=== PATIENT | female | born 1935 | race Caucasian/White ===

== ENCOUNTER 2016-11-04 09:54 | Emergency (ER) | payer OTHER ==
[~2016-11-04] VITALS: Ht 157.5 cm; Wt 62.5 kg
[~2016-11-04 09:54] MED LIST: ASPI-435 PO; ATV/1 PO; CALC600T9 PO; CITA20TA4 PO; FURO-85 PO; HYDR-5688 PO; ISOS120T5 PO; LISI-461 PO; LOVA40TA4 PO; METO25TA3 PO; NRV5 PO; NTRGSL/4 UT; OXYC20TA50 PO; PRLSR20 PO; TRN400 PO
[2016-11-04 10:05] VITALS: TEMP 37.1; O2SAT 96; Ht 157.5 cm; Wt 62.5 kg
--- NOTE | 2016-11-04 10:14 | EMERGENCY ROOM VISIT NOTE ---
History Report prepared by Alon: Diana Moe Under the Supervision of: Dr. Kwan Hernández D.O. First contact with patient: 10:02 Stated Complaint: ALTERED MENTAL STATUS History of Present Illness The patient is an 81 year old female who presents to the Emergency Room with complaints of a persistent altered mental status that began prior to arrival. Per nursing staff, the patient was found on the floor by a neighbor at her house. The patient's daughter was notified and EMS was called. Nursing staff notes that EMS found the patient lying on the floor with her hands on her sides. EMS reports that the patient did not talk to them on their way to the emergency department. The patient notes diffuse abdominal tenderness. She denies any neck pain, chest pain, or back pain. The history is limited secondary to altered mental status. Source of History: patient, EMS, nursing staff History Limited By: AMS Onset: prior to arrival Position: other (global) Quality: other (altered mental status) Timing: other (persistent) Associated Symptoms: + abdominal pain, No back pain, No chest pain, No neck pain Review of Systems The history is limited secondary to altered mental status. Past Medical & Surgical Medical Problems: (1) Anemia of chronic disease (2) Anxiety (3) CKD (chronic kidney disease), stage III (4) Dementia (5) Depression (6) Diabetes (7) GERD (gastroesophageal reflux disease) (8) History of left heart catheterization (9) HLD (hyperlipidemia) (10) HTN (hypertension) (11) Hypoglycemia (12) left renal artery stent placement (13) Myelodysplasia (myelodysplastic syndrome) (14) Neuropathy (15) Peripheral vascular disease Surgical Problems: (1) H/O colonoscopy (2) H/O esophagogastroduodenoscopy (3) H/O partial thyroidectomy (4) S/P CABG x 3 (5) S/P cataract surgery (6) Stented coronary artery Family History Diabetes mellitus FH: cancer Social History Smoking Status: Never Smoker Alcohol Use: occasionally Housing Status: lives with family Occupation Status: retired Current/Historical Medications Scheduled Amlodipine Besylate (Amlodipine Besylate), 10 MG PO DAILY Aspirin (Aspirin 81), 81 MG PO QAM Calcium Carbonate-Vitamin D (Calcium + D), 1 TAB PO DAILY Citalopram Hydrobromide (Citalopram Hydrobromide), 20 MG PO DAILY Epoetin John (Procrit), 40,000 UNITS SQ UD Insulin Aspart (Novolog Flexpen), SQ UD Insulin Glargine (Lantus Solostar), 20 UNITS SQ PM Irbesartan (Irbesartan), 75 MG PO DAILY Isosorbide Mononitrate Ext Rel (Imdur Ext Rel), 120 MG PO QAM Lisinopril (Lisinopril), 10 MG PO BID Lorazepam (Ativan), 1 MG PO TID Lovastatin (Mevacor), 40 MG PO HS Metoprolol Succ (Toprol Xl) (Toprol-Xl), 12.5 MG PO BID Nitroglycerin (Nitrostat), 0.4 MG UT PRN Omeprazole (Prilosec), 20 MG PO DAILY Oxycodone Hcl (Oxycontin), 20 MG PO BID Pentoxifylline (Pentoxifylline ER), 400 MG PO TID Polyethylene Glycol 3350 (Miralax), 17 GM PO DAILY Scheduled PRN Furosemide (Lasix), 20 MG PO DAILY PRN for SWELLING Hydrocodone/Acetaminophen 5MG/325MG (Watson 5MG/325MG), 1 TABLET PO Q4 PRN for Pain Allergies Coded Allergies: No Known Allergies (Unverified , 11/04/16) Physical Exam Vital Signs Date Time Temp Pulse Resp B/P Pulse Ox O2 Delivery O2 Flow Rate FiO2 11/04/16 13:50 65 18 195/87 98 Room Air 11/04/16 12:39 67 18 183/76 97 Room Air 11/04/16 11:12 65 12 180/75 98 Room Air 11/04/16 10:25 82 11/04/16 10:05 95 Room Air 11/04/16 10:05 37.1 81 18 193/71 95 Room Air 11/04/16 10:05 96 Room Air Physical Exam GENERAL: Listless, slow to answer questions. Only follows commands intermittently. EYES: The conjunctivae are clear. The pupils are round and reactive. EARS, NOSE, MOUTH AND THROAT: The nose is without any evidence of any deformity. Mucous membranes are moist tongue is midline NECK: The neck is nontender and supple. RESPIRATORY: Normal respiratory effort is noted there is no evidence of wheezing rhonchi or rales CARDIOVASCULAR: Regular rate and rhythm noted there no murmurs rubs or gallops normal S1 normal S2 GASTROINTESTINAL: The abdomen is mildly distended, but soft. Diffuse tenderness to palpation. No specific guarding or rigidity noted. MUSCULOSKELETAL/EXTREMITIES: There is no evidence of gross deformity full range of motion is noted in the hips and shoulders SKIN: Trace pedal edema bilaterally. There is no obvious evidence of any rash. There are no petechiae, pallor or cyanosis noted. NEUROLOGIC: Patient is oriented to person, but not place, time, or situation. Strength was symmetric. No drift noted, no facial droop noted. Medical Decision & Procedures ER Provider Diagnostic Interpretation: Radiology results as stated below per my review and radiologist interpretation: HEAD CT NONCONTRAST CT DOSE: 971.34 mGy.cm HISTORY: Headache EVALUATE ALTERED MENTAL STATUS/WEAKNESS TECHNIQUE: Multiaxial CT images of the head were performed without the use of intravenous contrast. Comparison: None. Findings: The paranasal sinuses and mastoid air cells are clear. Atrophy. Moderate chronic small vessel change. Old right frontal infarct.] System is midline. Minimal benign calcification left mid cerebellum. Impression: Chronic and age-related change. No acute process. Electronically signed by: Jame Rocha M.D. 11/04/2016 11:45 AM Dictated Date/Time: 11/04/2016 11:44 AM CHEST ONE VIEW PORTABLE CLINICAL HISTORY: EVALUATE ALTERED MENTAL STATUS/WEAKNESS COMPARISON STUDY: No previous studies for comparison. FINDINGS: The bones soft tissues and hemidiaphragms are normal. The cardiomediastinal silhouette is normal. The lungs are clear. The pulmonary vasculature is normal. Prior median sternotomy IMPRESSION: Negative chest. Electronically signed by: Jame Rocha M.D. 11/04/2016 10:35 AM Dictated Date/Time: 11/04/2016 10:[address] SCAN OF THE ABDOMEN AND PELVIS WITHOUT IV CONTRAST CLINICAL HISTORY: Generalized abdominal pain. COMPARISON STUDY: No priors. TECHNIQUE: CT scan of the abdomen and pelvis is performed from the lung bases to the proximal femora. Images are reviewed in the axial, sagittal, and coronal planes. IV contrast was not administered for this examination as per the referring clinician. Note that the examination was performed in significantly suboptimal fashion without oral and IV contrast. The examination is also degraded by streak artifact from the patient's arms which could not be elevated above the abdomen. Automated dose control exposure was utilized. FINDINGS: Lung bases: The patient is status post midline sternotomy. The heart is normal in size and without pericardial effusion. The coronary arteries are densely calcified. There is bibasilar scarring versus atelectasis. The lung bases are otherwise clear. A small hiatal hernia is observed. Liver: Evaluation of the liver is degraded by streak artifact. The unenhanced liver is normal in size, contour, and attenuation. There is no intrahepatic biliary ductal dilatation. Gallbladder: The gallbladder is mildly distended but otherwise normal in appearance. Spleen: Normal in size and attenuation. Pancreas: The unenhanced pancreas is atrophic and grossly unremarkable. Adrenal glands: Unremarkable. Kidneys: The unenhanced kidneys are atrophic and without hydronephrosis. An extrarenal pelvis is noted on the right. There are numerous renovascular calcifications. No renal calculi are seen. A 1.7 cm exophytic lesion arises from the lower pole the right kidney on axial image #214. Abdominal vasculature: The abdominal aorta is normal in course and caliber noting moderate to advanced atherosclerotic calcification. Bowel: There is rectosigmoid fecal impaction with mild perirectal inflammatory stranding. Moderate constipation is seen throughout the remainder of the colon. There is no bowel obstruction. The appendix is not visualized. A small duodenal diverticulum is noted. Peritoneum: There is no intraperitoneal free air or abdominal ascites. There is a small fat-containing umbilical hernia. Large foci of induration within the ventral pelvic abdominal wall are likely related to subcutaneous injections. Lymphadenopathy: None. Pelvic viscera: The bladder is normal as visualized. There are small calcified uterine fibroids. No adnexal lesion is seen. Phleboliths are noted in the pelvis. Skeletal structures: The skeletal structures are heterogeneously osteopenic. There is moderate to advanced lumbosacral spondylosis. No lytic or blastic lesions are seen. IMPRESSION: 1. Significantly suboptimal examination without oral and IV contrast. 2. There is rectosigmoid fecal impaction with mild perirectal inflammatory stranding. Correlate clinically for evidence of stercoral proctitis. 3. Moderate constipation is noted throughout the remainder of the colon. No bowel obstruction is seen. 4. There is an indeterminant 1.7 cm exophytic lesion suggested arising from the lower pole of the right kidney. This is not well assessed without IV contrast and a solid mass lesion is not excluded. Nonemergent follow-up with a contrast-enhanced renal CTR or MRI is recommended. 5. The gallbladder is distended but otherwise normal in appearance. Correlation with clinical findings and serum bilirubin levels will be required. 6. Hiatal hernia. 7. Fibroid uterus. 8. Additional changes as above. Electronically signed by: Last Fine M.D. 11/04/2016 12:08 PM Dictated Date/Time: 11/04/2016 11:41 AM Laboratory Results 11/04/16 10:34 Red Blood Count 3.24, Mean Corpuscular Volume 107.7, Mean Corpuscular Hemoglobin 36.4, Mean Corpuscular Hemoglobin Concent 33.8, Mean Platelet Volume 12.0, Neutrophils (%) (Auto) 69.9, Lymphocytes (%) (Auto) 21.1, Monocytes (%) ( Auto) 6.6, Eosinophils (%) (Auto) 1.1, Basophils (%) (Auto) 0.8, Neutrophils # ( Auto) 2.66, Lymphocytes # (Auto) 0.80, Monocytes # (Auto) 0.25, Eosinophils # ( Auto) 0.04, Basophils # (Auto) 0.03 11/04/16 10:34 Test 11/04/16 00:00 11/04/16 10:34 11/04/16 13:48 Urine Color YELLOW Urine Appearance CLEAR (CLEAR) Urine pH 5.5 (4.5-7.5) Urine Specific [place]im 1.005 (1.000-1.030) Urine Protein TRACE (NEG) Urine Glucose (UA) TRACE (NEG) Urine Ketones NEG (NEG) Urine Occult Blood NEG (NEG) Urine Nitrite NEG (NEG) Urine Bilirubin NEG (NEG) Urine Urobilinogen NEG (NEG) Urine Leukocyte Esterase NEG (NEG) Urine WBC (Auto) 0 /hpf (0-5) Urine RBC (Auto) 0-4 /hpf (0-4) Urine Hyaline Casts (Auto) 1-5 /lpf (0-5) Urine Epithelial Cells (Auto) 0-5 /lpf (0-5) Urine Bacteria (Auto) NEG (NEG) Urine Opiates Screen POS (NEG) Urine Methadone, Qualitative NEG (NEG) Urine Barbiturates NEG (NEG) Urine Phencyclidine (PCP) Level NEG (NEG) Ur Amphetamine/Methamphetamine NEG (NEG) MDMA (Ecstasy) Screen NEG (NEG) Urine Benzodiazepines Screen NEG (NEG) Urine Cocaine Metabolite NEG (NEG) Urine Marijuana (THC) NEG (NEG) White Blood Count 3.80 K/uL (4.8-10.8) Red Blood Count 3.24 M/uL (4.2-5.4) Hemoglobin 11.8 g/dL (12.0-16.0) Hematocrit 34.9 % (37-47) Mean Corpuscular Volume 107.7 fL (80-100) Mean Corpuscular Hemoglobin 36.4 pg (25-34) Mean Corpuscular Hemoglobin Concent 33.8 g/dl (32-36) Platelet Count 272 K/uL (130-400) Mean Platelet Volume 12.0 fL (7.4-10.4) Neutrophils (%) (Auto) 69.9 % Lymphocytes (%) (Auto) 21.1 % Monocytes (%) (Auto) 6.6 % Eosinophils (%) (Auto) 1.1 % Basophils (%) (Auto) 0.8 % Neutrophils # (Auto) 2.66 K/uL (1.4-6.5) Lymphocytes # (Auto) 0.80 K/uL (1.2-3.4) Monocytes # (Auto) 0.25 K/uL (0.11-0.59) Eosinophils # (Auto) 0.04 K/uL (0-0.5) Basophils # (Auto) 0.03 K/uL (0-0.2) RDW Standard Deviation 64.8 fL (36.4-46.3) RDW Coefficient of Variation 16.5 % (11.5-14.5) Immature Granulocyte % (Auto) 0.5 % Immature Granulocyte # (Auto) 0.02 K/uL (0.00-0.02) Prothrombin Time 11.1 SECONDS (9.0-12.0) Prothromb Time International Ratio 1.0 (0.9-1.1) Activated Partial Thromboplast Time 23.5 SECONDS (21.0-31.0) Partial Thromboplastin Ratio 0.9 Venous Blood pH 7.42 (7.36-7.41) Venous Blood Partial Pressure CO2 40 mmHg (38.0-50.0) Venous Blood Partial Pressure O2 45 mmHg Venous Blood HCO3 25 mmol/L Venous Blood Oxygen Saturation 78.0 % Venous Blood Base Excess 0.7 mmol/L Carboxyhemoglobin 0.0 % THgb Anion Gap 12.0 mmol/L (3-11) Est Creatinine Clear Calc Drug Dose 29.0 ml/min Estimated GFR () 44.2 Estimated GFR (Non- 38.2 BUN/Creatinine Ratio 21.3 (10-20) Calcium Level 9.2 mg/dl (8.5-10.1) Phosphorus Level 2.1 mg/dl (2.5-4.9) Magnesium Level 2.3 mg/dl (1.8-2.4) Total Bilirubin 0.6 mg/dl (0.2-1) Direct Bilirubin 0.2 mg/dl (0-0.2) Aspartate Amino Transf (AST/SGOT) 13 U/L (15-37) Alanine Aminotransferase (ALT/SGPT) 17 U/L (12-78) Alkaline Phosphatase 60 U/L (45-117) Total Creatine Kinase 77 U/L (26-192) Creatine Kinase MB 2.1 ng/ml (0.5-3.6) Creatine Kinase MB Ratio 2.7 (0-3.0) Troponin I < 0.015 ng/ml (0-0.045) Total Protein 7.0 gm/dl (6.4-8.2) Albumin 4.0 gm/dl (3.4-5.0) Lipase 127 U/L (73-393) Thyroid Stimulating Hormone (TSH) 2.020 uIu/ml (0.300-4.500) Free Thyroxine 0.86 ng/dl (0.80-1.60) Bedside Glucose 212 mg/dl (70-90) Laboratory results per my review. ECG Indication: altered mental status Rate (beats per minute): 65 Rhythm: normal sinus Findings: RBBB, no ectopy, other (No acute ST segment abnormalities) Comparison ECG Date: 10/29/15 Change: no significant change ED Course 1004: The patient was evaluated in room A2. A complete history and physical examination were performed. 1034: The patients daughter has arrived and notes that the patient has a history of dementia and states that her father 9 years ago. 1121: Ordered Sodium Chloride 1000 ml @ 999 mls/hr IV. 1304: I reevaluated the patient and she is doing well. I discussed all the exam findings with the patients daughter and I discussed the treatment plan. She verbalized complete understanding and agreement. She is ready to take the patient home. Medical Decision Differential diagnosis: Etiologies such as metabolic, infection, hypoglycemia, electrolyte abnormalities , cardiac sources, intracerebral event, toxicologic, neurologic, as well as others were entertained. Nursing notes reviewed. Additional history is obtained from the patient's daughter. The patient's previous electronic medical records reviewed. The patient is an 81-year-old female who presented to the emergency department for altered mental status. The patient was noted to have a ground-level fall but appeared to be confused. The patient has had similar episodes in the past. She was found have hypoglycemia. She was treated with oral glucose as well as a meal. Her symptoms resolved. I discussed patient's laboratory radiographic studies with her. I also discussed her condition with her daughter. She was found have significant constipation. She was encouraged to continue all medications as prescribed. I also discussed the incidental finding on the CAT scan the abdomen and pelvis. I do not feel her abdominal pain at this time was real that was noted on physical exam it was likely reactive to her hypoglycemia because when the patient was reevaluated she did not have any abdominal tenderness and her physical exam was not consistent with an acute surgical abdomen. She was encouraged to continue all medications as prescribed. She was also encouraged to follow-up with her primary care physician as soon as possible. Otherwise she was encouraged to return to the emergency apartment immediately if symptoms change worsen or if the need arises. Impression Primary Impression: Altered mental status Additional Impressions: Hypoglycemia Dehydration Constipation Cyst of right kidney Scribe Attestation The scribe's documentation has been prepared under my direction and personally reviewed by me in its entirety. I confirm that the note above accurately reflects all work, treatment, procedures, and medical decision making performed by me. Departure Information Dispostion Home / Self-Care Prescriptions Polyethylene Glycol 3350 (MIRALAX) 1 Pow Pow 17 GM PO DAILY, #527 GM Prov: Kwan Hernández, 11/04/16 Referrals Daniela Mcbride M.D. (PCP) Forms HOME CARE DOCUMENTATION FORM, IMPORTANT VISIT INFORMATION Patient Instructions Constipation, Dehydration, Hypoglycemia, My [facility] Additional Instructions Call your family to schedule a follow-up appointment. Continue all medications as prescribed. Drink plenty of clear liquids. Return to the emergency department immediately if symptoms change worsen or if the need arises. Be sure to discuss the abnormal findings noted on CAT scan today in the emergency Department of your abdomen specifically of your kidney. You may require further testing to evaluate this finding in the future. Problem Qualifiers
[2016-11-04] MEDS ORDERED: INSDGIPEN SQ (10:24)
[2016-11-04] MEDS ORDERED: EPGI40M SQ (10:24)
[2016-11-04] MEDS ORDERED: NVLGI/PEN SQ (10:24)
[2016-11-04] MEDS ORDERED: IRBE1TAB46 PO (10:24)
--- NOTE | 2016-11-04 10:36 | DIAGNOSTIC IMAGING REPORT ---
CHEST ONE VIEW PORTABLE CLINICAL HISTORY: EVALUATE ALTERED MENTAL STATUS/WEAKNESS COMPARISON STUDY: No previous studies for comparison. FINDINGS: The bones soft tissues and hemidiaphragms are normal. The cardiomediastinal silhouette is normal. The lungs are clear. The pulmonary vasculature is normal. Prior median sternotomy IMPRESSION: Negative chest. Electronically signed by: Jame Rocha M.D. 11/04/2016 10:35 AM Dictated Date/Time: 11/04/2016 10:34 AM
[2016-11-04 10:46] LABS: BASO % 0.8 %; BASO ABS # 0.03 K/uL (0-0.2); COMPLETE YES; EOS % 1.1 %; HEMATOCRIT 34.9 % (37-47); IG% 0.5 %; LYMPH % 21.1 %; MEAN CELL VOLUME 107.7 fL (80-100); MEAN CORPUSCULAR HEMOGLOBIN 36.4 pg (25-34); MEAN CORPUSCULAR HGB CONC 33.8 g/dl (32-36); MONO % 6.6 %; NEUT % 69.9 %; PLATELET COUNT 272 K/uL (130-400); RED BLOOD COUNT 3.24 M/uL (4.2-5.4)
[2016-11-04 10:51] LABS: VEN BLOOD GAS BASE EXCESS 0.7 mmol/L
[2016-11-04 10:57] LABS: PARTIAL THROMBOPLASTIN RATIO 0.9; PROTHROMBIN TIME (PATIENT) 11.1 SECONDS (9.0-12.0)
[2016-11-04 11:12] LABS: ALT/SGPT 17 U/L (12-78); AST/SGOT 13 U/L (15-37); BLOOD UREA NITROGEN 28 mg/dl (7-18); BUN/CREATININE RATIO 21.3 (10-20); CALCIUM 9.2 mg/dl (8.5-10.1); CARBON DIOXIDE 24 mmol/L (21-32); CHLORIDE 111 mmol/L (98-107); GLUCOSE 34 mg/dl (70-99); MAGNESIUM 2.3 mg/dl (1.8-2.4); PHOSPHORUS 2.1 mg/dl (2.5-4.9); SODIUM 147 mmol/L (136-145)
[2016-11-04 11:19] LABS: ALKALINE PHOSPHATASE 60 U/L (45-117); CKMB/CK RATIO 2.7 (0-3.0)
[2016-11-04] MEDS ORDERED: SODIUM CHLORIDE 0.9% 1000ML 1,000 ML IV STA (11:21)
[2016-11-04 11:44] LABS: URINE APPEARANCE CLEAR (CLEAR); URINE BILIRUBIN NEG (NEG); URINE COLOR YELLOW; URINE EPITHELIAL CELL AUTO 0-5 /lpf (0-5); URINE NITRITE NEG (NEG); URINE PH 5.5 (4.5-7.5); URINE SPECIFIC GRAVITY 1.005 (1.000-1.030); UROBILINOGEN NEG (NEG)
[2016-11-04 11:45] LABS: MANUAL MICROSCOPIC REQUIRED? NO; REVIEW REQ? NO
--- NOTE | 2016-11-04 11:46 | DIAGNOSTIC IMAGING REPORT ---
HEAD CT NONCONTRAST CT DOSE: 971.34 mGy.cm HISTORY: Headache EVALUATE ALTERED MENTAL STATUS/WEAKNESS TECHNIQUE: Multiaxial CT images of the head were performed without the use of intravenous contrast. Comparison: None. Findings: The paranasal sinuses and mastoid air cells are clear. Atrophy. Moderate chronic small vessel change. Old right frontal infarct.] System is midline. Minimal benign calcification left mid cerebellum. Impression: Chronic and age-related change. No acute process. Electronically signed by: Jame Rocha M.D. 11/04/2016 11:45 AM Dictated Date/Time: 11/04/2016 11:44 AM
[2016-11-04 12:00] LABS: BENZODIAZEPINE, URINE NEG (NEG); COCAINE,URINE NEG (NEG); PHENCYCLIDINE, URINE NEG (NEG)
--- NOTE | 2016-11-04 12:09 | DIAGNOSTIC IMAGING REPORT ---
CT SCAN OF THE ABDOMEN AND PELVIS WITHOUT IV CONTRAST CLINICAL HISTORY: Generalized abdominal pain. COMPARISON STUDY: No priors. TECHNIQUE: CT scan of the abdomen and pelvis is performed from the lung bases to the proximal femora. Images are reviewed in the axial, sagittal, and coronal planes. IV contrast was not administered for this examination as per the referring clinician. Note that the examination was performed in significantly suboptimal fashion without oral and IV contrast. The examination is also degraded by streak artifact from the patient's arms which could not be elevated above the abdomen. Automated dose control exposure was utilized. FINDINGS: Lung bases: The patient is status post midline sternotomy. The heart is normal in size and without pericardial effusion. The coronary arteries are densely calcified. There is bibasilar scarring versus atelectasis. The lung bases are otherwise clear. A small hiatal hernia is observed. Liver: Evaluation of the liver is degraded by streak artifact. The unenhanced liver is normal in size, contour, and attenuation. There is no intrahepatic biliary ductal dilatation. Gallbladder: The gallbladder is mildly distended but otherwise normal in appearance. Spleen: Normal in size and attenuation. Pancreas: The unenhanced pancreas is atrophic and grossly unremarkable. Adrenal glands: Unremarkable. Kidneys: The unenhanced kidneys are atrophic and without hydronephrosis. An extrarenal pelvis is noted on the right. There are numerous renovascular calcifications. No renal calculi are seen. A 1.7 cm exophytic lesion arises from the lower pole the right kidney on axial image #214. Abdominal vasculature: The abdominal aorta is normal in course and caliber noting moderate to advanced atherosclerotic calcification. Bowel: There is rectosigmoid fecal impaction with mild perirectal inflammatory stranding. Moderate constipation is seen throughout the remainder of the colon. There is no bowel obstruction. The appendix is not visualized. A small duodenal diverticulum is noted. Peritoneum: There is no intraperitoneal free air or abdominal ascites. There is a small fat-containing umbilical hernia. Large foci of induration within the ventral pelvic abdominal wall are likely related to subcutaneous injections. Lymphadenopathy: None. Pelvic viscera: The bladder is normal as visualized. There are small calcified uterine fibroids. No adnexal lesion is seen. Phleboliths are noted in the pelvis. Skeletal structures: The skeletal structures are heterogeneously osteopenic. There is moderate to advanced lumbosacral spondylosis. No lytic or blastic lesions are seen. IMPRESSION: 1. Significantly suboptimal examination without oral and IV contrast. 2. There is rectosigmoid fecal impaction with mild perirectal inflammatory stranding. Correlate clinically for evidence of stercoral proctitis. 3. Moderate constipation is noted throughout the remainder of the colon. No bowel obstruction is seen. 4. There is an indeterminant 1.7 cm exophytic lesion suggested arising from the lower pole of the right kidney. This is not well assessed without IV contrast and a solid mass lesion is not excluded. Nonemergent follow-up with a contrast-enhanced renal CTR or MRI is recommended. 5. The gallbladder is distended but otherwise normal in appearance. Correlation with clinical findings and serum bilirubin levels will be required. 6. Hiatal hernia. 7. Fibroid uterus. 8. Additional changes as above. Electronically signed by: Last Fine M.D. 11/04/2016 12:08 PM Dictated Date/Time: 11/04/2016 11:41 AM
[2016-11-04] MEDS ORDERED: POLY335019 PO (13:08)
[2016-11-04 13:50] VITALS: BP 195/87; PULSE 65; O2SAT 98
[2016-11-06 15:08] LABS: COD UR NEGATIVE NG/ML (CUTOFF=50); HYDROCOD UR 69 NG/ML (CUTOFF=50); HYDROMOR UR NEGATIVE NG/ML (CUTOFF=50); MORPHINE UR NEGATIVE NG/ML (CUTOFF=50); NORHYDROCODONE CONF UR 183 NG/ML (CUTOFF=50); OXYMORPH UR 250 NG/ML (CUTOFF=50)
== END 2016-11-04 13:57 | disposition home or self-care (01) ==
LOC: EDBD 09:54 → C.EDA 10:01
DX: R41.82 Altered mental status, unspecified (principal); E16.2 Hypoglycemia, unspecified; E86.0 Dehydration; K59.00 Constipation, unspecified; N28.1 Cyst of kidney, acquired; I45.10 Unspecified right bundle-branch block; I12.9 Hypertensive chronic kidney disease with stage 1 through stage 4 chronic kidney disease, or unspecified chronic kidney disease; N18.3 Chronic kidney disease, stage 3 (moderate); E11.9 Type 2 diabetes mellitus without complications; E78.5 Hyperlipidemia, unspecified; K21.9 Gastro-esophageal reflux disease without esophagitis; F32.9 Major depressive disorder, single episode, unspecified; F41.9 Anxiety disorder, unspecified; I73.9 Peripheral vascular disease, unspecified; F03.90 Unspecified dementia, unspecified severity, without behavioral disturbance, psychotic disturbance, mood disturbance, and anxiety; Z95.1 Presence of aortocoronary bypass graft; Z98.61 Coronary angioplasty status; Z98.49 Cataract extraction status, unspecified eye; Z98.890 Other specified postprocedural states; Z79.4 Long term (current) use of insulin; Z79.82 Long term (current) use of aspirin; Z79.899 Other long term (current) drug therapy; Z83.3 Family history of diabetes mellitus; Z80.9 Family history of malignant neoplasm, unspecified

== ENCOUNTER → 2017-06-15 | Outpatient (CLI) | payer OTHER ==
[~2017-06-15] MED LIST changes: +ACET325T96 PO; +AMLO-114 PO; +BISA10SU38 PR; +BUME0.5T3 PO; +CARV12.52 PO; +CEPH500C2 PO; +CLON0.2T PO; +CRG125 PO; +DEXT40GE PO; +DOCU100C31 PO; +EPGI40M SQ; +FAMO20TA11 PO; +GLGKIT IM; +INSDGIPEN SQ; +INSU100I SQ; +INSU100I2 SQ; +IRBE1TAB46 PO; +ISOS60TA25 PO; +MOML PO; +NVLGI/PEN SQ; +OLAN-111 PO; +OXYC-57 PO; +SENN-61 PO; +SODIENE PR; +SRQ25 PO
[2017-06-15 12:56] LABS: ESTIMATED AVERAGE GLUCOSE 186 mg/dl; HA1C FLAG Normal (Normal)
[2017-06-15 13:12] LABS: ALKALINE PHOSPHATASE 64 U/L (45-117); ALT/SGPT 19 U/L (12-78); AST/SGOT 17 U/L (15-37); BLOOD UREA NITROGEN 26 mg/dl (7-18); BUN/CREATININE RATIO 21.5 (10-20); CALCIUM 8.5 mg/dl (8.5-10.1); CARBON DIOXIDE 23 mmol/L (21-32); CHLORIDE 119 mmol/L (98-107); GLUCOSE 43 mg/dl (70-99); POTASSIUM 3.4 mmol/L (3.5-5.1); SODIUM 150 mmol/L (136-145)
== END | disposition home or self-care (01) ==
LOC: C.LABUPHEI 16:28
PROVIDERS: ATTEND Nurse Practitioner Family
DX: E13.9 Other specified diabetes mellitus without complications (principal)

== ENCOUNTER 2017-06-23 10:37 | Inpatient (IN) | payer OTHER ==
[2017-06-23] VITALS (7 sets, daily range): BP systolic 169–186; BP diastolic 60–70; PULSE 65–70; TEMP 36.8–38.1; O2SAT 98–100; BMI 27.2
[~2017-06-23] VITALS: Ht 162.6 cm; Wt 71.9 kg
[~2017-06-23 10:37] MED LIST changes: -ACET325T96 PO; -AMLO-114 PO; -BISA10SU38 PR; -BUME0.5T3 PO; -CARV12.52 PO; -CEPH500C2 PO; -CLON0.2T PO; -CRG125 PO; -DEXT40GE PO; -DOCU100C31 PO; -FAMO20TA11 PO; -GLGKIT IM; -INSU100I SQ; -INSU100I2 SQ; -ISOS60TA25 PO; -MOML PO; -OLAN-111 PO; -OXYC-57 PO; +PIPERACILL/TAZOBAC IV 3.375 GM in DEXTROSE 5% 100ML 100 ML IV SCH; -SENN-61 PO; -SODIENE PR; -SRQ25 PO
[2017-06-23] MEDS ORDERED: BUME0.5T3 PO (11:50)
[2017-06-23] MEDS ORDERED: AMLO-114 PO (11:50)
[2017-06-23] MEDS ORDERED: INSU100I2 SQ (11:53)
[2017-06-23] MEDS ORDERED: ISOS60TA25 PO (11:55)
[2017-06-23] MEDS ORDERED: FAMO20TA11 PO (11:57)
[2017-06-23] MEDS ORDERED: CARV12.52 PO (11:59)
[2017-06-23] MEDS ORDERED: OLAN-111 PO (11:59)
[2017-06-23] MEDS ORDERED: CEPH500C2 PO (12:01)
[2017-06-23] MEDS ORDERED: CLON0.2T PO (12:01)
[2017-06-23] MEDS ORDERED: DOCU100C31 PO (12:01)
[2017-06-23] MEDS ORDERED: INSU100I SQ ×2 (12:05)
[2017-06-23] MEDS ORDERED: SENN-61 PO (12:05)
[2017-06-23] MEDS ORDERED: BISA10SU38 PR (12:08)
[2017-06-23] MEDS ORDERED: ACET325T96 PO (12:08)
[2017-06-23] MEDS ORDERED: GLGKIT IM (12:09)
[2017-06-23] MEDS ORDERED: SODIENE PR (12:09)
[2017-06-23] MEDS ORDERED: MOML PO (12:10)
[2017-06-23] MEDS ORDERED: DEXT40GE PO (12:10)
[2017-06-23] MEDS ORDERED: CEFTRIAXONE SOD INJ 1 GM ADDVIAL IV STA (12:23)
--- NOTE | 2017-06-23 13:15 | DIAGNOSTIC IMAGING REPORT ---
CHEST ONE VIEW PORTABLE CLINICAL HISTORY: 82 years-old Female presenting with EVALUATE ALTERED MENTAL STATUS/WEAKNESS. TECHNIQUE: Portable upright AP view of the chest was obtained. COMPARISON: 11/04/2016. FINDINGS: Median sternotomy wires intact. Atherosclerosis of the aortic arch. Chronic silhouette normal in size. Lungs and pleural spaces clear. Degenerative changes of the thoracic spine. Upper abdomen normal. IMPRESSION: 1. No acute cardiopulmonary disease. Electronically signed by: Jose Jimenez M.D. 06/23/2017 1:13 PM Dictated Date/Time: 06/23/2017 1:12 PM
--- NOTE | 2017-06-23 13:17 | DIAGNOSTIC IMAGING REPORT ---
R FOOT MIN 3 VIEWS ROUTINE CLINICAL HISTORY: 82 years-old Female presenting with RT FOOT INFECTION, weakness, necrotic toe. TECHNIQUE: Frontal, oblique, and lateral views of the right foot were obtained. COMPARISON: None. FINDINGS: Osteopenia, which limits evaluation for nondisplaced fracture and osseous erosion. Deformity of the neck of the fifth metatarsal suggests old fracture. No gross evidence of osseous erosion or periosteal reaction. No displaced fracture or malalignment. Atherosclerosis noted. Mild soft tissue swelling suggested along the plantar aspect of the foot. Prominent enthesophyte at the insertion of the Achilles tendon. IMPRESSION: No radiographic evidence of osteomyelitis. Further evaluation with noncontrast MR could be considered as clinically warranted. Osteopenia, which limits evaluation for nondisplaced fracture and osseous erosion. Electronically signed by: Jose Jimenez M.D. 06/23/2017 1:15 PM Dictated Date/Time: 06/23/2017 1:14 PM
[2017-06-23 13:29] LABS: BASO % 1.1 %; BASO ABS # 0.04 K/uL (0-0.2); EOS % 1.6 %; HEMATOCRIT 24.4 % (37-47); IG% 0.3 %; LYMPH % 28.3 %; LYMPH ABS # 1.07 K/uL (1.2-3.4); MEAN CELL VOLUME 109.9 fL (80-100); MEAN CORPUSCULAR HEMOGLOBIN 34.2 pg (25-34); MEAN CORPUSCULAR HGB CONC 31.1 g/dl (32-36); MEAN PLATELET VOLUME 12.4 fL (7.4-10.4); MONO % 9.5 %; NEUT % 59.2 %; PLATELET COUNT 266 K/uL (130-400); RED BLOOD COUNT 2.22 M/uL (4.2-5.4); WHITE BLOOD COUNT 3.78 K/uL (4.8-10.8)
[2017-06-23 13:46] LABS: PARTIAL THROMBOPLASTIN RATIO 1.1
[2017-06-23 13:50] LABS: BLOOD UREA NITROGEN 26 mg/dl (7-18); BUN/CREATININE RATIO 23.3 (10-20); CALCIUM 8.8 mg/dl (8.5-10.1); CARBON DIOXIDE 23 mmol/L (21-32); CHLORIDE 120 mmol/L (98-107); GLUCOSE 43 mg/dl (70-99); POTASSIUM 3.5 mmol/L (3.5-5.1); SODIUM 151 mmol/L (136-145)
[2017-06-23 14:03] LABS: ANISOCYTOSIS PRESENT; COMPLETE YES
--- NOTE | 2017-06-23 14:45 | EMERGENCY ROOM VISIT NOTE ---
History Report prepared by Kylahibchristina: Venkata Valentine Under the Supervision of: Dr. Arpan Cordova D.O. First contact with patient: 12:10 Chief Complaint: LEG PAIN,LEG INJURY Stated Complaint: NECROTIC TOE History of Present Illness The patient is a 82 year old female who presents to the Emergency Room with complaints of a worsening right middle toe darkening beginning last week. She is a resident at [facility]. She had an outpatient ultrasound yesterday which revealed stenosis greater than 50% of a right common femoral artery and occlusion of the posterior tibial and anterior tibial arteries. The patient is schedule to have the toe amputated next week. She has a history of a left big toe amputation. She also complains of abdominal pain. The patient denies any sore throat. Source of History: patient Onset: last week Position: toe(s) (right middle) Quality: other (darkening) Timing: worsening Associated Symptoms: + abdominal pain, No sorethroat Review of Systems See HPI for pertinent positives & negatives. A total of 10 systems reviewed and were otherwise negative. Past Medical & Surgical Medical Problems: (1) Anemia of chronic disease (2) Anxiety (3) CKD (chronic kidney disease), stage III (4) Dementia (5) Depression (6) Diabetes (7) GERD (gastroesophageal reflux disease) (8) History of left heart catheterization (9) HLD (hyperlipidemia) (10) HTN (hypertension) (11) Hypoglycemia (12) left renal artery stent placement (13) Myelodysplasia (myelodysplastic syndrome) (14) Neuropathy (15) Peripheral vascular disease Surgical Problems: (1) H/O colonoscopy (2) H/O esophagogastroduodenoscopy (3) H/O partial thyroidectomy (4) S/P CABG x 3 (5) S/P cataract surgery (6) Stented coronary artery Family History Diabetes mellitus FH: cancer Social History Smoking Status: Never Smoker Alcohol Use: occasionally Housing Status: lives with family Occupation Status: retired Current/Historical Medications Scheduled Amlodipine (Norvasc), 10 MG PO QAM Bumetanide (Bumetanide), 0.5 MG PO QAM Calcium Carbonate-Vitamin D (Calcium + D), 1 TAB PO DAILY Carvedilol (Coreg), 12.5 MG PO BID Cephalexin Monohydrate (Keflex), 500 MG PO BID Clonidine Hcl (Catapres), 0.4 MG PO BID Docusate Sodium (Docusate Sodium), 100 MG PO BID Famotidine (Pepcid), 20 MG PO QAM Insulin Glargine (Lantus Solostar), 23 UNITS SQ PM Insulin Lispro (Human) (Humalog), 8 UNITS SQ AC Insulin Lispro (Human) (Humalog), 1 DOSE SQ WM Isosorbide Mononitrate Ext Rel (Imdur Ext Rel), 120 MG PO QAM Magnesium Hydroxide (Milk Of Magnesia), 30 ML PO [id number] Nitroglycerin (Nitrostat), 0.4 MG UT PRN Olanzapine (Zyprexa), 5 MG PO HS Senna (Senokot), 1.2 MG PO BID Sodium Phosphate/Biphosphate (Fleet Enema), 1 EA NV DAILY Scheduled PRN Acetaminophen Tab (Tylenol), 650 MG PO Q6H PRN for Pain Bisacodyl (Dulcolax), 1 SUPP NV Q4DAY PRN for Constipation Dextrose (Diabetic Use) (Insta-Glucose), 1 APPLN PO UD PRN for HYPOGLYCEMIA PROTOCOL Glucagon (Glucagon Emergency Kit), 1 MG IM UD PRN for HYPOGLYCEMIA PROTOCOL Allergies Coded Allergies: Lisinopril (Unverified Allergy, Unknown, UNKNOWN REACTION,ALLERGY LIST OBTAINED FROM [facility], 06/23/17) Physical Exam Vital Signs Date Time Temp Pulse Resp B/P (MAP) Pulse Ox O2 Delivery O2 Flow Rate FiO2 06/23/17 14:54 78 18 174/78 100 Room Air 06/23/17 14:49 100 Room Air 06/23/17 12:54 61 06/23/17 12:47 54 18 152/69 98 Room Air 06/23/17 10:47 36.7 63 18 151/57 95 Room Air Physical Exam CONSTITUTIONAL/VITAL SIGNS: Reviewed / noted above. GENERAL: Non-toxic in appearance. INTEGUMENTARY: Warm, dry, and [place]. HEAD: Normocephalic. EYES: without scleral icterus or trauma. ENT/OROPHARYNX: clear and moist. LYMPHADENOPATHY/NECK: Is supple without lymphadenopathy or meningismus. RESPIRATORY: Lungs clear and equal. CARDIOVASCULAR: Regular rate and rhythm. GI/ABDOMEN: Soft and nontender. No organomegaly or pulsatile mass. No rebound or guarding. Normal bowel sounds. EXTREMITIES: Right foot reveals dorsal erythema. Black right second toe. Reddened third toe. Other extremities are warm and well perfused. BACK: No CVA tenderness. RECTAL: Guaiac negative stool. NEUROLOGICAL: Intact without focal deficits. PSYCHIATRIC: normal affect. MUSCULOSKELETAL: Normally developed with good muscle tone. Medical Decision & Procedures ER Provider Diagnostic Interpretation: X ray results and stated below per my interpretation and radiology interpretation. CHEST ONE VIEW PORTABLE FINDINGS: Median sternotomy wires intact. Atherosclerosis of the aortic arch. Chronic silhouette normal in size. Lungs and pleural spaces clear. Degenerative changes of the thoracic spine. Upper abdomen normal. IMPRESSION: 1. No acute cardiopulmonary disease. Electronically signed by: Jose Jimenez M.D. 06/23/2017 1:13 PM R FOOT MIN 3 VIEWS ROUTINE FINDINGS: Osteopenia, which limits evaluation for nondisplaced fracture and osseous erosion. Deformity of the neck of the fifth metatarsal suggests old fracture. No gross evidence of osseous erosion or periosteal reaction. No displaced fracture or malalignment. Atherosclerosis noted. Mild soft tissue swelling suggested along the plantar aspect of the foot. Prominent enthesophyte at the insertion of the Achilles tendon. IMPRESSION: No radiographic evidence of osteomyelitis. Further evaluation with noncontrast MR could be considered as clinically warranted. Osteopenia, which limits evaluation for nondisplaced fracture and osseous erosion. Electronically signed by: Jose Jimenez M.D. 06/23/2017 1:15 PM Laboratory Results 06/23/17 12:50 Red Blood Count 2.22, Mean Corpuscular Volume 109.9, Mean Corpuscular Hemoglobin 34.2, Mean Corpuscular Hemoglobin Concent 31.1, Mean Platelet Volume 12.4, Neutrophils (%) (Auto) 59.2, Lymphocytes (%) (Auto) 28.3, Monocytes (%) ( Auto) 9.5, Eosinophils (%) (Auto) 1.6, Basophils (%) (Auto) 1.1, Neutrophils # ( Auto) 2.24, Lymphocytes # (Auto) 1.07, Monocytes # (Auto) 0.36, Eosinophils # ( Auto) 0.06, Basophils # (Auto) 0.04 06/23/17 12:50 Test 06/23/17 12:50 White Blood Count 3.78 K/uL (4.8-10.8) Red Blood Count 2.22 M/uL (4.2-5.4) Hemoglobin 7.6 g/dL (12.0-16.0) Hematocrit 24.4 % (37-47) Mean Corpuscular Volume 109.9 fL (80-100) Mean Corpuscular Hemoglobin 34.2 pg (25-34) Mean Corpuscular Hemoglobin Concent 31.1 g/dl (32-36) Platelet Count 266 K/uL (130-400) Mean Platelet Volume 12.4 fL (7.4-10.4) Neutrophils (%) (Auto) 59.2 % Lymphocytes (%) (Auto) 28.3 % Monocytes (%) (Auto) 9.5 % Eosinophils (%) (Auto) 1.6 % Basophils (%) (Auto) 1.1 % Neutrophils # (Auto) 2.24 K/uL (1.4-6.5) Lymphocytes # (Auto) 1.07 K/uL (1.2-3.4) Monocytes # (Auto) 0.36 K/uL (0.11-0.59) Eosinophils # (Auto) 0.06 K/uL (0-0.5) Basophils # (Auto) 0.04 K/uL (0-0.2) RDW Standard Deviation 70.3 fL (36.4-46.3) RDW Coefficient of Variation 18.5 % (11.5-14.5) Immature Granulocyte % (Auto) 0.3 % Immature Granulocyte # (Auto) 0.01 K/uL (0.00-0.02) Anisocytosis PRESENT Macrocytosis PRESENT Prothrombin Time 11.0 SECONDS (9.0-12.0) Prothromb Time International Ratio 1.0 (0.9-1.1) Activated Partial Thromboplast Time 27.3 SECONDS (21.0-31.0) Partial Thromboplastin Ratio 1.1 Anion Gap 8.0 mmol/L (3-11) Estimated GFR () 53.8 Estimated GFR (Non- 46.4 BUN/Creatinine Ratio 23.3 (10-20) Calcium Level 8.8 mg/dl (8.5-10.1) Total Creatine Kinase 38 U/L (26-192) Laboratory results as stated above per my review. Medications Administered Medications (Trade) Dose Ordered Sig/Red Route Start Time Stop Time Status Last Admin Dose Admin Ceftriaxone Sodium (Rocephin Inj) 1 gm NOW STAT IV 06/23/17 12:23 06/23/17 12:30 DC 06/23/17 13:22 1 GM ECG Indication: abdominal pain Rate (beats per minute): 63 Rhythm: sinus rhythm Findings: no acute ischemic change, no ectopy ED Course 1212: Previous medical records were reviewed. The patient was evaluated in room B9. A complete history and physical examination was performed. 1223: Ordered Rocephin Inj 1 gm IV. 1418: On reevaluation, the patient is resting comfortably. I discussed the results and findings with her. She verbalized agreement of the treatment plan. I spoke with Dr. Jarrett of the [facility]. The patient will be evaluated for further management and care. Medical Decision Differential diagnosis: Etiologies such as cellulitis, abscess, MRSA infection, DVT, necrotizing fasciitis, dermatitis, drug eruption, as well as others were entertained. This is a 82-year-old female who is sent from [facility] for evaluation of redness of the right foot and vascular compromise. The patient had an outpatient arterial study that revealed findings concerning for greater than 50% right, femoral artery occlusion and occlusion of the right posterior tibial and anterior tibial arteries. Eyes any specific complaints. She is due to see Dr. Faria, vascular surgeon with [facility] in 2 days. She has blackened right second toe and also redness to the right third toe and dorsal swelling of the foot where there appears to have been a blister that is now not present. The patient's vital signs are stable. She is afebrile. Physical exam was otherwise unremarkable. Hemoglobin is 7.6 and she is guaiac negative and has history of anemia of chronic disease. Sodium and chloride are slightly elevated. Glucose was 53. She is insulin-dependent diabetic. She was fed. She did not have any alteration of her mental status with this. EKG showed a sinus rhythm. X-ray of the foot did not show osteomyelitis a chest x-ray is negative for acute disease. The patient was given IV Rocephin. She was typed and crossed for transfusion. She did sign consent. She will be seen by the [facility] service for further inpatient evaluation and care. Medication Reconcilliation Current Medication List: was personally reviewed by me Blood Pressure Screening Patient's blood pressure: Elevated blood pressure Blood pressure disposition: Elevated BP felt to be situational Consults Time Called: 1401 Consulting Physician: Dr. Kolby Nettles Returned Call: [phone] Discussed the patient's case. The patient will be evaluated for further treatment and disposition. Impression Primary Impression: Cellulitis of right foot Additional Impressions: Arterial insufficiency Anemia Hypoglycemia Scribe Attestation The scribe's documentation has been prepared under my direction and personally reviewed by me in its entirety. I confirm that the note above accurately reflects all work, treatment, procedures, and medical decision making performed by me. Departure Information Dispostion Being Evaluated By Hospitalist Referrals Loreto Holt (PCP) Patient Instructions My [facility] Problem Qualifiers
--- NOTE | 2017-06-23 15:20 | History and Physical ---
History & Physical Date & Time of Service: Jun 23, 2017 at 15:20 . Chief Complaint: referred for evaluation of necrotic toe right foot . Primary Care Physician: Loreto Holt . History of Present Illness Source: family, clinic records, hospital records 82-year-old female followed by Dr. Mcbride until recently. History of dementia, diabetes, and other problems noted below. Admitted to [facility] in April. She suffered a fall with head injury and was found to have a subdural hematoma. Transferred to [facility] in [place] he was seen in consultation by Neurosurgery. Nonoperative measures recommended. Returned to [facility] on 06/02/17. Transferred to [facility] for skilled care on 06/09/17. Referred to the ED today for evaluation of changes of her right toes and foot. She had been noted to have a necrotic left second toe, onset uncertain. The patient is unable to provide any history for severe dementia. She denies fever, pain, or other problems. . Past Medical/Surgical History Chronic and Resolved Medical Problems: (1) Anemia of chronic disease Status: Chronic (2) Anxiety Status: Chronic (3) CKD (chronic kidney disease), stage III Status: Chronic (4) Coronary artery disease Status: Chronic (5) Dementia Status: Chronic (6) Depression Status: Chronic (7) Diabetes Status: Chronic (8) Diabetes mellitus, type 2 Status: Chronic (9) Diabetic neuropathy Status: Chronic (10) GERD (gastroesophageal reflux disease) Status: Chronic (11) History of left heart catheterization Permanent Comment: 2009, no changes from previous Status: Chronic (12) History of subdural hematoma Permanent Comment: 05/12/17 after fall with head injury, managed nonoperatively Status: Chronic (13) HLD (hyperlipidemia) Status: Chronic (14) HTN (hypertension) Status: Chronic (15) left renal artery stent placement Status: Chronic (16) Myelodysplasia (myelodysplastic syndrome) Status: Chronic (17) Neuropathy Status: Chronic (18) Peripheral vascular disease Status: Chronic Surgical Problems: (1) H/O colonoscopy Status: Chronic (2) H/O esophagogastroduodenoscopy Status: Chronic (3) H/O partial thyroidectomy Permanent Comment: 1953 Status: Chronic (4) S/P CABG x 3 Permanent Comment: 07/22/01 Status: Chronic (5) S/P cataract surgery Permanent Comment: 2007 Status: Chronic (6) Stented coronary artery Permanent Comment: 2000 Status: Chronic . Family History FATHER Lung cancer MOTHER Alzheimer's disease Social History Smoking Status: Never Smoker Alcohol Use: none Marital Status: Housing status: senior care Occupational Status: retired Multi-Drug Resistant Organisms History of MDRO: No Allergies Coded Allergies: Lisinopril (Unverified Allergy, Unknown, UNKNOWN REACTION,ALLERGY LIST OBTAINED FROM [facility], 06/23/17) Home Medications Scheduled Amlodipine (Norvasc), 10 MG PO QAM Bumetanide (Bumetanide), 0.5 MG PO QAM Calcium Carbonate-Vitamin D (Calcium + D), 1 TAB PO DAILY Carvedilol (Coreg), 12.5 MG PO BID Cephalexin Monohydrate (Keflex), 500 MG PO BID Clonidine Hcl (Catapres), 0.4 MG PO BID Docusate Sodium (Docusate Sodium), 100 MG PO BID Famotidine (Pepcid), 20 MG PO QAM Insulin Glargine (Lantus Solostar), 23 UNITS SQ PM Insulin Lispro (Human) (Humalog), 8 UNITS SQ AC Insulin Lispro (Human) (Humalog), 1 DOSE SQ WM Isosorbide Mononitrate Ext Rel (Imdur Ext Rel), 120 MG PO QAM Magnesium Hydroxide (Milk Of Magnesia), 30 ML PO [id number] Nitroglycerin (Nitrostat), 0.4 MG UT PRN Olanzapine (Zyprexa), 5 MG PO HS Senna (Senokot), 1.2 MG PO BID Sodium Phosphate/Biphosphate (Fleet Enema), 1 EA DC DAILY Scheduled PRN Acetaminophen Tab (Tylenol), 650 MG PO Q6H PRN for Pain Bisacodyl (Dulcolax), 1 SUPP DC Q4DAY PRN for Constipation Dextrose (Diabetic Use) (Insta-Glucose), 1 APPLN PO UD PRN for HYPOGLYCEMIA PROTOCOL Glucagon (Glucagon Emergency Kit), 1 MG IM UD PRN for HYPOGLYCEMIA PROTOCOL Review of Systems Unable to obtain review of systems due to patient's advanced dementia. . Physical Exam Vital Signs Date Time Temp Pulse Resp B/P (MAP) Pulse Ox O2 Delivery O2 Flow Rate FiO2 06/23/17 14:54 78 18 174/78 100 Room Air 06/23/17 14:49 100 Room Air 06/23/17 12:54 61 06/23/17 12:47 54 18 152/69 98 Room Air 06/23/17 10:47 36.7 63 18 151/57 95 Room Air General Appearance: WD/WN, no apparent distress Eyes: normal inspection, PERRL, EOMI, sclerae normal, + pertinent finding ( conjunctivae pale) ENT: hearing grossly normal, pharynx normal, + pertinent finding (upper and lower dentures) Neck: supple, no adenopathy, thyroid normal, no JVD, trachea midline Respiratory/Chest: lungs clear, no respiratory distress, no accessory muscle use Cardiovascular: regular rate, rhythm, no gallop, no JVD, + systolic murmur (II/ systolic murmur at base), + abnormal peripheral pulses (trace pretibial edema ; pedal pulses not palpable; capillary refill right toes 3 sec) Abdomen/GI: normal bowel sounds, non tender, soft, no organomegaly Extremities/Musculoskelatal: no calf tenderness, + pertinent finding ( gangrenous changes right 2nd toe; bullae right 3rd toe; ulceration dorsum right foot ~ 5 cm; erythema dorsum right foot; forefoot dusky) 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 (PERRL, EOMI, no facial palsy), no motor/sensory deficits (motor strength grossly intact), alert, + disoriented ( oriented only to person) Skin: normal color, warm/dry, no rash, + pertinent finding (right foot ulceration, right toes as described above) Lymphatic: no adenopathy (cervical) Diagnostics Laboratory Results Results Past 24 Hours Test 06/23/17 12:50 Range/Units White Blood Count 3.78 4.8-10.8 K/uL Red Blood Count 2.22 4.2-5.4 M/uL Hemoglobin 7.6 12.0-16.0 g/dL Hematocrit 24.4 37-47 % Mean Corpuscular Volume 109.9 80-100 fL Mean Corpuscular Hemoglobin 34.2 25-34 pg Mean Corpuscular Hemoglobin Concent 31.1 32-36 g/dl Platelet Count 266 130-400 K/uL Mean Platelet Volume 12.4 7.4-10.4 fL Neutrophils (%) (Auto) 59.2 % Lymphocytes (%) (Auto) 28.3 % Monocytes (%) (Auto) 9.5 % Eosinophils (%) (Auto) 1.6 % Basophils (%) (Auto) 1.1 % Neutrophils # (Auto) 2.24 1.4-6.5 K/uL Lymphocytes # (Auto) 1.07 1.2-3.4 K/uL Monocytes # (Auto) 0.36 0.11-0.59 K/uL Eosinophils # (Auto) 0.06 0-0.5 K/uL Basophils # (Auto) 0.04 0-0.2 K/uL RDW Standard Deviation 70.3 36.4-46.3 fL RDW Coefficient of Variation 18.5 11.5-14.5 % Immature Granulocyte % (Auto) 0.3 % Immature Granulocyte # (Auto) 0.01 0.00-0.02 K/uL Anisocytosis PRESENT Macrocytosis PRESENT Prothrombin Time 11.0 9.0-12.0 SECONDS Prothromb Time International Ratio 1.0 0.9-1.1 Activated Partial Thromboplast Time 27.3 21.0-31.0 SECONDS Partial Thromboplastin Ratio 1.1 Sodium Level 151 136-145 mmol/L Potassium Level 3.5 3.5-5.1 mmol/L Chloride Level 120 98-107 mmol/L Carbon Dioxide Level 23 21-32 mmol/L Anion Gap 8.0 3-11 mmol/L Blood Urea Nitrogen 26 7-18 mg/dl Creatinine 1.10 0.60-1.20 mg/dl Estimated GFR () 53.8 Estimated GFR (Non- 46.4 BUN/Creatinine Ratio 23.3 10-20 Random Glucose 43 70-99 mg/dl Calcium Level 8.8 8.5-10.1 mg/dl Total Creatine Kinase 38 26-192 U/L Microbiology Results 06/23/17 Blood Culture, Received Pending 06/23/17 Blood Culture, Received Pending Diagnostic Radiology Outpatient arterial duplex performed at [facility] on 06/22/17 demonstrated peripheral vascular disease with at least 50% stenosis of right common femoral artery as well as occlusion of the right posterior tibial and anterior tibial arteries. CHEST ONE VIEW PORTABLE FINDINGS: Median sternotomy wires intact. Atherosclerosis of the aortic arch. Chronic silhouette normal in size. Lungs and pleural spaces clear. Degenerative changes of the thoracic spine. Upper abdomen normal. IMPRESSION: 1. No acute cardiopulmonary disease. Electronically signed by: Jose Jimenez M.D. 06/23/2017 1:13 PM Dictated Date/Time: 06/23/2017 1:12 PM R FOOT MIN 3 VIEWS ROUTINE IMPRESSION: No radiographic evidence of osteomyelitis. Further evaluation with noncontrast MR could be considered as clinically warranted. Osteopenia, which limits evaluation for nondisplaced fracture and osseous erosion. Electronically signed by: Jose Jimenez M.D. 06/23/2017 1:15 PM Dictated Date/Time: 06/23/2017 1:14 PM . EKG EKG performed at 1243 reviewed and demonstrated normal sinus rhythm at 60/ minute, right bundle branch block, repolarization abnormalities. . Impression Assessment and Plan ISCHEMIA / GANGRENE / CELLULITIS RIGHT FOOT Known vascular disease. Now with gangrenous left second toe as well as ischemic changes of right foot. Arterial duplex performed at the senior care demonstrated occlusion of the right anterior tibial and right posterior tibial arteries. Unable to anticoagulate due to recent subdural hematoma. IV piperacillin / tazobactam. Vascular Surgery consulted. CORONARY ARTERY DISEASE Denies chest pain. EKG shows sinus rhythm with right bundle branch block. Aspirin recently discontinued due to subdural hematoma. Continue carvedilol, nitrates. HYPERTENSION Continue carvedilol, amlodipine, clonidine, nitrates. Follow and titrate therapy. CKD III Serum creatinine 1.1. Avoid potential nephrotoxins when able. Follow. HYPERNATREMIA Na = 151. Administer hypotonic IV fluids. Follow. DM TYPE 2 / HYPOGLYCEMIA Hypoglycemic in ED with blood sugar of 43. Hold insulin until blood sugars improve. Check hemoglobin A1c. Tight control not indicated given patient's advanced age and comorbidities. Lantus + NovoLog per protocol. ANEMIA History of anemia of chronic kidney disease as well as myelodysplastic syndrome. Hemoglobin now 7.6 with MCV of 109. Transfuse to maintain hemoglobin > 8-9 in light of right lower extremity ischemia. Check our studies, B12, folate, TSH, stool for occult blood. DEMENTIA Apparent Alzheimer's dementia associated with behavioral difficulties. Treated at [facility] prior to transfer to [facility]. Continue olanzapine. Monitor for delirium. VTE PROPHYLAXIS Anticoagulants contraindicated due to recent subdural hematoma. SCD's or TEDS contraindicated due to severe peripheral vascular disease. RESUSCITATION STATUS POLST from [facility] indicates DNR status. 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 DISPOSITION Admit to Med-Surg Unit. Anticipated return to [facility] for skilled care when medically stable. Daughter Sangeeta given update by phone. . Advanced Directives Existing Living Will: No Existing Power of Lead Loader: No VTE Prophylaxis VTE Risk Assessment Done? Y/N: Yes Risk Level: Moderate Given or contraindicated: Contraindicated
[2017-06-23] MEDS ORDERED: NITROGLYCERIN 0.4 MG SL PER TAB CHARGE UT SCH (16:45)
[2017-06-23] MEDS ORDERED: PIPERACILL/TAZOBAC CONSULT ACTIVE PRN (17:00)
[2017-06-23] MEDS ORDERED: PIPERACILL/TAZOBAC IV 3.375 GM in DEXTROSE 5% 100ML IV ONE (17:00)
[2017-06-23] MEDS: D5W AND 1/2NSS + 20MEQ KCL 1,000 ML IV SCH (17:48)
[2017-06-23] MEDS ORDERED: SENNA 8.6 MG TAB PO SCH (20:00)
[2017-06-23] MEDS: CARVEDILOL 12.5 MG TAB PO SCH (21:21)
[2017-06-23] MEDS: OLANZAPINE 5 MG TAB PO SCH (21:21)
[2017-06-23] MEDS: CLONIDINE HCL 0.1 MG TAB PO SCH (21:22)
[2017-06-23] MEDS: DOCUSATE SODIUM 100 MG CAP PO SCH (21:22)
[2017-06-23] MEDS ORDERED: INSULIN GLARGINE SOLOSTAR 100 UNITS/ML 3 ML PEN SC ONE (21:29)
[2017-06-23] MEDS: INSULIN ASPART 100 UNITS/ML 3 ML PEN SC SCH (22:03)
[2017-06-23] MEDS: ACETAMINOPHEN 325 MG TAB PO PRN (22:31)
[2017-06-23 22:39] LABS: BUN/CREATININE RATIO 16.5 (10-20); CALCIUM 8.2 mg/dl (8.5-10.1); CREATININE 1.5 mg/dl (0.60-1.20); POTASSIUM 3.7 mmol/L (3.5-5.1)
[2017-06-24 00:40] VITALS: BP 176/63; PULSE 69; TEMP 37
[2017-06-24] MEDS ORDERED: INSULIN ASPART 100 UNITS/ML 3 ML PEN SC ONE (01:00)
[2017-06-24] MEDS: D5W AND 1/2NSS + 20MEQ KCL 1,000 ML IV SCH ×2 (01:41→12:34)
[2017-06-24] MEDS: PIPERACILL/TAZOBAC IV 3.375 GM in DEXTROSE 5% 100ML 100 ML IV SCH ×3 (01:41→17:19)
[2017-06-24] MEDS: INSULIN ASPART 100 UNITS/ML 3 ML PEN SC SCH ×4 (06:30→21:49)
[2017-06-24 07:17] VITALS: BP 197/79; PULSE 67; TEMP 37.1; O2SAT 94
[2017-06-24] MEDS ORDERED: CLONIDINE HCL 0.1 MG TAB PO SCH (08:00)
[2017-06-24] MEDS: AMLODIPINE BESYLATE 5 MG TAB PO SCH (08:11)
[2017-06-24] MEDS: ISOSORBIDE MONONITRATE 60 MG TABCR PO SCH (08:11)
[2017-06-24] MEDS: FAMOTIDINE 20 MG TAB PO SCH (08:11)
[2017-06-24] MEDS: ACETAMINOPHEN 325 MG TAB PO PRN (08:12)
[2017-06-24 08:14] LABS: HEMATOCRIT 28.2 % (37-47); MEAN CELL VOLUME 104.8 fL (80-100); MEAN CORPUSCULAR HEMOGLOBIN 34.2 pg (25-34); MEAN CORPUSCULAR HGB CONC 32.6 g/dl (32-36); MEAN PLATELET VOLUME 11.5 fL (7.4-10.4); PLATELET COUNT 213 K/uL (130-400); RED BLOOD COUNT 2.69 M/uL (4.2-5.4); WHITE BLOOD COUNT 3.01 K/uL (4.8-10.8)
[2017-06-24] MEDS: CARVEDILOL 12.5 MG TAB PO SCH ×2 (08:14→20:25)
[2017-06-24] MEDS: DOCUSATE SODIUM 100 MG CAP PO SCH ×2 (08:14→20:25)
[2017-06-24] MEDS: CLONIDINE HCL 0.1 MG TAB PO SCH ×2 (08:14→20:25)
[2017-06-24] MEDS: SENNA 8.6 MG TAB PO SCH ×2 (08:18→20:25)
[2017-06-24 08:38] LABS: BUN/CREATININE RATIO 15.9 (10-20); CALCIUM 8.1 mg/dl (8.5-10.1); CREATININE 1.3 mg/dl (0.60-1.20); POTASSIUM 4.1 mmol/L (3.5-5.1)
[2017-06-24 08:49] LABS: FERRITIN 230.3 ng/ml (8.0-388.0); THYROID STIMULATING HORMONE 2.7 uIu/ml (0.300-4.500)
--- NOTE | 2017-06-24 09:44 | Clinical Documentation Query ---
CLINICAL DOCUMENTATION QUERY An 82 year old female who presents to the Emergency Room with complaints of a worsening right middle toe darkening beginning last week. In your clinical opinion is this patient being managed for: ( ) SIRS without acute organ dysfunction ( ) Not Agree ( ) Other explanation of clinical findings (Please Explain) ( ) Unable to determine (Please Define) ( ) Need to Discuss Please refer to Dr. Erickson who assumed care on 06/24. Thanks. Noah Jarrett The medical record reflects the following clinical findings, treatment, and risk factors. Clinical Indicators: WBC 3.78 and 3.01, temp 38.1, gangrene/cellulitis right foot Treatment: Piperacillin IV, rocephin IV, wound consult Risk Factors: Age, diabetes, necrotic left toes, gangrenous right foot, CKD III Please clarify and document your clinical opinion in the progress notes and discharge summary. Terms such as "probable", "suspected", "likely", "questionable", "possible", or "still to be ruled out" are acceptable. IF IN AGREEMENT, YOU MUST DOCUMENT ABOVE DIAGNOSTIC STATEMENT IN DAILY PROGRESS NOTES AND DISCHARGE SUMMARY. This document is not part of the patient's record. Thank You, Rocio Mitchell RN [phone]
[2017-06-24] MEDS: INSULIN GLARGINE SOLOSTAR 100 UNITS/ML 3 ML PEN SC SCH ×2 (11:55→20:31)
--- NOTE | 2017-06-24 13:38 | Surgery Consultation ---
Consultation Date of Service Jun 24, 2017. Chief Complaint RLE ischemic foot History of Present Illness The patient is a 82 year old female with hx of HTN, DMII, CAD, admitted from alf for RLE foot discoloration, seen today in consultation for ischemic R foot. Pt has severe dementia and unable to provide accurate history. R 2nd and 3rd toes with purple/black discoloration for unknown period of time. Pt admits numbness to R foot, denies pain. US performed at [facility] indicates AT and PT occlusions per report. No images available. Pt states is ambulatory with walker. Vitals Vital Signs Past 12 Hours Date Time Temp Pulse Resp B/P (MAP) Pulse Ox O2 Delivery O2 Flow Rate FiO2 06/24/17 08:00 Room Air 06/24/17 07:17 37.1 67 18 197/79 (118) 94 Room Air Allergies Coded Allergies: Lisinopril (Unverified Allergy, Unknown, UNKNOWN REACTION,ALLERGY LIST OBTAINED FROM [facility], 06/23/17) Home Medications Scheduled Amlodipine (Norvasc), 10 MG PO QAM Bumetanide (Bumetanide), 0.5 MG PO QAM Calcium Carbonate-Vitamin D (Calcium + D), 1 TAB PO DAILY Carvedilol (Coreg), 12.5 MG PO BID Cephalexin Monohydrate (Keflex), 500 MG PO BID Clonidine Hcl (Catapres), 0.4 MG PO BID Docusate Sodium (Docusate Sodium), 100 MG PO BID Famotidine (Pepcid), 20 MG PO QAM Insulin Glargine (Lantus Solostar), 23 UNITS SQ PM Insulin Lispro (Human) (Humalog), 8 UNITS SQ AC Insulin Lispro (Human) (Humalog), 1 DOSE SQ WM Isosorbide Mononitrate Ext Rel (Imdur Ext Rel), 120 MG PO QAM Magnesium Hydroxide (Milk Of Magnesia), 30 ML PO [id number] Nitroglycerin (Nitrostat), 0.4 MG UT PRN Olanzapine (Zyprexa), 5 MG PO HS Senna (Senokot), 1.2 MG PO BID Sodium Phosphate/Biphosphate (Fleet Enema), 1 EA [place] DAILY Scheduled PRN Acetaminophen Tab (Tylenol), 650 MG PO Q6H PRN for Pain Bisacodyl (Dulcolax), 1 SUPP [place] Q4DAY PRN for Constipation Dextrose (Diabetic Use) (Insta-Glucose), 1 APPLN PO UD PRN for HYPOGLYCEMIA PROTOCOL Glucagon (Glucagon Emergency Kit), 1 MG IM UD PRN for HYPOGLYCEMIA PROTOCOL Problem List Medical Problems: (1) Anemia of chronic disease (2) Anxiety (3) CKD (chronic kidney disease), stage III (4) Coronary artery disease (5) Dementia (6) Depression (7) Diabetes (8) Diabetes mellitus, type 2 (9) Diabetic neuropathy (10) GERD (gastroesophageal reflux disease) (11) History of left heart catheterization (12) History of subdural hematoma (13) HLD (hyperlipidemia) (14) HTN (hypertension) (15) Hypoglycemia (16) left renal artery stent placement (17) Myelodysplasia (myelodysplastic syndrome) (18) Neuropathy (19) Peripheral vascular disease Surgical Problems: (1) H/O colonoscopy (2) H/O esophagogastroduodenoscopy (3) H/O partial thyroidectomy (4) S/P CABG x 3 (5) S/P cataract surgery (6) Stented coronary artery Surgical / Medical History Hx Cardiac Surgery: Yes (Angioplasty and open heart surgery) Hx Abdominal Surgery: No Hx Cancer Surgery: No Hx Thoracic Surgery: Yes (PARTIAL THYROIDECTOMY ) Hx Orthopedic: No Hx Urinary Tract Surgery: No HX Other Surgery: Yes (CATARACT, ) Past Medical/Surgical History: Diabetes, Heart Disease, High Cholesterol, Hypertension, Kidney Disease Family History Alzheimer's disease MOTHER Lung cancer FATHER Social History Smoking Status: Never Smoker Hx Tobacco Use In Past Year?: No Hx Alcohol Use - Type & Amnt: Yes (OCC WINE ) Hx Substance Use -Type & Amnt: No Review of Systems Additional Comments: Unable to obtain d/t dementia Physical Exam Constitutional: General Apperance: well-nourished, well-developed Level of Distress: NAD, chronically ill Psychiatric: Mental Status: active & alert, normal mood, normal affect Orientation: to person, not oriented to time, not oriented to place Memory: recent memory abnormal, remote memory abnormal Head: normocephalic, atraumatic Eyes: EOM: EOMI ENMT: normal ENT inspection, hearing grossly normal Neck: supple, trachea midline Lungs: Respiratory effort: no dyspnea Auscultation: no rales/crackles, no rhonchi, decreased breath sounds Cardiovascular: Apical Impulse: not displaced Heart Auscultation: RRR, no murmurs, no gallops Peripheral Pulses: Pulses: full and equal, in all extremities except if noted Bruits: none appreciated Carotid Pulse: normal on the left, normal on the right Brachial Pulses: normal on the left, normal on the right Radial Pulse: normal on the left, normal on the right Femoral Pulse: normal on the left, absent on the right Posterior Tibialis Pulse: absent on the left, absent on the right, pertinent finding (nonpalpable, but + doppler signal RLE) Dorsalis Pedis Pulse: absent on the left, absent on the right, pertinent finding (No doppler signal RLE, but popliteal and peroneal with + signal) Abdomen: Bowel Sounds: normal Inspection & Palpation: soft, non-distended, no tenderness, guarding & rebound Musculoskeletal: normal tone (foot unable to move toes, able to dorsiflex), pertinent finding Extremities: Upper Right: no cyanosis, no edema, no varicosities Upper Left: no cyanosis, no edema, no varicosities Lower Right: cyanosis, edema, mottling, pertinent finding (midfoot to toes cold, insensate ankle to toes. 2nd and 3rd toes with gangrene noted, blisters to dorsal foot and 3rd toe) Lower Left: no cyanosis, no edema, no varicosities, pertinent finding ( surgical absence of great toe) Neurologic: Cranial Nerves: grossly intact Assessment and Plan ASSESSMENT and PLAN: Ischemic R foot PAD Dementia Pt also seen by Dr Pisano. Pt with significant tissue loss, unlikely to heal a transmetatarsal amputation. Will obtain arterial US and aortoiliac US prior to making final recommendations/determining level of amputation. Will attempt to discuss with family tomorrow after reviewing new US results.
[2017-06-24 14:40] LABS: BUN/CREATININE RATIO 15.3 (10-20); CALCIUM 7.5 mg/dl (8.5-10.1); CREATININE 1.5 mg/dl (0.60-1.20); POTASSIUM 4.7 mmol/L (3.5-5.1)
[2017-06-24 14:50] LABS: BETA-HYDROXYBUTYRATE 0.84 mg/dL (0.2-2.81)
[2017-06-24 15:18] VITALS: BP 163/73; PULSE 58; TEMP 36.3; O2SAT 97
--- NOTE | 2017-06-24 16:19 | Progress Note ---
Internal Med Progress Note Date of Service: Jun 24, 2017. Provider Documentation: SUBJECTIVE: very pleasant , baseline dementia , offers no complain says " i feel fine " no complain of pain in right foot , no fever or chills OBJECTIVE: Vital Signs-as noted below Exam: General-elderly female ,no sign of distress Eyes-sclera non icteric ENT-NAD Neck-no JVD Lungs-CTA , no rales or wheeze Heart-regular S1/S2 Abdomen-soft, non tender Extremities-right foot in bandage , ischemia , necrosis of rt great toe Neuro-baseline dementia, no focal deficit Lab data as noted below. ASSESSMENT & PLAN: ISCHEMIA / GANGRENE / CELLULITIS RIGHT FOOT with severe underlying Peripheral vascular disease presented with gangrenous left second toe as well as ischemic changes of right foot. Arterial duplex showed occlusion of the right anterior tibial and right posterior tibial arteries. Unable to anticoagulate due to recent subdural hematoma. on Abx IV piperacillin / tazobactam. Vascular Surgery consulted-appreciate input will need Transmetatarsal amputation ordered for arterial US and aortoiliac US prior to making final recommendations /determining level of amputation. CORONARY ARTERY DISEASE no cardiac issue not on Aspirin due to recent sub dural hematoma Continue carvedilol, nitrates. HYPERTENSION Continue carvedilol, amlodipine, clonidine, nitrates. Follow and titrate therapy. CKD III Serum creatinine 1.1. HYPERNATREMIA possible due to dehydration ; poor PO intake Na improved = 151-> 147 IVF changed to NSS low dose to prevent rapid correction ANEMIA History of anemia of chronic kidney disease as well as myelodysplastic syndrome. S/P Tx of 1 unit PRBC HB improved to 9.2 cont to monitor DEMENTIA Apparent Alzheimer's dementia associated with behavioral difficulties. Treated at [facility] prior to transfer to [facility]. Continue olanzapine. Monitor for delirium. VTE PROPHYLAXIS Anticoagulants contraindicated due to recent subdural hematoma. SCD's or TEDS contraindicated due to severe peripheral vascular disease. RESUSCITATION STATUS DNR DISPOSITION Anticipated return to [facility] for skilled care when medically stable. social service consulted for discharge planning Vital Signs: Date Time Temp Pulse Resp B/P (MAP) Pulse Ox O2 Delivery O2 Flow Rate FiO2 06/24/17 16:00 Room Air 06/24/17 15:18 36.3 58 18 163/73 (103) 97 Room Air 06/24/17 08:00 Room Air 06/24/17 07:17 37.1 67 18 197/79 (118) 94 Room Air 06/24/17 00:40 37.0 69 20 176/63 06/24/17 00:00 Room Air 06/23/17 23:40 37.3 67 18 177/60 06/23/17 23:10 37.1 65 18 186/65 06/23/17 22:40 37.2 70 18 172/70 06/23/17 22:25 38.1 67 18 169/61 06/23/17 22:09 37.0 70 18 174/63 98 Lab Results: Results Past 24 Hours Test 06/23/17 21:39 06/24/17 01:12 06/24/17 07:27 06/24/17 07:55 Range/Units Sodium Level 147 150 136-145 mmol/L Potassium Level 3.7 4.1 3.5-5.1 mmol/L Chloride Level 118 119 98-107 mmol/L Carbon Dioxide Level 21 24 21-32 mmol/L Anion Gap 8.0 7.0 3-11 mmol/L Blood Urea Nitrogen 25 21 7-18 mg/dl Creatinine 1.50 1.30 0.60-1.20 mg/dl Est Creatinine Clear Calc Drug Dose 27.6 31.9 ml/min Estimated GFR () 37.0 43.9 Estimated GFR (Non- 31.9 37.9 BUN/Creatinine Ratio 16.5 15.9 10-20 Random Glucose 205 146 70-99 mg/dl Calcium Level 8.2 8.1 8.5-10.1 mg/dl Bedside Glucose 128 152 70-90 mg/dl White Blood Count 3.01 4.8-10.8 K/uL Red Blood Count 2.69 4.2-5.4 M/uL Hemoglobin 9.2 12.0-16.0 g/dL Hematocrit 28.2 37-47 % Mean Corpuscular Volume 104.8 80-100 fL Mean Corpuscular Hemoglobin 34.2 25-34 pg Mean Corpuscular Hemoglobin Concent 32.6 32-36 g/dl RDW Standard Deviation 78.3 36.4-46.3 fL RDW Coefficient of Variation 21.0 11.5-14.5 % Platelet Count 213 130-400 K/uL Mean Platelet Volume 11.5 7.4-10.4 fL Estimated Average Glucose 157 mg/dl Hemoglobin A1c 7.1 4.5-5.6 % Iron Level 64 35-150 mcg/dl Total Iron Binding Capacity 201 250-450 mcg/dl Ferritin 230.3 8.0-388.0 ng/ml Vitamin B12 Level 359 211-911 pg/mL Folate 20.71 >5.38 ng/mL Thyroid Stimulating Hormone (TSH) 2.700 0.300-4.500 uIu/ml Test 06/24/17 13:56 06/24/17 16:20 06/24/17 16:48 Range/Units Sodium Level 147 136-145 mmol/L Potassium Level 4.7 3.5-5.1 mmol/L Chloride Level 118 98-107 mmol/L Carbon Dioxide Level 22 21-32 mmol/L Anion Gap 7.0 3-11 mmol/L Blood Urea Nitrogen 23 7-18 mg/dl Creatinine 1.50 0.60-1.20 mg/dl Est Creatinine Clear Calc Drug Dose 27.6 ml/min Estimated GFR () 37.0 Estimated GFR (Non- 31.9 BUN/Creatinine Ratio 15.3 10-20 Random Glucose 321 70-99 mg/dl Calcium Level 7.5 8.5-10.1 mg/dl Beta-Hydroxybutyric Acid 0.84 0.2-2.81 mg/dL Stool Occult Blood NEGATIVE NEGATIVE Bedside Glucose 240 70-90 mg/dl
[2017-06-24] MEDS ORDERED: D5W AND NSS 1,000 ML IV SCH (17:30)
--- NOTE | 2017-06-24 19:53 | DIAGNOSTIC IMAGING REPORT ---
DUPLEX AORTA/IVC/ILIACS COMP HISTORY: 82 years-old Female aortoiliac occlusive disease COMPARISON: CT abdomen and pelvis 11/04/2016 TECHNIQUE: Multiple real-time sonographic images of the aorta and iliac arteries were obtained assessing grayscale appearance, color and spectral flow. FINDINGS: Study is very limited secondary to patient compliance and obscuring bowel gas. Only the distal portion of the abdominal aorta is seen which measures 1.1 cm in AP dimension with peak systolic velocity of 50 cm/s. The right common iliac artery measures 1.0 cm in AP dimension with peak systolic velocity measured at 141 cm/s. The left common iliac artery measures 0.8 cm in AP dimension with peak systolic velocity measured at 144 cm/s. Moderate atherosclerotic plaquing is noted. The IVC is not visualized. IMPRESSION: 1. Limited study secondary to patient compliance and obscuring bowel gas. 2. Moderate atherosclerotic vascular disease without aneurysm or elevated peak systolic velocity. The above report was generated using voice recognition software. It may contain grammatical, syntax or spelling errors. Electronically signed by: Danilo Flores M.D. 06/24/2017 7:52 PM Dictated Date/Time: 06/24/2017 7:48 PM
--- NOTE | 2017-06-24 20:00 | DIAGNOSTIC IMAGING REPORT ---
ART DOP LOWER EXT BILAT HISTORY: 82 years-old Female RLE ischemia right lower extremity ischemia, acute in nature. Nonhealing wounds. COMPARISON: Duplex aorta, IVC and iliac ultrasound of same day TECHNIQUE: Multiple real-time sonographic images of the bilateral lower extremity arterial structures were obtained assessing grayscale appearance, color and spectral flow FINDINGS: Study is very limited secondary to patient compliance. Patient refused the segmental pressure portion of the study. RIGHT: Blunted monophasic waveforms are noted throughout the right lower extremity. Moderate atherosclerotic plaquing is present. Nonocclusive thrombus noted within the right popliteal vein distally. LEFT: Moderate atherosclerotic plaquing is also noted on the left. Increased peak systolic velocities are seen within the common femoral, profunda femoris and proximal portion of the superficial femoral artery. For example, peak systolic velocity of 230 cm/s noted within the common femoral artery, peak systolic velocity of 268 cm/s noted within the profunda femoris artery, peak systolic velocity of 203 cm/s noted within the superficial femoral artery. There are predominantly biphasic waveforms throughout the left lower extremity. Monophasic waveforms are noted within the dorsalis pedis artery. IMPRESSION: 1. Moderate atherosclerotic vascular disease noted bilaterally. 2. Blunted monophasic waveforms are seen throughout the right lower extremity. 3. Predominantly biphasic waveforms are seen throughout the left lower extremity with multiple vessels demonstrating increased peak systolic velocity as above compatible with hemodynamically significant stenoses with inflow disease. 4. Nonocclusive deep venous thrombosis incidentally noted within the right popliteal vein. The above report was generated using voice recognition software. It may contain grammatical, syntax or spelling errors. Electronically signed by: Danilo Flores M.D. 06/24/2017 7:59 PM Dictated Date/Time: 06/24/2017 7:52 PM
[2017-06-24] MEDS: OLANZAPINE 5 MG TAB PO SCH (21:52)
[2017-06-25 00:10] VITALS: BP_SYST 181; BP_SYST 197; BP_DIAS 67; BP_DIAS 85; PULSE 67; TEMP 37.4; O2SAT 96
[2017-06-25] MEDS: PIPERACILL/TAZOBAC IV 3.375 GM in DEXTROSE 5% 100ML 100 ML IV SCH ×3 (01:00→16:59)
[2017-06-25 06:28] LABS: MEAN CELL VOLUME 105.1 fL (80-100); MEAN CORPUSCULAR HEMOGLOBIN 33.5 pg (25-34); MEAN CORPUSCULAR HGB CONC 31.9 g/dl (32-36); MEAN PLATELET VOLUME 12.2 fL (7.4-10.4); PLATELET COUNT 246 K/uL (130-400); RED BLOOD COUNT 2.57 M/uL (4.2-5.4); WHITE BLOOD COUNT 3.46 K/uL (4.8-10.8)
[2017-06-25 07:07] VITALS: BP 175/62; PULSE 68; TEMP 37.4; O2SAT 92
[2017-06-25 07:11] LABS: BUN/CREATININE RATIO 18.6 (10-20); CALCIUM 7.9 mg/dl (8.5-10.1); CREATININE 1.3 mg/dl (0.60-1.20)
[2017-06-25] MEDS ORDERED: DEXTROSE 50% 50 ML SYR ONE (07:28)
[2017-06-25] MEDS ORDERED: NURSING VERBAL MED ORDER ONE (07:30)
[2017-06-25] MEDS: CARVEDILOL 12.5 MG TAB PO SCH ×2 (07:38→21:44)
[2017-06-25] MEDS: AMLODIPINE BESYLATE 5 MG TAB PO SCH (07:38)
[2017-06-25] MEDS: FAMOTIDINE 20 MG TAB PO SCH (07:39)
[2017-06-25] MEDS: ISOSORBIDE MONONITRATE 60 MG TABCR PO SCH (07:39)
[2017-06-25] MEDS: SENNA 8.6 MG TAB PO SCH ×2 (07:39→21:42)
[2017-06-25] MEDS: CLONIDINE HCL 0.1 MG TAB PO SCH ×2 (07:39→21:45)
[2017-06-25] MEDS: INSULIN ASPART 100 UNITS/ML 3 ML PEN SC SCH ×4 (07:40→22:00)
[2017-06-25] MEDS: DOCUSATE SODIUM 100 MG CAP PO SCH ×2 (07:40→21:43)
[2017-06-25] MEDS ORDERED: GLUCOSE 10 TABS/TUBE PO PRN (07:45)
[2017-06-25] MEDS ORDERED: GLUCOSE 40% GEL 15 GM TUBE PO PRN (07:45)
[2017-06-25] MEDS ORDERED: DEXTROSE 50% 50 ML SYR IV PRN (07:45)
[2017-06-25] MEDS ORDERED: GLUCAGON FOR INJ 1 MG VIAL SQ PRN (07:45)
[2017-06-25 08:56] VITALS: BP 175/62; PULSE 68; TEMP 37.4; O2SAT 92
--- NOTE | 2017-06-25 10:38 | Nephrology Consultation ---
Nephrology Consultation Date of Consultation: Jun 25, 2017. Attending Physician: Dr Erickson Requesting Physician: Dr Erickson Reason for Consultation: hypernatremia History of Present Illness 82 year old female w/ advanced dementia admitted here 06/23 for eval of R toe/ foot ischemia and gangrenous L second toe. She is for R BKA per vascular and is currently NPO. Other PMH includes subdural hematoma after 05/12/17 fall w/ head injury managed nonoperatively, DM, CAD s/p 2000 3v cabg, HTN s/p L renal artery stent, peripheral arterial disease, myelodysplastic syndrome. her presenting sodium was 151 w/ BG 43 and creat 1.1. She was started on D5 NS at 50 mL hourly and sNa improved to 147; however ON she pulled out IV and refused another at first. Per nursing this has happened multiple times this admission. This am sNa again 151 w/ creatinine 1.3 (had been 1.5 yesterday). Past Medical/Surgical History Medical Problems: as per HPI and also remarkable for -HL -GERD -anxiety/depression -CKD3 baseline creatinine 1.1-1.3 Family History Alzheimer's disease MOTHER Lung cancer FATHER Social History Smoking Status: Never Smoker Alcohol Use: occasionally Marital Status: Housing Status: lives with family Occupation Status: retired Allergies Coded Allergies: Lisinopril (Unverified Allergy, Unknown, UNKNOWN REACTION,ALLERGY LIST OBTAINED FROM [facility], 06/23/17) Medications Current Inpatient Medications Medications (Trade) Dose Ordered Sig/Red Route Start Time Stop Time Status Last Admin Dose Admin Acetaminophen (Tylenol Tab) 650 mg Q6H PRN PO 06/23/17 16:45 07/23/17 16:44 06/24/17 08:12 650 MG Amlodipine Besylate (Norvasc Tab) 10 mg QAM PO 06/24/17 08:00 07/24/17 07:59 06/25/17 07:38 10 MG Carvedilol (Coreg Tab) 12.5 mg BID PO 06/23/17 20:00 07/23/17 19:59 06/25/17 07:38 12.5 MG Docusate Sodium (coLACE CAP) 100 mg BID PO 06/23/17 20:00 07/23/17 19:59 06/24/17 20:25 100 MG Famotidine (Pepcid Tab) 20 mg QAM PO 06/24/17 08:00 07/24/17 07:59 06/24/17 08:11 20 MG Isosorbide Mononitrate (Imdur Ext Rel Tab) 120 mg QAM PO 06/24/17 08:00 07/24/17 07:59 06/25/17 07:39 120 MG Nitroglycerin (Nitrostat Tab) 0.4 mg PRN UT 06/23/17 16:45 07/23/17 16:44 Olanzapine (Zyprexa Tab) 5 mg HS PO 06/23/17 22:00 07/23/17 21:59 06/23/17 21:21 5 MG Clonidine HCl (Catapres Tab) 0.4 mg BID PO 06/23/17 20:00 07/23/17 19:59 06/25/17 07:39 0.4 MG Piperacillin Sod/ Tazobactam Sod (Consult) 1 ea UD PRN N/A 06/23/17 17:00 07/23/17 16:59 Piperacillin Sod/ Tazobactam Sod 3.375 gm/Dextrose 115 ml @ 25 mls/hr Q8H IV 06/24/17 01:00 07/04/17 00:59 06/25/17 07:44 25 MLS/HR Insulin Aspart (novoLOG ASPART) SLIDING SCALE G... ACHS SC 06/23/17 22:00 07/23/17 21:59 06/24/17 21:49 2 UNITS Senna (Senokot Tab) 8.6 mg BID PO 06/24/17 08:00 07/24/17 07:59 06/24/17 20:25 8.6 MG Dextrose/Sodium Chloride 1,000 ml @ 50 mls/hr Q20H IV 06/24/17 17:30 07/24/17 17:29 06/24/17 18:11 50 MLS/HR Glucose (Glucose 40% Gel) 15-30 GRAMS 15 GRAMS... UD PRN PO 06/25/17 07:45 07/25/17 07:44 Glucose (Glucose Chew Tab) 4-8 Tablets 4 Tabl... UD PRN PO 06/25/17 07:45 07/25/17 07:44 Dextrose (Dextrose 50% 50ML Syringe) 25-50ML OF 50% DW IV FOR... UD PRN IV 06/25/17 07:45 07/25/17 07:44 Glucagon (Glucagon Inj) 1 mg UD PRN SQ 06/25/17 07:45 07/25/17 07:44 Home Meds and Scripts Medications Dose Route/Sig Max Daily Dose Days Date Category Dose Instructions Milk Of Magnesia (Magnesium Hydroxide) 30 Ml Susp 30 Ml PO [id number] 06/23/17 Reported Insta-Glucose (Dextrose (Diabetic Use)) 77.4 % Gel 1 Appln PO UD PRN 06/23/17 Reported Glucagon Emergency Kit (Glucagon) 1 Mg Kit 1 Mg IM UD PRN 06/23/17 Reported Fleet Enema (Sodium Phosphate/Biphosphate) Vanessa 1 Ea [place] DAILY 06/23/17 Reported Dulcolax (Bisacodyl) 10 Mg Sup 1 Supp [place] Q4DAY PRN 06/23/17 Reported Tylenol (Acetaminophen) 325 Mg Tab 650 Mg PO Q6H PRN 06/23/17 Reported Humalog (Insulin Lispro (Human)) 100 Unit/Ml Inj 1 Dose SQ WM 06/23/17 Reported 71-200=0 201-300=2UNITS 301-399=4UNITS 400+ CALL Humalog (Insulin Lispro (Human)) 100 Unit/Ml Inj 8 Units SQ AC 06/23/17 Reported Senokot (Senna) 8.6 Mg Tab 1.2 Mg PO BID 06/23/17 Reported Keflex (Cephalexin Monohydrate) 500 Mg Cap 500 Mg PO BID 06/23/17 Reported STARTED 06/19 FOR 7 DAY THERAPY Docusate Sodium 100 Mg Cap 100 Mg PO BID 06/23/17 Reported Catapres (Clonidine Hcl) 0.2 Mg Tab 0.4 Mg PO BID 06/23/17 Reported Coreg (Carvedilol) 12.5 Mg Tab 12.5 Mg PO BID 06/23/17 Reported Zyprexa (Olanzapine) 5 Mg Tab 5 Mg PO HS 06/23/17 Reported Pepcid (Famotidine) 20 Mg Tab 20 Mg PO QAM 06/23/17 Reported Imdur Ext Rel (Isosorbide Mononitrate) 60 Mg Ertab 120 Mg PO QAM 06/23/17 Reported Bumetanide 0.5 Mg Tab 0.5 Mg PO QAM 06/23/17 Reported Norvasc (Amlodipine Besylate) 10 Mg Tab 10 Mg PO QAM 06/23/17 Reported Lantus Solostar (Insulin Glargine) 100 Unit/Ml Inj 23 Units SQ PM 11/04/16 Reported Calcium + D (Calcium Carbonate-Vitamin D) 1 Tab Tab 1 Tab PO DAILY 10/29/15 Reported Nitrostat (Nitroglycerin) 0.4 Mg Tab 0.4 Mg UT PRN 10/29/15 Reported Review of Systems Respiratory: No shortness of breath Cardiac: No chest pain Abdomen: No pain Musculoskeletal: No joint pain, No muscle pain Female : No dysuria, No urinary frequency limited d/t dementia status Physical Exam Date Time Temp Pulse Resp B/P (MAP) Pulse Ox O2 Delivery O2 Flow Rate FiO2 06/25/17 08:56 37.4 68 20 175/62 92 Room Air 06/25/17 07:07 37.4 68 20 175/62 (99) 92 Room Air 06/25/17 00:10 37.4 67 20 181/67 (105) 96 Room Air 06/25/17 00:00 Room Air 06/24/17 16:00 Room Air 06/24/17 15:18 36.3 58 18 163/73 (103) 97 Room Air General Appearance: WD/WN, no apparent distress, + pertinent finding (on ra nad ) Eyes: EOMI ENT: hearing grossly normal Neck: supple Respiratory/Chest: normal breath sounds, + decreased breath sounds Cardiovascular: regular rate, rhythm, no edema Abdomen: normal bowel sounds, non tender, soft, + pertinent finding (no grove) Extremities: no pedal edema, + pertinent finding (red ischemic looking R foot jg second toe; some peeling skin this area; s/p L great toe remote amputation) Neurologic/Psych: alert, normal mood/affect, + disoriented Skin: no jaundice, warm/dry, + pertinent finding (see above re R foot) Diagnostics Last 24 Hours Test 06/24/17 11:17 06/24/17 13:56 06/24/17 16:20 06/24/17 16:48 Bedside Glucose 219 mg/dl 240 mg/dl Sodium Level 147 mmol/L Potassium Level 4.7 mmol/L Chloride Level 118 mmol/L Carbon Dioxide Level 22 mmol/L Anion Gap 7.0 mmol/L Blood Urea Nitrogen 23 mg/dl Creatinine 1.50 mg/dl Est Creatinine Clear Calc Drug Dose 27.6 ml/min Estimated GFR () 37.0 Estimated GFR (Non- 31.9 BUN/Creatinine Ratio 15.3 Random Glucose 321 mg/dl Calcium Level 7.5 mg/dl Beta-Hydroxybutyric Acid 0.84 mg/dL Stool Occult Blood NEGATIVE Test 06/24/17 20:26 06/24/17 21:39 06/25/17 06:11 Bedside Glucose 233 mg/dl 221 mg/dl White Blood Count 3.46 K/uL Red Blood Count 2.57 M/uL Hemoglobin 8.6 g/dL Hematocrit 27.0 % Mean Corpuscular Volume 105.1 fL Mean Corpuscular Hemoglobin 33.5 pg Mean Corpuscular Hemoglobin Concent 31.9 g/dl RDW Standard Deviation 77.5 fL RDW Coefficient of Variation 20.5 % Platelet Count 246 K/uL Mean Platelet Volume 12.2 fL Sodium Level 151 mmol/L Potassium Level 4.0 mmol/L Chloride Level 121 mmol/L Carbon Dioxide Level 24 mmol/L Anion Gap 6.0 mmol/L Blood Urea Nitrogen 24 mg/dl Creatinine 1.30 mg/dl Est Creatinine Clear Calc Drug Dose 31.9 ml/min Estimated GFR () 43.9 Estimated GFR (Non- 37.9 BUN/Creatinine Ratio 18.6 Random Glucose 48 mg/dl Calcium Level 7.9 mg/dl Diagnostic Radiology: aorta u/s > moderate ascvd; limited study; no aneurysm cxr no acute cp process R foot XR no osteoymyelitis; consider mri; osteopenia BLE U/S very limited study; moderate bl ascvd; R popliteal v nonocclusive thrombus EKG: RBBB, SR Assessment & Plan 82 y/o F w/ advanced dementia, peripheral arterial disease, DM, CAD, CKD 3 baseline creatinine 1.1-1.3 admitted 06/23 w/ ischemic R foot for R BKA and noted to have hypernatremia w/ sodium hovering at about 150 since admission. Complicated by pt pulling her IV and refusing another. Hypernatremia -if possible get another IV site; ? if she needs sitter or other strategies to preserve IV access -changed IVF to D5W at 100 mL hourly; labile BG noted; may in future need to add K to fluid but not presently -pls offer pt po fluids q4hrs, preferably water, when taking po again -reasonable to check labs daily for now HTN -should improve somewhat with ivf change -cont amlodipine, coreg, clonidine (high dose) CKD 3 at baseline Ischemic R foot per vascular; NPO currently for OR Appreciate consult will follow with you. Care coordinated w/ Dr Erickson.
[2017-06-25 10:44] VITALS: BP 158/61
[2017-06-25] MEDS ORDERED: DEXTROSE 5% 1000ML 1,000 ML IV SCH (10:45)
--- NOTE | 2017-06-25 16:09 | Progress Note ---
Internal Med Progress Note Date of Service: Jun 25, 2017. Provider Documentation: SUBJECTIVE: very pleasant , baseline dementia , offers no complain says " i feel fine " no complain of pain in right foot , no fever or chills had episodes of agitation last night pulled her IV site out was hypoglycemic BSG 48 ( got Lantus last night ) asked to D/C Lantus , pt can continue with sliding scale iv site resume no fever or chills OBJECTIVE: Vital Signs-as noted below Exam: General-elderly female ,no sign of distress Eyes-sclera non icteric ENT-NAD Neck-no JVD Lungs-CTA , no rales or wheeze Heart-regular S1/S2 Abdomen-soft, non tender Extremities-right foot in bandage , ischemia , necrosis of rt great toe Neuro-baseline dementia, no focal deficit Lab data as noted below. ASSESSMENT & PLAN: CELLULITIS RIGHT FOOT: met SIRS criteria on admission -presented with fever , leukopenia source of infection : ischemic 2nd right toe blood cultures ordered cont IV Zosyn ISCHEMIA / GANGRENE OF RT SECOND TOE: with severe underlying Peripheral vascular disease presented with gangrenous left second toe as well as ischemic changes of right foot. Arterial duplex showed occlusion of the right anterior tibial and right posterior tibial arteries. Unable to anticoagulate due to recent subdural hematoma. on Abx IV piperacillin / tazobactam. Vascular Surgery consulted-appreciate input ordered for arterial US and aortoiliac US prior to making final recommendations /determining level of amputation. due to severity of vascular disease /poor circulation -pt will need rt BKA CORONARY ARTERY DISEASE no cardiac issue not on Aspirin due to recent sub dural hematoma Continue carvedilol, nitrates. MYELODYSPLASTIC SYNDROME : causing anemia /pancytopenia s/p 1 unit of PRBC given severe PVD goal Hb ~8 avoid antiplatelets HYPERTENSION Continue carvedilol, amlodipine, clonidine, nitrates. Follow and titrate therapy. ADITI ON CKD III Serum creatinine 1.1 ( baseline ) cr elevated 1,5-> 1.3 due to pre renal vol depletion cont IVF avoid NSAID's Nephrology following HYPERNATREMIA possible due to dehydration ; poor PO intake Na worsened to = 151-> 147 -> 150 pt pulled out her IV site last night IV fluid resumed nephrology consulted -appreciate input ANEMIA History of anemia of chronic kidney disease as well as myelodysplastic syndrome. S/P Tx of 1 unit PRBC cont to monitor DEMENTIA Apparent Alzheimer's dementia associated with behavioral difficulties. Treated at [facility] prior to transfer to [facility]. Continue olanzapine. pt is is having episode of delirium evening / -got confused pulled out IV site last night will order for Seroquel at night low boy bed , fall precaution hold Olanzapine for leukopenia . VTE PROPHYLAXIS Anticoagulants contraindicated due to recent subdural hematoma. SCD's or TEDS contraindicated due to severe peripheral vascular disease. RESUSCITATION STATUS DNR DISPOSITION Anticipated return to [facility] for skilled care when medically stable. social service consulted for discharge planning Vital Signs: Date Time Temp Pulse Resp B/P (MAP) Pulse Ox O2 Delivery O2 Flow Rate FiO2 06/26/17 08:25 162/70 (100) 06/26/17 08:00 Room Air 06/26/17 07:49 36.9 75 20 199/77 (117) 96 06/26/17 02:57 64 191/71 (111) 06/26/17 00:24 Room Air 06/26/17 00:04 36.9 71 18 179/74 (109) 94 06/25/17 16:58 37.2 70 18 177/71 (106) 97 Room Air 06/25/17 16:00 Room Air 06/25/17 10:44 158/61 (93) 06/25/17 10:44 158/61 (93) Lab Results: Results Past 24 Hours Test 06/25/17 11:25 06/25/17 13:10 06/25/17 16:36 06/25/17 20:17 Range/Units Bedside Glucose 178 189 305 305 70-90 mg/dl Test 06/25/17 23:11 06/26/17 02:03 06/26/17 05:12 06/26/17 05:49 Range/Units Sodium Level 145 146 136-145 mmol/L Potassium Level 4.1 4.2 3.5-5.1 mmol/L Chloride Level 114 117 98-107 mmol/L Carbon Dioxide Level 24 24 21-32 mmol/L Anion Gap 6.0 5.0 3-11 mmol/L Blood Urea Nitrogen 22 24 7-18 mg/dl Creatinine 1.80 1.60 0.60-1.20 mg/dl Est Creatinine Clear Calc Drug Dose 23.0 25.9 ml/min Estimated GFR () 29.6 34.2 Estimated GFR (Non- 25.6 29.5 BUN/Creatinine Ratio 12.3 14.9 10-20 Random Glucose 248 203 70-99 mg/dl Calcium Level 7.9 7.7 8.5-10.1 mg/dl Bedside Glucose 172 206 70-90 mg/dl White Blood Count 3.54 4.8-10.8 K/uL Red Blood Count 2.43 4.2-5.4 M/uL Hemoglobin 8.3 12.0-16.0 g/dL Hematocrit 25.5 37-47 % Mean Corpuscular Volume 104.9 80-100 fL Mean Corpuscular Hemoglobin 34.2 25-34 pg Mean Corpuscular Hemoglobin Concent 32.5 32-36 g/dl RDW Standard Deviation 72.9 36.4-46.3 fL RDW Coefficient of Variation 19.4 11.5-14.5 % Platelet Count 203 130-400 K/uL Mean Platelet Volume 11.8 7.4-10.4 fL Test 06/26/17 07:39 Range/Units Bedside Glucose 245 70-90 mg/dl
[2017-06-25 16:58] VITALS: BP 177/71; PULSE 70; TEMP 37.2; O2SAT 97
[2017-06-25 20:00] VITALS: Ht 162.6 cm; Wt 71.9 kg
[2017-06-25] MEDS: OLANZAPINE 5 MG TAB PO SCH (21:46)
[2017-06-25 23:52] LABS: BUN/CREATININE RATIO 12.3 (10-20); CALCIUM 7.9 mg/dl (8.5-10.1); CREATININE 1.8 mg/dl (0.60-1.20); POTASSIUM 4.1 mmol/L (3.5-5.1)
[2017-06-26] VITALS (12 sets, daily range): BP systolic 155–199; BP diastolic 62–77; PULSE 60–94; TEMP 36.4–37.2; O2SAT 93–100
[2017-06-26] MEDS ORDERED: SODIUM CHLORIDE 0.45% 1000ML 1,000 ML IV SCH (01:00)
[2017-06-26] MEDS: PIPERACILL/TAZOBAC IV 3.375 GM in DEXTROSE 5% 100ML 100 ML IV SCH ×3 (02:06→19:33)
[2017-06-26] MEDS ORDERED: NURSING DECISION MEDICATION ORDER SCH (02:45)
[2017-06-26 05:24] LABS: HEMATOCRIT 25.5 % (37-47); MEAN CELL VOLUME 104.9 fL (80-100); MEAN CORPUSCULAR HEMOGLOBIN 34.2 pg (25-34); MEAN CORPUSCULAR HGB CONC 32.5 g/dl (32-36); MEAN PLATELET VOLUME 11.8 fL (7.4-10.4); PLATELET COUNT 203 K/uL (130-400); RED BLOOD COUNT 2.43 M/uL (4.2-5.4); WHITE BLOOD COUNT 3.54 K/uL (4.8-10.8)
[2017-06-26 05:50] LABS: BUN/CREATININE RATIO 14.9 (10-20); CALCIUM 7.7 mg/dl (8.5-10.1); CREATININE 1.6 mg/dl (0.60-1.20); POTASSIUM 4.2 mmol/L (3.5-5.1)
--- NOTE | 2017-06-26 05:56 | Clinical Documentation Query ---
CLINICAL DOCUMENTATION QUERY An 82 year old female who presents to the Emergency Room with complaints of a worsening right middle toe darkening beginning last week. In your clinical opinion is this patient being managed for: ( x ) SIRS without acute organ dysfunction ( ) Not Agree ( ) Other explanation of clinical findings (Please Explain) ( ) Unable to determine (Please Define) ( ) Need to Discuss The medical record reflects the following clinical findings, treatment, and risk factors. Clinical Indicators: WBC 3.78 and 3.01, temp 38.1, gangrene/cellulitis right foot Treatment: Piperacillin IV, rocephin IV, wound consult Risk Factors: Age, diabetes, necrotic left toes, gangrenous right foot, ckd III Please clarify and document your clinical opinion in the progress notes and discharge summary. Terms such as "probable", "suspected", "likely", "questionable", "possible", or "still to be ruled out" are acceptable. IF IN AGREEMENT, YOU MUST DOCUMENT ABOVE DIAGNOSTIC STATEMENT IN DAILY PROGRESS NOTES AND DISCHARGE SUMMARY. This document is not part of the patient's record. Thank You, Rocio Mitchell RN [phone]
[2017-06-26] MEDS: INSULIN ASPART 100 UNITS/ML 3 ML PEN SC SCH ×3 (06:43→18:00)
[2017-06-26] MEDS: DOCUSATE SODIUM 100 MG CAP PO SCH ×2 (07:30→21:28)
[2017-06-26] MEDS: FAMOTIDINE 20 MG TAB PO SCH (07:30)
[2017-06-26] MEDS: SENNA 8.6 MG TAB PO SCH ×2 (07:30→21:28)
[2017-06-26] MEDS: CARVEDILOL 12.5 MG TAB PO SCH ×2 (07:33→21:28)
[2017-06-26] MEDS: AMLODIPINE BESYLATE 5 MG TAB PO SCH (07:33)
[2017-06-26] MEDS: CLONIDINE HCL 0.1 MG TAB PO SCH ×2 (07:34→21:28)
[2017-06-26] MEDS: ISOSORBIDE MONONITRATE 60 MG TABCR PO SCH (07:34)
[2017-06-26] MEDS ORDERED: CARVEDILOL 6.25 MG TAB PO ONE (08:15)
--- NOTE | 2017-06-26 09:23 | Progress Note ---
Progress Note Date of Service Jun 26, 2017. Progress Note Pt for RLE BKA in OR today d/t ischemic R foot. Procedure, risks, benefits and alternatives discussed with daughter, Caryl, by phone, she consents to procedure for her mother.
--- NOTE | 2017-06-26 10:29 | Progress Note ---
Internal Med Progress Note Date of Service: Jun 26, 2017. Provider Documentation: SUBJECTIVE: nursing reports pt was agitated last night , pulling out IV this morning was trying to hit nursing later apologized for her behavior at present calm , no agitation noted scheduled for Rt BKA today by Mahad spoke with Daughter Caryl over phone -aware of the surgical procedure understands her mother;s intermittent confusion due to dementia , worsened with acute illness rt foot ischemia OBJECTIVE: Vital Signs-as noted below Exam: General-elderly female ,no sign of distress Eyes-sclera non icteric ENT-NAD Neck-no JVD Lungs-CTA , no rales or wheeze Heart-regular S1/S2 Abdomen-soft, non tender Extremities-right foot in bandage , ischemia , necrosis of rt great toe Neuro-baseline dementia, no focal deficit Lab data as noted below. ASSESSMENT & PLAN: CELLULITIS RIGHT FOOT: met SIRS criteria on admission -presented with fever , leukopenia source of infection : ischemic 2nd right toe blood cultures no growth today cont IV Zosyn ISCHEMIA / GANGRENE OF RT SECOND TOE: with severe underlying Peripheral vascular disease presented with gangrenous left second toe as well as ischemic changes of right foot. Arterial duplex showed occlusion of the right anterior tibial and right posterior tibial arteries. Unable to anticoagulate due to recent subdural hematoma. on Abx IV piperacillin / tazobactam. Vascular Surgery consulted-appreciate input arterial US and aortoiliac US prior to making final recommendations/ determining level of amputation. due to severity of vascular disease /poor circulation -pt will need rt BKA schedule for OR today CORONARY ARTERY DISEASE no cardiac issue not on Aspirin due to recent sub dural hematoma Continue carvedilol, nitrates. MYELODYSPLASTIC SYNDROME : causing anemia /pancytopenia s/p 1 unit of PRBC given severe PVD goal Hb ~8 avoid antiplatelets HTN : BP elevated PRN IV Hydralazine ordered should get Coreg with sips of water prior to surgery Continue carvedilol, amlodipine, clonidine, nitrates. Follow and titrate therapy. ADITI ON CKD III Serum creatinine 1.1 ( baseline ) cr elevated 1,5-> 1.3 -> 1.6-> 1.8 due to pre renal vol depletion cont IVF avoid NSAID's Nephrology following HYPERNATREMIA possible due to dehydration ; poor PO intake Na improved = 151-> 147 -> 150 -> 146 IV fluid NSS @ 100 nephrology consulted -appreciate input ANEMIA History of anemia of chronic kidney disease as well as myelodysplastic syndrome. S/P Tx of 1 unit PRBC cont to monitor DEMENTIA Apparent Alzheimer's dementia associated with behavioral difficulties. Treated at [facility] facility prior to transfer to [facility]. Continue olanzapine. pt is is having episode of delirium evening / -got confused pulled out IV site last night will order for Seroquel at night low boy bed , fall precaution hold Olanzapine for leukopenia . VTE PROPHYLAXIS Anticoagulants contraindicated due to recent subdural hematoma. SCD's or TEDS contraindicated due to severe peripheral vascular disease. RESUSCITATION STATUS DNR DISPOSITION Anticipated return to [facility] for skilled care when medically stable. social service consulted for discharge planning Spoke with daughter Caryl ( phone # [phone] ) updated Vital Signs: Date Time Temp Pulse Resp B/P (MAP) Pulse Ox O2 Delivery O2 Flow Rate FiO2 06/26/17 08:25 162/70 (100) 06/26/17 08:00 Room Air 06/26/17 07:49 36.9 75 20 199/77 (117) 96 06/26/17 02:57 64 191/71 (111) 06/26/17 00:24 Room Air 06/26/17 00:04 36.9 71 18 179/74 (109) 94 06/25/17 16:58 37.2 70 18 177/71 (106) 97 Room Air 06/25/17 16:00 Room Air Lab Results: Results Past 24 Hours Test 06/25/17 13:10 06/25/17 16:36 06/25/17 20:17 06/25/17 23:11 Range/Units Bedside Glucose 189 305 305 70-90 mg/dl Sodium Level 145 136-145 mmol/L Potassium Level 4.1 3.5-5.1 mmol/L Chloride Level 114 98-107 mmol/L Carbon Dioxide Level 24 21-32 mmol/L Anion Gap 6.0 3-11 mmol/L Blood Urea Nitrogen 22 7-18 mg/dl Creatinine 1.80 0.60-1.20 mg/dl Est Creatinine Clear Calc Drug Dose 23.0 ml/min Estimated GFR () 29.6 Estimated GFR (Non- 25.6 BUN/Creatinine Ratio 12.3 10-20 Random Glucose 248 70-99 mg/dl Calcium Level 7.9 8.5-10.1 mg/dl Test 06/26/17 02:03 06/26/17 05:12 06/26/17 05:49 06/26/17 07:39 Range/Units Bedside Glucose 172 206 245 70-90 mg/dl White Blood Count 3.54 4.8-10.8 K/uL Red Blood Count 2.43 4.2-5.4 M/uL Hemoglobin 8.3 12.0-16.0 g/dL Hematocrit 25.5 37-47 % Mean Corpuscular Volume 104.9 80-100 fL Mean Corpuscular Hemoglobin 34.2 25-34 pg Mean Corpuscular Hemoglobin Concent 32.5 32-36 g/dl RDW Standard Deviation 72.9 36.4-46.3 fL RDW Coefficient of Variation 19.4 11.5-14.5 % Platelet Count 203 130-400 K/uL Mean Platelet Volume 11.8 7.4-10.4 fL Sodium Level 146 136-145 mmol/L Potassium Level 4.2 3.5-5.1 mmol/L Chloride Level 117 98-107 mmol/L Carbon Dioxide Level 24 21-32 mmol/L Anion Gap 5.0 3-11 mmol/L Blood Urea Nitrogen 24 7-18 mg/dl Creatinine 1.60 0.60-1.20 mg/dl Est Creatinine Clear Calc Drug Dose 25.9 ml/min Estimated GFR () 34.2 Estimated GFR (Non- 29.5 BUN/Creatinine Ratio 14.9 -20 Random Glucose 203 70-99 mg/dl Calcium Level 7.7 8.5-10.1 mg/dl
[2017-06-26] MEDS ORDERED: PHARMACY GLYCEMIC MGMT CONSULT PRN (10:30)
--- NOTE | 2017-06-26 12:06 | Progress Note ---
Progress Note Date of Service Jun 26, 2017. Progress Note Patient for right bka today. I have discussed the risks options and benefits of the procedure with the patient' daughter. The patient's daughter understands the risks options and benefits and agrees to the procedure. I have examined the patient, reviewed the History & Physical and in the interval since the performance of the History & Physical I have noted the following changes of clinical significance: No changes noted
--- NOTE | 2017-06-26 13:44 | Pharmacy Progress Note ---
Glycemic Control Intl Consult Date of Service Jun 26, 2017. Scope Glycemic Pharmacist consulted by Dr Erickson on 06/26/17 for glycemic control and to write orders per [facility] inpatient glycemic control protocol Objective Weight (Kilograms): 71.900 Accuchecks BSG (last 24hrs): Test 06/25/17 16:36 06/25/17 20:17 06/25/17 23:11 06/26/17 02:03 Bedside Glucose 305 mg/dl (70-90) 305 mg/dl (70-90) 172 mg/dl (70-90) Random Glucose 248 mg/dl (70-99) Test 06/26/17 05:12 06/26/17 05:49 06/26/17 07:39 Random Glucose 203 mg/dl (70-99) Bedside Glucose 206 mg/dl (70-90) 245 mg/dl (70-90) Laboratory Data (last 24hrs) Test 06/25/17 23:11 06/26/17 05:12 Anion Gap 6.0 mmol/L 5.0 mmol/L BUN/Creatinine Ratio 12.3 14.9 Blood Urea Nitrogen 22 mg/dl 24 mg/dl Creatinine 1.80 mg/dl 1.60 mg/dl Potassium Level 4.1 mmol/L 4.2 mmol/L Sodium Level 145 mmol/L 146 mmol/L White Blood Count 3.54 K/uL HbA1c Test 06/24/17 07:55 Hemoglobin A1c 7.1 % (4.5-5.6) H Recent Pertinent Medications Outpatient Anti-diabetic Regimen: * Lantus 23 units HS * Humalog 8 units AC and sliding scale: BSG 201-300 = 2 units; 301-399= 4 units * A1c = 7.1 % 06/24/17 The patient is currently receiving: * Basal insulin: Lantus 10 units every 12 hours on 06/24, then no Lantus on 06/25 or 06/26 * Correctional Insulin: Novolog Correction per scale ACHS Goal Range: Low 100 mg/dL - High 140 mg/dL Correction Factor: 50 mg/dL/unit * Prandial insulin: Per carb ratio of 1 unit per 30 grams CHO consumed Risk Factors for Insulin Resistance: * Infection: IV Zosyn, cellulitis/ischemic gangrene right foot * Recent Surgery: Right BKA scheduled for this afternoon * Diet: NPO Assessment & Plan ASSESSMENT: * 82 year old type 2 diabetic admitted for ischemic gangrene right foot, scheduled for right BKA this afternoon. * Blood sugars very labile, ranging from 43-305mg/dl this admission. * Lantus received 06/23 and 06/24 then completely cut, Lantus needs to be restarted at a reduced dose. * CF and CR need to be tightened as BSGs are not returning to goal when correction is given. * ADA & AACE recommend a goal blood sugar range 140-180 mg/dl for the majority of critically ill & non-critically ill patients. However, more stringent targets may be selected in individual cases. Will utilize more stringent goal of 120-150mg/dl based on patient age & comorbidities, but also considering pt was hypoglycemic on 06/23 and 06/25. Additionally, tighter glycemic control is warranted to facilitate wound/infection healing. PLAN FOR INPATIENT GLYCEMIC CONTROL: * Basal insulin with LANTUS 10 units SQ Daily, starting NOW * Correctional Insulin with NOVOLOG per scale ACHS or Q6hrs while NPO * Goal Range: Low 120 mg/dL - High 150 mg/dL * TIGHTEN: Correction Factor: 30 mg/dL/unit * TIGHTEN: Nutritional / Prandial insulin per carb ratio of 1 unit per 10 grams CHO consumed * Please note that the plan above was derived based on current level of insulin resistance and hospital stress. These recommendations are appropriate for inpatient admission only. Plan of care upon discharge will need to be reassessed to avoid potential outpatient hypo/hyperglycemia. Thank you.
[2017-06-26] MEDS ORDERED: INSULIN GLARGINE SOLOSTAR 100 UNITS/ML 3 ML PEN SC SCH (13:45)
[2017-06-26] MEDS ORDERED: NURSING VERBAL MED ORDER ONE ×2 (15:45→16:00)
[2017-06-26] MEDS ORDERED: NovoLIN-R INSULIN PER UNIT CHARGE ONE (15:51)
[2017-06-26] MEDS ORDERED: FENTANYL CITRATE INJ 50 MCG/1 ML 2 ML VIAL ONE ×2 (15:59→16:41)
[2017-06-26] MEDS ORDERED: NovoLIN-R INSULIN PER UNIT CHARGE SQ ONE (16:00)
[2017-06-26] MEDS ORDERED: HYDROmorphone INJ 2 MG/ML SYR/VIAL ONE (16:29)
[2017-06-26] MEDS ORDERED: PHENYLEPHRINE 100MCG/ML 5ML SYR IV PRN (16:30)
[2017-06-26] MEDS ORDERED: HYDROmorphone INJ 2 MG/ML SYR/VIAL IV PRN (16:30)
[2017-06-26] MEDS ORDERED: ATROPINE SULFATE 0.1 MG/ML 5ML SYR IV PRN (16:30)
[2017-06-26] MEDS ORDERED: LABETALOL HCL IV 5 MG/ML 20ML IV PRN (16:30)
[2017-06-26] MEDS ORDERED: ONDANSETRON INJ 2 MG/ML 2 ML VIAL IV PRN (16:30)
[2017-06-26] MEDS ORDERED: FLUMAZENIL 0.1 MG/1 ML 10 ML VIAL IV PRN (16:30)
[2017-06-26] MEDS ORDERED: MEPERIDINE HCL 25 MG/ML CARP IV PRN (16:30)
[2017-06-26] MEDS ORDERED: NALOXONE HCL 0.4 MG/1 ML VIAL/CARP IV PRN (16:30)
[2017-06-26] MEDS ORDERED: EpHEDrine SULFATE INJ 50 MG/ML AMP IV PRN (16:30)
[2017-06-26] MEDS ORDERED: DEXAMETHASONE SOD INJ 4 MG/ML VIAL ONE (16:44)
[2017-06-26] MEDS ORDERED: LABETALOL HCL IV 5 MG/ML 20ML IV ONE (16:44)
[2017-06-26] MEDS ORDERED: PROPOFOL IV EMULSION 10 MG/ML 20 ML VIAL IV ONE (16:44)
[2017-06-26] MEDS ORDERED: ONDANSETRON INJ 2 MG/ML 2 ML VIAL ONE (16:44)
[2017-06-26] MEDS ORDERED: LIDOCAINE HCL 2% 2 ML VIAL (20MG/ML) ONE (16:44)
--- NOTE | 2017-06-26 17:12 | [facility] Post Operative Brief Note ---
Immediate Operative Summary Operative Date Jun 26, 2017. Pre-Operative Diagnosis Ischemic right foot Post-Operative Diagnosis Ischemic right foot Procedure(s) Performed Right Below Knee Amputation Surgeon Dr. Pisano Fabrication Lead Surgeon(s) none Estimated Blood Loss 250 ML Findings good bleeding Specimens Permanent Specimen A. Right leg below the knee amputation Anesthesia GEn Disposition Recovery Room / PACU
[2017-06-26] MEDS ORDERED: MoRPHine SULFATE 4 MG/ML 1 ML CARP\\VIAL IV PRN (17:15)
[2017-06-26] MEDS: FENTANYL CITRATE INJ 50 MCG/1 ML 2 ML VIAL IV PRN ×3 (17:48→18:00)
--- NOTE | 2017-06-26 18:21 | Anesthesiology Progress Note ---
Anesthesia Post Op Note Date & Time Jun 26, 2017 at 18:19 Vital Signs Vital Signs Past 12 Hours Date Time Temp Pulse Resp B/P (MAP) Pulse Ox O2 Delivery O2 Flow Rate FiO2 06/26/17 18:05 50 16 202/80 99 Nasal Cannula 4 06/26/17 17:55 57 16 198/80 99 Nasal Cannula 4 06/26/17 17:45 55 15 199/82 99 Nasal Cannula 4 06/26/17 17:35 58 15 190/75 97 Nasal Cannula 4 06/26/17 17:25 56 18 204/85 97 Nasal Cannula 4 06/26/17 17:17 36 64 18 194/83 96 Nasal Cannula 4 06/26/17 08:25 162/70 (100) 06/26/17 08:00 Room Air 06/26/17 07:49 36.9 75 20 199/77 (117) 96 Notes Mental Status: alert / awake / arousable, participated in evaluation Pt Amnestic to Procedure: Yes Nausea / Vomiting: adequately controlled Pain: adequately controlled Airway Patency, RR, SpO2: stable & adequate BP & HR: stable & adequate Hydration State: stable & adequate Anesthetic Complications: no major complications apparent SBP in 190's but she has run in this range off and on this admission and her diastolics are only in the 70's. She did miss some of her blood pressure medicines that are due about now. She appears comfortable and vitals are otherwise good.
[2017-06-26] MEDS: SODIUM CHLORIDE 0.9% 1000ML 1,000 ML IV SCH (19:34)
[2017-06-26] MEDS: HydrALAZINE HCL 20 MG/ML VIAL IV. PRN (19:48)
[2017-06-26] MEDS ORDERED: HYDROmorphone INJ 0.5 MG/0.5 ML SYR IV PRN (20:00)
[2017-06-26] MEDS: QUETIAPINE FUMARATE 25 MG TAB PO SCH (21:28)
[2017-06-26] MEDS ORDERED: INSULIN ASPART 100 UNITS/ML 3 ML PEN SC SCH (21:30)
--- NOTE | 2017-06-26 22:22 | OPERATIVE REPORT ---
DATE OF OPERATION: 06/26/2017 PREOPERATIVE DIAGNOSIS: Ischemic right foot. POSTOPERATIVE DIAGNOSIS: Same. PROCEDURE: Right below-knee amputation. SURGEON: Dr. Pisano. ANESTHETIC: General. PROCEDURE INDICATIONS: The patient is an 82-year-old female with an ischemic right foot. The foot is insensate from the ankle down. She does have flow to the distal third of the leg, but nothing could be heard on the foot. At this point, a BK was recommended. The daughter, who signs her consent and is her only relative, was agreeable. She understood the risks, options and benefits and agreed to have this procedure. OPERATION AND FINDINGS: The patient was taken to the operating room and placed in supine position. After general anesthesia was accomplished, the right leg was prepped and draped in a sterile manner. The usual incision was then made, approximately 5 fingerbreadths below the tibial tuberosity. The muscle all appeared very viable and normal in appearance. The anterior compartment's muscles were divided. The nerve and vascular bundles were clamped and divided. Once this was done, the periosteal elevator was used to raise the periosteum on the fibula and the fibula was transected. Next, the medial compartments were then divided using electrocautery. The tibia was then divided with using the Gigli saw. Once this was done, the amputation knife was used and a posterior flap was then formed, using the gastroc and soleus for a base. Once the leg was removed, all bleeding was controlled with free ties. Once adequate hemostasis was noted, the wound was closed by bringing the posterior flap up to the anterior flaps and approximating the fascia with 3-0 Vicryls. The skin edges were then approximated with the stapling device. Sterile dressings were applied. The patient left the operating room in satisfactory condition and tolerated the procedure well. I attest to the content of the Intraoperative Record and any orders documented therein. Any exception s are noted below.
[2017-06-27] MEDS: PIPERACILL/TAZOBAC IV 3.375 GM in DEXTROSE 5% 100ML 100 ML IV SCH ×3 (02:04→16:39)
[2017-06-27] MEDS: OXYCODONE/ACETAMINOPHEN 5-325 TAB PO PRN (02:09)
[2017-06-27 03:32] VITALS: BP 153/67; PULSE 72; TEMP 36.3; O2SAT 97
[2017-06-27 07:36] VITALS: BP 165/74; PULSE 67; TEMP 36.8; O2SAT 92
[2017-06-27 08:16] LABS: BASO % 0.4 %; BASO ABS # 0.02 K/uL (0-0.2); EOS % 0.2 %; HEMATOCRIT 23.1 % (37-47); IG% 0.6 %; LYMPH % 11.1 %; LYMPH ABS # 0.58 K/uL (1.2-3.4); MEAN CELL VOLUME 101.3 fL (80-100); MEAN CORPUSCULAR HEMOGLOBIN 33.8 pg (25-34); MEAN CORPUSCULAR HGB CONC 33.3 g/dl (32-36); MEAN PLATELET VOLUME 12.4 fL (7.4-10.4); MONO % 6.7 %; PLATELET COUNT 213 K/uL (130-400); RED BLOOD COUNT 2.28 M/uL (4.2-5.4); WHITE BLOOD COUNT 5.23 K/uL (4.8-10.8)
[2017-06-27 08:44] LABS: ANISOCYTOSIS PRESENT; COMPLETE YES; TEAR DROP CELLS OCCASIONAL; TOXIC GRANULATION 1+
[2017-06-27 08:48] LABS: BUN/CREATININE RATIO 17.7 (10-20); CALCIUM 7.8 mg/dl (8.5-10.1); CREATININE 1.4 mg/dl (0.60-1.20); POTASSIUM 4.4 mmol/L (3.5-5.1)
[2017-06-27] MEDS: FAMOTIDINE 20 MG TAB PO SCH (08:52)
[2017-06-27] MEDS: SENNA 8.6 MG TAB PO SCH ×2 (08:52→20:38)
[2017-06-27] MEDS: DOCUSATE SODIUM 100 MG CAP PO SCH ×2 (08:53→20:39)
[2017-06-27] MEDS: AMLODIPINE BESYLATE 5 MG TAB PO SCH (08:53)
[2017-06-27] MEDS: ISOSORBIDE MONONITRATE 60 MG TABCR PO SCH (08:53)
[2017-06-27] MEDS: CARVEDILOL 12.5 MG TAB PO SCH ×2 (08:54→20:39)
[2017-06-27] MEDS: CLONIDINE HCL 0.1 MG TAB PO SCH ×2 (08:54→20:39)
[2017-06-27] MEDS: INSULIN ASPART 100 UNITS/ML 3 ML PEN SC SCH ×4 (08:59→20:43)
[2017-06-27] MEDS ORDERED: INSULIN GLARGINE SOLOSTAR 100 UNITS/ML 3 ML PEN SC SCH (09:00)
--- NOTE | 2017-06-27 09:05 | Progress Note ---
Progress Note Date of Service: Jun 27, 2017. Subjective No complaints Problem List Medical Problems: (1) Altered mental status Status: Acute (2) Anemia Status: Acute (3) Arterial insufficiency Status: Acute (4) Cellulitis of right foot Status: Acute (5) Constipation Status: Acute (6) Cyst of right kidney Status: Acute (7) Dehydration Status: Acute (8) Hypoglycemia Status: Acute (9) Hypoglycemia Status: Acute Objective Vital Signs Vital Signs Past 12 Hours Date Time Temp Pulse Resp B/P (MAP) Pulse Ox O2 Delivery O2 Flow Rate FiO2 06/27/17 07:36 36.8 67 20 165/74 (104) 92 Nasal Cannula 2.0 06/27/17 03:32 36.3 72 18 153/67 (95) 97 Nasal Cannula 2.0 06/26/17 23:42 Nasal Cannula 2.0 06/26/17 22:00 37.2 94 18 166/73 (104) 93 Room Air 06/26/17 21:23 86 16 155/72 (99) 06/26/17 21:05 37.0 83 18 177/66 (103) 94 Room Air Exam Stump dressing intact. Not painful Laboratory and Microbiology Results Past 24 Hours Test 06/26/17 12:49 06/26/17 15:39 06/26/17 17:18 06/26/17 20:02 Range/Units Bedside Glucose 278 211 179 194 70-90 mg/dl Test 06/27/17 07:07 06/27/17 08:17 Range/Units White Blood Count 5.23 4.8-10.8 K/uL Red Blood Count 2.28 4.2-5.4 M/uL Hemoglobin 7.7 12.0-16.0 g/dL Hematocrit 23.1 37-47 % Mean Corpuscular Volume 101.3 80-100 fL Mean Corpuscular Hemoglobin 33.8 25-34 pg Mean Corpuscular Hemoglobin Concent 33.3 32-36 g/dl Platelet Count 213 130-400 K/uL Mean Platelet Volume 12.4 7.4-10.4 fL Neutrophils (%) (Auto) 81.0 % Lymphocytes (%) (Auto) 11.1 % Monocytes (%) (Auto) 6.7 % Eosinophils (%) (Auto) 0.2 % Basophils (%) (Auto) 0.4 % Neutrophils # (Auto) 4.24 1.4-6.5 K/uL Lymphocytes # (Auto) 0.58 1.2-3.4 K/uL Monocytes # (Auto) 0.35 0.11-0.59 K/uL Eosinophils # (Auto) 0.01 0-0.5 K/uL Basophils # (Auto) 0.02 0-0.2 K/uL RDW Standard Deviation 72.5 36.4-46.3 fL RDW Coefficient of Variation 20.2 11.5-14.5 % Immature Granulocyte % (Auto) 0.6 % Immature Granulocyte # (Auto) 0.03 0.00-0.02 K/uL Toxic Granulation 1+ Anisocytosis PRESENT Macrocytosis PRESENT Tear Drop Cells OCCASIONAL Sodium Level 144 136-145 mmol/L Potassium Level 4.4 3.5-5.1 mmol/L Chloride Level 113 98-107 mmol/L Carbon Dioxide Level 22 21-32 mmol/L Anion Gap 8.0 3-11 mmol/L Blood Urea Nitrogen 25 7-18 mg/dl Creatinine 1.40 0.60-1.20 mg/dl Est Creatinine Clear Calc Drug Dose 29.6 ml/min Estimated GFR () 40.2 Estimated GFR (Non- 34.7 BUN/Creatinine Ratio 17.7 10-20 Random Glucose 282 70-99 mg/dl Calcium Level 7.8 8.5-10.1 mg/dl Bedside Glucose 292 70-90 mg/dl Imp: Post BKA Plan: Doing well Will leave dressing in place.
[2017-06-27 10:28] VITALS: BP 124/47; PULSE 67; TEMP 36.8; O2SAT 95
--- NOTE | 2017-06-27 13:58 | Pharmacy Progress Note ---
Glycemic Control Progress Note Date of Service Jun 27, 2017. Scope Glycemic Pharmacist consulted for glycemic control to write orders per [facility] inpatient glycemic control protocol. Objective Accuchecks BSG (last 24hrs): Test 06/26/17 15:39 06/26/17 17:18 06/26/17 20:02 06/27/17 07:07 Bedside Glucose 211 mg/dl (70-90) 179 mg/dl (70-90) 194 mg/dl (70-90) Random Glucose 282 mg/dl (70-99) Test 06/27/17 08:17 Bedside Glucose 292 mg/dl (70-90) HbA1c: Test 06/24/17 07:55 Hemoglobin A1c 7.1 % (4.5-5.6) H Recent Pertinent Medications Outpatient Anti-diabetic Regimen: * Lantus 23 units HS * Humalog 8 units AC and sliding scale: BSG 201-300 = 2 units; 301-399= 4 units * A1c = 7.1 % 06/24/17 The patient is currently receiving: * Basal insulin: Lantus 10 units every 12 hours on 06/24, then no Lantus on 06/25 * Lantus 10 units daily restarted 06/26 * Correctional Insulin: Novolog Correction per scale ACHS Goal Range: Low 120 mg/dL - High 150 mg/dL Correction Factor: 30 mg/dL/unit * Prandial insulin: Per carb ratio of 1 unit per 10 grams CHO consumed Risk Factors for Insulin Resistance: * Infection: IV Zosyn, cellulitis/ischemic gangrene right foot * Recent Surgery: Right BKA - POD1 * Steroids: Dexamethasone 4mg IV x1 last evening in OR * Diet: NPO Assessment & Plan ASSESSMENT: 06/26/17 * 82 year old type 2 diabetic admitted for ischemic gangrene right foot, scheduled for right BKA this afternoon. * Blood sugars very labile, ranging from 43-305mg/dl this admission. * Lantus received 06/23 and 06/24 then completely cut, Lantus needs to be restarted at a reduced dose. * CF and CR need to be tightened as BSGs are not returning to goal when correction is given. * ADA & AACE recommend a goal blood sugar range 140-180 mg/dl for the majority of critically ill & non-critically ill patients. However, more stringent targets may be selected in individual cases. Will utilize more stringent goal of 120-150mg/dl based on patient age & comorbidities, but also considering pt was hypoglycemic on 06/23 and 06/25. Additionally, tighter glycemic control is warranted to facilitate wound/infection healing. 06/27/17 * Pt remains hyperglycemic today despite tightening CR and CF and increasing Lantus dose this morning, all likely due to patient receiving Dexamethason 4mg IV last evening in OR and starting Type 2 DM diet * Will further tighten CR and CF further until steroids wear off PLAN FOR INPATIENT GLYCEMIC CONTROL: * INCREASE LANTUS to 15 units SQ Daily * hold for BSG < 110mg/dl * Correctional Insulin with NOVOLOG per scale ACHS or Q6hrs while NPO * Goal Range: Low 120 mg/dL - High 150 mg/dL * TIGHTEN: Correction Factor: 20 mg/dL/unit * TIGHTEN: Nutritional / Prandial insulin per carb ratio of 1 unit per 8 grams CHO consumed * Please note that the plan above was derived based on current level of insulin resistance and hospital stress. These recommendations are appropriate for inpatient admission only. Plan of care upon discharge will need to be reassessed to avoid potential outpatient hypo/hyperglycemia. Thank you.
[2017-06-27 14:53] VITALS: BP 123/61; PULSE 67; TEMP 37.3; O2SAT 95
[2017-06-27] MEDS: SODIUM CHLORIDE 0.9% 1000ML 1,000 ML IV SCH (15:56)
--- NOTE | 2017-06-27 16:47 | Progress Note ---
Internal Med Progress Note Date of Service: Jun 27, 2017. Provider Documentation: SUBJECTIVE: s/p rt BKA yesterday doing well post op seen at bedside ,offers no complain smiling , says she is OK pt's daughter present at bedside -happy with the out come of the surgery OBJECTIVE: Vital Signs-as noted below Exam: General-elderly female ,no sign of distress Eyes-sclera non icteric ENT-NAD Neck-no JVD Lungs-CTA , no rales or wheeze Heart-regular S1/S2 Abdomen-soft, non tender Extremities-s/p rt BKA Neuro-baseline dementia, no focal deficit Lab data as noted below. ASSESSMENT & PLAN: CELLULITIS RIGHT FOOT: met SIRS criteria on admission -presented with fever , leukopenia source of infection : ischemic 2nd right toe blood cultures no growth today on IV Zosyn s/p RT BKA will D/c IV Abx ISCHEMIA / GANGRENE OF RT SECOND TOE: with severe underlying Peripheral vascular disease presented with gangrenous left second toe as well as ischemic changes of right foot. Arterial duplex showed occlusion of the right anterior tibial and right posterior tibial arteries. Unable to anticoagulate due to recent subdural hematoma. was on Abx IV piperacillin / tazobactam. Vascular Surgery consulted-appreciate input arterial US and aortoiliac US prior to making final recommendations/ determining level of amputation. due to severity of vascular disease /poor circulation -pt will need rt BKA s/p RT BKA recovering well will DC abx since infected limb been amputated CORONARY ARTERY DISEASE no cardiac issue not on Aspirin due to recent sub dural hematoma Continue carvedilol, nitrates. MYELODYSPLASTIC SYNDROME : causing anemia /pancytopenia s/p 1 unit of PRBC hb remains stable 7.7 follow H&H tx for Hb < 7.5 HTN : BP stable Continue carvedilol, amlodipine, clonidine, nitrates. Follow and titrate therapy. ADITI ON CKD III cr improved to 1.4 avoid NSAID's Nephrology following HYPERNATREMIA Na level normalized nephrology consulted -appreciate input ANEMIA History of anemia of chronic kidney disease as well as myelodysplastic syndrome. S/P Tx of 1 unit PRBC cont to monitor DEMENTIA Apparent Alzheimer's dementia associated with behavioral difficulties. Treated at [facility] facility prior to transfer to [facility]. Olanzapine D/mikaela for leukopenia pt is is having episode of delirium evening / -got confused pulled out IV site last night ordered for Seroquel at night has some improvement of behavioral symptoms /agitation low boy bed , fall precaution . VTE PROPHYLAXIS Anticoagulants contraindicated due to recent subdural hematoma. SCD's or TEDS contraindicated due to severe peripheral vascular disease. RESUSCITATION STATUS DNR DISPOSITION Anticipated return to [facility] for skilled care when medically stable. possible on Thursday social service consulted for discharge planning updated daughter Caryl ( phone # [phone] ) Vital Signs: Date Time Temp Pulse Resp B/P (MAP) Pulse Ox O2 Delivery O2 Flow Rate FiO2 06/27/17 14:53 37.3 67 14 123/61 (81) 95 Room Air 06/27/17 10:28 36.8 67 18 124/47 (72) 95 Room Air 06/27/17 07:40 Nasal Cannula 06/27/17 07:36 36.8 67 20 165/74 (104) 92 Nasal Cannula 2.0 06/27/17 03:32 36.3 72 18 153/67 (95) 97 Nasal Cannula 2.0 06/26/17 23:42 Nasal Cannula 2.0 06/26/17 22:00 37.2 94 18 166/73 (104) 93 Room Air 06/26/17 21:23 86 16 155/72 (99) 06/26/17 21:05 37.0 83 18 177/66 (103) 94 Room Air 06/26/17 20:25 82 16 164/74 (104) 100 Nasal Cannula 2.0 78 06/26/17 20:01 36.9 61 18 180/67 (104) 97 Room Air 06/26/17 19:29 36.4 63 18 188/69 (108) 99 Nasal Cannula 2.0 06/26/17 19:09 99 Nasal Cannula 2.0 06/26/17 19:00 36.8 60 18 197/62 (107) 99 Nasal Cannula 2.0 06/26/17 19:00 99 Nasal Cannula 2.0 06/26/17 18:45 53 16 200/67 99 Nasal Cannula 4 06/26/17 18:30 55 16 202/77 99 Nasal Cannula 4 06/26/17 18:23 60 16 185/79 99 Nasal Cannula 4 06/26/17 18:15 36.4 50 16 196/71 99 Nasal Cannula 4 06/26/17 18:05 50 16 202/80 99 Nasal Cannula 4 06/26/17 17:55 57 16 198/80 99 Nasal Cannula 4 06/26/17 17:45 55 15 199/82 99 Nasal Cannula 4 06/26/17 17:35 58 15 190/75 97 Nasal Cannula 4 06/26/17 17:25 56 18 204/85 97 Nasal Cannula 4 06/26/17 17:17 36 64 18 194/83 96 Nasal Cannula 4 Lab Results: Results Past 24 Hours Test 06/26/17 17:18 06/26/17 20:02 06/27/17 07:07 06/27/17 08:17 Range/Units Bedside Glucose 179 194 292 70-90 mg/dl White Blood Count 5.23 4.8-10.8 K/uL Red Blood Count 2.28 4.2-5.4 M/uL Hemoglobin 7.7 12.0-16.0 g/dL Hematocrit 23.1 37-47 % Mean Corpuscular Volume 101.3 80-100 fL Mean Corpuscular Hemoglobin 33.8 25-34 pg Mean Corpuscular Hemoglobin Concent 33.3 32-36 g/dl Platelet Count 213 130-400 K/uL Mean Platelet Volume 12.4 7.4-10.4 fL Neutrophils (%) (Auto) 81.0 % Lymphocytes (%) (Auto) 11.1 % Monocytes (%) (Auto) 6.7 % Eosinophils (%) (Auto) 0.2 % Basophils (%) (Auto) 0.4 % Neutrophils # (Auto) 4.24 1.4-6.5 K/uL Lymphocytes # (Auto) 0.58 1.2-3.4 K/uL Monocytes # (Auto) 0.35 0.11-0.59 K/uL Eosinophils # (Auto) 0.01 0-0.5 K/uL Basophils # (Auto) 0.02 0-0.2 K/uL RDW Standard Deviation 72.5 36.4-46.3 fL RDW Coefficient of Variation 20.2 11.5-14.5 % Immature Granulocyte % (Auto) 0.6 % Immature Granulocyte # (Auto) 0.03 0.00-0.02 K/uL Toxic Granulation 1+ Anisocytosis PRESENT Macrocytosis PRESENT Tear Drop Cells OCCASIONAL Sodium Level 144 136-145 mmol/L Potassium Level 4.4 3.5-5.1 mmol/L Chloride Level 113 98-107 mmol/L Carbon Dioxide Level 22 21-32 mmol/L Anion Gap 8.0 3-11 mmol/L Blood Urea Nitrogen 25 7-18 mg/dl Creatinine 1.40 0.60-1.20 mg/dl Est Creatinine Clear Calc Drug Dose 29.6 ml/min Estimated GFR () 40.2 Estimated GFR (Non- 34.7 BUN/Creatinine Ratio 17.7 10-20 Random Glucose 282 70-99 mg/dl Calcium Level 7.8 8.5-10.1 mg/dl
[2017-06-27] MEDS ORDERED: OXYC-57 PO (16:51)
[2017-06-27] MEDS ORDERED: CRG125 PO (16:51)
[2017-06-27] MEDS ORDERED: SRQ25 PO (16:51)
[2017-06-27] MEDS: QUETIAPINE FUMARATE 25 MG TAB PO SCH (20:37)
[2017-06-27 20:44] VITALS: BP 151/60; PULSE 89
[2017-06-27 22:42] VITALS: BP 151/75; PULSE 89; TEMP 37.3; O2SAT 93
[2017-06-28] VITALS (13 sets, daily range): BP systolic 117–192; BP diastolic 69–87; PULSE 66–83; TEMP 36.3–37.3; O2SAT 91–99
[2017-06-28 07:24] LABS: BUN/CREATININE RATIO 21.6 (10-20); CALCIUM 7.9 mg/dl (8.5-10.1); HEMATOCRIT 22.7 % (37-47); MEAN CELL VOLUME 104.1 fL (80-100); MEAN CORPUSCULAR HEMOGLOBIN 33.5 pg (25-34); MEAN CORPUSCULAR HGB CONC 32.2 g/dl (32-36); MEAN PLATELET VOLUME 12.4 fL (7.4-10.4); PLATELET COUNT 202 K/uL (130-400); POTASSIUM 4.5 mmol/L (3.5-5.1); RED BLOOD COUNT 2.18 M/uL (4.2-5.4); WHITE BLOOD COUNT 5.84 K/uL (4.8-10.8)
[2017-06-28 07:47] LABS: BETA-HYDROXYBUTYRATE 1.85 mg/dL (0.2-2.81)
[2017-06-28] MEDS: DOCUSATE SODIUM 100 MG CAP PO SCH ×2 (08:25→20:43)
[2017-06-28] MEDS: CARVEDILOL 12.5 MG TAB PO SCH ×2 (08:25→20:44)
[2017-06-28] MEDS: ISOSORBIDE MONONITRATE 60 MG TABCR PO SCH (08:26)
[2017-06-28] MEDS: CLONIDINE HCL 0.1 MG TAB PO SCH ×2 (08:26→20:43)
[2017-06-28] MEDS: SENNA 8.6 MG TAB PO SCH ×2 (08:26→20:45)
[2017-06-28] MEDS: AMLODIPINE BESYLATE 5 MG TAB PO SCH (08:26)
[2017-06-28] MEDS: FAMOTIDINE 20 MG TAB PO SCH (08:47)
[2017-06-28] MEDS: INSULIN ASPART 100 UNITS/ML 3 ML PEN SC SCH ×4 (08:55→20:46)
[2017-06-28] MEDS ORDERED: INSULIN GLARGINE SOLOSTAR 100 UNITS/ML 3 ML PEN SC SCH (09:00)
[2017-06-28] MEDS ORDERED: SODIUM CHLORIDE 0.45% 1000ML 1,000 ML IV SCH (10:30)
[2017-06-28] MEDS ORDERED: INSULIN HUMAN REGULAR PER UNIT 5 UNITS in SYRINGE 4.95 ML IV SCH (12:45)
--- NOTE | 2017-06-28 14:59 | Pharmacy Progress Note ---
Glycemic Control Progress Note Date of Service Jun 28, 2017. Scope Glycemic Pharmacist consulted for glycemic control to write orders per [facility] inpatient glycemic control protocol. Objective Accuchecks BSG (last 24hrs): Test 06/27/17 17:12 06/27/17 20:28 06/28/17 05:48 06/28/17 08:32 Bedside Glucose 294 mg/dl (70-90) 192 mg/dl (70-90) 383 mg/dl (70-90) Random Glucose 393 mg/dl (70-99) Test 06/28/17 12:01 Bedside Glucose 337 mg/dl (70-90) HbA1c: Test 06/24/17 07:55 Hemoglobin A1c 7.1 % (4.5-5.6) H Recent Pertinent Medications Outpatient Anti-diabetic Regimen: * Lantus 23 units HS * Humalog 8 units AC and sliding scale: BSG 201-300 = 2 units; 301-399= 4 units * A1c = 7.1 % 06/24/17 The patient is currently receiving: * Basal insulin: Lantus 10 units every 12 hours on 06/24, then no Lantus on 06/25 * Lantus 10 units daily restarted 06/26 * Lantus 15 units on 06/27 * Correctional Insulin: Novolog Correction per scale ACHS Goal Range: Low 120 mg/dL - High 150 mg/dL Correction Factor: 20 mg/dL/unit * Prandial insulin: Per carb ratio of 1 unit per 8 grams CHO consumed Risk Factors for Insulin Resistance: * Infection: IV Zosyn, cellulitis/ischemic gangrene right foot * Recent Surgery: Right BKA - POD2 * Steroids: Dexamethasone 4mg IV x1 06/26 * Diet: Type 2 DM Assessment & Plan ASSESSMENT: 06/26/17 * 82 year old type 2 diabetic admitted for ischemic gangrene right foot, scheduled for right BKA this afternoon. * Blood sugars very labile, ranging from 43-305mg/dl this admission. * Lantus received 06/23 and 06/24 then completely cut, Lantus needs to be restarted at a reduced dose. * CF and CR need to be tightened as BSGs are not returning to goal when correction is given. * ADA & AACE recommend a goal blood sugar range 140-180 mg/dl for the majority of critically ill & non-critically ill patients. However, more stringent targets may be selected in individual cases. Will utilize more stringent goal of 120-150mg/dl based on patient age & comorbidities, but also considering pt was hypoglycemic on 06/23 and 06/25. Additionally, tighter glycemic control is warranted to facilitate wound/infection healing. 06/27/17 * Pt remains hyperglycemic today despite tightening CR and CF and increasing Lantus dose this morning, all likely due to patient receiving Dexamethason 4mg IV last evening in OR and starting Type 2 DM diet * Will further tighten CR and CF further until steroids wear off 06/28/17 * Pt remains hyperglycemic today despite tightening CR and CF and increasing Lantus dose this morning * One time IV dose of insulin for BSGs remaining in 300s, and tighten CF and CR further * Will also add overnight blood sugar checks * Will give an additional dose of Lantus tonight if BSG > 250mg/dl PLAN FOR INPATIENT GLYCEMIC CONTROL: * INCREASE LANTUS to 20 units SQ Daily * hold for BSG < 110mg/dl * Correctional Insulin with NOVOLOG per scale ACHS or Q6hrs while NPO and overnight at 0000 and 0400 * Goal Range: Low 120 mg/dL - High 150 mg/dL * TIGHTEN: Correction Factor: 12 mg/dL/unit * TIGHTEN: Nutritional / Prandial insulin per carb ratio of 1 unit per 4 grams CHO consumed * 5 units Regular insulin IV x1 dose today at 1300 for BSG 337mg/dl * If BSG > 250mg/dl tonight at 2100 - will give additional Lantus dose * Please note that the plan above was derived based on current level of insulin resistance and hospital stress. These recommendations are appropriate for inpatient admission only. Plan of care upon discharge will need to be reassessed to avoid potential outpatient hypo/hyperglycemia. Thank you.
--- NOTE | 2017-06-28 20:00 | Progress Note ---
Medicine Progress Note Date & Time of Visit: Jun 28, 2017 at 19:59. Subjective Pt was seen and examined Lying in bed with no distress Denies any chest pain, palpitation, dizziness and sob Objective Last 8 Hrs Date Time Temp Pulse Resp B/P (MAP) Pulse Ox O2 Delivery O2 Flow Rate FiO2 06/28/17 15:45 Nasal Cannula 2.0 06/28/17 14:51 36.9 81 14 160/72 (101) 97 Room Air Physical Exam: General- No acute distress Head- atraumatic Eyes- PERRL, EOMI ENT- oropharynx clear Neck- supple, no JVD Lungs-No wheezing Heart- regular rhythm Abdomen- normal bowel sounds Extremities-no calf L tenderness, RBKA Neuro- alert, oriented x 3; PERRL, EOMI Skin- warm & dry Laboratory Results: Last 24 Hours Test 06/27/17 20:28 06/28/17 05:48 06/28/17 08:32 06/28/17 12:01 Bedside Glucose 192 mg/dl 383 mg/dl 337 mg/dl White Blood Count 5.84 K/uL Red Blood Count 2.18 M/uL Hemoglobin 7.3 g/dL Hematocrit 22.7 % Mean Corpuscular Volume 104.1 fL Mean Corpuscular Hemoglobin 33.5 pg Mean Corpuscular Hemoglobin Concent 32.2 g/dl RDW Standard Deviation 78.0 fL RDW Coefficient of Variation 21.0 % Platelet Count 202 K/uL Mean Platelet Volume 12.4 fL Nucleated RBC Absolute Count (auto) 0.02 K/uL Nucleated Red Blood Cells % 0.3 % Sodium Level 142 mmol/L Potassium Level 4.5 mmol/L Chloride Level 113 mmol/L Carbon Dioxide Level 21 mmol/L Anion Gap 8.0 mmol/L Blood Urea Nitrogen 43 mg/dl Creatinine 2.00 mg/dl Est Creatinine Clear Calc Drug Dose 20.7 ml/min Estimated GFR () 26.1 Estimated GFR (Non- 22.5 BUN/Creatinine Ratio 21.6 Random Glucose 393 mg/dl Calcium Level 7.9 mg/dl Beta-Hydroxybutyric Acid 1.85 mg/dL Test 06/28/17 17:11 Bedside Glucose 75 mg/dl Assessment & Plan ISCHEMIC RIGHT FOOT with severe underlying Peripheral vascular disease presented with gangrenous left second toe as well as ischemic changes of right foot. Arterial duplex showed occlusion of the right anterior tibial and right posterior tibial arteries. Unable to anticoagulate due to recent subdural hematoma. was on Abx IV piperacillin / tazobactam. Vascular on board arterial US and aortoiliac US prior to making final recommendations/determining level of amputation. s/p RT BKA No post op complication Continue monitor H/H PT/OT waiting for placement to rehab once stable CELLULITIS RIGHT FOOT met SIRS criteria on admission -presented with fever, leukopenia blood cultures no growth today was started on IV Zosyn that was D/C after the Rt BKA CORONARY ARTERY DISEASE no cardiac issue not on Aspirin due to recent sub dural hematoma Continue carvedilol, nitrates. MYELODYSPLASTIC SYNDROME : causing anemia /pancytopenia will transfuse 1 unit prbc Hbg 7.3 follow H&H HTN : Continue carvedilol, amlodipine, clonidine, nitrates. Continue monitor BP ADITI ON CKD III Creatine worsening to 2 avoid NSAID's Nephrology on board HYPERNATREMIA Na level normalized stable ANEMIA History of anemia of chronic kidney disease as well as myelodysplastic syndrome. Might also related to post op blood loss S/P Tx of 1 unit PRBC will transfused 1 unit prbc cont to monitor DEMENTIA Apparent Alzheimer's dementia associated with behavioral difficulties. Treated at [facility]ops[facility] facility prior to transfer to [facility]. Olanzapine D/mikaela for leukopenia On Seroquel at night has some improvement of behavioral symptoms /agitation low boy bed , fall precaution . VTE PROPHYLAXIS Anticoagulants contraindicated due to recent subdural hematoma. SCD's or TEDS contraindicated due to severe peripheral vascular disease. RESUSCITATION STATUS DNR DISPOSITION Anticipated return to [facility] for skilled care when medically stable. Current Inpatient Medications: Current Inpatient Medications Medications (Trade) Dose Ordered Sig/Red Route Start Time Stop Time Status Last Admin Dose Admin Acetaminophen (Tylenol Tab) 650 mg Q6H PRN PO 06/23/17 16:45 07/23/17 16:44 06/24/17 08:12 650 MG Amlodipine Besylate (Norvasc Tab) 10 mg QAM PO 06/24/17 08:00 07/24/17 07:59 06/28/17 08:26 10 MG Docusate Sodium (coLACE CAP) 100 mg BID PO 06/23/17 20:00 07/23/17 19:59 06/28/17 08:25 100 MG Famotidine (Pepcid Tab) 20 mg QAM PO 06/24/17 08:00 07/24/17 07:59 06/28/17 08:47 20 MG Isosorbide Mononitrate (Imdur Ext Rel Tab) 120 mg QAM PO 06/24/17 08:00 07/24/17 07:59 06/28/17 08:26 120 MG Nitroglycerin (Nitrostat Tab) 0.4 mg PRN [place] 06/23/17 16:45 07/23/17 16:44 Clonidine HCl (Catapres Tab) 0.4 mg BID PO 06/23/17 20:00 07/23/17 19:59 06/28/17 08:26 0.4 MG Senna (Senokot Tab) 8.6 mg BID PO 06/24/17 08:00 07/24/17 07:59 06/28/17 08:26 8.6 MG Glucose (Glucose 40% Gel) 15-30 GRAMS 15 GRAMS... UD PRN PO 06/25/17 07:45 07/25/17 07:44 Glucose (Glucose Chew Tab) 4-8 Tablets 4 Tabl... UD PRN PO 06/25/17 07:45 07/25/17 07:44 Dextrose (Dextrose 50% 50ML Syringe) 25-50ML OF 50% DW IV FOR... UD PRN IV 06/25/17 07:45 07/25/17 07:44 Glucagon (Glucagon Inj) 1 mg UD PRN SQ 06/25/17 07:45 07/25/17 07:44 Carvedilol (Coreg Tab) 18.75 mg BID PO 06/26/17 20:00 07/23/17 19:59 06/28/17 08:25 18.75 MG Quetiapine Fumarate (seroQUEL TAB) 25 mg HS PO 06/26/17 21:00 07/26/17 21:59 06/27/17 20:37 25 MG Miscellaneous Information (Consult Glycemic Management Pharmacy) 1 ea UD PRN N/A 06/26/17 10:30 07/26/17 10:29 Hydralazine HCl (HydrALAZINE INJ) 10 mg TID PRN IV. 06/26/17 10:30 07/26/17 10:29 06/26/17 19:48 10 MG Oxycodone/ Acetaminophen (Percocet 5-325mg Tab) `1-2 TABS FOR MODER... Q4H PRN PO 06/26/17 17:15 07/10/17 17:14 06/27/17 02:09 1 TAB Morphine Sulfate (MoRPHine SULFATE INJ) If PO analgesic is orde... Q2H PRN IV 06/26/17 17:15 07/10/17 17:14 Hydromorphone HCl (Dilaudid Inj) 0.5 mg Q1HWA PRN IV 06/26/17 20:00 07/10/17 19:59 Insulin Aspart (novoLOG ASPART) SLIDING SCALE G... ACHS [place] 06/27/17 08:00 07/27/17 07:59 06/28/17 18:28 3 UNITS Insulin Glargine (Lantus Solostar Pen) 20 units DAILY [place] 06/28/17 09:00 07/28/17 08:59 06/28/17 08:29 20 UNITS Sodium Chloride 1,000 ml @ 75 mls/hr [id number] IV 06/28/17 10:30 06/28/17 23:49 06/28/17 11:16 75 MLS/HR Insulin Aspart (novoLOG ASPART) SLIDING SCALE G... 0000,0400 MT 06/29/17 00:00 07/29/17 00:00
[2017-06-28] MEDS: QUETIAPINE FUMARATE 25 MG TAB PO SCH (20:45)
[2017-06-29] MEDS: INSULIN ASPART 100 UNITS/ML 3 ML PEN SC SCH ×6 (00:48→21:46)
[2017-06-29 03:43] VITALS: BP 179/72; PULSE 72; TEMP 36.6; O2SAT 95
[2017-06-29] MEDS: HydrALAZINE HCL 20 MG/ML VIAL IV. PRN (03:55)
[2017-06-29] MEDS: OXYCODONE/ACETAMINOPHEN 5-325 TAB PO PRN (06:13)
[2017-06-29 07:31] VITALS: BP 151/71; PULSE 82; TEMP 36.4; O2SAT 91
[2017-06-29 09:17] LABS: BUN/CREATININE RATIO 26.7 (10-20); CALCIUM 8.3 mg/dl (8.5-10.1); CREATININE 1.8 mg/dl (0.60-1.20); POTASSIUM 4.2 mmol/L (3.5-5.1)
--- NOTE | 2017-06-29 09:30 | Nephrology Progress Note ---
Nephrology Progress Note Date of Service: Jun 29, 2017. Subjective no c/o uncontrolled pain or sob; ate full breakfast. no voiding c/o Objective Date Time Temp Pulse Resp B/P (MAP) Pulse Ox O2 Delivery O2 Flow Rate FiO2 06/29/17 07:31 36.4 82 18 151/71 (97) 91 Nasal Cannula 2.0 06/29/17 07:30 Nasal Cannula 2.0 06/29/17 03:43 36.6 72 16 179/72 (107) 95 Nasal Cannula 2.0 06/28/17 23:30 95 Nasal Cannula 2.0 06/28/17 22:50 37.3 83 16 157/69 (98) 91 Nasal Cannula 2.0 06/28/17 20:41 83 192/75 (114) 06/28/17 15:45 Nasal Cannula 2.0 06/28/17 14:51 36.9 81 14 160/72 (101) 97 Room Air 06/28/17 11:28 36.7 66 17 130/74 96 06/28/17 10:47 36.3 66 16 131/73 97 06/28/17 09:48 36.7 67 16 118/70 96 Physical Exam: General Appearance: WD/WN, no apparent distress, + pertinent finding (on 02 nc in low boy bed nad) Eyes: EOMI ENT: hearing grossly normal Neck: supple Respiratory/Chest: normal breath sounds, + decreased breath sounds Cardiovascular: regular rate, rhythm, no edema Abdomen: normal bowel sounds, non tender, soft, + pertinent finding (no grove) Extremities: no pedal edema, + pertinent finding (s/p R BKA; s/p L great toe remote amputation) Neurologic/Psych: alert, normal mood/affect, + disoriented Skin: no jaundice, warm/dry Current Inpatient Medications Medications (Trade) Dose Ordered Sig/Red Route Start Time Stop Time Status Last Admin Dose Admin Acetaminophen (Tylenol Tab) 650 mg Q6H PRN PO 06/23/17 16:45 07/23/17 16:44 06/24/17 08:12 650 MG Amlodipine Besylate (Norvasc Tab) 10 mg QAM PO 06/24/17 08:00 07/24/17 07:59 06/28/17 08:26 10 MG Docusate Sodium (coLACE CAP) 100 mg BID PO 06/23/17 20:00 11/2/17 19:59 06/28/17 20:43 100 MG Famotidine (Pepcid Tab) 20 mg QAM PO 06/24/17 08:00 07/24/17 07:59 06/28/17 08:47 20 MG Isosorbide Mononitrate (Imdur Ext Rel Tab) 120 mg QAM PO 06/24/17 08:00 07/24/17 07:59 06/28/17 08:26 120 MG Nitroglycerin (Nitrostat Tab) 0.4 mg PRN [place] 06/23/17 16:45 07/23/17 16:44 Clonidine HCl (Catapres Tab) 0.4 mg BID PO 06/23/17 20:00 07/23/17 19:59 06/28/17 20:43 0.4 MG Senna (Senokot Tab) 8.6 mg BID PO 06/24/17 08:00 07/24/17 07:59 06/28/17 20:45 8.6 MG Glucose (Glucose 40% Gel) 15-30 GRAMS 15 GRAMS... UD PRN PO 06/25/17 07:45 07/25/17 07:44 Glucose (Glucose Chew Tab) 4-8 Tablets 4 Tabl... UD PRN PO 06/25/17 07:45 07/25/17 07:44 Dextrose (Dextrose 50% 50ML Syringe) 25-50ML OF 50% DW IV FOR... UD PRN IV 06/25/17 07:45 07/25/17 07:44 Glucagon (Glucagon Inj) 1 mg UD PRN SQ 06/25/17 07:45 07/25/17 07:44 Carvedilol (Coreg Tab) 18.75 mg BID PO 06/26/17 20:00 07/23/17 19:59 06/28/17 20:44 18.75 MG Quetiapine Fumarate (seroQUEL TAB) 25 mg HS PO 06/26/17 21:00 07/26/17 21:59 06/28/17 20:45 25 MG Miscellaneous Information (Consult Glycemic Management Pharmacy) 1 ea UD PRN N/A 06/26/17 10:30 07/26/17 10:29 Hydralazine HCl (HydrALAZINE INJ) 10 mg TID PRN IV. 06/26/17 10:30 07/26/17 10:29 06/29/17 03:55 10 MG Oxycodone/ Acetaminophen (Percocet 5-325mg Tab) `1-2 TABS FOR MODER... Q4H PRN PO 06/26/17 17:15 07/10/17 17:14 06/29/17 06:13 1 TAB Morphine Sulfate (MoRPHine SULFATE INJ) If PO analgesic is orde... Q2H PRN IV 06/26/17 17:15 07/10/17 17:14 Hydromorphone HCl (Dilaudid Inj) 0.5 mg Q1HWA PRN IV 06/26/17 20:00 07/10/17 19:59 Insulin Aspart (novoLOG ASPART) SLIDING SCALE G... ACHS [place] 06/27/17 08:00 07/27/17 07:59 06/28/17 18:28 3 UNITS Insulin Glargine (Lantus Solostar Pen) 23 units DAILY [place] 06/29/17 09:00 07/29/17 08:59 Last 24 Hours Test 06/28/17 12:01 06/28/17 17:11 06/28/17 20:26 06/28/17 23:54 Bedside Glucose 337 mg/dl 75 mg/dl 111 mg/dl 170 mg/dl Test 06/29/17 03:40 06/29/17 07:50 06/29/17 08:33 Bedside Glucose 164 mg/dl 175 mg/dl Sodium Level 144 mmol/L Potassium Level 4.2 mmol/L Chloride Level 115 mmol/L Carbon Dioxide Level 19 mmol/L Anion Gap 10.0 mmol/L Blood Urea Nitrogen 48 mg/dl Creatinine 1.80 mg/dl Est Creatinine Clear Calc Drug Dose 23.0 ml/min Estimated GFR () 29.6 Estimated GFR (Non- 25.6 BUN/Creatinine Ratio 26.7 Random Glucose 186 mg/dl Calcium Level 8.3 mg/dl Assessment & Plan 82 y/o F w/ advanced dementia, peripheral arterial disease, DM, CAD, CKD 3 baseline creatinine 1.1-1.3 admitted 06/23 w/ ischemic R foot fs/p 06/26 R BKA and noted to have hypernatremia w/ sodium hovering at about 150 since admission. Complicated by pt pulling her IV and refusing another. Also had postop ADITI. ADITI on ckd 3 improved slightly on today's labs after receiving IVF yesterday; no obvious offending meds on current/recent med lists >> could be abtx, frequent npo status , etc -daily bmp -no need at this time for further ivf but encourage po intake -hyperchloremic metabolic acidosis should improve w/ conservative care; likely from IVF Hypernatremia -resolved for now -pls offer pt po fluids q4hrs, preferably water, when taking po again -reasonable to check labs daily for now HTN -would monitor for now >> may be able to increase coreg dose but this may also interfere potentially w/ PT/balance so hold off for now -cont amlodipine, coreg, clonidine (high dose) Ischemic R foot per vascular; s/p R BKA Appreciate consult will follow with you.
[2017-06-29] MEDS: AMLODIPINE BESYLATE 5 MG TAB PO SCH (09:45)
[2017-06-29] MEDS: DOCUSATE SODIUM 100 MG CAP PO SCH ×2 (09:45→21:38)
[2017-06-29] MEDS: SENNA 8.6 MG TAB PO SCH ×2 (09:45→21:38)
[2017-06-29] MEDS: CLONIDINE HCL 0.1 MG TAB PO SCH ×2 (09:46→21:39)
[2017-06-29] MEDS: CARVEDILOL 12.5 MG TAB PO SCH ×2 (09:46→21:38)
[2017-06-29] MEDS: ISOSORBIDE MONONITRATE 60 MG TABCR PO SCH (09:46)
[2017-06-29] MEDS: INSULIN GLARGINE SOLOSTAR 100 UNITS/ML 3 ML PEN SC SCH (09:51)
--- NOTE | 2017-06-29 09:55 | Progress Note ---
Progress Note Date of Service: Jun 29, 2017. Subjective 82 yo f with multiple medical problems including dementia, POD #3 after RLE BKA , seen in f/u today. Pt admits some pain in RLE. Denies other complaints. Problem List Medical Problems: (1) Altered mental status Status: Acute (2) Anemia Status: Acute (3) Arterial insufficiency Status: Acute (4) Cellulitis of right foot Status: Acute (5) Constipation Status: Acute (6) Cyst of right kidney Status: Acute (7) Dehydration Status: Acute (8) Hypoglycemia Status: Acute (9) Hypoglycemia Status: Acute Objective Vital Signs Vital Signs Past 12 Hours Date Time Temp Pulse Resp B/P (MAP) Pulse Ox O2 Delivery O2 Flow Rate FiO2 06/29/17 07:31 36.4 82 18 151/71 (97) 91 Nasal Cannula 2.0 06/29/17 07:30 Nasal Cannula 2.0 06/29/17 03:43 36.6 72 16 179/72 (107) 95 Nasal Cannula 2.0 06/28/17 23:30 95 Nasal Cannula 2.0 06/28/17 22:50 37.3 83 16 157/69 (98) 91 Nasal Cannula 2.0 Exam CONST: A&O x1, NAD, chronically ill appearing female EXT: RLE BKA site C/D/I with yazmin. + tenderness, mild edema. no ecchymosis or erythema noted. Laboratory and Microbiology Results Past 24 Hours Test 06/28/17 12:01 06/28/17 17:11 06/28/17 20:26 06/28/17 23:54 Range/Units Bedside Glucose 337 75 111 170 70-90 mg/dl Test 06/29/17 03:40 06/29/17 07:50 06/29/17 08:33 Range/Units Bedside Glucose 164 175 70-90 mg/dl Sodium Level 144 136-145 mmol/L Potassium Level 4.2 3.5-5.1 mmol/L Chloride Level 115 98-107 mmol/L Carbon Dioxide Level 19 21-32 mmol/L Anion Gap 10.0 3-11 mmol/L Blood Urea Nitrogen 48 7-18 mg/dl Creatinine 1.80 0.60-1.20 mg/dl Est Creatinine Clear Calc Drug Dose 23.0 ml/min Estimated GFR () 29.6 Estimated GFR (Non- 25.6 BUN/Creatinine Ratio 26.7 10-20 Random Glucose 186 70-99 mg/dl Calcium Level 8.3 8.5-10.1 mg/dl ASSESSMENT and PLAN: s/p RLE BKA Ischemic RLE Pt doing well postop. Anemia noted yesterday and underwent transfusion 1 unit.
[2017-06-29] MEDS: FAMOTIDINE 20 MG TAB PO SCH (09:58)
--- NOTE | 2017-06-29 09:59 | Pharmacy Progress Note ---
Glycemic Control Progress Note Date of Service Jun 29, 2017. Scope Glycemic Pharmacist consulted for glycemic control to write orders per [facility] inpatient glycemic control protocol. Objective Accuchecks BSG (last 24hrs): Test 06/28/17 12:01 06/28/17 17:11 06/28/17 20:26 06/28/17 23:54 Bedside Glucose 337 mg/dl (70-90) 75 mg/dl (70-90) 111 mg/dl (70-90) 170 mg/dl (70-90) Test 06/29/17 03:40 06/29/17 07:50 06/29/17 08:33 Bedside Glucose 164 mg/dl (70-90) 175 mg/dl (70-90) Random Glucose 186 mg/dl (70-99) HbA1c: Test 06/24/17 07:55 Hemoglobin A1c 7.1 % (4.5-5.6) H Recent Pertinent Medications The patient is currently receiving: * Basal insulin: Lantus 20 units every 24 hours given in the morning * Correctional Insulin: Novolog Correction per scale ACHS Goal Range: Low 120 mg/dL - High 150 mg/dL Correction Factor: 12 mg/dL/unit * Prandial insulin: Per carb ratio of 1 unit per 4 grams CHO consumed Outpatient Anti-Diabetic Meds Basal Insulin Bolus Insulin Total daily dose ~ 50 units/day Assessment & Plan ASSESSMENT: * See previous progress notes for more background info, in short: * Pt receiving SQ basal bolus insulin regimen for hyperglycemia secondary to baseline DM (outpatient regimen is SQ basal bolus),stress/infection, recent surgery * Patient is currently receiving an average of 75 units of insulin per day * 20 units of basal insulin * 52 + 5 IVP units of prandial/correctional insulin * BSGs ranging 75 - 383 mg/dl over the past 24hrs * Changes needed to insulin regimen: * Pt admitted with LOW BSGs, therefore basal insulin dramatically reduced/ held. Then, pt experienced rebound hyperglycemia secondary to basal deficiency. Pharmacy has been titrating basal insulin back to outpatient dosing slowing. AM Fasting BSG = 175 mg/dl. This is near goal range for patient based on inpatient targets and co-morbidities. Therefore Basal insulin OK to resume at outpatient dosing of 23 units. * Post-prandial BSGs are trending downwards throughout the day (insulin stacking) therefore need to loosen CF/CR. BSG 337 --> 75mg/dl with large dose of novolog + regular insulin IVP. Will evenly re-distribute regimen 50%:50% basal:prandial to prevent hypo/hyperglycemia. PLAN FOR INPATIENT GLYCEMIC CONTROL: * Basal insulin: increase slightly, resume outpatient dosing * Lantus 23 units SQ daily in AM * Bolus insulin: loosen parameters slightly. * NovoLog per scale ACHS or Q6hrs while NPO * Goal Range: Low 120 mg/dL - High 150 mg/dL * Correction Factor: 15 mg/dL/unit * Nutritional / Prandial insulin per carb ratio of 1 unit per 5 grams CHO consumed RECOMMENDATIONS FOR DISCHARGE: * A1c indicates that patient is at goal (7.1%) however, pt may be experiencing hypoglycemia as an outpatient and this goal may be too stringent based on age/ comorbidities. Additionally, the validity of this result is in question secondary to anemia and CKD. Recommend continuing to titrate outpatient SQ basal bolus insulin regimen based on BSGs. Recommend goal BSGs of ~ 140-200mg/ dl. * Please note that the plan above was derived based on current level of insulin resistance and hospital stress. These recommendations are appropriate for inpatient admission only. Plan of care upon discharge will need to be reassessed to avoid potential outpatient hypo/hyperglycemia. Thank you.
[2017-06-29 15:10] VITALS: BP 121/71; PULSE 72; TEMP 36.7; O2SAT 91
[2017-06-29 18:32] LABS: HEMATOCRIT 27.4 % (37-47)
--- NOTE | 2017-06-29 20:32 | Progress Note ---
Medicine Progress Note Date & Time of Visit: Jun 29, 2017 at 18:29. Subjective Pt was seen and examined Lying in bed with no distress denies any pain pt said that she feels fine Objective Last 8 Hrs Date Time Temp Pulse Resp B/P (MAP) Pulse Ox O2 Delivery O2 Flow Rate FiO2 06/29/17 15:30 Nasal Cannula 2.0 06/29/17 15:10 36.7 72 18 121/71 (88) 91 Nasal Cannula 2.0 Physical Exam: General- No acute distress Head- atraumatic Eyes- PERRL, EOMI ENT- oropharynx clear Neck- supple, no JVD Lungs-No wheezing Heart- regular rhythm Abdomen- normal bowel sounds Extremities-no calf L tenderness, RBKA Neuro- alert, oriented x 3; PERRL, EOMI Skin- warm & dry Laboratory Results: Last 24 Hours Test 06/28/17 23:54 06/29/17 03:40 06/29/17 07:50 06/29/17 08:33 Bedside Glucose 170 mg/dl 164 mg/dl 175 mg/dl Sodium Level 144 mmol/L Potassium Level 4.2 mmol/L Chloride Level 115 mmol/L Carbon Dioxide Level 19 mmol/L Anion Gap 10.0 mmol/L Blood Urea Nitrogen 48 mg/dl Creatinine 1.80 mg/dl Est Creatinine Clear Calc Drug Dose 23.0 ml/min Estimated GFR () 29.6 Estimated GFR (Non- 25.6 BUN/Creatinine Ratio 26.7 Random Glucose 186 mg/dl Calcium Level 8.3 mg/dl Test 06/29/17 12:08 06/29/17 17:00 06/29/17 18:21 Bedside Glucose 232 mg/dl 99 mg/dl Hemoglobin 8.9 g/dL Hematocrit 27.4 % Assessment & Plan ISCHEMIC RIGHT FOOT with severe underlying Peripheral vascular disease presented with gangrenous left second toe as well as ischemic changes of right foot. Arterial duplex showed occlusion of the right anterior tibial and right posterior tibial arteries. Unable to anticoagulate due to recent subdural hematoma. was on Abx IV piperacillin / tazobactam. Vascular on board arterial US and aortoiliac US prior to making final recommendations/determining level of amputation. s/p RT BKA No post op complication Continue monitor H/H Continue PT/OT waiting for placement to rehab once stable CELLULITIS RIGHT FOOT met SIRS criteria on admission -presented with fever, leukopenia blood cultures no growth today was started on IV Zosyn that was D/C after the Rt BKA CORONARY ARTERY DISEASE no cardiac issue not on Aspirin due to recent sub dural hematoma Continue carvedilol, nitrates. MYELODYSPLASTIC SYNDROME : causing anemia /pancytopenia will transfuse 1 unit prbc Hbg 7.3 follow H&H HTN : Continue carvedilol, amlodipine, clonidine, nitrates. Continue monitor BP Stable ADITI ON CKD III Creatine worsening to 2 yesterday, improved to 1.8 today avoid NSAID's Nephrology on board continue monitor BMP HYPERNATREMIA Na level normalized stable ANEMIA History of anemia of chronic kidney disease as well as myelodysplastic syndrome. Might also related to post op blood loss Received 2 units PRBC so far during this admission Hgb today 8.9 continue monitor cbc DEMENTIA Apparent Alzheimer's dementia associated with behavioral difficulties. Treated at [facility] prior to transfer to [facility]. Olanzapine D/mikaela for leukopenia On Seroquel at night has some improvement of behavioral symptoms /agitation low boy bed , fall precaution . VTE PROPHYLAXIS Anticoagulants contraindicated due to recent subdural hematoma. SCD's or TEDS contraindicated due to severe peripheral vascular disease. RESUSCITATION STATUS DNR DISPOSITION Anticipated return to [facility] for skilled care when medically stable. Current Inpatient Medications: Current Inpatient Medications Medications (Trade) Dose Ordered Sig/Red Route Start Time Stop Time Status Last Admin Dose Admin Acetaminophen (Tylenol Tab) 650 mg Q6H PRN PO 06/23/17 16:45 07/23/17 16:44 06/24/17 08:12 650 MG Amlodipine Besylate (Norvasc Tab) 10 mg QAM PO 06/24/17 08:00 07/24/17 07:59 06/29/17 09:45 10 MG Docusate Sodium (coLACE CAP) 100 mg BID PO 06/23/17 20:00 07/23/17 19:59 06/29/17 09:45 100 MG Famotidine (Pepcid Tab) 20 mg QAM PO 06/24/17 08:00 07/24/17 07:59 06/29/17 09:58 20 MG Isosorbide Mononitrate (Imdur Ext Rel Tab) 120 mg QAM PO 06/24/17 08:00 07/24/17 07:59 06/29/17 09:46 120 MG Nitroglycerin (Nitrostat Tab) 0.4 mg PRN [place] 06/23/17 16:45 07/23/17 16:44 Clonidine HCl (Catapres Tab) 0.4 mg BID PO 06/23/17 20:00 07/23/17 19:59 06/29/17 09:46 0.4 MG Senna (Senokot Tab) 8.6 mg BID PO 06/24/17 08:00 07/24/17 07:59 06/29/17 09:45 8.6 MG Glucose (Glucose 40% Gel) 15-30 GRAMS 15 GRAMS... UD PRN PO 06/25/17 07:45 07/25/17 07:44 Glucose (Glucose Chew Tab) 4-8 Tablets 4 Tabl... UD PRN PO 06/25/17 07:45 07/25/17 07:44 Dextrose (Dextrose 50% 50ML Syringe) 25-50ML OF 50% DW IV FOR... UD PRN IV 06/25/17 07:45 07/25/17 07:44 Glucagon (Glucagon Inj) 1 mg UD PRN SQ 06/25/17 07:45 07/25/17 07:44 Carvedilol (Coreg Tab) 18.75 mg BID PO 06/26/17 20:00 07/23/17 19:59 06/29/17 09:46 18.75 MG Quetiapine Fumarate (seroQUEL TAB) 25 mg HS PO 06/26/17 21:00 07/26/17 21:59 06/28/17 20:45 25 MG Miscellaneous Information (Consult Glycemic Management Pharmacy) 1 ea UD PRN N/A 06/26/17 10:30 07/26/17 10:29 Hydralazine HCl (HydrALAZINE INJ) 10 mg TID PRN IV. 06/26/17 10:30 07/26/17 10:29 06/29/17 03:55 10 MG Oxycodone/ Acetaminophen (Percocet 5-325mg Tab) `1-2 TABS FOR MODER... Q4H PRN PO 06/26/17 17:15 07/10/17 17:14 06/29/17 06:13 1 TAB Morphine Sulfate (MoRPHine SULFATE INJ) If PO analgesic is orde... Q2H PRN IV 06/26/17 17:15 07/10/17 17:14 Hydromorphone HCl (Dilaudid Inj) 0.5 mg Q1HWA PRN IV 06/26/17 20:00 07/10/17 19:59 Insulin Aspart (novoLOG ASPART) SLIDING SCALE G... ACHS IL 06/27/17 08:00 07/27/17 07:59 06/29/17 19:08 5 UNITS Insulin Glargine (Lantus Solostar Pen) 23 units DAILY [place] 06/29/17 09:00 07/29/17 08:59 06/29/17 09:51 23 UNITS Insulin Aspart (novoLOG ASPART) SLIDING SCALE G... TODAY@0000,0400 [place] 06/30/17 00:00 06/30/17 04:01
[2017-06-29 21:38] VITALS: BP 148/72; PULSE 84
[2017-06-29] MEDS: QUETIAPINE FUMARATE 25 MG TAB PO SCH (21:38)
[2017-06-29 22:50] VITALS: BP 124/67; PULSE 80; TEMP 37.3; O2SAT 96
[2017-06-30] MEDS: INSULIN ASPART 100 UNITS/ML 3 ML PEN SC SCH ×6 (00:27→21:06)
[2017-06-30 07:34] VITALS: BP 155/78; PULSE 71; TEMP 37.1; O2SAT 94
[2017-06-30 07:37] LABS: MEAN CORPUSCULAR HGB CONC 32.8 g/dl (32-36)
[2017-06-30 08:03] LABS: MEAN CELL VOLUME 101.2 fL (80-100); MEAN CORPUSCULAR HEMOGLOBIN 33.2 pg (25-34); MEAN PLATELET VOLUME 13.4 fL (7.4-10.4); PLATELET COUNT 131 K/uL (130-400); RED BLOOD COUNT 2.47 M/uL (4.2-5.4); WHITE BLOOD COUNT 3.81 K/uL (4.8-10.8)
[2017-06-30 08:06] LABS: PLT ESTIMATE DECREASED
[2017-06-30 08:18] LABS: BUN/CREATININE RATIO 33.9 (10-20); CALCIUM 7.8 mg/dl (8.5-10.1); POTASSIUM 4.1 mmol/L (3.5-5.1)
[2017-06-30] MEDS: INSULIN GLARGINE SOLOSTAR 100 UNITS/ML 3 ML PEN SC SCH (09:00)
[2017-06-30] MEDS: AMLODIPINE BESYLATE 5 MG TAB PO SCH (09:04)
[2017-06-30] MEDS: CARVEDILOL 12.5 MG TAB PO SCH ×2 (09:04→21:02)
[2017-06-30] MEDS: DOCUSATE SODIUM 100 MG CAP PO SCH ×2 (09:04→21:04)
[2017-06-30] MEDS: ISOSORBIDE MONONITRATE 60 MG TABCR PO SCH (09:05)
[2017-06-30] MEDS: SENNA 8.6 MG TAB PO SCH ×2 (09:05→21:05)
[2017-06-30] MEDS: CLONIDINE HCL 0.1 MG TAB PO SCH ×2 (09:05→21:04)
[2017-06-30] MEDS: FAMOTIDINE 20 MG TAB PO SCH (09:54)
[2017-06-30] MEDS ORDERED: DEXTROSE 5% 500ML 500 ML IV ONE (10:00)
--- NOTE | 2017-06-30 10:03 | Nephrology Progress Note ---
Nephrology Progress Note Date of Service: Jun 30, 2017. Subjective no c/o uncontrolled pain; does feel slight sob; denies thirst. no voiding c/o Objective Date Time Temp Pulse Resp B/P (MAP) Pulse Ox O2 Delivery O2 Flow Rate FiO2 06/30/17 07:45 Nasal Cannula 4.0 06/30/17 07:34 37.1 71 16 155/78 (103) 94 Nasal Cannula 2.0 06/30/17 00:20 Nasal Cannula 4.0 06/29/17 22:50 37.3 80 16 124/67 (86) 96 Nasal Cannula 4.0 06/29/17 21:38 84 148/72 (97) 06/29/17 15:30 Nasal Cannula 2.0 06/29/17 15:10 36.7 72 18 121/71 (88) 91 Nasal Cannula 2.0 Physical Exam: General Appearance: WD/WN, no apparent distress, + pertinent finding (on 02 nc in low boy bed nad) Eyes: EOMI ENT: hearing grossly normal Neck: supple Respiratory/Chest: normal breath sounds, + decreased breath sounds Cardiovascular: regular rate, rhythm, no edema Abdomen: normal bowel sounds, non tender, soft, + pertinent finding (no grove) Extremities: no pedal edema, + pertinent finding (s/p R BKA; s/p L great toe remote amputation) Neurologic/Psych: alert, normal mood/affect, + disoriented Skin: no jaundice, warm/dry Current Inpatient Medications Medications (Trade) Dose Ordered Sig/Red Route Start Time Stop Time Status Last Admin Dose Admin Acetaminophen (Tylenol Tab) 650 mg Q6H PRN PO 06/23/17 16:45 07/23/17 16:44 06/24/17 08:12 650 MG Amlodipine Besylate (Norvasc Tab) 10 mg QAM PO 06/24/17 08:00 07/24/17 07:59 06/30/17 09:04 10 MG Docusate Sodium (coLACE CAP) 100 mg BID PO 06/23/17 20:00 07/23/17 19:59 06/30/17 09:04 100 MG Famotidine (Pepcid Tab) 20 mg QAM PO 06/24/17 08:00 07/24/17 07:59 06/29/17 09:58 20 MG Isosorbide Mononitrate (Imdur Ext Rel Tab) 120 mg QAM PO 06/24/17 08:00 07/24/17 07:59 06/30/17 09:05 120 MG Nitroglycerin (Nitrostat Tab) 0.4 mg PRN UT 06/23/17 16:45 07/23/17 16:44 Clonidine HCl (Catapres Tab) 0.4 mg BID PO 06/23/17 20:00 07/23/17 19:59 06/30/17 09:05 0.4 MG Senna (Senokot Tab) 8.6 mg BID PO 06/24/17 08:00 07/24/17 07:59 06/30/17 09:05 8.6 MG Glucose (Glucose 40% Gel) 15-30 GRAMS 15 GRAMS... UD PRN PO 06/25/17 07:45 07/25/17 07:44 Glucose (Glucose Chew Tab) 4-8 Tablets 4 Tabl... UD PRN PO 06/25/17 07:45 07/25/17 07:44 Dextrose (Dextrose 50% 50ML Syringe) 25-50ML OF 50% DW IV FOR... UD PRN IV 06/25/17 07:45 07/25/17 07:44 Glucagon (Glucagon Inj) 1 mg UD PRN SQ 06/25/17 07:45 07/25/17 07:44 Carvedilol (Coreg Tab) 18.75 mg BID PO 06/26/17 20:00 07/23/17 19:59 06/30/17 09:04 18.75 MG Quetiapine Fumarate (seroQUEL TAB) 25 mg HS PO 06/26/17 21:00 07/26/17 21:59 06/29/17 21:38 25 MG Miscellaneous Information (Consult Glycemic Management Pharmacy) 1 ea UD PRN N/A 06/26/17 10:30 07/26/17 10:29 Hydralazine HCl (HydrALAZINE INJ) 10 mg TID PRN IV. 06/26/17 10:30 07/26/17 10:29 06/29/17 03:55 10 MG Oxycodone/ Acetaminophen (Percocet 5-325mg Tab) `1-2 TABS FOR MODER... Q4H PRN PO 06/26/17 17:15 07/10/17 17:14 06/29/17 06:13 1 TAB Morphine Sulfate (MoRPHine SULFATE INJ) If PO analgesic is orde... Q2H PRN IV 06/26/17 17:15 07/10/17 17:14 Hydromorphone HCl (Dilaudid Inj) 0.5 mg Q1HWA PRN IV 06/26/17 20:00 07/10/17 19:59 Insulin Aspart (novoLOG ASPART) SLIDING SCALE G... ACHS SC 06/27/17 08:00 07/27/17 07:59 06/30/17 09:00 11 UNITS Insulin Glargine (Lantus Solostar Pen) 23 units DAILY [place] 06/29/17 09:00 07/29/17 08:59 06/30/17 09:00 23 UNITS Last 24 Hours Test 06/29/17 12:08 06/29/17 17:00 06/29/17 18:21 06/29/17 20:31 Bedside Glucose 232 mg/dl 99 mg/dl 156 mg/dl Hemoglobin 8.9 g/dL Hematocrit 27.4 % Test 06/29/17 23:51 06/30/17 04:00 06/30/17 06:58 06/30/17 07:59 Bedside Glucose 175 mg/dl 135 mg/dl 149 mg/dl White Blood Count 3.81 K/uL Red Blood Count 2.47 M/uL Hemoglobin 8.2 g/dL Hematocrit 25.0 % Mean Corpuscular Volume 101.2 fL Mean Corpuscular Hemoglobin 33.2 pg Mean Corpuscular Hemoglobin Concent 32.8 g/dl RDW Standard Deviation 76.7 fL RDW Coefficient of Variation 21.2 % Platelet Count 131 K/uL Mean Platelet Volume 13.4 fL Platelet Estimate DECREASED Sodium Level 146 mmol/L Potassium Level 4.1 mmol/L Chloride Level 116 mmol/L Carbon Dioxide Level 22 mmol/L Anion Gap 7.0 mmol/L Blood Urea Nitrogen 68 mg/dl Creatinine 2.00 mg/dl Est Creatinine Clear Calc Drug Dose 20.7 ml/min Estimated GFR () 26.1 Estimated GFR (Non- 22.5 BUN/Creatinine Ratio 33.9 Random Glucose 138 mg/dl Calcium Level 7.8 mg/dl Assessment & Plan 82 y/o F w/ advanced dementia, peripheral arterial disease, DM, CAD, CKD 3 baseline creatinine 1.1-1.3 admitted 06/23 w/ ischemic R foot s/p 06/26 R BKA and noted to have hypernatremia w/ sodium hovering at about 150 since admission at least preoperatively. Complicated by pt pulling IVs and refusing new ones at times. had postop ADITI but generally improved sodium. ADITI on ckd 3 >> nonoliguric ATN not much change past few days; no obvious offending meds on current/recent med lists >> could be abtx, frequent npo status, etc -daily bmp -not easy to get UA in this incontinent pt >> if worsening creat or if starting abtx contemplated, pls str cath for uacm and urine cx; else will follow -will give 1/2L of D5W Hypernatremia -slight trend to worse -pls offer pt po fluids q4hrs, preferably water -ivf as above -reasonable to check labs daily for now HTN -would monitor for now >> may be able to increase coreg dose but this may also interfere potentially w/ PT/balance so hold off for now; BP somewhat labile -cont amlodipine, coreg, clonidine (high dose) Ischemic R foot per vascular; s/p R BKA Dyspnea lungs are clear but she is hypoxic -give IVF slowly, small amount >recheck CXR ordered -reinforced importance of using ISS Appreciate consult will follow with you. Care coordinated w/ Dr Fajardo
--- NOTE | 2017-06-30 11:26 | DIAGNOSTIC IMAGING REPORT ---
CHEST ONE VIEW PORTABLE CLINICAL HISTORY: 82 years-old Female presenting with sob. TECHNIQUE: Portable upright AP view of the chest was obtained. COMPARISON: 06/23/2017. FINDINGS: Median sternotomy wires intact. Few mediastinal surgical clips noted. Atherosclerosis of aortic arch. Cardiac silhouette top normal in size allowing for portable AP technique. Lungs and pleural spaces clear. Degenerative changes of the thoracic spine. Upper abdomen normal. IMPRESSION: 1. No acute cardiopulmonary disease. Electronically signed by: Jose Jimenez M.D. 06/30/2017 11:24 AM Dictated Date/Time: 06/30/2017 11:23 AM
[2017-06-30] MEDS ORDERED: POLYETHYLENE (MIRALAX) 17 GM PACK PO PRN (14:45)
[2017-06-30 15:00] VITALS: BP 131/73; PULSE 70; TEMP 36.6; O2SAT 98
--- NOTE | 2017-06-30 20:12 | Progress Note ---
Medicine Progress Note Date & Time of Visit: Jun 30, 2017 at 15:02. Subjective Pt was seen and examined Sitting in chair with no distress denies any chest pain, palpitation, and sob Objective Last 8 Hrs Date Time Temp Pulse Resp B/P (MAP) Pulse Ox O2 Delivery O2 Flow Rate FiO2 06/30/17 15:30 Nasal Cannula 4.0 06/30/17 15:00 36.6 70 16 131/73 (92) 98 Nasal Cannula 4.0 Physical Exam: General- No acute distress Head- atraumatic Eyes- PERRL, EOMI ENT- oropharynx clear Neck- supple, no JVD Lungs-No wheezing Heart- regular rhythm Abdomen- normal bowel sounds Extremities-no calf L tenderness, RBKA Neuro- alert, oriented x 3; PERRL, EOMI Skin- warm & dry Laboratory Results: Last 24 Hours Test 06/29/17 20:31 06/29/17 23:51 06/30/17 04:00 06/30/17 06:58 Bedside Glucose 156 mg/dl 175 mg/dl 135 mg/dl White Blood Count 3.81 K/uL Red Blood Count 2.47 M/uL Hemoglobin 8.2 g/dL Hematocrit 25.0 % Mean Corpuscular Volume 101.2 fL Mean Corpuscular Hemoglobin 33.2 pg Mean Corpuscular Hemoglobin Concent 32.8 g/dl RDW Standard Deviation 76.7 fL RDW Coefficient of Variation 21.2 % Platelet Count 131 K/uL Mean Platelet Volume 13.4 fL Platelet Estimate DECREASED Sodium Level 146 mmol/L Potassium Level 4.1 mmol/L Chloride Level 116 mmol/L Carbon Dioxide Level 22 mmol/L Anion Gap 7.0 mmol/L Blood Urea Nitrogen 68 mg/dl Creatinine 2.00 mg/dl Est Creatinine Clear Calc Drug Dose 20.7 ml/min Estimated GFR () 26.1 Estimated GFR (Non- 22.5 BUN/Creatinine Ratio 33.9 Random Glucose 138 mg/dl Calcium Level 7.8 mg/dl Test 06/30/17 07:59 06/30/17 12:09 06/30/17 14:14 Bedside Glucose 149 mg/dl 270 mg/dl 265 mg/dl Assessment & Plan ISCHEMIC RIGHT FOOT with severe underlying Peripheral vascular disease presented with gangrenous left second toe as well as ischemic changes of right foot. Arterial duplex showed occlusion of the right anterior tibial and right posterior tibial arteries. Unable to anticoagulate due to recent subdural hematoma. was on Abx IV piperacillin / tazobactam. Vascular on board arterial US and aortoiliac US prior to making final recommendations/determining level of amputation. s/p RT BKA No post op complication Continue monitor H/H Continue PT/OT Will transfer to rehab once medically stable CELLULITIS RIGHT FOOT met SIRS criteria on admission -presented with fever, leukopenia blood cultures no growth today was started on IV Zosyn that was D/C after the Rt BKA Stable CORONARY ARTERY DISEASE no cardiac issue not on Aspirin due to recent sub dural hematoma Continue carvedilol, nitrates. Stable MYELODYSPLASTIC SYNDROME : causing anemia /pancytopenia Continue monitor DM TYPE 2 Hba1c 7.1 on On lantus Insulin coverage Monitor BS closely with the D5 water Pharmacy on board for glycemic management HTN : Continue carvedilol, amlodipine, clonidine, nitrates. Continue monitor BP Stable ADITI ON CKD III Creatine worsening to 2 yesterday, improved to 1.8 yesterday Creatine today 2 avoid NSAID's Nephrology on board case discussed with Dr. Mcgrath that recommended to encourage pt to drink water continue monitor BMP HYPERNATREMIA Na trending up will give [id number] continue monitor bmp ANEMIA History of anemia of chronic kidney disease as well as myelodysplastic syndrome. Might also related to post op blood loss Received 2 units PRBC so far during this admission Hgb today 8.2 continue monitor cbc DEMENTIA Apparent Alzheimer's dementia associated with behavioral difficulties. Treated at [facility] facility prior to transfer to [facility]. Olanzapine D/mikaela for leukopenia On Seroquel at night has some improvement of behavioral symptoms /agitation low boy bed , fall precaution . VTE PROPHYLAXIS Anticoagulants contraindicated due to recent subdural hematoma. SCD's or TEDS contraindicated due to severe peripheral vascular disease. RESUSCITATION STATUS DNR DISPOSITION Accepted to [facility] for skilled care Will discharge to [facility] when medically stable. Current Inpatient Medications: Current Inpatient Medications Medications (Trade) Dose Ordered Sig/Red Route Start Time Stop Time Status Last Admin Dose Admin Acetaminophen (Tylenol Tab) 650 mg Q6H PRN PO 06/23/17 16:45 07/23/17 16:44 06/24/17 08:12 650 MG Amlodipine Besylate (Norvasc Tab) 10 mg QAM PO 06/24/17 08:00 07/24/17 07:59 06/30/17 09:04 10 MG Docusate Sodium (coLACE CAP) 100 mg BID PO 06/23/17 20:00 07/23/17 19:59 06/30/17 09:04 100 MG Famotidine (Pepcid Tab) 20 mg QAM PO 06/24/17 08:00 07/24/17 07:59 06/30/17 09:54 20 MG Isosorbide Mononitrate (Imdur Ext Rel Tab) 120 mg QAM PO 06/24/17 08:00 07/24/17 07:59 06/30/17 09:05 120 MG Nitroglycerin (Nitrostat Tab) 0.4 mg PRN UT 06/23/17 16:45 07/23/17 16:44 Clonidine HCl (Catapres Tab) 0.4 mg BID PO 06/23/17 20:00 07/23/17 19:59 06/30/17 09:05 0.4 MG Senna (Senokot Tab) 8.6 mg BID PO 06/24/17 08:00 07/24/17 07:59 06/30/17 09:05 8.6 MG Glucose (Glucose 40% Gel) 15-30 GRAMS 15 GRAMS... UD PRN PO 06/25/17 07:45 07/25/17 07:44 Glucose (Glucose Chew Tab) 4-8 Tablets 4 Tabl... UD PRN PO 06/25/17 07:45 07/25/17 07:44 Dextrose (Dextrose 50% 50ML Syringe) 25-50ML OF 50% DW IV FOR... UD PRN IV 06/25/17 07:45 07/25/17 07:44 Glucagon (Glucagon Inj) 1 mg UD PRN SQ 06/25/17 07:45 07/25/17 07:44 Carvedilol (Coreg Tab) 18.75 mg BID PO 06/26/17 20:00 07/23/17 19:59 06/30/17 09:04 18.75 MG Quetiapine Fumarate (seroQUEL TAB) 25 mg HS PO 06/26/17 21:00 07/26/17 21:59 06/29/17 21:38 25 MG Miscellaneous Information (Consult Glycemic Management Pharmacy) 1 ea UD PRN N/A 06/26/17 10:30 07/26/17 10:29 Hydralazine HCl (HydrALAZINE INJ) 10 mg TID PRN IV. 06/26/17 10:30 07/26/17 10:29 06/29/17 03:55 10 MG Oxycodone/ Acetaminophen (Percocet 5-325mg Tab) `1-2 TABS FOR MODER... Q4H PRN PO 06/26/17 17:15 07/10/17 17:14 06/29/17 06:13 1 TAB Morphine Sulfate (MoRPHine SULFATE INJ) If PO analgesic is orde... Q2H PRN IV 06/26/17 17:15 07/10/17 17:14 Hydromorphone HCl (Dilaudid Inj) 0.5 mg Q1HWA PRN IV 06/26/17 20:00 07/10/17 19:59 Insulin Aspart (novoLOG ASPART) SLIDING SCALE G... ACHS SC 06/27/17 08:00 07/27/17 07:59 06/30/17 18:31 14 UNITS Insulin Glargine (Lantus Solostar Pen) 23 units DAILY SC 06/29/17 09:00 07/29/17 08:59 06/30/17 09:00 23 UNITS Polyethylene (Miralax Powder Packet) 17 gm DAILY PRN PO 06/30/17 14:45 07/30/17 14:44
[2017-06-30 21:00] VITALS: BP 152/64; PULSE 79
[2017-06-30] MEDS: QUETIAPINE FUMARATE 25 MG TAB PO SCH (21:05)
[2017-06-30 22:52] VITALS: BP 130/61; PULSE 76; TEMP 36.7; O2SAT 95
[2017-07-01 07:02] VITALS: BP 121/66; PULSE 66; TEMP 36.7; O2SAT 99
[2017-07-01 07:20] LABS: MEAN CORPUSCULAR HGB CONC 32.7 g/dl (32-36)
[2017-07-01 07:51] LABS: MEAN CELL VOLUME 99.6 fL (80-100); MEAN CORPUSCULAR HEMOGLOBIN 32.6 pg (25-34); RED BLOOD COUNT 2.61 M/uL (4.2-5.4); WHITE BLOOD COUNT 3.53 K/uL (4.8-10.8)
[2017-07-01 07:55] LABS: PLATELET COUNT 130 K/uL (130-400)
[2017-07-01 07:56] LABS: PLT ESTIMATE DECREASED
[2017-07-01 07:59] LABS: BUN/CREATININE RATIO 35.1 (10-20); CALCIUM 8.4 mg/dl (8.5-10.1); POTASSIUM 4.5 mmol/L (3.5-5.1)
[2017-07-01] MEDS ORDERED: INSULIN GLARGINE SOLOSTAR 100 UNITS/ML 3 ML PEN SC SCH (09:00)
[2017-07-01] MEDS: SENNA 8.6 MG TAB PO SCH ×2 (09:59→21:20)
[2017-07-01] MEDS: ISOSORBIDE MONONITRATE 60 MG TABCR PO SCH (09:59)
[2017-07-01] MEDS: AMLODIPINE BESYLATE 5 MG TAB PO SCH (09:59)
[2017-07-01] MEDS: FAMOTIDINE 20 MG TAB PO SCH (09:59)
[2017-07-01] MEDS: DOCUSATE SODIUM 100 MG CAP PO SCH ×2 (09:59→21:19)
[2017-07-01] MEDS: CLONIDINE HCL 0.1 MG TAB PO SCH ×2 (09:59→21:19)
[2017-07-01] MEDS: CARVEDILOL 12.5 MG TAB PO SCH ×2 (10:00→21:20)
[2017-07-01] MEDS: INSULIN ASPART 100 UNITS/ML 3 ML PEN SC SCH ×4 (10:06→21:00)
--- NOTE | 2017-07-01 10:13 | Nephrology Progress Note ---
Nephrology Progress Note Date of Service: Jul 01, 2017. Subjective no c/o uncontrolled pain, sob; denies thirst. no voiding c/o Objective Date Time Temp Pulse Resp B/P (MAP) Pulse Ox O2 Delivery O2 Flow Rate FiO2 07/01/17 08:08 Nasal Cannula 4.0 07/01/17 07:02 36.7 66 19 121/66 (84) 99 Room Air 06/30/17 23:15 Nasal Cannula 4.0 06/30/17 22:52 36.7 76 16 130/61 (84) 95 Nasal Cannula 4.0 06/30/17 21:00 79 152/64 (93) 06/30/17 15:30 Nasal Cannula 4.0 06/30/17 15:00 36.6 70 16 131/73 (92) 98 Nasal Cannula 4.0 Physical Exam: General Appearance: WD/WN, no apparent distress, + pertinent finding up in chair on RA Eyes: EOMI ENT: hearing grossly normal Neck: supple Respiratory/Chest: normal breath sounds, + decreased breath sounds Cardiovascular: regular rate, rhythm, no edema Abdomen: normal bowel sounds, non tender, soft, + pertinent finding (no grove) Extremities: no pedal edema, + pertinent finding (s/p R BKA; s/p L great toe remote amputation) Neurologic/Psych: alert, normal mood/affect, + disoriented Skin: no jaundice, warm/dry Current Inpatient Medications Medications (Trade) Dose Ordered Sig/Red Route Start Time Stop Time Status Last Admin Dose Admin Acetaminophen (Tylenol Tab) 650 mg Q6H PRN PO 06/23/17 16:45 07/23/17 16:44 06/24/17 08:12 650 MG Amlodipine Besylate (Norvasc Tab) 10 mg QAM PO 06/24/17 08:00 07/24/17 07:59 07/01/17 09:59 10 MG Docusate Sodium (coLACE CAP) 100 mg BID PO 06/23/17 20:00 07/23/17 19:59 07/01/17 09:59 100 MG Famotidine (Pepcid Tab) 20 mg QAM PO 06/24/17 08:00 07/24/17 07:59 07/01/17 09:59 20 MG Isosorbide Mononitrate (Imdur Ext Rel Tab) 120 mg QAM PO 06/24/17 08:00 07/24/17 07:59 07/01/17 09:59 120 MG Nitroglycerin (Nitrostat Tab) 0.4 mg PRN [place] 06/23/17 16:45 07/23/17 16:44 Clonidine HCl (Catapres Tab) 0.4 mg BID PO 06/23/17 20:00 07/23/17 19:59 07/01/17 09:59 0.4 MG Senna (Senokot Tab) 8.6 mg BID PO 06/24/17 08:00 07/24/17 07:59 07/01/17 09:59 8.6 MG Glucose (Glucose 40% Gel) 15-30 GRAMS 15 GRAMS... UD PRN PO 06/25/17 07:45 07/25/17 07:44 Glucose (Glucose Chew Tab) 4-8 Tablets 4 Tabl... UD PRN PO 06/25/17 07:45 07/25/17 07:44 Dextrose (Dextrose 50% 50ML Syringe) 25-50ML OF 50% DW IV FOR... UD PRN IV 06/25/17 07:45 07/25/17 07:44 Glucagon (Glucagon Inj) 1 mg UD PRN SQ 06/25/17 07:45 07/25/17 07:44 Carvedilol (Coreg Tab) 18.75 mg BID PO 06/26/17 20:00 07/23/17 19:59 07/01/17 10:00 18.75 MG Quetiapine Fumarate (seroQUEL TAB) 25 mg HS PO 06/26/17 21:00 07/26/17 21:59 06/30/17 21:05 25 MG Miscellaneous Information (Consult Glycemic Management Pharmacy) 1 ea UD PRN N/A 06/26/17 10:30 07/26/17 10:29 Hydralazine HCl (HydrALAZINE INJ) 10 mg TID PRN IV. 06/26/17 10:30 07/26/17 10:29 06/29/17 03:55 10 MG Oxycodone/ Acetaminophen (Percocet 5-325mg Tab) `1-2 TABS FOR MODER... Q4H PRN PO 06/26/17 17:15 07/10/17 17:14 06/29/17 06:13 1 TAB Morphine Sulfate (MoRPHine SULFATE INJ) If PO analgesic is orde... Q2H PRN IV 06/26/17 17:15 07/10/17 17:14 Hydromorphone HCl (Dilaudid Inj) 0.5 mg Q1HWA PRN IV 06/26/17 20:00 07/10/17 19:59 Insulin Aspart (novoLOG ASPART) SLIDING SCALE G... ACHS SC 06/27/17 08:00 07/27/17 07:59 07/01/17 10:06 10 UNITS Polyethylene (Miralax Powder Packet) 17 gm DAILY PRN PO 06/30/17 14:45 07/30/17 14:44 Insulin Glargine (Lantus Solostar Pen) 21 units DAILY [place] 07/01/17 09:00 07/31/17 08:59 07/01/17 10:07 21 UNITS Last 24 Hours Test 06/30/17 12:09 06/30/17 14:14 06/30/17 16:51 06/30/17 20:41 Bedside Glucose 270 mg/dl 265 mg/dl 175 mg/dl 203 mg/dl Test 07/01/17 06:54 White Blood Count 3.53 K/uL Red Blood Count 2.61 M/uL Hemoglobin 8.5 g/dL Hematocrit 26.0 % Mean Corpuscular Volume 99.6 fL Mean Corpuscular Hemoglobin 32.6 pg Mean Corpuscular Hemoglobin Concent 32.7 g/dl RDW Standard Deviation 72.8 fL RDW Coefficient of Variation 20.4 % Platelet Count 130 K/uL Platelet Estimate DECREASED Sodium Level 143 mmol/L Potassium Level 4.5 mmol/L Chloride Level 115 mmol/L Carbon Dioxide Level 21 mmol/L Anion Gap 7.0 mmol/L Blood Urea Nitrogen 70 mg/dl Creatinine 2.00 mg/dl Est Creatinine Clear Calc Drug Dose 20.7 ml/min Estimated GFR () 26.1 Estimated GFR (Non- 22.5 BUN/Creatinine Ratio 35.1 Random Glucose 66 mg/dl Calcium Level 8.4 mg/dl Assessment & Plan 82 y/o F w/ advanced dementia, peripheral arterial disease, DM, CAD, CKD 3 baseline creatinine 1.1-1.3 admitted 06/23 w/ ischemic R foot s/p 06/26 R BKA and noted to have hypernatremia w/ sodium hovering at about 150 since admission at least preoperatively. Complicated by pt pulling IVs and refusing new ones at times. had postop ADITI but generally improved sodium. ADITI on ckd 3 >> nonoliguric ATN not much change past few days; no obvious offending meds on current/recent med lists >> could be abtx, frequent npo status, etc -daily bmp -not easy to get UA in this incontinent pt >> if worsening creat or if starting abtx contemplated, pls str cath for uacm and urine cx; else will follow -had IVF yesterday; none further needed today Hypernatremia -improved after IVF yesterday ->> cont pls to offer pt po fluids q4hrs, preferably water -reasonable to check labs daily for now HTN improved today -would monitor for now >> may be able to increase coreg dose but this may also interfere potentially w/ PT/balance so hold off for now; BP somewhat labile -cont amlodipine, coreg, clonidine (high dose) Ischemic R foot per vascular; s/p R BKA Dyspnea resolved today lungs are clear, XR reassuring, off 02 -reinforced importance of using ISS Appreciate consult will follow with you.
--- NOTE | 2017-07-01 10:55 | Pharmacy Progress Note ---
Glycemic Control Progress Note Date of Service Jul 01, 2017. Scope Glycemic Pharmacist consulted for glycemic control to write orders per [facility] inpatient glycemic control protocol. Objective Accuchecks BSG (last 24hrs): Test 06/30/17 12:09 06/30/17 14:14 06/30/17 16:51 06/30/17 20:41 Bedside Glucose 270 mg/dl (70-90) 265 mg/dl (70-90) 175 mg/dl (70-90) 203 mg/dl (70-90) Test 07/01/17 06:54 Random Glucose 66 mg/dl (70-99) HbA1c: Test 06/24/17 07:55 Hemoglobin A1c 7.1 % (4.5-5.6) H Recent Pertinent Medications The patient is currently receiving: * Basal insulin: Lantus 23 units every 24 hours * Correctional Insulin: Novolog Correction per scale ACHS Goal Range: Low 120 mg/dL - High 150 mg/dL Correction Factor: 10 mg/dL/unit * Prandial insulin: Per carb ratio of 1 unit per 4 grams CHO consumed Outpatient Anti-Diabetic Meds * Lantus 23 units HS * Humalog 8 units AC and sliding scale: BSG 201-300 = 2 units; 301-399= 4 units Assessment & Plan ASSESSMENT: * See progress note from 06/30 for more background info, in short: * Pt receiving SQ basal bolus insulin regimen for hyperglycemia secondary to baseline DM (outpatient regimen on hold), dextrose IVF * Patient is currently receiving an average of 70 units of insulin per day * 23 units of basal insulin * BSGs ranging 66 - 270 mg/dl over the past 24hrs * Changes needed to insulin regimen: * AM Fasting BSG = 66 mg/dl. This is below goal range for patient based on inpatient targets and co-morbidities. Therefore Basal insulin needs decreased. The low may also have been from the 6 units of correctional insulin given last night but since it has consistently dropped over the past few days, I'm inclined to think the basal was the culprit. * Post-prandial BSGs were elevated yesterday but this was due to 500 mL of dextrose given PLAN FOR INPATIENT GLYCEMIC CONTROL: * Decrease Lantus to 21 units qAM * Continue Novolog ACHS * Goal 120-150 * CF 10 * CR 4 RECOMMENDATIONS FOR DISCHARGE: * A1c acceptable. Continue outpatient regimen upon discharge Thank you.
[2017-07-01 14:52] VITALS: BP 123/61; PULSE 69; TEMP 36.4; O2SAT 94
--- NOTE | 2017-07-01 17:52 | Progress Note ---
Medicine Progress Note Date & Time of Visit: Jul 01, 2017 at 17:40. Subjective Pt was seen and examined Sitting in chair with no distress She said that she has been trying to drink more water Denies any symptoms Objective Last 8 Hrs Date Time Temp Pulse Resp B/P (MAP) Pulse Ox O2 Delivery O2 Flow Rate FiO2 07/01/17 14:52 36.4 69 18 123/61 (81) 94 Room Air Physical Exam: General- No acute distress Head- atraumatic Eyes- PERRL, EOMI ENT- oropharynx clear Neck- supple, no JVD Lungs-No wheezing Heart- regular rhythm Abdomen- normal bowel sounds Extremities-no calf L tenderness, RBKA Neuro- alert, oriented x 3; PERRL, EOMI Skin- warm & dry Laboratory Results: Last 24 Hours Test 06/30/17 20:41 07/01/17 06:54 07/01/17 12:07 07/01/17 16:55 Bedside Glucose 203 mg/dl 294 mg/dl 236 mg/dl White Blood Count 3.53 K/uL Red Blood Count 2.61 M/uL Hemoglobin 8.5 g/dL Hematocrit 26.0 % Mean Corpuscular Volume 99.6 fL Mean Corpuscular Hemoglobin 32.6 pg Mean Corpuscular Hemoglobin Concent 32.7 g/dl RDW Standard Deviation 72.8 fL RDW Coefficient of Variation 20.4 % Platelet Count 130 K/uL Platelet Estimate DECREASED Sodium Level 143 mmol/L Potassium Level 4.5 mmol/L Chloride Level 115 mmol/L Carbon Dioxide Level 21 mmol/L Anion Gap 7.0 mmol/L Blood Urea Nitrogen 70 mg/dl Creatinine 2.00 mg/dl Est Creatinine Clear Calc Drug Dose 20.7 ml/min Estimated GFR () 26.1 Estimated GFR (Non- 22.5 BUN/Creatinine Ratio 35.1 Random Glucose 66 mg/dl Calcium Level 8.4 mg/dl Assessment & Plan ISCHEMIC RIGHT FOOT with severe underlying Peripheral vascular disease presented with gangrenous left second toe as well as ischemic changes of right foot. Arterial duplex showed occlusion of the right anterior tibial and right posterior tibial arteries. Unable to anticoagulate due to recent subdural hematoma. was on Abx IV piperacillin / tazobactam. Vascular on board arterial US and aortoiliac US prior to making final recommendations/determining level of amputation. s/p RT BKA No post op complication Continue monitor H/H Continue PT/OT Will transfer to rehab once medically stable CELLULITIS RIGHT FOOT met SIRS criteria on admission -presented with fever, leukopenia blood cultures no growth today was started on IV Zosyn that was D/C after the Rt BKA Stable CORONARY ARTERY DISEASE no cardiac issue not on Aspirin due to recent sub dural hematoma Continue carvedilol, nitrates. Stable MYELODYSPLASTIC SYNDROME : causing anemia /pancytopenia Continue monitor DM TYPE 2 Hba1c 7.1 on On lantus Insulin coverage Monitor BS closely with the D5 water Pharmacy on board for glycemic management HTN : Continue carvedilol, amlodipine, clonidine, nitrates. Continue monitor BP Stable ADITI ON CKD III Creatine worsening to 2 yesterday, improved to 1.8 yesterday Creatine today remains 2 avoid NSAID's Nephrology on board case discussed with Dr. Mcgrath that recommended to encourage pt to drink water continue monitor BMP HYPERNATREMIA Na trending up will give [id number] continue monitor bmp ANEMIA History of anemia of chronic kidney disease as well as myelodysplastic syndrome. Might also related to post op blood loss Received 2 units PRBC so far during this admission Hgb today 8.5 continue monitor cbc DEMENTIA Apparent Alzheimer's dementia associated with behavioral difficulties. Treated at [facility] facility prior to transfer to [facility]. Olanzapine D/mikaela for leukopenia On Seroquel at night has some improvement of behavioral symptoms /agitation low boy bed , fall precaution . VTE PROPHYLAXIS Anticoagulants contraindicated due to recent subdural hematoma. SCD's or TEDS contraindicated due to severe peripheral vascular disease. RESUSCITATION STATUS DNR DISPOSITION Accepted to [facility] for skilled care Will discharge to [facility] when medically stable. Consultants: Nephrology vascular surgery Current Inpatient Medications: Current Inpatient Medications Medications (Trade) Dose Ordered Sig/Red Route Start Time Stop Time Status Last Admin Dose Admin Acetaminophen (Tylenol Tab) 650 mg Q6H PRN PO 06/23/17 16:45 07/23/17 16:44 06/24/17 08:12 650 MG Amlodipine Besylate (Norvasc Tab) 10 mg QAM PO 06/24/17 08:00 07/24/17 07:59 07/01/17 09:59 10 MG Docusate Sodium (coLACE CAP) 100 mg BID PO 06/23/17 20:00 07/23/17 19:59 07/01/17 09:59 100 MG Famotidine (Pepcid Tab) 20 mg QAM PO 06/24/17 08:00 07/24/17 07:59 07/01/17 09:59 20 MG Isosorbide Mononitrate (Imdur Ext Rel Tab) 120 mg QAM PO 06/24/17 08:00 07/24/17 07:59 07/01/17 09:59 120 MG Nitroglycerin (Nitrostat Tab) 0.4 mg PRN [place] 06/23/17 16:45 07/23/17 16:44 Clonidine HCl (Catapres Tab) 0.4 mg BID PO 06/23/17 20:00 07/23/17 19:59 07/01/17 09:59 0.4 MG Senna (Senokot Tab) 8.6 mg BID PO 06/24/17 08:00 07/24/17 07:59 07/01/17 09:59 8.6 MG Glucose (Glucose 40% Gel) 15-30 GRAMS 15 GRAMS... UD PRN PO 06/25/17 07:45 07/25/17 07:44 Glucose (Glucose Chew Tab) 4-8 Tablets 4 Tabl... UD PRN PO 06/25/17 07:45 07/25/17 07:44 Dextrose (Dextrose 50% 50ML Syringe) 25-50ML OF 50% DW IV FOR... UD PRN IV 06/25/17 07:45 07/25/17 07:44 Glucagon (Glucagon Inj) 1 mg UD PRN SQ 06/25/17 07:45 07/25/17 07:44 Carvedilol (Coreg Tab) 18.75 mg BID PO 06/26/17 20:00 07/23/17 19:59 07/01/17 10:00 18.75 MG Quetiapine Fumarate (seroQUEL TAB) 25 mg HS PO 06/26/17 21:00 07/26/17 21:59 06/30/17 21:05 25 MG Miscellaneous Information (Consult Glycemic Management Pharmacy) 1 ea UD PRN N/A 06/26/17 10:30 07/26/17 10:29 Hydralazine HCl (HydrALAZINE INJ) 10 mg TID PRN IV. 06/26/17 10:30 07/26/17 10:29 06/29/17 03:55 10 MG Oxycodone/ Acetaminophen (Percocet 5-325mg Tab) `1-2 TABS FOR MODER... Q4H PRN PO 06/26/17 17:15 07/10/17 17:14 06/29/17 06:13 1 TAB Morphine Sulfate (MoRPHine SULFATE INJ) If PO analgesic is orde... Q2H PRN IV 06/26/17 17:15 07/10/17 17:14 Hydromorphone HCl (Dilaudid Inj) 0.5 mg Q1HWA PRN IV 06/26/17 20:00 07/10/17 19:59 Insulin Aspart (novoLOG ASPART) SLIDING SCALE G... ACHS SC 06/27/17 08:00 07/27/17 07:59 07/01/17 13:27 27 UNITS Polyethylene (Miralax Powder Packet) 17 gm DAILY PRN PO 06/30/17 14:45 07/30/17 14:44 Insulin Glargine (Lantus Solostar Pen) 21 units DAILY [place] 07/01/17 09:00 07/31/17 08:59 07/01/17 10:07 21 UNITS
[2017-07-01 21:17] VITALS: BP 118/66; PULSE 78; O2SAT 94
[2017-07-01] MEDS: QUETIAPINE FUMARATE 25 MG TAB PO SCH (21:20)
[2017-07-01 22:50] VITALS: BP 115/67; PULSE 78; TEMP 36.6; O2SAT 95
[2017-07-01 23:45] VITALS: O2SAT 95
[2017-07-02 05:58] LABS: MEAN CORPUSCULAR HGB CONC 32.2 g/dl (32-36)
[2017-07-02 06:09] LABS: HEMATOCRIT 25.8 % (37-47); MEAN CELL VOLUME 101.6 fL (80-100); MEAN CORPUSCULAR HEMOGLOBIN 32.7 pg (25-34); RED BLOOD COUNT 2.54 M/uL (4.2-5.4); WHITE BLOOD COUNT 3.17 K/uL (4.8-10.8)
[2017-07-02 06:14] LABS: BUN/CREATININE RATIO 39.1 (10-20); CREATININE 1.9 mg/dl (0.60-1.20); POTASSIUM 4.5 mmol/L (3.5-5.1)
[2017-07-02 06:18] LABS: PLATELET COUNT 92 K/uL (130-400)
[2017-07-02 06:19] LABS: PLT ESTIMATE DECREASED
[2017-07-02 07:05] VITALS: BP 142/69; PULSE 65; TEMP 36.9; O2SAT 99
[2017-07-02] MEDS: DEXTROSE 5% 1000ML 1,000 ML IV SCH ×2 (07:58→20:40)
[2017-07-02] MEDS: FAMOTIDINE 20 MG TAB PO SCH (08:59)
[2017-07-02] MEDS: AMLODIPINE BESYLATE 5 MG TAB PO SCH (08:59)
[2017-07-02] MEDS: CLONIDINE HCL 0.1 MG TAB PO SCH ×2 (08:59→21:57)
[2017-07-02] MEDS: DOCUSATE SODIUM 100 MG CAP PO SCH ×2 (09:00→21:56)
[2017-07-02] MEDS: CARVEDILOL 12.5 MG TAB PO SCH ×2 (09:00→21:57)
[2017-07-02] MEDS ORDERED: INSULIN GLARGINE SOLOSTAR 100 UNITS/ML 3 ML PEN SC SCH (09:00)
[2017-07-02] MEDS: ISOSORBIDE MONONITRATE 60 MG TABCR PO SCH (09:00)
[2017-07-02] MEDS: SENNA 8.6 MG TAB PO SCH ×2 (09:01→21:56)
[2017-07-02] MEDS: INSULIN ASPART 100 UNITS/ML 3 ML PEN SC SCH ×4 (09:06→21:00)
--- NOTE | 2017-07-02 10:17 | Nephrology Progress Note ---
Nephrology Progress Note Date of Service: Jul 02, 2017. Subjective 82 yo female with dementia who underwent right bka for ischemic right foot. pt with hypernatremia. pt trying to drink more water. has some pain at the incision site. Objective Date Time Temp Pulse Resp B/P (MAP) Pulse Ox O2 Delivery O2 Flow Rate FiO2 07/02/17 08:00 Nasal Cannula 2.0 07/02/17 07:05 36.9 65 17 142/69 (93) 99 Nasal Cannula 2.0 07/01/17 23:45 95 Nasal Cannula 4.0 07/01/17 22:50 36.6 78 16 115/67 (83) 95 Nasal Cannula 4.0 07/01/17 21:17 78 118/66 (83) 94 Room Air 07/01/17 16:06 Room Air 07/01/17 14:52 36.4 69 18 123/61 (81) 94 Room Air Physical Exam: General-aaox1 Eyes-no scleral icterus ENT-mmm Neck-supple Lungs-cta Heart-rrr Abdomen-bs+ s/nt/nd Extremities-right bka, yazmin in place Neuro-follows commands Current Inpatient Medications Medications (Trade) Dose Ordered Sig/Red Route Start Time Stop Time Status Last Admin Dose Admin Acetaminophen (Tylenol Tab) 650 mg Q6H PRN PO 06/23/17 16:45 07/23/17 16:44 06/24/17 08:12 650 MG Amlodipine Besylate (Norvasc Tab) 10 mg QAM PO 06/24/17 08:00 07/24/17 07:59 07/02/17 08:59 10 MG Docusate Sodium (coLACE CAP) 100 mg BID PO 06/23/17 20:00 07/23/17 19:59 07/02/17 09:00 100 MG Famotidine (Pepcid Tab) 20 mg QAM PO 06/24/17 08:00 07/24/17 07:59 07/02/17 08:59 20 MG Isosorbide Mononitrate (Imdur Ext Rel Tab) 120 mg QAM PO 06/24/17 08:00 07/24/17 07:59 07/02/17 09:00 120 MG Nitroglycerin (Nitrostat Tab) 0.4 mg PRN [place] 06/23/17 16:45 07/23/17 16:44 Clonidine HCl (Catapres Tab) 0.4 mg BID PO 06/23/17 20:00 07/23/17 19:59 07/02/17 08:59 0.4 MG Senna (Senokot Tab) 8.6 mg BID PO 06/24/17 08:00 07/24/17 07:59 07/02/17 09:01 8.6 MG Glucose (Glucose 40% Gel) 15-30 GRAMS 15 GRAMS... UD PRN PO 06/25/17 07:45 07/25/17 07:44 Glucose (Glucose Chew Tab) 4-8 Tablets 4 Tabl... UD PRN PO 06/25/17 07:45 07/25/17 07:44 Dextrose (Dextrose 50% 50ML Syringe) 25-50ML OF 50% DW IV FOR... UD PRN IV 06/25/17 07:45 07/25/17 07:44 Glucagon (Glucagon Inj) 1 mg UD PRN SQ 06/25/17 07:45 07/25/17 07:44 Carvedilol (Coreg Tab) 18.75 mg BID PO 06/26/17 20:00 07/23/17 19:59 07/02/17 09:00 18.75 MG Quetiapine Fumarate (seroQUEL TAB) 25 mg HS PO 06/26/17 21:00 07/26/17 21:59 07/01/17 21:20 25 MG Miscellaneous Information (Consult Glycemic Management Pharmacy) 1 ea UD PRN N/A 06/26/17 10:30 07/26/17 10:29 Hydralazine HCl (HydrALAZINE INJ) 10 mg TID PRN IV. 06/26/17 10:30 07/26/17 10:29 06/29/17 03:55 10 MG Oxycodone/ Acetaminophen (Percocet 5-325mg Tab) `1-2 TABS FOR MODER... Q4H PRN PO 06/26/17 17:15 07/10/17 17:14 06/29/17 06:13 1 TAB Morphine Sulfate (MoRPHine SULFATE INJ) If PO analgesic is orde... Q2H PRN IV 06/26/17 17:15 07/10/17 17:14 Hydromorphone HCl (Dilaudid Inj) 0.5 mg Q1HWA PRN IV 06/26/17 20:00 07/10/17 19:59 Insulin Aspart (novoLOG ASPART) SLIDING SCALE G... ACHS SC 06/27/17 08:00 07/27/17 07:59 07/02/17 09:06 13 UNITS Polyethylene (Miralax Powder Packet) 17 gm DAILY PRN PO 06/30/17 14:45 07/30/17 14:44 Dextrose 1,000 ml @ 80 mls/hr [id number] IV 07/02/17 07:30 08/01/17 07:29 07/02/17 07:58 80 MLS/HR Insulin Glargine (Lantus Solostar Pen) 17 units DAILY [place] 07/02/17 09:00 08/01/17 08:59 07/02/17 09:07 17 UNITS Insulin Aspart (novoLOG ASPART) SLIDING SCALE G... 0200 ONCE SC 07/03/17 02:00 07/03/17 02:01 Last 24 Hours Test 07/01/17 12:07 07/01/17 16:55 07/01/17 20:57 07/02/17 05:18 Bedside Glucose 294 mg/dl 236 mg/dl 147 mg/dl White Blood Count 3.17 K/uL Red Blood Count 2.54 M/uL Hemoglobin 8.3 g/dL Hematocrit 25.8 % Mean Corpuscular Volume 101.6 fL Mean Corpuscular Hemoglobin 32.7 pg Mean Corpuscular Hemoglobin Concent 32.2 g/dl RDW Standard Deviation 76.6 fL RDW Coefficient of Variation 21.0 % Platelet Count 92 K/uL Platelet Estimate DECREASED Sodium Level 148 mmol/L Potassium Level 4.5 mmol/L Chloride Level 120 mmol/L Carbon Dioxide Level 20 mmol/L Anion Gap 8.0 mmol/L Blood Urea Nitrogen 74 mg/dl Creatinine 1.90 mg/dl Est Creatinine Clear Calc Drug Dose 21.8 ml/min Estimated GFR () 27.8 Estimated GFR (Non- 24.0 BUN/Creatinine Ratio 39.1 Random Glucose 61 mg/dl Calcium Level 8.0 mg/dl Test 07/02/17 08:20 Bedside Glucose 94 mg/dl Assessment & Plan hypernatremia-pt was off d5w and sodium levels starting to trend back up. encouraged more free water. restarted d5w at 80cc/hr. ADITI-appears to have had atn like episode. creatinine trended up to 2. hopefully, creatinine eventually improves back to baseline.
--- NOTE | 2017-07-02 10:22 | Pharmacy Progress Note ---
Glycemic Control Progress Note Date of Service Jul 02, 2017. Scope Glycemic Pharmacist consulted for glycemic control to write orders per [facility] inpatient glycemic control protocol. Objective Accuchecks BSG (last 24hrs): Test 07/01/17 12:07 07/01/17 16:55 07/01/17 20:57 07/02/17 05:18 Bedside Glucose 294 mg/dl (70-90) 236 mg/dl (70-90) 147 mg/dl (70-90) Random Glucose 61 mg/dl (70-99) Test 07/02/17 08:20 Bedside Glucose 94 mg/dl (70-90) HbA1c: Test 06/24/17 07:55 Hemoglobin A1c 7.1 % (4.5-5.6) H Recent Pertinent Medications The patient is currently receiving: * Basal insulin: Lantus 21 units every 24 hours * Correctional Insulin: Novolog Correction per scale ACHS Goal Range: Low 120 mg/dL - High 150 mg/dL Correction Factor: 10 mg/dL/unit * Prandial insulin: Per carb ratio of 1 unit per 4 grams CHO consumed Outpatient Anti-Diabetic Meds * Lantus 23 units HS * Humalog 8 units AC and sliding scale: BSG 201-300 = 2 units; 301-399= 4 units Assessment & Plan ASSESSMENT: * See progress note from 07/01 for more background info, in short: * Pt receiving SQ basal bolus insulin regimen for hyperglycemia secondary to baseline DM (outpatient regimen on hold) * In addition, dextrose IVF to be restarted today for hypernatremia * Patient is currently receiving an average of 80 units of insulin per day * 21 units of basal insulin * BSGs ranging 61-294 mg/dl over the past 24hrs * AM Fasting BSG = 61 mg/dl. This fell further from yesterday but basal dose was decreased and Novolog was NOT given last night. * Post-prandial BSGs were elevated yesterday but this was probably due to late Novolog administration in the AM and then stacking, because the HS BSG was WNL. * With fasting hypoglycemia, will plan to decrease basal further but I expect daytime BSGs to increase due to the continuous dextrose. Will tighten the goal range (and now tighten the CF as well since lunch BSG increased further) to provide additional coverage. I hesitate to increase the basal since the dextrose infusion will be temporary and with her fasting hypoglycemia. PLAN FOR INPATIENT GLYCEMIC CONTROL: * Decrease Lantus to 17 units qAM * Continue Novolog ACHS * TIGHTEN to Goal 110-140 * TIGHTEN CF to 8 * CR 4 RECOMMENDATIONS FOR DISCHARGE: * A1c acceptable. Continue outpatient regimen upon discharge Thank you.
[2017-07-02 11:00] VITALS: O2SAT 95
[2017-07-02 14:54] VITALS: BP 157/57; PULSE 77; TEMP 36.7; O2SAT 98
--- NOTE | 2017-07-02 19:17 | Progress Note ---
Medicine Progress Note Date & Time of Visit: Jul 02, 2017 at 19:11. Subjective Pt was seen and examined feeling fine denies any chest pain, palpitation and sob Objective Last 8 Hrs Date Time Temp Pulse Resp B/P (MAP) Pulse Ox O2 Delivery O2 Flow Rate FiO2 07/02/17 16:00 Room Air 07/02/17 14:54 36.7 77 16 157/57 (90) 98 Room Air Physical Exam: General- No acute distress Head- atraumatic Eyes- PERRL, EOMI ENT- oropharynx clear Neck- supple, no JVD Lungs-No wheezing Heart- regular rhythm Abdomen- normal bowel sounds Extremities-no calf L tenderness, RBKA Neuro- alert, oriented x 3; PERRL, EOMI Skin- warm & dry Laboratory Results: Last 24 Hours Test 07/01/17 20:57 07/02/17 05:18 07/02/17 08:20 07/02/17 12:01 Bedside Glucose 147 mg/dl 94 mg/dl 287 mg/dl White Blood Count 3.17 K/uL Red Blood Count 2.54 M/uL Hemoglobin 8.3 g/dL Hematocrit 25.8 % Mean Corpuscular Volume 101.6 fL Mean Corpuscular Hemoglobin 32.7 pg Mean Corpuscular Hemoglobin Concent 32.2 g/dl RDW Standard Deviation 76.6 fL RDW Coefficient of Variation 21.0 % Platelet Count 92 K/uL Platelet Estimate DECREASED Sodium Level 148 mmol/L Potassium Level 4.5 mmol/L Chloride Level 120 mmol/L Carbon Dioxide Level 20 mmol/L Anion Gap 8.0 mmol/L Blood Urea Nitrogen 74 mg/dl Creatinine 1.90 mg/dl Est Creatinine Clear Calc Drug Dose 21.8 ml/min Estimated GFR () 27.8 Estimated GFR (Non- 24.0 BUN/Creatinine Ratio 39.1 Random Glucose 61 mg/dl Calcium Level 8.0 mg/dl Test 07/02/17 16:49 Bedside Glucose 91 mg/dl Assessment & Plan ISCHEMIC RIGHT FOOT with severe underlying Peripheral vascular disease presented with gangrenous left second toe as well as ischemic changes of right foot. Arterial duplex showed occlusion of the right anterior tibial and right posterior tibial arteries. Unable to anticoagulate due to recent subdural hematoma. was on Abx IV piperacillin / tazobactam. Vascular on board arterial US and aortoiliac US prior to making final recommendations/determining level of amputation. s/p RT BKA No post op complication Continue monitor H/H Continue PT/OT clinically stable Will transfer to in am CELLULITIS RIGHT FOOT met SIRS criteria on admission -presented with fever, leukopenia blood cultures no growth today was started on IV Zosyn that was D/C after the Rt BKA Stable CORONARY ARTERY DISEASE no cardiac issue not on Aspirin due to recent sub dural hematoma Continue carvedilol, nitrates. Stable MYELODYSPLASTIC SYNDROME : causing anemia /pancytopenia Continue monitor DM TYPE 2 Hba1c 7.1 on On lantus Insulin coverage Monitor BS closely with the [facility] on board for glycemic management HTN : Continue carvedilol, amlodipine, clonidine, nitrates. Continue monitor BP ADITI ON CKD III Creatine worsening to 2 yesterday, improved to 1.8 yesterday Creatine today 1.9 avoid NSAID's Nephrology on board Encourage pt to drink water continue D5W at 80cc continue monitor BMP Monitor for signs of overload HYPERNATREMIA Na 148 today Started on [id number] Encourage pt to drink more water case discussed with nephrology OK to discharge to rehab will check BMP twice a week to monitor Na continue monitor bmp ANEMIA History of anemia of chronic kidney disease as well as myelodysplastic syndrome. Might also related to post op blood loss Received 2 units PRBC so far during this admission Hgb today 8.3 continue monitor cbc DEMENTIA Apparent Alzheimer's dementia associated with behavioral difficulties. Treated at [facility] facility prior to transfer to [facility]. Olanzapine D/mikaela for leukopenia On Seroquel at night has some improvement of behavioral symptoms /agitation low boy bed , fall precaution . VTE PROPHYLAXIS Anticoagulants contraindicated due to recent subdural hematoma. SCD's or TEDS contraindicated due to severe peripheral vascular disease. RESUSCITATION STATUS DNR DISPOSITION Accepted to [facility] for skilled care Will discharge to [facility] tomorrow Consultants: Nephrology vascular surgery Current Inpatient Medications: Current Inpatient Medications Medications (Trade) Dose Ordered Sig/Red Route Start Time Stop Time Status Last Admin Dose Admin Acetaminophen (Tylenol Tab) 650 mg Q6H PRN PO 06/23/17 16:45 07/23/17 16:44 06/24/17 08:12 650 MG Amlodipine Besylate (Norvasc Tab) 10 mg QAM PO 06/24/17 08:00 07/24/17 07:59 07/02/17 08:59 10 MG Docusate Sodium (coLACE CAP) 100 mg BID PO 06/23/17 20:00 07/23/17 19:59 07/02/17 09:00 100 MG Famotidine (Pepcid Tab) 20 mg QAM PO 06/24/17 08:00 07/24/17 07:59 07/02/17 08:59 20 MG Isosorbide Mononitrate (Imdur Ext Rel Tab) 120 mg QAM PO 06/24/17 08:00 07/24/17 07:59 07/02/17 09:00 120 MG Nitroglycerin (Nitrostat Tab) 0.4 mg PRN UT 06/23/17 16:45 07/23/17 16:44 Clonidine HCl (Catapres Tab) 0.4 mg BID PO 06/23/17 20:00 07/23/17 19:59 07/02/17 08:59 0.4 MG Senna (Senokot Tab) 8.6 mg BID PO 06/24/17 08:00 07/24/17 07:59 07/02/17 09:01 8.6 MG Glucose (Glucose 40% Gel) 15-30 GRAMS 15 GRAMS... UD PRN PO 06/25/17 07:45 07/25/17 07:44 Glucose (Glucose Chew Tab) 4-8 Tablets 4 Tabl... UD PRN PO 06/25/17 07:45 07/25/17 07:44 Dextrose (Dextrose 50% 50ML Syringe) 25-50ML OF 50% DW IV FOR... UD PRN IV 06/25/17 07:45 07/25/17 07:44 Glucagon (Glucagon Inj) 1 mg UD PRN SQ 06/25/17 07:45 07/25/17 07:44 Carvedilol (Coreg Tab) 18.75 mg BID PO 06/26/17 20:00 07/23/17 19:59 07/02/17 09:00 18.75 MG Quetiapine Fumarate (seroQUEL TAB) 25 mg HS PO 06/26/17 21:00 07/26/17 21:59 07/01/17 21:20 25 MG Miscellaneous Information (Consult Glycemic Management Pharmacy) 1 ea UD PRN N/A 06/26/17 10:30 07/26/17 10:29 Hydralazine HCl (HydrALAZINE INJ) 10 mg TID PRN IV. 06/26/17 10:30 07/26/17 10:29 06/29/17 03:55 10 MG Oxycodone/ Acetaminophen (Percocet 5-325mg Tab) `1-2 TABS FOR MODER... Q4H PRN PO 06/26/17 17:15 07/10/17 17:14 06/29/17 06:13 1 TAB Morphine Sulfate (MoRPHine SULFATE INJ) If PO analgesic is orde... Q2H PRN IV 06/26/17 17:15 07/10/17 17:14 Hydromorphone HCl (Dilaudid Inj) 0.5 mg Q1HWA PRN IV 06/26/17 20:00 07/10/17 19:59 Insulin Aspart (novoLOG ASPART) SLIDING SCALE G... ACHS SC 06/27/17 08:00 07/27/17 07:59 07/02/17 18:44 6 UNITS Polyethylene (Miralax Powder Packet) 17 gm DAILY PRN PO 06/30/17 14:45 07/30/17 14:44 Dextrose 1,000 ml @ 80 mls/hr [id number] IV 07/02/17 07:30 08/01/17 07:29 07/02/17 07:58 80 MLS/HR Insulin Glargine (Lantus Solostar Pen) 17 units DAILY SC 07/02/17 09:00 08/01/17 08:59 07/02/17 09:07 17 UNITS
[2017-07-02] MEDS: QUETIAPINE FUMARATE 25 MG TAB PO SCH (21:55)
[2017-07-02 23:15] VITALS: O2SAT 98
[2017-07-02 23:24] VITALS: BP 155/55; PULSE 79; TEMP 36.8; O2SAT 93
[2017-07-03] MEDS ORDERED: INSULIN ASPART 100 UNITS/ML 3 ML PEN SC ONE (02:00)
[2017-07-03 07:10] VITALS: BP 163/64; PULSE 74; TEMP 36.7; O2SAT 92
[2017-07-03] MEDS: AMLODIPINE BESYLATE 5 MG TAB PO SCH (08:55)
[2017-07-03] MEDS: DOCUSATE SODIUM 100 MG CAP PO SCH (08:56)
[2017-07-03] MEDS: CLONIDINE HCL 0.1 MG TAB PO SCH (08:56)
[2017-07-03] MEDS: ISOSORBIDE MONONITRATE 60 MG TABCR PO SCH (08:56)
[2017-07-03] MEDS: SENNA 8.6 MG TAB PO SCH (08:56)
[2017-07-03] MEDS: CARVEDILOL 12.5 MG TAB PO SCH (08:56)
[2017-07-03] MEDS: FAMOTIDINE 20 MG TAB PO SCH (08:57)
[2017-07-03] MEDS ORDERED: INSULIN GLARGINE SOLOSTAR 100 UNITS/ML 3 ML PEN SC SCH (09:00)
[2017-07-03] MEDS: INSULIN ASPART 100 UNITS/ML 3 ML PEN SC SCH (09:04)
[2017-07-03] MEDS: DEXTROSE 5% 1000ML 1,000 ML IV SCH (09:08)
[2017-07-03 09:24] LABS: BUN/CREATININE RATIO 39.4 (10-20); CALCIUM 8.2 mg/dl (8.5-10.1); CREATININE 1.7 mg/dl (0.60-1.20); POTASSIUM 4.2 mmol/L (3.5-5.1)
[2017-07-03 11:05] VITALS: BP 163/64; PULSE 74; TEMP 36.7; O2SAT 92
--- NOTE | 2017-07-03 12:50 | Discharge Instructions ---
Discharge Instructions Date of Service Jul 03, 2017. Admission Reason for Admission: Cellulitis Of Right Foot/gangrene Discharge Discharge Diagnosis / Problem: ISCHEMIC RIGHT FOOT S/P RIGHT BKA, HYPERNATREMIA , ADITI ON CKD III, ANEMIA Discharge Goals Goal(s): Decrease discomfort, Improve function, Improve disease control Activity Recommendations Activity Limitations: resume your previous activity ( TOLERATED) . Instructions / Follow-Up Instructions / Follow-Up Follow up with your primary care provider once discharge from rehab Follow up with vascular surgery in 2 weeks ( office will arrange for the follow up appointment) Vascular will remove the yazmin in the next follow up Follow up with nephrology is hypernatremia worsening Check BMP in 3 to 5 days to monitor kidney function and the sodium Check CBC in 3 to 5 days for the anemia Encourage patient to drink water Continue PT/OT Fall precaution Current Hospital Diet Patient's current hospital diet: Diabetes Type 2 Diet Discharge Diet Recommended Diet: Diabetes Type 2 Diet Procedures Procedures Performed: Right Below Knee Amputation Pending Studies Studies pending at discharge: no Laboratory Results Hemoglobin A1c Test 06/24/17 07:55 Range/Units Estimated Average Glucose 157 mg/dl Hemoglobin A1c 7.1 H 4.5-5.6 % Medical Emergencies . Who to Call and When: Medical Emergencies: If at any time you feel your situation is an emergency, please call 911 immediately. . Non-Emergent Contact Non-Emergency issues call your: Primary Care Provider Call Non-Emergent contact if: you have a fever, your pain is not controlled, you have any medication questions . . "Provider Documentation" section prepared by Kvng Fajardo. . VTE Core Measure Inpt VTE Proph given/why not?: Contraindicated
[2017-07-03] MEDS ORDERED: SRQ25 PO (13:35)
[2017-07-03] MEDS ORDERED: OXYC-57 PO (13:35)
[2017-07-03] MEDS ORDERED: CRG125 PO (13:35)
--- NOTE | 2017-07-03 19:48 | Progress Note ---
Medicine Progress Note Date & Time of Visit: Jul 03, 2017 at 11:44. Subjective Pt was seen and examined Lying in bed with no distress Denies any chest pain, palpitation, dizziness and SOB Objective Physical Exam: General- No acute distress Head- atraumatic Eyes- PERRL, EOMI ENT- oropharynx clear Neck- supple, no JVD Lungs-No wheezing Heart- regular rhythm Abdomen- normal bowel sounds Extremities-no calf L tenderness, RBKA Neuro- alert, oriented x 3; PERRL, EOMI Skin- warm & dry Laboratory Results: Last 24 Hours Test 07/02/17 21:07 07/03/17 08:03 07/03/17 08:22 07/03/17 12:01 Bedside Glucose 79 mg/dl 174 mg/dl 209 mg/dl Sodium Level 144 mmol/L Potassium Level 4.2 mmol/L Chloride Level 118 mmol/L Carbon Dioxide Level 19 mmol/L Anion Gap 7.0 mmol/L Blood Urea Nitrogen 67 mg/dl Creatinine 1.70 mg/dl Est Creatinine Clear Calc Drug Dose 24.4 ml/min Estimated GFR () 31.8 Estimated GFR (Non- 27.4 BUN/Creatinine Ratio 39.4 Random Glucose 173 mg/dl Calcium Level 8.2 mg/dl Assessment & Plan ISCHEMIC RIGHT FOOT with severe underlying Peripheral vascular disease presented with gangrenous left second toe as well as ischemic changes of right foot. Arterial duplex showed occlusion of the right anterior tibial and right posterior tibial arteries. Unable to anticoagulate due to recent subdural hematoma. was on Abx IV piperacillin / tazobactam. Vascular on board arterial US and aortoiliac US prior to making final recommendations/determining level of amputation. s/p RT BKA No post op complication Continue monitor H/H Continue PT/OT clinically stable Will transfer to [facility] today Follow up with Vascular surgery in 2 weeks, yazmin will remove during follow up CELLULITIS RIGHT FOOT met SIRS criteria on admission -presented with fever, leukopenia blood cultures no growth today was started on IV Zosyn that was D/C after the Rt BKA Stable CORONARY ARTERY DISEASE no cardiac issue not on Aspirin due to recent sub dural hematoma Continue carvedilol, nitrates. Stable MYELODYSPLASTIC SYNDROME : causing anemia /pancytopenia Continue monitor DM TYPE 2 Hba1c 7.1 on On lantus Insulin coverage Monitor BS closely with the [facility] Pharm[facility] on board for glycemic management HTN : Continue carvedilol, amlodipine, clonidine, nitrates. Continue monitor BP ADITI ON CKD III Creatine worsening to 2 yesterday, improved to 1.8 yesterday Creatine today 1.7 avoid NSAID's Nephrology on board Encourage pt to drink water continue D5W at 80cc continue monitor BMP Monitor for signs of overload D/C IVF HYPERNATREMIA Na 144 today Started on [id number] Encourage pt to drink more water case discussed with nephrology OK to discharge to rehab Check BMP within 1 week continue monitor bmp ANEMIA History of anemia of chronic kidney disease as well as myelodysplastic syndrome. Might also related to post op blood loss Received 2 units PRBC so far during this admission Hgb 8.3 yesterday continue monitor cbc DEMENTIA Apparent Alzheimer's dementia associated with behavioral difficulties. Treated at [facility] Ger[facility] facility prior to transfer to [facility]. Olanzapine D/mikaela for leukopenia On Seroquel at night has some improvement of behavioral symptoms /agitation low boy bed , fall precaution . VTE PROPHYLAXIS Anticoagulants contraindicated due to recent subdural hematoma. SCD's or TEDS contraindicated due to severe peripheral vascular disease. RESUSCITATION STATUS DNR DISPOSITION Accepted to [facility] for skilled care Will discharge to [facility] today Consultants: Nephrology vascular surgery
--- NOTE | 2017-07-04 07:57 | Discharge Summary ---
Discharge Summary Date of Service Jul 04, 2017. Discharge Summary Admission Date: Jun 23, 2017 at 15:18 Discharge Date: Jul 03, 2017 Discharge Disposition: detention facility Principal Diagnosis: ISCHEMIC RIGHT FOOT Secondary Diagnoses/Problems: CELLULITIS RIGHT FOOT CORONARY ARTERY DISEASE MYELODYSPLASTIC SYNDROME DM TYPE 2 HTN ADITI ON CKD III HYPERNATREMIA ANEMIA DEMENTIA Procedures: CHEST ONE VIEW PORTABLE CLINICAL HISTORY: 82 years-old Female presenting with sob. TECHNIQUE: Portable upright AP view of the chest was obtained. COMPARISON: 06/23/2017. FINDINGS: Median sternotomy wires intact. Few mediastinal surgical clips noted. Atherosclerosis of aortic arch. Cardiac silhouette top normal in size allowing for portable AP technique. Lungs and pleural spaces clear. Degenerative changes of the thoracic spine. Upper abdomen normal. IMPRESSION: 1. No acute cardiopulmonary disease. Electronically signed by: Jose Jimenez M.D. 06/30/2017 11:24 AM Dictated Date/Time: 06/30/2017 11:23 AM DUPLEX AORTA/IVC/ILIACS COMP HISTORY: 82 years-old Female aortoiliac occlusive disease COMPARISON: CT abdomen and pelvis 11/04/2016 TECHNIQUE: Multiple real-time sonographic images of the aorta and iliac arteries were obtained assessing grayscale appearance, color and spectral flow. FINDINGS: Study is very limited secondary to patient compliance and obscuring bowel gas. Only the distal portion of the abdominal aorta is seen which measures 1.1 cm in AP dimension with peak systolic velocity of 50 cm/s. The right common iliac artery measures 1.0 cm in AP dimension with peak systolic velocity measured at 141 cm/s. The left common iliac artery measures 0.8 cm in AP dimension with peak systolic velocity measured at 144 cm/s. Moderate atherosclerotic plaquing is noted. The IVC is not visualized. IMPRESSION: 1. Limited study secondary to patient compliance and obscuring bowel gas. 2. Moderate atherosclerotic vascular disease without aneurysm or elevated peak systolic velocity. The above report was generated using voice recognition software. It may contain grammatical, syntax or spelling errors. Electronically signed by: Danilo Flores M.D. 06/24/2017 7:52 PM Dictated Date/Time: 06/24/2017 7:48 PM ART DOP LOWER EXT BILAT HISTORY: 82 years-old Female RLE ischemia right lower extremity ischemia, acute in nature. Nonhealing wounds. COMPARISON: Duplex aorta, IVC and iliac ultrasound of same day TECHNIQUE: Multiple real-time sonographic images of the bilateral lower extremity arterial structures were obtained assessing grayscale appearance, color and spectral flow FINDINGS: Study is very limited secondary to patient compliance. Patient refused the segmental pressure portion of the study. RIGHT: Blunted monophasic waveforms are noted throughout the right lower extremity. Moderate atherosclerotic plaquing is present. Nonocclusive thrombus noted within the right popliteal vein distally. LEFT: Moderate atherosclerotic plaquing is also noted on the left. Increased peak systolic velocities are seen within the common femoral, profunda femoris and proximal portion of the superficial femoral artery. For example, peak systolic velocity of 230 cm/s noted within the common femoral artery, peak systolic velocity of 268 cm/s noted within the profunda femoris artery, peak systolic velocity of 203 cm/s noted within the superficial femoral artery. There are predominantly biphasic waveforms throughout the left lower extremity. Monophasic waveforms are noted within the dorsalis pedis artery. IMPRESSION: 1. Moderate atherosclerotic vascular disease noted bilaterally. 2. Blunted monophasic waveforms are seen throughout the right lower extremity. 3. Predominantly biphasic waveforms are seen throughout the left lower extremity with multiple vessels demonstrating increased peak systolic velocity as above compatible with hemodynamically significant stenoses with inflow disease. 4. Nonocclusive deep venous thrombosis incidentally noted within the right popliteal vein. The above report was generated using voice recognition software. It may contain grammatical, syntax or spelling errors. Electronically signed by: Danilo Flores M.D. 06/24/2017 7:59 PM Dictated Date/Time: 06/24/2017 7:52 PM R FOOT MIN 3 VIEWS ROUTINE CLINICAL HISTORY: 82 years-old Female presenting with RT FOOT INFECTION, weakness, necrotic toe. TECHNIQUE: Frontal, oblique, and lateral views of the right foot were obtained. COMPARISON: None. FINDINGS: Osteopenia, which limits evaluation for nondisplaced fracture and osseous erosion. Deformity of the neck of the fifth metatarsal suggests old fracture. No gross evidence of osseous erosion or periosteal reaction. No displaced fracture or malalignment. Atherosclerosis noted. Mild soft tissue swelling suggested along the plantar aspect of the foot. Prominent enthesophyte at the insertion of the Achilles tendon. IMPRESSION: No radiographic evidence of osteomyelitis. Further evaluation with noncontrast MR could be considered as clinically warranted. Osteopenia, which limits evaluation for nondisplaced fracture and osseous erosion. Electronically signed by: Jose Jimenez M.D. 06/23/2017 1:15 PM Dictated Date/Time: 06/23/2017 1:14 PM CHEST ONE VIEW PORTABLE CLINICAL HISTORY: 82 years-old Female presenting with EVALUATE ALTERED MENTAL STATUS/WEAKNESS. TECHNIQUE: Portable upright AP view of the chest was obtained. COMPARISON: 11/04/2016. FINDINGS: Median sternotomy wires intact. Atherosclerosis of the aortic arch. Chronic silhouette normal in size. Lungs and pleural spaces clear. Degenerative changes of the thoracic spine. Upper abdomen normal. IMPRESSION: 1. No acute cardiopulmonary disease. Electronically signed by: Jose Jimenez M.D. 06/23/2017 1:13 PM Dictated Date/Time: 06/23/2017 1:12 PM Consultations: Nephrology vascular surgery Medication Reconciliation New Medications: Carvedilol (Carvedilol) 12.5 Mg Tab 18.75 MG PO BID for 30 Days, TAB Oxycodone/Acetaminophen 5MG/325MG (Percocet 5MG/325MG) Tab 1-2 TAB PO Q6H PRN for Moderate Pain for 3 Days, #12 TAB PAIN Quetiapine Fumarate (Quetiapine Fumarate) 25 Mg Tab 25 MG PO HS for 30 Days, TAB Continued Medications: Acetaminophen Tab (Tylenol) 325 Mg Tab 650 MG PO Q6H PRN for Pain, TAB Amlodipine (Norvasc) 10 Mg Tab 10 MG PO QAM, TAB Bisacodyl (Dulcolax) 10 Mg Sup 1 SUPP SC Q4DAY PRN for Constipation, SUP Calcium Carbonate-Vitamin D (Calcium + D) 1 Tab Tab 1 TAB PO DAILY Clonidine Hcl (Catapres) 0.2 Mg Tab 0.4 MG PO BID Dextrose (Diabetic Use) (Insta-Glucose) 77.4 % Gel 1 APPLN PO UD PRN for HYPOGLYCEMIA PROTOCOL Docusate Sodium (Docusate Sodium) 100 Mg Cap 100 MG PO BID Famotidine (Pepcid) 20 Mg Tab 20 MG PO QAM, TAB Glucagon (Glucagon Emergency Kit) 1 Mg Kit 1 MG IM UD PRN for HYPOGLYCEMIA PROTOCOL Insulin Glargine (Lantus Solostar) 100 Unit/Ml Inj 23 UNITS SQ PM, #15 Insulin Lispro (Human) (Humalog) 100 Unit/Ml Inj 8 UNITS SQ AC Insulin Lispro (Human) (Humalog) 100 Unit/Ml Inj 1 DOSE SQ WM 71-200=0 201-300=2UNITS 301-399=4UNITS 400+ CALL Isosorbide Mononitrate Ext Rel (Imdur Ext Rel) 60 Mg Ertab 120 MG PO QAM, TAB Magnesium Hydroxide (Milk Of Magnesia) 30 Ml Susp 30 ML PO [id number], ML Nitroglycerin (Nitrostat) 0.4 Mg Tab 0.4 MG UT PRN, BTL Senna (Senokot) 8.6 Mg Tab 1.2 MG PO BID, TAB Sodium Phosphate/Biphosphate (Fleet Enema) Vanessa 1 EA SC DAILY, BTL Discontinued Medications: Bumetanide (Bumetanide) 0.5 Mg Tab 0.5 MG PO QAM Carvedilol (Coreg) 12.5 Mg Tab 12.5 MG PO BID, TAB Cephalexin Monohydrate (Keflex) 500 Mg Cap 500 MG PO BID STARTED 06/19 FOR 7 DAY THERAPY Olanzapine (Zyprexa) 5 Mg Tab 5 MG PO HS, TAB Admission Information HPI (per Admitting provider): 82-year-old female followed by Dr. Mcbride until recently. History of dementia, diabetes, and other problems noted below. Admitted to [facility] in April. She suffered a fall with head injury and was found to have a subdural hematoma. Transferred to [facility] in [place] he was seen in consultation by Neurosurgery. Nonoperative measures recommended. Returned to [facility] on 06/02/17. Transferred to [facility] for skilled care on 06/09/17. Referred to the ED today for evaluation of changes of her right toes and foot. She had been noted to have a necrotic left second toe, onset uncertain. The patient is unable to provide any history for severe dementia. She denies fever, pain, or other problems. . Physical Exam (per Admitting): General Appearance: WD/WN, no apparent distress Eyes: normal inspection, PERRL, EOMI, sclerae normal, + pertinent finding ( conjunctivae pale) ENT: hearing grossly normal, pharynx normal, + pertinent finding (upper and lower dentures) Neck: supple, no adenopathy, thyroid normal, no JVD, trachea midline Respiratory/Chest: lungs clear, no respiratory distress, no accessory muscle use Cardiovascular: regular rate, rhythm, no gallop, no JVD, + systolic murmur ( II/ systolic murmur at base), + abnormal peripheral pulses (trace pretibial edema; pedal pulses not palpable; capillary refill right toes 3 sec) Abdomen/GI: normal bowel sounds, non tender, soft, no organomegaly Extremities/Musculoskelatal: no calf tenderness, + pertinent finding ( gangrenous changes right 2nd toe; bullae right 3rd toe; ulceration dorsum right foot ~ 5 cm; erythema dorsum right foot; forefoot dusky) Neurologic/Psych: apparel cutter II-XII nml as tested (PERRL, EOMI, no facial palsy), no motor/sensory deficits (motor strength grossly intact), alert, + disoriented (oriented only to person) Skin: normal color, warm/dry, no rash, + pertinent finding (right foot ulceration, right toes as described above) Lymphatic: no adenopathy (cervical) Hospital Course ISCHEMIC RIGHT FOOT with severe underlying Peripheral vascular disease presented with gangrenous left second toe as well as ischemic changes of right foot. Arterial duplex showed occlusion of the right anterior tibial and right posterior tibial arteries. Unable to anticoagulate due to recent subdural hematoma. was on Abx IV piperacillin / tazobactam. Vascular on board arterial US and aortoiliac US prior to making final recommendations/determining level of amputation. s/p RT BKA No post op complication Continue monitor H/H Continue PT/OT clinically stable Will transfer to [facility] today Follow up with Vascular surgery in 2 weeks, yazmin will remove during follow up CELLULITIS RIGHT FOOT met SIRS criteria on admission -presented with fever, leukopenia blood cultures no growth today was started on IV Zosyn that was D/C after the Rt BKA Stable CORONARY ARTERY DISEASE no cardiac issue not on Aspirin due to recent sub dural hematoma Continue carvedilol, nitrates. Stable MYELODYSPLASTIC SYNDROME causing anemia /pancytopenia Continue monitor DM TYPE 2 Hba1c 7.1 on On lantus Insulin coverage Monitor BS closely with the water Pharmacy on board for glycemic management HTN Continue carvedilol, amlodipine, clonidine, nitrates. Continue monitor BP ADITI ON CKD III Creatine worsening to 2 yesterday, improved to 1.8 yesterday Creatine today 1.7 avoid NSAID's Nephrology on board Encourage pt to drink water continue D5W at 80cc continue monitor BMP Monitor for signs of overload D/C IVF HYPERNATREMIA Na 144 today Started on [id number] Encourage pt to drink more water case discussed with nephrology OK to discharge to rehab Check BMP within 1 week continue monitor bmp ANEMIA History of anemia of chronic kidney disease as well as myelodysplastic syndrome. Might also related to post op blood loss Received 2 units PRBC so far during this admission Hgb 8.3 yesterday continue monitor cbc DEMENTIA Apparent Alzheimer's dementia associated with behavioral difficulties. Treated at [facility] prior to transfer to [facility]. Olanzapine D/mikaela for leukopenia On Seroquel at night has some improvement of behavioral symptoms /agitation low boy bed , fall precaution . VTE PROPHYLAXIS Anticoagulants contraindicated due to recent subdural hematoma. SCD's or TEDS contraindicated due to severe peripheral vascular disease. RESUSCITATION STATUS DNR DISPOSITION Accepted to [facility] for skilled care Will discharge to [facility] today Total time spent on discharge = 35 minutes This includes examination of the patient, discharge planning, medication reconciliation, and communication with other providers. Discharge Instructions Discharge Instructions Date of Service Jul 03, 2017. Admission Reason for Admission: Cellulitis Of Right Foot/gangrene Discharge Discharge Diagnosis / Problem: ISCHEMIC RIGHT FOOT S/P RIGHT BKA, HYPERNATREMIA , ADITI ON CKD III, ANEMIA Discharge Goals Goal(s): Decrease discomfort, Improve function, Improve disease control Activity Recommendations Activity Limitations: resume your previous activity ( TOLERATED) . Instructions / Follow-Up Instructions / Follow-Up Follow up with your primary care provider once discharge from rehab Follow up with vascular surgery in 2 weeks ( office will arrange for the follow up appointment) Vascular will remove the yazmin in the next follow up Follow up with nephrology is hypernatremia worsening Check BMP in 3 to 5 days to monitor kidney function and the sodium Check CBC in 3 to 5 days for the anemia Encourage patient to drink water Continue PT/OT Fall precaution Current Hospital Diet Patient's current hospital diet: Diabetes Type 2 Diet Discharge Diet Recommended Diet: Diabetes Type 2 Diet Procedures Procedures Performed: Right Below Knee Amputation Pending Studies Studies pending at discharge: no Laboratory Results Hemoglobin A1c Test 06/24/17 07:55 Range/Units Estimated Average Glucose 157 mg/dl Hemoglobin A1c 7.1 H 4.5-5.6 % Medical Emergencies . Who to Call and When: Medical Emergencies: If at any time you feel your situation is an emergency, please call 911 immediately. . Non-Emergent Contact Non-Emergency issues call your: Primary Care Provider Call Non-Emergent contact if: you have a fever, your pain is not controlled, you have any medication questions . . "Provider Documentation" section prepared by Kvng Fajardo. . VTE Core Measure Inpt VTE Proph given/why not?: Contraindicated Signed: Signed: The status of this report is Draft * If report status is Draft, the document has not been finalized by the responsible provider. Additional Copies To Loreto Holt
== END 2017-07-03 15:33 | DRG 239 ==
LOC: EDBD 10:37 → C.EDB 10:38 → C.MS4W 15:18 → ENRESERV 15:31 → C.MSW 06-26 19:03
PROVIDERS: ADMIT Hospitalist; ATTEND Internal Medicine
PROC: 0Y6H0Z1 Detachment at Right Lower Leg, High, Open Approach (ICD-10-PCS; principal; 2017-06-26 10:30)
DX: E11.52 Type 2 diabetes mellitus with diabetic peripheral angiopathy with gangrene (principal); R65.11 Systemic inflammatory response syndrome (SIRS) of non-infectious origin with acute organ dysfunction; N17.0 Acute kidney failure with tubular necrosis; L03.115 Cellulitis of right lower limb; E87.0 Hyperosmolality and hypernatremia; I77.1 Stricture of artery; I73.9 Peripheral vascular disease, unspecified; N18.3 Chronic kidney disease, stage 3 (moderate); E11.22 Type 2 diabetes mellitus with diabetic chronic kidney disease; I12.9 Hypertensive chronic kidney disease with stage 1 through stage 4 chronic kidney disease, or unspecified chronic kidney disease; E78.5 Hyperlipidemia, unspecified; I25.10 Atherosclerotic heart disease of native coronary artery without angina pectoris; E11.649 Type 2 diabetes mellitus with hypoglycemia without coma; D46.9 Myelodysplastic syndrome, unspecified; D50.9 Iron deficiency anemia, unspecified; D63.1 Anemia in chronic kidney disease; G30.9 Alzheimer's disease, unspecified; F02.80 Dementia in other diseases classified elsewhere, unspecified severity, without behavioral disturbance, psychotic disturbance, mood disturbance, and anxiety; Z66 Do not resuscitate; Z79.4 Long term (current) use of insulin; Z79.899 Other long term (current) drug therapy; Z91.81 History of falling

== ENCOUNTER → 2017-07-06 | Outpatient (CLI) | payer OTHER ==
[~2017-07-06] MED LIST changes: +ACET325T96 PO; +AMLO-114 PO; -ASPI-435 PO; -ATV/1 PO; +BISA10SU38 PR; -CITA20TA4 PO; +CLON0.2T PO; +CRG125 PO; +DEXT40GE PO; +DOCU100C31 PO; -EPGI40M SQ; +FAMO20TA11 PO; -FURO-85 PO; +GLGKIT IM; -HYDR-5688 PO; +INSU100I SQ; -IRBE1TAB46 PO; -ISOS120T5 PO; +ISOS60TA25 PO; -LISI-461 PO; -LOVA40TA4 PO; -METO25TA3 PO; +MOML PO; -NRV5 PO; -NVLGI/PEN SQ; +OXYC-57 PO; -OXYC20TA50 PO; -PIPERACILL/TAZOBAC IV 3.375 GM in DEXTROSE 5% 100ML 100 ML IV SCH; -PRLSR20 PO; +SENN-61 PO; +SODIENE PR; +SRQ25 PO; -TRN400 PO
[2017-07-06 08:45] LABS: MEAN CORPUSCULAR HGB CONC 31.5 g/dl (32-36)
[2017-07-06 08:50] LABS: BLOOD UREA NITROGEN 41 mg/dl (7-18); BUN/CREATININE RATIO 33.1 (10-20); CALCIUM 8.3 mg/dl (8.5-10.1); CARBON DIOXIDE 20 mmol/L (21-32); CHLORIDE 122 mmol/L (98-107); CREATININE 1.24 mg/dl (0.60-1.20); GLUCOSE 110 mg/dl (70-99); SODIUM 150 mmol/L (136-145)
[2017-07-06 09:08] LABS: HEMATOCRIT 25.1 % (37-47); MEAN CELL VOLUME 105.5 fL (80-100); MEAN CORPUSCULAR HEMOGLOBIN 33.2 pg (25-34); MEAN PLATELET VOLUME 13.1 fL (7.4-10.4); PLATELET COUNT 125 K/uL (130-400); RED BLOOD COUNT 2.38 M/uL (4.2-5.4); WHITE BLOOD COUNT 3.23 K/uL (4.8-10.8)
[2017-07-06 09:12] LABS: ANISOCYTOSIS PRESENT; BASO % 0.9 %; BASO ABS # 0.03 K/uL (0-0.2); COMPLETE YES; EOS % 1.2 %; GIANT PLATELETS 3+; IG% 0.6 %; LYMPH ABS # 1.13 K/uL (1.2-3.4); MONO % 9.6 %; NEUT % 52.7 %; PLT ESTIMATE NORMAL; POIKILOCYTOSIS PRESENT; TOXIC GRANULATION 1+
== END ==
LOC: C.LABUPHEI 08:14
PROVIDERS: ATTEND Family Medicine
DX: S06.5X0D Traumatic subdural hemorrhage without loss of consciousness, subsequent encounter (principal); X58.XXXA Exposure to other specified factors, initial encounter; E13.9 Other specified diabetes mellitus without complications

== ENCOUNTER → 2017-07-08 | Outpatient (CLI) | payer OTHER ==
[2017-07-08 09:01] LABS: BASO % 1.6 %; BASO ABS # 0.06 K/uL (0-0.2); EOS % 2.4 %; HEMATOCRIT 24.9 % (37-47); IG% 0.5 %; LYMPH % 26.4 %; MEAN CELL VOLUME 105.1 fL (80-100); MEAN CORPUSCULAR HEMOGLOBIN 33.8 pg (25-34); MEAN CORPUSCULAR HGB CONC 32.1 g/dl (32-36); MONO % 8.4 %; NEUT % 60.7 %; PLATELET COUNT 182 K/uL (130-400); RED BLOOD COUNT 2.37 M/uL (4.2-5.4); WHITE BLOOD COUNT 3.79 K/uL (4.8-10.8)
[2017-07-08 09:09] LABS: BLOOD UREA NITROGEN 38 mg/dl (7-18); BUN/CREATININE RATIO 32.6 (10-20); CALCIUM 8.4 mg/dl (8.5-10.1); CARBON DIOXIDE 21 mmol/L (21-32); CHLORIDE 125 mmol/L (98-107); CREATININE 1.17 mg/dl (0.60-1.20); GLUCOSE 102 mg/dl (70-99); POTASSIUM 3.9 mmol/L (3.5-5.1); SODIUM 152 mmol/L (136-145)
[2017-07-08 09:39] LABS: ANISOCYTOSIS PRESENT; COMPLETE YES; ECHINOCYTES 1+; GIANT PLATELETS 1+
== END ==
LOC: C.LABUPHEI 08:42
PROVIDERS: ATTEND Nurse Practitioner Family
DX: R60.9 Edema, unspecified (principal)

== ENCOUNTER → 2017-07-10 | Outpatient (CLI) | payer OTHER ==
[~2017-07-10] MED LIST changes: +CEFD1CAP14 PO; +DOXY100C76 PO; +FERR1TAB13 PO; +PROB1CAP41
== END | disposition home or self-care (01) ==
LOC: C.LABUPHEI 10:35
PROVIDERS: ATTEND Nurse Practitioner Family
DX: T87.41 Infection of amputation stump, right upper extremity (principal); Y84.8 Other medical procedures as the cause of abnormal reaction of the patient, or of later complication, without mention of misadventure at the time of the procedure

== ENCOUNTER → 2017-07-10 | Outpatient (CLI) | payer OTHER ==
[2017-07-10 08:39] LABS: MEAN CELL VOLUME 104.3 fL (80-100); MEAN CORPUSCULAR HEMOGLOBIN 33.9 pg (25-34); MEAN CORPUSCULAR HGB CONC 32.5 g/dl (32-36); MEAN PLATELET VOLUME 13.1 fL (7.4-10.4); PLATELET COUNT 185 K/uL (130-400); WHITE BLOOD COUNT 3.89 K/uL (4.8-10.8)
[2017-07-10 08:45] LABS: BLOOD UREA NITROGEN 42 mg/dl (7-18); BUN/CREATININE RATIO 36.6 (10-20); CALCIUM 8.1 mg/dl (8.5-10.1); CARBON DIOXIDE 20 mmol/L (21-32); CHLORIDE 124 mmol/L (98-107); CREATININE 1.15 mg/dl (0.60-1.20); GLUCOSE 108 mg/dl (70-99); POTASSIUM 4.1 mmol/L (3.5-5.1); SODIUM 151 mmol/L (136-145)
== END | disposition home or self-care (01) ==
LOC: C.LABUPHEI 08:17
PROVIDERS: ATTEND Nurse Practitioner Family
DX: T87.41 Infection of amputation stump, right upper extremity (principal); Y84.8 Other medical procedures as the cause of abnormal reaction of the patient, or of later complication, without mention of misadventure at the time of the procedure

== ENCOUNTER → 2017-07-13 | Outpatient (CLI) | payer OTHER ==
[~2017-07-13] MED LIST changes: -CEFD1CAP14 PO; -DOXY100C76 PO; -FERR1TAB13 PO; -PROB1CAP41
[2017-07-13 10:17] LABS: HEMATOCRIT 24.5 % (37-47)
== END ==
LOC: C.LABUPHEI 09:12
PROVIDERS: ATTEND Nurse Practitioner Family
DX: S06.5X9A Traumatic subdural hemorrhage with loss of consciousness of unspecified duration, initial encounter (principal); X58.XXXA Exposure to other specified factors, initial encounter

== ENCOUNTER → 2017-07-15 | Outpatient (CLI) | payer OTHER ==
[~2017-07-15] MED LIST changes: +CEFD1CAP14 PO; +DOXY100C76 PO; +FERR1TAB13 PO; +PROB1CAP41
[2017-07-15 08:27] LABS: HEMATOCRIT 25.4 % (37-47)
--- NOTE | 2017-07-23 10:22 | CODING QUERY MEDICAL NECESSITY ---
SUPPORTING DIAGNOSIS NEEDED A supporting diagnosis is required for the test/procedure performed on this patient in order for us to be reimbursed by the patient's insurance. Please provide a supporting diagnosis for the following test/procedure listed below next to the test name along with your signature. *If there is no additional diagnosis for this patient that would support the following test/procedure please document that below next to the test/procedure. Test(s)/Procedure(s) that require a supporting diagnosis: * FOLIC ACID DIAGNOSIS: * VITAMIN B12 DIAGNOSIS: Provider Signature: Date: Thank you [facility] Information Management Once completed, please kindly fax back to [phone] For questions please call [phone]
== END ==
LOC: C.LABUPHEI 08:03
PROVIDERS: ATTEND Nurse Practitioner Family
DX: M62.17 Other rupture of muscle (nontraumatic), ankle and foot (principal); M62.81 Muscle weakness (generalized)

== ENCOUNTER → 2017-07-17 | Outpatient (CLI) | payer OTHER ==
[2017-07-17 09:53] LABS: BLOOD UREA NITROGEN 47 mg/dl (7-18); BUN/CREATININE RATIO 33.4 (10-20); CARBON DIOXIDE 22 mmol/L (21-32); CHLORIDE 118 mmol/L (98-107); CREATININE 1.41 mg/dl (0.60-1.20); GLUCOSE 101 mg/dl (70-99); POTASSIUM 4.3 mmol/L (3.5-5.1); SODIUM 148 mmol/L (136-145)
== END ==
LOC: C.LABUPHEI 09:18
PROVIDERS: ATTEND Nurse Practitioner Family
DX: R60.9 Edema, unspecified (principal)

== ENCOUNTER → 2017-07-19 | Outpatient (CLI) | payer OTHER ==
[2017-07-19 09:31] LABS: URINE APPEARANCE CLOUDY (CLEAR); URINE BILIRUBIN NEG (NEG); URINE COLOR YELLOW; URINE EPITHELIAL CELL AUTO 0-5 /lpf (0-5); URINE NITRITE NEG (NEG); URINE PH >= 9.0 (4.5-7.5); URINE SPECIFIC GRAVITY 1.017 (1.000-1.030); UROBILINOGEN NEG (NEG)
[2017-07-19 09:39] LABS: MANUAL MICROSCOPIC REQUIRED? NO; REVIEW REQ? NO
[2017-07-19 09:40] LABS: SULFASALICYLIC ACID POS (NEG)
== END ==
LOC: C.LABUPHEI 10:50
PROVIDERS: ATTEND Nurse Practitioner Family
DX: R30.0 Dysuria (principal)

== ENCOUNTER → 2017-07-20 | Outpatient (CLI) | payer OTHER ==
[2017-07-20 09:35] LABS: HEMATOCRIT 21.7 % (37-47)
[2017-07-20 09:40] LABS: BLOOD UREA NITROGEN 43 mg/dl (7-18); BUN/CREATININE RATIO 26.7 (10-20); CARBON DIOXIDE 21 mmol/L (21-32); CHLORIDE 121 mmol/L (98-107); GLUCOSE 199 mg/dl (70-99); SODIUM 151 mmol/L (136-145)
== END ==
LOC: C.LABUPHEI 09:04
PROVIDERS: ATTEND Nurse Practitioner Family
DX: M62.81 Muscle weakness (generalized) (principal); R60.9 Edema, unspecified

== ENCOUNTER → 2017-07-30 | Outpatient (CLI) | payer OTHER ==
[~2017-07-30] MED LIST changes: -PROB1CAP41; +PROB1CAP41 PO; +QUET1TAB91 PO; +SERT25TA PO; +SERT50TA PO
[2017-07-30 10:00] LABS: BLOOD UREA NITROGEN 35 mg/dl (7-18); BUN/CREATININE RATIO 27.3 (10-20); CALCIUM 8.3 mg/dl (8.5-10.1); CARBON DIOXIDE 25 mmol/L (21-32); CHLORIDE 120 mmol/L (98-107); CREATININE 1.29 mg/dl (0.60-1.20); GLUCOSE 86 mg/dl (70-99); POTASSIUM 3.6 mmol/L (3.5-5.1); SODIUM 150 mmol/L (136-145)
[2017-07-30 10:41] LABS: HEMATOCRIT 21.7 % (37-47); MEAN CELL VOLUME 104.8 fL (80-100); MEAN CORPUSCULAR HEMOGLOBIN 32.9 pg (25-34); MEAN CORPUSCULAR HGB CONC 31.3 g/dl (32-36); MEAN PLATELET VOLUME 12.3 fL (7.4-10.4); PLATELET COUNT 177 K/uL (130-400); RED BLOOD COUNT 2.07 M/uL (4.2-5.4); WHITE BLOOD COUNT 3.98 K/uL (4.8-10.8)
[2017-07-30 10:45] LABS: ANISOCYTOSIS PRESENT; BASO % 0.8 %; BASO ABS # 0.03 K/uL (0-0.2); COMPLETE YES; EOS % 1.3 %; GIANT PLATELETS 1+; HYPOCHROMIA PRESENT; LYMPH % 26.1 %; LYMPH ABS # 1.04 K/uL (1.2-3.4); MONO % 10.6 %; NEUT % 61.2 %; POLYCHROMASIA 1+
== END ==
LOC: C.LABUPHEI 09:03
PROVIDERS: ATTEND Nurse Practitioner Family
DX: R60.9 Edema, unspecified (principal); D50.9 Iron deficiency anemia, unspecified

== ENCOUNTER → 2017-08-03 | Outpatient (CLI) | payer OTHER ==
[~2017-08-03] MED LIST changes: +APR25 PO; +SNTO30 EXT
[2017-08-03 10:22] LABS: HEMATOCRIT 28.9 % (37-47)
[2017-08-03 11:11] LABS: BLOOD UREA NITROGEN 39 mg/dl (7-18); BUN/CREATININE RATIO 27.9 (10-20); CALCIUM 8.5 mg/dl (8.5-10.1); CARBON DIOXIDE 21 mmol/L (21-32); CHLORIDE 116 mmol/L (98-107); CREATININE 1.39 mg/dl (0.60-1.20); GLUCOSE 46 mg/dl (70-99); POTASSIUM 3.7 mmol/L (3.5-5.1); SODIUM 150 mmol/L (136-145)
== END ==
LOC: C.LABUPHEI 09:29
PROVIDERS: ATTEND Nurse Practitioner Family
DX: D50.9 Iron deficiency anemia, unspecified (principal); R60.9 Edema, unspecified

== ENCOUNTER 2017-08-05 11:36 | Inpatient (IN) | payer OTHER ==
[~2017-08-05] VITALS: Ht 162.6 cm; Wt 74.0 kg
[~2017-08-05 11:36] MED LIST changes: -APR25 PO; -QUET1TAB91 PO; -SERT25TA PO; -SERT50TA PO; -SNTO30 EXT
[2017-08-05 11:45] VITALS: BP 145/62; PULSE 57; TEMP 36.5; O2SAT 96
[2017-08-05 12:05] VITALS: BP 145/62; PULSE 57; TEMP 36.5; O2SAT 96; BMI 28.0
[2017-08-05] MEDS ORDERED: ACETAMINOPHEN 325 MG TAB PO PRN (12:15)
[2017-08-05] MEDS ORDERED: ONDANSETRON INJ 2 MG/ML 2 ML VIAL IV PRN (12:15)
[2017-08-05] MEDS ORDERED: CONSULT PHARMACY STA (12:44)
[2017-08-05] MEDS ORDERED: SERT50TA PO (12:59)
[2017-08-05] MEDS ORDERED: SRQ25 PO (12:59)
[2017-08-05] MEDS ORDERED: SERT25TA PO (12:59)
[2017-08-05] MEDS ORDERED: QUET1TAB91 PO (12:59)
[2017-08-05] MEDS ORDERED: VANCOMYCIN CONSULT ACTIVE SCH (13:14)
[2017-08-05] MEDS ORDERED: GLUCAGON FOR INJ 1 MG VIAL SQ PRN (13:15)
[2017-08-05] MEDS ORDERED: GLUCOSE 10 TABS/TUBE PO PRN (13:15)
[2017-08-05] MEDS ORDERED: PHARMACY GLYCEMIC MGMT CONSULT PRN (13:15)
[2017-08-05] MEDS ORDERED: CEFEPIME CONSULT ACTIVE PRN ×2 (13:15)
[2017-08-05] MEDS ORDERED: GLUCOSE 40% GEL 15 GM TUBE PO PRN (13:15)
[2017-08-05] MEDS ORDERED: DEXTROSE 50% 50 ML SYR IV PRN (13:15)
[2017-08-05] MEDS ORDERED: OXYCODONE/ACETAMINOPHEN 5-325 TAB PO PRN (13:15)
[2017-08-05 13:20] LABS: BASO % 1.1 %; BASO ABS # 0.03 K/uL (0-0.2); EOS % 2.2 %; HEMATOCRIT 27.9 % (37-47); IG% 0.4 %; LYMPH % 38.9 %; LYMPH ABS # 1.05 K/uL (1.2-3.4); MEAN CELL VOLUME 101.1 fL (80-100); MEAN CORPUSCULAR HEMOGLOBIN 32.2 pg (25-34); MEAN CORPUSCULAR HGB CONC 31.9 g/dl (32-36); MEAN PLATELET VOLUME 12.3 fL (7.4-10.4); NEUT % 47.4 %; PLATELET COUNT 204 K/uL (130-400); RED BLOOD COUNT 2.76 M/uL (4.2-5.4)
--- NOTE | 2017-08-05 13:27 | Progress Note ---
Progress Note Date of Service Aug 05, 2017. Progress Note ID Consult Dictated #[id number] A/P: 1. Post op infection -Continue abx, follow cultures -Will follow, thank you
[2017-08-05 13:47] LABS: BUN/CREATININE RATIO 26.6 (10-20); C-REACTIVE PROTEIN 0.96 mg/dl (0-0.29); CALCIUM 7.9 mg/dl (8.5-10.1); CREATININE 1.61 mg/dl (0.60-1.20); POTASSIUM 4.4 mmol/L (3.5-5.1)
--- NOTE | 2017-08-05 14:20 | Surgery Consultation ---
Consultation Date of Service Aug 05, 2017. Chief Complaint RLE BKA infection History of Present Illness The patient is a 82 year old female with multiple medical problems including dementia, s/p RLE BKA d/t ischemia approx 1 month ago, seen today for wound infection/dehiscence. Pt unable to provide hx. [facility] Was seen in office today and recommended admission for IV abx and surgical debridement. Vitals Vital Signs Past 12 Hours Date Time Temp Pulse Resp B/P (MAP) Pulse Ox O2 Delivery O2 Flow Rate FiO2 08/05/17 12:05 36.5 57 16 145/62 96 Room Air Allergies Coded Allergies: Lisinopril (Unverified Allergy, Unknown, UNKNOWN REACTION,ALLERGY LIST OBTAINED FROM [facility], 07/31/17) Home Medications Scheduled Amlodipine (Norvasc), 10 MG PO QAM Calcium Carbonate-Vitamin D (Calcium + D), 1 TAB PO DAILY Carvedilol (Carvedilol), 18.75 MG PO BID Cefdinir (Omnicef), 300 MG PO Q12H Clonidine Hcl (Catapres), 0.4 MG PO BID Docusate Sodium (Docusate Sodium), 100 MG PO BID Doxycycline Monohydrate (Monodox), 100 MG PO BID Famotidine (Pepcid), 20 MG PO QAM Ferrous Sulfate (Kp Ferrous Sulfate), 1 TAB PO BID Insulin Glargine (Lantus Solostar), 23 UNITS SQ PM Insulin Lispro (Human) (Humalog), 8 UNITS SQ AC Insulin Lispro (Human) (Humalog), 1 DOSE SQ WM Isosorbide Mononitrate Ext Rel (Imdur Ext Rel), 120 MG PO QAM Nitroglycerin (Nitrostat), 0.4 MG UT PRN Probiotic Product (Probiotic Daily), 1 CAP PO BID Quetiapine Fumarate (Quetiapine Fumarate), 12.5 MG PO DAILY Quetiapine Fumarate (Seroquel), 1 TAB PO HS Senna (Senokot), 2 TAB PO BID Sertraline (Zoloft), 1 TAB PO HS Sertraline (Zoloft), 1 TAB PO HS Scheduled PRN Acetaminophen Tab (Tylenol), 650 MG PO Q6H PRN for Pain Bisacodyl (Dulcolax), 1 SUPP [place] Q4DAY PRN for Constipation Dextrose (Diabetic Use) (Insta-Glucose), 1 APPLN PO UD PRN for HYPOGLYCEMIA PROTOCOL Glucagon (Glucagon Emergency Kit), 1 MG IM UD PRN for HYPOGLYCEMIA PROTOCOL Magnesium Hydroxide (Milk Of Magnesia), 30 ML PO [id number] PRN for Constipation Oxycodone/Acetaminophen 5MG/325MG (Percocet 5MG/325MG), 1-2 TAB PO Q6H PRN for Moderate Pain Sodium Phosphate/Biphosphate (Fleet Enema), 1 EA [place] DAILY PRN for Constipation Problem List Medical Problems: (1) Anemia of chronic disease (2) Anxiety (3) Cellulitis (4) CKD (chronic kidney disease), stage III (5) Coronary artery disease (6) Dementia (7) Depression (8) Diabetes (9) Diabetes mellitus, type 2 (10) Diabetic neuropathy (11) GERD (gastroesophageal reflux disease) (12) History of left heart catheterization (13) History of subdural hematoma (14) HLD (hyperlipidemia) (15) HTN (hypertension) (16) Hypoglycemia (17) left renal artery stent placement (18) Myelodysplasia (myelodysplastic syndrome) (19) Neuropathy (20) Peripheral vascular disease Surgical Problems: (1) H/O colonoscopy (2) H/O esophagogastroduodenoscopy (3) H/O partial thyroidectomy (4) S/P CABG x 3 (5) S/P cataract surgery (6) Stented coronary artery Surgical / Medical History Hx Cardiac Surgery: Yes (Angioplasty, Open Heart) Hx Abdominal Surgery: No Hx Cancer Surgery: No Hx Thoracic Surgery: Yes (Open Heart) Hx Orthopedic: Yes (RT: BKA) Hx Urinary Tract Surgery: Yes (Renal Stents) HX Other Surgery: Yes (Partial Thyroidectomy, Cataract. ) Past Medical/Surgical History: Diabetes, Heart Disease, High Cholesterol, Hypertension, Kidney Disease Family History Alzheimer's disease MOTHER Lung cancer FATHER Social History Smoking Status: Never Smoker Hx Tobacco Use In Past Year?: No Hx Alcohol Use - Type & Amnt: Yes (Occ. Wine) Hx Substance Use -Type & Amnt: No Review of Systems Additional Comments: Unable to elicit, pt denies all. Physical Exam Constitutional: General Apperance: well-nourished, well-developed Level of Distress: chronically ill Ambulation: in wheelchair Psychiatric: Mental Status: active & alert, normal mood, normal affect Orientation: to person, not oriented to time, not oriented to place Memory: recent memory abnormal, remote memory abnormal Head: normocephalic, atraumatic Eyes: EOM: EOMI ENMT: normal ENT inspection, hearing grossly normal Neck: supple, trachea midline Lungs: Respiratory effort: no dyspnea Auscultation: no wheezing, no rales/crackles, no rhonchi Cardiovascular: Apical Impulse: not displaced Heart Auscultation: RRR, no rubs, no gallops Peripheral Pulses: Pulses: full and equal, in all extremities except if noted Bruits: none appreciated Carotid Pulse: normal on the left, normal on the right Brachial Pulses: normal on the left, normal on the right Radial Pulse: normal on the left, normal on the right Femoral Pulse: normal on the left, normal on the right Posterior Tibialis Pulse: pertinent finding (RLE absent) Dorsalis Pedis Pulse: pertinent finding (RLE absent) Abdomen: Bowel Sounds: normal Inspection & Palpation: soft, non-distended, no tenderness, guarding & rebound Musculoskeletal: normal tone Extremities: Upper Right: no cyanosis, no edema, no varicosities Upper Left: no cyanosis, no edema, no varicosities Lower Right: pertinent finding (RLE BKA site with + erythema, warmth, superficial dehiscence, necrotic tissue noted ) Lower Left: no cyanosis, no edema, no varicosities Neurologic: Cranial Nerves: grossly intact Assessment and Plan ASSESSMENT and PLAN: RLE BKA site infection Pt to undergo surgical debridement, possibly THURSDAY, by Dr Brink. Will discuss with pt's daughter tomorrow. ABX per ID and medicine.
[2017-08-05 14:23] LABS: ANISOCYTOSIS PRESENT; COMPLETE YES; GIANT PLATELETS 1+; SCHISTOCYTES 1+; TOXIC GRANULATION 1+
--- NOTE | 2017-08-05 14:25 | INFECT. DISEASE CONSULTATION ---
DATE OF CONSULTATION: 08/05/2017 HISTORY OF PRESENT ILLNESS: This is an 82-year-old female who was admitted after she was found to have a right BKA infection. She denies any pain in the area. On my examination, she is eating lunch. She denies any fevers or chills. She denies any chest pain, cough, shortness of breath, nausea, vomiting or diarrhea. She does have a history of dementia and has been in and out of the hospital. Her last hospitalization here was on the 23 of June. At that time, she did undergo a right BKA on the 26 of June secondary to underlying ischemia. She denies being on any antibiotics. All remaining review of systems is reviewed and unremarkable. PAST MEDICAL HISTORY: Significant for anemia, anxiety, chronic kidney disease, coronary artery disease, dementia, depression, type 2 diabetes with neuropathy, GERD, subdural hematoma, heart catheterization, high cholesterol, renal artery stent placement, myelodysplastic syndrome, peripheral vascular disease, colonoscopy, EGD, CABG, cataract surgery, coronary artery stents and a BKA on June 26. FAMILY HISTORY: Noncontributory. SOCIAL HISTORY: Negative for tobacco use, alcohol use or drug use. She currently is residing at a snf. ALLERGIES: SHE HAS ALLERGIES TO LISINOPRIL. MEDICATIONS: Include Zoloft, Norvasc, Pepcid, Imdur, Seroquel, calcium, Coreg, Colace, Lantus, Senokot, clonidine, iron, probiotics, Percocet, cefepime, vancomycin, Tylenol and Zofran. PHYSICAL EXAMINATION: VITAL SIGNS: She is afebrile, pulse 57, respiratory rate 16, blood pressure 145/62, and oxygen saturation is 96% on room air. GENERAL: She is awake, alert and oriented. She is in no acute distress. HEENT: Mucous membranes are moist. Extraocular muscles are intact. HEART: Without murmur. LUNGS: Clear bilaterally. ABDOMEN: Soft. EXTREMITIES: Examination of the right lower extremity reveals erythema and minimal drainage from the incision. There is no surrounding warmth or erythema. This is nontender. LABORATORY STUDIES: CBC reveals a white blood cell count of 2.7, hemoglobin 8.9, and platelets 204. Sed rate is pending. Chemistry panel is pending. Urinalysis is pending. Blood and wound cultures are pending. There is no imaging to review. ASSESSMENT AND PLAN: Postop infection. She will be continued on broad spectrum antibiotics renally dosed pending results of her cultures.
[2017-08-05] MEDS ORDERED: CEFEPIME IV 2,000 MG in SYRINGE 7.5 ML IV ONE (14:30)
--- NOTE | 2017-08-05 14:33 | Pharmacy Progress Note ---
Pharmacy Abx Initial Consult Date of Service Aug 05, 2017. Pharmacy Dosing Scope Date of Consult: 08/05/17 Consultation requested by: Yvonne GARCIA Pharmacy is consulted to initiate Vancomycin + Cefepime IV dosing therapy, order appropriate labs and adjust drug dose/frequency. Subjective The patient is a 82 year old female admitted on Aug 05, 2017 at 11:36. Objective Height (Feet): 5 Height (Inches): 4.00 Weight (Kilograms): 74.000 Vital Signs (Past 12Hrs) Vital Signs Past 12 Hours Date Time Temp Pulse Resp B/P (MAP) Pulse Ox O2 Delivery O2 Flow Rate FiO2 08/05/17 12:05 36.5 57 16 145/62 96 Room Air Lab Results (24Hrs) Laboratory Tests (24 Hours) Test 08/05/17 12:52 C-Reactive Protein 0.96 mg/dl (0-0.29) H Erythrocyte Sedimentation Rate 13 mm/hr (0-21) White Blood Count 2.70 K/uL (4.8-10.8) L Red Blood Count 2.76 M/uL (4.2-5.4) L Hemoglobin 8.9 g/dL (12.0-16.0) L Hematocrit 27.9 % (37-47) L Mean Corpuscular Volume 101.1 fL (80-100) H Mean Corpuscular Hemoglobin 32.2 pg (25-34) Mean Corpuscular Hemoglobin Concent 31.9 g/dl (32-36) L Platelet Count 204 K/uL (130-400) Mean Platelet Volume 12.3 fL (7.4-10.4) H Neutrophils (%) (Auto) 47.4 % Lymphocytes (%) (Auto) 38.9 % Monocytes (%) (Auto) 10.0 % Eosinophils (%) (Auto) 2.2 % Basophils (%) (Auto) 1.1 % Neutrophils # (Auto) 1.28 K/uL (1.4-6.5) L Lymphocytes # (Auto) 1.05 K/uL (1.2-3.4) L Monocytes # (Auto) 0.27 K/uL (0.11-0.59) Eosinophils # (Auto) 0.06 K/uL (0-0.5) Basophils # (Auto) 0.03 K/uL (0-0.2) Micro Results Date/Time Source Procedure Growth Status 08/05/17 13:02 Blood Blood Culture Pending Received 08/05/17 12:52 Blood Blood Culture Pending Received 08/05/17 12:41 Urine,Catheterized Urine Culture Pending Ordered 08/05/17 12:44 Incision Site Leg Right Lower Gram Stain Pending Ordered 08/05/17 12:44 Incision Site Leg Right Lower Wound Culture Pending Ordered Risk Factors for Resistance * Resident in a assisted or extended-care facility * Hospitalization for 48 hours or more within the past 90 days * Antimicrobial use within the last 90 days: cefdinir, doxy Assessment & Plan Assessment 82 year old female with R BKA infection. Pt with CKD, baseline Scr varies, ranges from 1.2-1.6 mg/dl but has been higher. Will start dosing aggressive due to severity of infection and then back off of dosing once steady state is reached. Plan Vancomycin + cefepime for treatment of SST Vancomycin IV * Loading dose: 1,750 mg (24 mg/kg) * Maintenance dose: 1,000 mg IV (13.5 mg/kg) every 24 hours * Goal trough level for SST : 10 to 20 mcg/mL depending on c/s. Preferably ~ 15+ mcg/ml * Trough level ordered for 08/07/17 Cefepime * Rec dosing is 2,000mg IV Q12 * Dosing requires adjustment for CrCl 11-29 ml/min. Initial loading dose is the same. * CHANGE to: Cefepime 2,000mg IV x 1 dose now and then Cefepime 1,000mg IV Q24hrs Pharmacy will continue to follow and will adjust dose/frequency as necessary. Thank you.
[2017-08-05] MEDS ORDERED: VANCOMYCIN INJ 1,750 MG in SODIUM CHLORIDE 0.9% 500ML 500 ML IV ONE (14:45)
--- NOTE | 2017-08-05 15:08 | History and Physical ---
History & Physical Date & Time of Service: Aug 05, 2017 ~ 12:15 Chief Complaint: Wound Infection Primary Care Physician: Loreto Holt History of Present Illness 82 year old female who was referred for direct admission for infection of right BKA surgical site. Patient was admitted to [facility] 06/23 - 07/03 for gangrene of the right foot and subsequently underwent a right BKA by Dr. Pisano on 06/26. Patient has developed redness and mild dehiscence to the site and was being treated with doxycycline and Omnicef at [facility]. Cultures were obtained that grew enterococcus, proteus, and staph aureus. Patient was evaluated by Dr. Pisano in the office today and he felt that patient would benefit from admission to the hospital with IV antibiotics. Patient has dementia so history is limited from her. She currently offers no complaints. Patient does not appear toxic or in acute distress. At the time of my exam she is resting in bed comfortably. Past Medical/Surgical History Medical Problems: (1) Amputated toe of left foot Status: Chronic (2) Anemia of chronic disease Status: Chronic (3) Anxiety Status: Chronic (4) CKD (chronic kidney disease), stage III Status: Chronic (5) Coronary artery disease Permanent Comment: 1996 - CABG x 3 2000 - PTCA and stenting of SVG to diagonal branch 2005 - left cx stenting Status: Chronic (6) Dementia Status: Chronic (7) Depression Status: Chronic (8) Diabetes Status: Chronic (9) Diabetes mellitus, type 2 Status: Chronic (10) Diabetic neuropathy Status: Chronic (11) GERD (gastroesophageal reflux disease) Status: Chronic (12) History of left heart catheterization Permanent Comment: 2009, no changes from previous Status: Chronic (13) History of subdural hematoma Permanent Comment: 05/12/17 after fall with head injury, managed nonoperatively Status: Chronic (14) HLD (hyperlipidemia) Status: Chronic (15) HTN (hypertension) Status: Chronic (16) Hx of right BKA Status: Chronic (17) left renal artery stent placement Status: Chronic (18) Myelodysplasia (myelodysplastic syndrome) Status: Chronic (19) Neuropathy Status: Chronic (20) Peripheral vascular disease Status: Chronic Surgical Problems: (1) H/O partial thyroidectomy Permanent Comment: 1953 Status: Chronic (2) S/P cataract surgery Permanent Comment: 2007 Status: Chronic Family History non contributory due to patient's advanced age Social History Smoking Status: Never Smoker Alcohol Use: none Housing status: snf Immunizations History of Influenza Vaccine: Yes Influenza Vaccine Date: Jul 15, 2016 History of Tetanus Vaccine?: Yes Tetanus Immunization Date: May 31, 2013 History of Pneumococcal: Yes Pneumococcal Date: Dec 19, 2014 Multi-Drug Resistant Organisms History of MDRO: No Allergies Coded Allergies: Lisinopril (Unverified Allergy, Unknown, UNKNOWN REACTION,ALLERGY LIST OBTAINED FROM [facility], 07/31/17) Home Medications Scheduled Amlodipine (Norvasc), 10 MG PO QAM Calcium Carbonate-Vitamin D (Calcium + D), 1 TAB PO DAILY Carvedilol (Carvedilol), 18.75 MG PO BID Cefdinir (Omnicef), 300 MG PO Q12H Clonidine Hcl (Catapres), 0.4 MG PO BID Docusate Sodium (Docusate Sodium), 100 MG PO BID Doxycycline Monohydrate (Monodox), 100 MG PO BID Famotidine (Pepcid), 20 MG PO QAM Ferrous Sulfate (Kp Ferrous Sulfate), 1 TAB PO BID Insulin Glargine (Lantus Solostar), 23 UNITS SQ PM Insulin Lispro (Human) (Humalog), 8 UNITS SQ AC Insulin Lispro (Human) (Humalog), 1 DOSE SQ WM Isosorbide Mononitrate Ext Rel (Imdur Ext Rel), 120 MG PO QAM Nitroglycerin (Nitrostat), 0.4 MG UT PRN Probiotic Product (Probiotic Daily), 1 CAP PO BID Quetiapine Fumarate (Quetiapine Fumarate), 12.5 MG PO DAILY Quetiapine Fumarate (Seroquel), 1 TAB PO HS Senna (Senokot), 2 TAB PO BID Sertraline (Zoloft), 1 TAB PO HS Sertraline (Zoloft), 1 TAB PO HS Scheduled PRN Acetaminophen Tab (Tylenol), 650 MG PO Q6H PRN for Pain Bisacodyl (Dulcolax), 1 SUPP AR Q4DAY PRN for Constipation Dextrose (Diabetic Use) (Insta-Glucose), 1 APPLN PO UD PRN for HYPOGLYCEMIA PROTOCOL Glucagon (Glucagon Emergency Kit), 1 MG IM UD PRN for HYPOGLYCEMIA PROTOCOL Magnesium Hydroxide (Milk Of Magnesia), 30 ML PO [id number] PRN for Constipation Oxycodone/Acetaminophen 5MG/325MG (Percocet 5MG/325MG), 1-2 TAB PO Q6H PRN for Moderate Pain Sodium Phosphate/Biphosphate (Fleet Enema), 1 EA AR DAILY PRN for Constipation Review of Systems ROS per HPI, all other systems reviewed and negative Physical Exam Vital Signs Date Time Temp Pulse Resp B/P (MAP) Pulse Ox O2 Delivery O2 Flow Rate FiO2 08/05/17 12:05 36.5 57 16 145/62 96 Room Air General Appearance: WD/WN, no apparent distress Head: normocephalic, atraumatic Eyes: normal inspection, EOMI, sclerae normal ENT: hearing grossly normal, + pertinent finding (mucous membranes moist) Neck: supple, no JVD, trachea midline Respiratory/Chest: lungs clear, normal breath sounds, no respiratory distress Cardiovascular: regular rate, rhythm, normal peripheral pulses, + pertinent finding (+1-2 pitting edema LLE) Abdomen/GI: normal bowel sounds, non tender, soft, no organomegaly Extremities/Musculoskelatal: no calf tenderness (left), normal capillary refill , + pertinent finding (s/p right BKA) Neurologic/Psych: alert, + disoriented (oriented to self only; pleasant and cooperative; no gross focal deficits noted) Skin: normal color, warm/dry, + pertinent finding (right BKA incision partially dehisced with surrounding erythema and areas of eschar ) Diagnostics Laboratory Results Results Past 24 Hours Test 08/05/17 12:41 08/05/17 12:52 Range/Units White Blood Count 2.70 4.8-10.8 K/uL Red Blood Count 2.76 4.2-5.4 M/uL Hemoglobin 8.9 12.0-16.0 g/dL Hematocrit 27.9 37-47 % Mean Corpuscular Volume 101.1 80-100 fL Mean Corpuscular Hemoglobin 32.2 25-34 pg Mean Corpuscular Hemoglobin Concent 31.9 32-36 g/dl Platelet Count 204 130-400 K/uL Mean Platelet Volume 12.3 7.4-10.4 fL Neutrophils (%) (Auto) 47.4 % Lymphocytes (%) (Auto) 38.9 % Monocytes (%) (Auto) 10.0 % Eosinophils (%) (Auto) 2.2 % Basophils (%) (Auto) 1.1 % Neutrophils # (Auto) 1.28 1.4-6.5 K/uL Lymphocytes # (Auto) 1.05 1.2-3.4 K/uL Monocytes # (Auto) 0.27 0.11-0.59 K/uL Eosinophils # (Auto) 0.06 0-0.5 K/uL Basophils # (Auto) 0.03 0-0.2 K/uL RDW Standard Deviation 77.6 36.4-46.3 fL RDW Coefficient of Variation 22.1 11.5-14.5 % Immature Granulocyte % (Auto) 0.4 % Immature Granulocyte # (Auto) 0.01 0.00-0.02 K/uL Toxic Granulation 1+ Giant Platelets 1+ Anisocytosis PRESENT Macrocytosis PRESENT Schistocytes 1+ Erythrocyte Sedimentation Rate 13 0-21 mm/hr Sodium Level 149 136-145 mmol/L Potassium Level 4.4 3.5-5.1 mmol/L Chloride Level 117 98-107 mmol/L Carbon Dioxide Level 23 21-32 mmol/L Anion Gap 9.0 3-11 mmol/L Blood Urea Nitrogen 43 7-18 mg/dl Creatinine 1.61 0.60-1.20 mg/dl Est Creatinine Clear Calc Drug Dose 26.1 ml/min Estimated GFR () 33.9 Estimated GFR (Non- 29.3 BUN/Creatinine Ratio 26.6 10-20 Random Glucose 292 70-99 mg/dl Calcium Level 7.9 8.5-10.1 mg/dl C-Reactive Protein 0.96 0-0.29 mg/dl Microbiology Results 08/05/17 Blood Culture, Received Pending 08/05/17 Blood Culture, Received Pending 08/05/17 Urine Culture, Ordered Pending 08/05/17 Gram Stain, Ordered Pending 08/05/17 Wound Culture, Ordered Pending P. MIRABIL STAPH AUR E FAECALIS M.I.C. RX M.I.C. RX M.I.C. RX --------- ------ --------- ------ --------- ------ TRIMET/SULFA <=2/38 S <=0.5/9.5 S AMPICILLIN <=8 S <=2 S * OXACILLIN <=0.25 S AMPICILLIN/SUL <=8/4 S CEFAZOLIN <=8 S CEFOXITIN <=8 S CEFOTAXIME <=2 S CEFTRIAXONE <=1 S CEFEPIME <=4 S CEFUROXIME <=4 S GENT SYNERGY >500 R VANCOMYCIN 1 S 2 S PENICILLIN 2 S GENTAMICIN <=4 S TOBRAMYCIN <=4 S ERYTHROMYCIN <=0.5 S TETRACYCLINE <=4 S AMIKACIN <=16 S CIPROFLOXACIN >2 R LEVOFLOXACIN >4 R CLINDAMYCIN <=0.5 S ERTAPENEM <=1 S DAPTOMYCIN <=0.5 S 1 S PIP/TAZO <=16 S STREP SYNERGY <=1000 S Impression Assessment and Plan INFECTED RIGHT BKA INCISION SITE - directly admitted to med/surg by referral of Dr. Pisano's office - s/p right BKA on 06/26 for gangrene of right foot - had outpatient cultures obtained 07/27 which grew proteus, enterococcus, and MSSA (sensitivities as above); was being treated with PO Doxy and Omnicef - currently does not appear septic; leukopenia noted however patient with history of MDS; stable vitals, afebrile - based upon sensitives, will place on Vanco and Cefepime - repeat wound and blood cultures - ID consult - Dr. Pisano consulted - case discussed with him; plan for possible debridement on 08/10 HYPERNATREMIA - chronic dating back to 10/2015 per review of old records - likely due to poor PO intake - will check serum and urine osmo, urine sodium - nephro consult, input appreciated HX CAD - stable, no reports of chest pain - ASA stopped due to subdural hematoma - continue nitrate and beta abida HTN - BP controlled, continue amlodipine, carvedilol, and isosorbide DM - hgb a1c 7.1 06/2017 - continue Lantus + SSI MYELODYSPLASTIC SYNDROME, CHRONIC ANEMIA - WBC and hgb at baseline - received PRBC transfusion last week for hgb 6.8 per records sent from [facility] - hgb 8.9 today; continue to monitor, transfuse PRN - WBC 2.7K today, mildly lower than recent baseline; possibly due to infection - monitor CBC - has received Procrit in the past DEMENTIA, ANXIETY, DEPRESSION - continue quetiapine and sertraline HX TRAUMATIC SUBDURAL HEMATOMA - 04/2017 - avoid blood thinners DVT PROPHYLAXIS - SCDs due to hx of subdural hematoma CODE STATUS - Patient is a DNR as per POLST sent with patient from [facility]. DISPO - In my clinical judgment this beneficiary meets acute admission criteria, established by [facility], that includes being hospitalized through two midnights. - case management, PT/OT - expect d/c back to [facility] once medically stable Attending Physician Dr. Young Addendum: i have seen and assessed the patient with ENVIRONMENTAL LEAD Yvonne Dupont and agree with the assessment and plan and would like to comment on the following that patient is here primarily for treatment of infection of incision site of right below knee amputation. Patient also have history of dementia, however no acute distress on physical exam and not in pain. The surgical site of right stump is now in clean dressing. Patient is to be followed by infectious disease service for antibiotics management and vascular surgery. Blood counts may be affected during time of illness in the patient with history myelodysplastic syndrome and will need to continue to monitor cells lines and anemia. There is a previous history of subdural hematoma and blood thinners are to be avoided. Patient also has history of chronic hypernatremia and will ask nephrology consult to assist with evaluation. Osmolality studies to be checked but unlikely to require aggressive management of hypernatremia given that this is a chronic state. Advanced Directives Existing Living Will: No Existing Power of Brickmason Helper: No VTE Prophylaxis VTE Risk Assessment Done? Y/N: Yes Risk Level: Moderate
--- NOTE | 2017-08-05 15:10 | Pharmacy Progress Note ---
Glycemic Control Intl Consult Date of Service Aug 05, 2017. Scope Glycemic Pharmacist consulted by RADHA Preston on 08/05/17 for glycemic control and to write orders per [facility] inpatient glycemic control protocol Objective Weight (Kilograms): 74.000 Accuchecks BSG (last 24hrs): Test 08/05/17 12:52 Random Glucose 292 mg/dl (70-99) Laboratory Data (last 24hrs) Test 08/05/17 12:52 Anion Gap 9.0 mmol/L BUN/Creatinine Ratio 26.6 Blood Urea Nitrogen 43 mg/dl Creatinine 1.61 mg/dl Potassium Level 4.4 mmol/L Sodium Level 149 mmol/L White Blood Count 2.70 K/uL Red Blood Count 2.76 M/uL Hemoglobin 8.9 g/dL Hematocrit 27.9 % Mean Corpuscular Volume 101.1 fL Mean Corpuscular Hemoglobin 32.2 pg Mean Corpuscular Hemoglobin Concent 31.9 g/dl Platelet Count 204 K/uL Mean Platelet Volume 12.3 fL Neutrophils (%) (Auto) 47.4 % Lymphocytes (%) (Auto) 38.9 % Monocytes (%) (Auto) 10.0 % Eosinophils (%) (Auto) 2.2 % Basophils (%) (Auto) 1.1 % Neutrophils # (Auto) 1.28 K/uL Lymphocytes # (Auto) 1.05 K/uL Monocytes # (Auto) 0.27 K/uL Eosinophils # (Auto) 0.06 K/uL Basophils # (Auto) 0.03 K/uL Recent Pertinent Medications Outpatient Anti-diabetic Regimen: * Lantus 23 units qPM * Humalog 8 units with meals + sliding scale * A1c = 7.1 % 06/24/17 Risk Factors for Insulin Resistance: * Infection: amputation site cellulitis * Diet: low sodium/type 2 diabetes diet ordered Assessment & Plan ASSESSMENT: * 82 y/o female admitted with R foot amputation site cellulitis, known to the pharmacy glycemic service from previous admissions * She is on a basal/bolus regimen as an outpatient, comes to us from [facility] today, and has an elevated BSG on admission * Will plan to continue her basal dose because this worked well on her last admission but she was requiring a tight CF/CR so I will start with that, especially since BSGs are elevated PLAN FOR INPATIENT GLYCEMIC CONTROL: * Basal insulin with LANTUS 23 units SQ qHS * Correctional Insulin with NOVOLOG ACHS + 0200 accucheck * Goal Range: Low 110 mg/dL - High 150 mg/dL * Correction Factor: 10 mg/dL/unit * Nutritional / Prandial insulin per carb ratio of 1 unit per 4 grams CHO consumed * Please note that the plan above was derived based on current level of insulin resistance and hospital stress. These recommendations are appropriate for inpatient admission only. Plan of care upon discharge will need to be reassessed to avoid potential outpatient hypo/hyperglycemia. Thank you.
[2017-08-05 15:16] VITALS: BP 177/79; PULSE 64; TEMP 36.8; O2SAT 97
[2017-08-05] MEDS: INSULIN ASPART 100 UNITS/ML 3 ML PEN SC SCH ×3 (15:27→21:00)
[2017-08-05 15:28] LABS: URINE APPEARANCE CLEAR (CLEAR); URINE BILIRUBIN NEG (NEG); URINE COLOR YELLOW; URINE EPITHELIAL CELL AUTO 0-5 /lpf (0-5); URINE NITRITE NEG (NEG); URINE SPECIFIC GRAVITY 1.019 (1.000-1.030); UROBILINOGEN NEG (NEG)
[2017-08-05 15:30] LABS: MANUAL MICROSCOPIC REQUIRED? NO; REVIEW REQ? NO
[2017-08-05] MEDS: LORAZEPAM INJ 0.5 MG in SYRINGE 0.25 ML IV PRN (18:10)
[2017-08-05] MEDS ORDERED: INSULIN GLARGINE SOLOSTAR 100 UNITS/ML 3 ML PEN SQ SCH (21:00)
[2017-08-05] MEDS ORDERED: PROBIOTIC PRODUCT PO SCH (21:00)
[2017-08-05 21:56] VITALS: BP_SYST 176; BP_SYST 192; BP_DIAS 82; PULSE 82
[2017-08-05] MEDS: DOCUSATE SODIUM 100 MG CAP PO SCH (21:58)
[2017-08-05] MEDS: CLONIDINE HCL 0.1 MG TAB PO SCH (21:59)
[2017-08-05] MEDS: CARVEDILOL 12.5 MG TAB PO SCH (22:00)
[2017-08-05] MEDS: FERROUS SULFATE 325 MG TAB PO SCH (22:01)
[2017-08-05] MEDS: SENNA 8.6 MG TAB PO SCH (22:02)
[2017-08-05] MEDS: QUETIAPINE FUMARATE 25 MG TAB PO SCH (22:03)
[2017-08-05] MEDS: SERTRALINE HCL 50 MG TAB PO SCH (22:03)
[2017-08-05 22:56] VITALS: BP 181/84; PULSE 82; TEMP 37.2; O2SAT 96
[2017-08-06] MEDS ORDERED: INSULIN ASPART 100 UNITS/ML 3 ML PEN SC ONE (02:00)
[2017-08-06 07:10] VITALS: BP 155/81; PULSE 59; TEMP 36.9; O2SAT 93
--- NOTE | 2017-08-06 07:24 | NEPHROLOGY CONSULTATION ---
DATE OF CONSULTATION: 08/06/2017 ATTENDING OF RECORD: Dr. Erickson. REASON FOR CONSULTATION: Hypernatremia. HISTORY OF PRESENT ILLNESS: This is an 82-year-old female who recently was in the hospital from June 23 to July 03 for gangrene of the right foot and underwent right BKA on June 26. The patient did develop some redness at the surgical site and was being treated with oral antibiotics at the [facility]. The patient though was evaluated by Dr. Pisano recently and was brought in to the hospital for IV antibiotics. The patient does have dementia, so limited insight into her story. The patient though appears comfortable lying flat with no specific complaints, but does state that she does not get thirsty. PAST MEDICAL HISTORY: CKD stage III, coronary artery disease, dementia, diabetes, history of subdural hematoma, hyperlipidemia, hypertension, myelodysplastic syndrome and peripheral vascular disease. PAST SURGICAL HISTORY: Cataract surgery, partial thyroidectomy many many years ago, CABG x3 in 1996, a recent right BKA, and amputation of the toe on the left foot in the past. SOCIAL HISTORY: No smoking, no alcohol, and no drugs. Lives in a [facility]dc. FAMILY HISTORY: No renal disease in family. REVIEW OF SYSTEMS: The patient is comfortable. States she is not thirsty. States pain is well controlled; however, has dementia, so unreliable review of systems. All other review of systems otherwise negative. CURRENT MEDICATIONS: Zoloft 50 mg at night, vancomycin 1 gram IV q. 24 hours, cefepime 1 gram IV daily, Norvasc 10 mg a day, Pepcid 20 mg daily, Imdur 120 daily, Seroquel 12.5 mg daily, Caltrate 1 tab daily, Coreg 18.75 mg p.o. b.i.d., Colace 100 mg p.o. b.i.d., Seroquel 25 mg at night. Senna twice a day, Zoloft 25 mg at night, clonidine 0.4 mg p.o. b.i.d., and iron 325 p.o. b.i.d. PHYSICAL EXAMINATION: VITAL SIGNS: Temperature 37.2, pulse 82, respirations 20, blood pressure 181/84, and satting 96% on room air. GENERAL: Awake, alert, and oriented x2 with underlying dementia. EYES: No scleral icterus. ENT: Mucous membranes are dry. NECK: Supple. PULMONARY: Clear to auscultation. CARDIAC: Regular rate and rhythm. ABDOMEN: Bowel sounds positive. Soft, nontender, and nondistended. EXTREMITIES: Right BKA with a wound wrapped. No significant edema in the left leg. NEUROLOGICALLY: Nonfocal. Otherwise, poor memory. DERMATOLOGIC: No rash noted and wound wrapped on the right leg. LABORATORIES: Pending for this morning. Sodium level yesterday was 149, potassium 4.4, chloride is 117, bicarbonate is 23, BUN is 43, creatinine is 1.61, and glucose 292. Serum osmolality is 322. Calcium 7.9. Urine osmolality is 553. White count is 2.7, H&H 8.9 and 27.9, and platelet count 204. Blood cultures and urine cultures are pending. Sodium level, dating back to a previous admission in the beginning of June had sodiums in the high 140s to low 150s with a creatinine that varied and worsened up to 2 during last admission, although was in the 1.4-1.6 range over the past several weeks. ASSESSMENT AND PLAN: 1. Hypernatremia. Sodium levels elevated, appears to be chronically elevated and likely a consequence of dehydration with the patient, who lacks thirst. Urine osmolality is elevated, which suggests the kidneys are trying to hold on to free water and acting appropriately. For now, would encourage D5W at 100 mL an hour and upon discharge, would recommend encouraging free water fluids with meals as well as extra cups in between meals while at the fdc. 2. Chronic kidney disease stage III, likely as a consequence of diabetes, hypertension, vascular disease and advanced age and tends to very quite a bit. Although, relatively stable given her generalized accepted normal range. I would follow levels. It may improve as we hydrate the patient with D5W. Although, likely to worsen again back to her baseline upon discharge to the fdc. Upon discharge to fdc, would check a BMP weekly. We will follow on the sodium levels and try to encourage free water as much as possible. I appreciate the consultation.
[2017-08-06] MEDS: DEXTROSE 5% 1000ML 1,000 ML IV SCH ×2 (07:32→16:38)
[2017-08-06] MEDS: ISOSORBIDE MONONITRATE 60 MG TABCR PO SCH (07:36)
[2017-08-06] MEDS: QUETIAPINE FUMARATE 25 MG TAB PO SCH ×2 (07:36→21:43)
[2017-08-06] MEDS: CLONIDINE HCL 0.1 MG TAB PO SCH ×2 (07:37→21:42)
[2017-08-06] MEDS: DOCUSATE SODIUM 100 MG CAP PO SCH ×2 (07:37→21:42)
[2017-08-06] MEDS: FAMOTIDINE 20 MG TAB PO SCH (07:37)
[2017-08-06] MEDS: AMLODIPINE BESYLATE 5 MG TAB PO SCH (07:38)
[2017-08-06] MEDS: CALCIUM 600MG + VIT D 400 IU TAB PO SCH (07:38)
[2017-08-06] MEDS: CARVEDILOL 12.5 MG TAB PO SCH ×2 (07:38→21:40)
[2017-08-06] MEDS: FERROUS SULFATE 325 MG TAB PO SCH ×2 (07:38→21:42)
[2017-08-06] MEDS: SENNA 8.6 MG TAB PO SCH ×2 (07:39→21:00)
[2017-08-06] MEDS: INSULIN ASPART 100 UNITS/ML 3 ML PEN SC SCH ×4 (08:00→21:47)
[2017-08-06 08:09] LABS: HEMATOCRIT 26.9 % (37-47); MEAN CELL VOLUME 101.9 fL (80-100); MEAN CORPUSCULAR HEMOGLOBIN 31.8 pg (25-34); MEAN CORPUSCULAR HGB CONC 31.2 g/dl (32-36); MEAN PLATELET VOLUME 12.5 fL (7.4-10.4); PLATELET COUNT 191 K/uL (130-400); RED BLOOD COUNT 2.64 M/uL (4.2-5.4); WHITE BLOOD COUNT 3.28 K/uL (4.8-10.8)
[2017-08-06 08:47] LABS: BUN/CREATININE RATIO 30.5 (10-20); CALCIUM 8.2 mg/dl (8.5-10.1); CREATININE 1.53 mg/dl (0.60-1.20); POTASSIUM 4.3 mmol/L (3.5-5.1)
[2017-08-06] MEDS ORDERED: DEXTROSE 5% 1000ML 1,000 ML IV SCH (09:45)
--- NOTE | 2017-08-06 12:04 | Pharmacy Progress Note ---
Glycemic Control Progress Note Date of Service Aug 06, 2017. Scope Glycemic Pharmacist consulted for glycemic control to write orders per [facility] inpatient glycemic control protocol. Objective Accuchecks BSG (last 24hrs): Test 08/05/17 12:52 08/05/17 17:01 08/05/17 21:25 08/06/17 02:51 Random Glucose 292 mg/dl (70-99) Bedside Glucose 109 mg/dl (70-90) 78 mg/dl (70-90) 49 mg/dl (70-90) Test 08/06/17 03:14 08/06/17 03:48 08/06/17 07:40 Bedside Glucose 69 mg/dl (70-90) 84 mg/dl (70-90) Random Glucose 48 mg/dl (70-99) Recent Pertinent Medications Outpatient Anti-diabetic Regimen: * Lantus 23 units qPM * Humalog 8 units with meals + sliding scale * A1c = 7.1 % 06/24/17 Risk Factors for Insulin Resistance: * Infection: amputation site cellulitis - on vanc and cefepime * IVF: D5 @ 100 cc/hr started this AM for hypernatremia * Diet: low sodium/type 2 diabetes Risk Factors for Insulin SENSITIVITY: * Minimal po intake Assessment & Plan ASSESSMENT: * Ms. Stuart received a total of 33 units of insulin yesterday (compared to 47 + units/day as an outpatient) and had a severe hypoglycemic episode this AM * The nurse called last night and the evening pharmacist told her to give only 10 units of Lantus instead of the 23 units and she still had hypoglycemia. I suspect this is mainly due to reduced po intake. * In addition, dextrose IVF have now been started for hypernatremia * Will plan to loosen the CF/CR for now in light of the recent hypoglycemia but add an overnight accucheck in case BSGs are increased from the dextrose * Lantus dose will be reduced and dosed based upon a scale in case her BSGs increase PLAN FOR INPATIENT GLYCEMIC CONTROL: * Decrease Lantus to 5 or 10 units qHS based upon the BSG * Correctional Insulin with NOVOLOG ACHS + 0200 accucheck * Goal Range: Low 110 mg/dL - High 150 mg/dL * LOOSEN Correction Factor: 30 mg/dL/unit * LOOSEN Nutritional / Prandial insulin per carb ratio of 1 unit per 10 grams CHO consumed DISCHARGE RECOMMENDATIONS: * Recent A1c acceptable * Continue outpatient regimen upon discharge Thank you.
[2017-08-06 12:52] VITALS: BP 175/69; PULSE 59; TEMP 36.5; O2SAT 93
[2017-08-06 13:57] VITALS: BP 156/65; PULSE 64; O2SAT 96
[2017-08-06] MEDS: CEFEPIME IV 1,000 MG in SYRINGE 0 ML IV SCH (14:00)
[2017-08-06 14:47] LABS: BUN/CREATININE RATIO 27.7 (10-20); CALCIUM 8.3 mg/dl (8.5-10.1); CREATININE 1.63 mg/dl (0.60-1.20); POTASSIUM 4.7 mmol/L (3.5-5.1)
[2017-08-06 15:00] VITALS: BP 178/72; PULSE 69; TEMP 36.6; O2SAT 95
--- NOTE | 2017-08-06 15:11 | Progress Note ---
Subjective Date of Service: Aug 06, 2017. Subjective pt for surgery next week, tolerating abx. 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 unclear significance. no overnight events. Problem List Medical Problems: (1) Altered mental status Status: Acute (2) Anemia Status: Acute (3) Arterial insufficiency Status: Acute (4) Cellulitis of right foot Status: Acute (5) Constipation Status: Acute (6) Cyst of right kidney Status: Acute (7) Dehydration Status: Acute (8) Hypoglycemia Status: Acute (9) Hypoglycemia Status: Acute Objective Vital Signs Date Time Temp Pulse Resp B/P (MAP) Pulse Ox O2 Delivery O2 Flow Rate FiO2 08/06/17 13:57 64 96 08/06/17 12:52 36.5 59 18 175/69 (104) 93 Room Air 08/06/17 12:18 Room Air 08/06/17 07:10 36.9 59 18 155/81 (105) 93 Room Air 08/05/17 23:15 Room Air 08/05/17 22:56 37.2 82 20 181/84 (116) 96 Room Air 08/05/17 21:56 82 192/82 (118) 08/05/17 21:56 176/82 (113) 08/05/17 15:16 36.8 64 18 177/79 (111) 97 Room Air 08/05/17 15:15 Room Air Laboratory Results Last 24 Hours Test 08/05/17 17:01 08/05/17 21:25 08/06/17 02:51 08/06/17 03:14 Bedside Glucose 109 mg/dl 78 mg/dl 49 mg/dl 69 mg/dl Test 08/06/17 03:48 08/06/17 07:40 08/06/17 07:53 08/06/17 08:17 Bedside Glucose 84 mg/dl 65 mg/dl 94 mg/dl White Blood Count 3.28 K/uL Red Blood Count 2.64 M/uL Hemoglobin 8.4 g/dL Hematocrit 26.9 % Mean Corpuscular Volume 101.9 fL Mean Corpuscular Hemoglobin 31.8 pg Mean Corpuscular Hemoglobin Concent 31.2 g/dl RDW Standard Deviation 78.3 fL RDW Coefficient of Variation 22.2 % Platelet Count 191 K/uL Mean Platelet Volume 12.5 fL Sodium Level 149 mmol/L Potassium Level 4.3 mmol/L Chloride Level 118 mmol/L Carbon Dioxide Level 21 mmol/L Anion Gap 10.0 mmol/L Blood Urea Nitrogen 47 mg/dl Creatinine 1.53 mg/dl Est Creatinine Clear Calc Drug Dose 27.5 ml/min Estimated GFR () 36.1 Estimated GFR (Non- 31.1 BUN/Creatinine Ratio 30.5 Random Glucose 48 mg/dl Calcium Level 8.2 mg/dl Test 08/06/17 12:02 08/06/17 14:25 Bedside Glucose 169 mg/dl Sodium Level 143 mmol/L Potassium Level 4.7 mmol/L Chloride Level 110 mmol/L Carbon Dioxide Level 23 mmol/L Anion Gap 10.0 mmol/L Blood Urea Nitrogen 45 mg/dl Creatinine 1.63 mg/dl Est Creatinine Clear Calc Drug Dose 25.8 ml/min Estimated GFR () 33.4 Estimated GFR (Non- 28.8 BUN/Creatinine Ratio 27.7 Random Glucose 203 mg/dl Calcium Level 8.3 mg/dl Assessment and Plan (1) Post op infection Assessment & Plan: would continue current abx, renal dosing, follow culture results and OR findings.
[2017-08-06] MEDS: VANCOMYCIN INJ 1,000 MG in SODIUM CHLORIDE 0.9% 250ML 250 ML IV SCH (16:38)
--- NOTE | 2017-08-06 18:55 | Progress Note ---
Internal Med Progress Note Date of Service: Aug 06, 2017. Provider Documentation: SUBJECTIVE: pleasant , offers no complain , baseline dementia sitting up on chair OBJECTIVE: Vital Signs-as noted below Exam: General-elderly female , well appearing, no sign of distress, pleasant , conversing Eyes-sclera non icteric , PERRLA/EOMI ENT-NAD Neck-no thyromegaly , trachea midline Lungs-clear to auscultate , no wheeze or rales Heart-regular S1/S2 , no lower ext edema ,no JVD Abdomen-soft, non tender Extremities-s/p BKA on rt /amputation stump has dressing on /no edema, rash or deformity on L lower ext Neuro-baseline dementia , no focal neurological deficit Lab data as noted below. ASSESSMENT & PLAN: INFECTED RIGHT BKA INCISION SITE - - s/p right BKA on 06/26 for gangrene of right foot - cultures obtained 07/27 which grew proteus, enterococcus, and MSSA ( sensitivities as above); was being treated with PO Doxy and Omnicef - on empiric Abx with Vancomycin and Cefepime - repeat wound and blood cultures - ID consult-appreciated - Dr. Pisano consulted - plan for possible debridement on 08/10 HYPERNATREMIA - chronic dating back to 10/2015 per review of old records - likely due to poor PO intake - nephro consult, input appreciated IVF with D5w ; Na improved to 146 follow PRP HX CAD - stable, no reports of chest pain - ASA stopped due to subdural hematoma - continue nitrate and beta abida HTN - BP controlled, continue amlodipine, carvedilol, and isosorbide DM - hgb a1c 7.1 06/2017 - continue Lantus + SSI MYELODYSPLASTIC SYNDROME, CHRONIC ANEMIA - WBC and hgb at baseline - - monitor CBC - has received Procrit in the past DEMENTIA, ANXIETY, DEPRESSION - continue quetiapine and sertraline HX TRAUMATIC SUBDURAL HEMATOMA - 04/2017 - avoid blood thinners DVT PROPHYLAXIS - SCDs due to hx of subdural hematoma CODE STATUS - Patient is a DNR as per POLST sent with patient from [facility]. DISPOSITION return back to [facility] when medically stable Vital Signs: Date Time Temp Pulse Resp B/P (MAP) Pulse Ox O2 Delivery O2 Flow Rate FiO2 08/07/17 00:11 Room Air 08/07/17 00:09 68 18 166/60 (95) 91 Room Air 08/06/17 21:52 188/82 (117) 08/06/17 16:20 Room Air 08/06/17 15:00 36.6 69 16 178/72 (107) 95 Room Air 08/06/17 13:57 64 96 08/06/17 12:52 36.5 59 18 175/69 (104) 93 Room Air 08/06/17 12:18 Room Air Lab Results: Results Past 24 Hours Test 08/06/17 07:53 08/06/17 08:17 08/06/17 12:02 08/06/17 14:25 Range/Units Bedside Glucose 65 94 169 70-90 mg/dl Sodium Level 143 136-145 mmol/L Potassium Level 4.7 3.5-5.1 mmol/L Chloride Level 110 98-107 mmol/L Carbon Dioxide Level 23 21-32 mmol/L Anion Gap 10.0 3-11 mmol/L Blood Urea Nitrogen 45 7-18 mg/dl Creatinine 1.63 0.60-1.20 mg/dl Est Creatinine Clear Calc Drug Dose 25.8 ml/min Estimated GFR () 33.4 Estimated GFR (Non- 28.8 BUN/Creatinine Ratio 27.7 10-20 Random Glucose 203 70-99 mg/dl Calcium Level 8.3 8.5-10.1 mg/dl Test 08/06/17 16:42 08/06/17 21:30 08/07/17 01:56 08/07/17 06:17 Range/Units Bedside Glucose 165 195 151 70-90 mg/dl Sodium Level 145 136-145 mmol/L Potassium Level 4.7 3.5-5.1 mmol/L Chloride Level 114 98-107 mmol/L Carbon Dioxide Level 22 21-32 mmol/L Anion Gap 9.0 3-11 mmol/L Blood Urea Nitrogen 46 7-18 mg/dl Creatinine 1.54 0.60-1.20 mg/dl Est Creatinine Clear Calc Drug Dose 27.3 ml/min Estimated GFR () 35.8 Estimated GFR (Non- 30.9 BUN/Creatinine Ratio 29.9 10-20 Random Glucose 130 70-99 mg/dl Calcium Level 8.4 8.5-10.1 mg/dl
[2017-08-06] MEDS ORDERED: INSULIN GLARGINE SOLOSTAR 100 UNITS/ML 3 ML PEN SQ SCH (21:00)
[2017-08-06 21:23] VITALS: Ht 162.6 cm; Wt 74.0 kg
[2017-08-06] MEDS: SERTRALINE HCL 50 MG TAB PO SCH (21:42)
[2017-08-06 21:52] VITALS: BP 188/82
[2017-08-07] VITALS (8 sets, daily range): BP systolic 115–172; BP diastolic 60–78; PULSE 56–77; TEMP 36.9–37.1; O2SAT 91–95
[2017-08-07] MEDS ORDERED: INSULIN ASPART 100 UNITS/ML 3 ML PEN SC ONE (02:00)
--- NOTE | 2017-08-07 06:34 | Nephrology Progress Note ---
Nephrology Progress Note Date of Service: Aug 07, 2017. Subjective 82 yo female with dementia with resolving infection s/p right bka with chronic hypernatremia and ckd stage 3. pt comfortable. no complaints. had d5w yesterday and sodium improved nicely. currently off iv fluids. Objective Date Time Temp Pulse Resp B/P (MAP) Pulse Ox O2 Delivery O2 Flow Rate FiO2 08/07/17 00:11 Room Air 08/07/17 00:09 68 18 166/60 (95) 91 Room Air 08/06/17 21:52 188/82 (117) 08/06/17 16:20 Room Air 08/06/17 15:00 36.6 69 16 178/72 (107) 95 Room Air 08/06/17 13:57 64 96 08/06/17 12:52 36.5 59 18 175/69 (104) 93 Room Air 08/06/17 12:18 Room Air 08/06/17 07:10 36.9 59 18 155/81 (105) 93 Room Air Physical Exam: General-aaox1, dementia Eyes-no scleral icterus ENT-mm dry Neck-supple Lungs-cta Heart-rrr Abdomen-bs+ s/nt/nd Extremities-no c/c/e, right bka Neuro-dementia Current Inpatient Medications Medications (Trade) Dose Ordered Sig/Red Route Start Time Stop Time Status Last Admin Dose Admin Acetaminophen (Tylenol Tab) 650 mg Q4H PRN PO 08/05/17 12:15 09/04/17 12:14 Ondansetron HCl (Zofran Inj) 4 mg Q6H PRN IV 08/05/17 12:15 09/04/17 12:14 Vancomycin HCl (Consult) 1 ea UD N/A 08/05/17 13:14 09/04/17 13:13 Miscellaneous Information (Consult Glycemic Management Pharmacy) 1 ea UD PRN N/A 08/05/17 13:15 09/04/17 13:14 Amlodipine Besylate (Norvasc Tab) 10 mg QAM PO 08/06/17 09:00 09/05/17 08:59 08/06/17 07:38 10 MG Carvedilol (Coreg Tab) 18.75 mg BID PO 08/05/17 21:00 09/04/17 20:59 08/06/17 21:40 18.75 MG Docusate Sodium (coLACE CAP) 100 mg BID PO 08/05/17 21:00 09/04/17 20:59 08/06/17 21:42 100 MG Famotidine (Pepcid Tab) 20 mg QAM PO 08/06/17 09:00 09/05/17 08:59 08/06/17 07:37 20 MG Isosorbide Mononitrate (Imdur Ext Rel Tab) 120 mg QAM PO 08/06/17 09:00 09/05/17 08:59 08/06/17 07:36 120 MG Oxycodone/ Acetaminophen (Percocet 5-325mg Tab) 1 tab Q6H PRN PO 08/05/17 13:15 08/19/17 13:14 08/05/17 23:51 1 TAB Quetiapine Fumarate (seroQUEL TAB) 12.5 mg DAILY PO 08/06/17 09:00 09/05/17 08:59 08/06/17 07:36 12.5 MG Quetiapine Fumarate (seroQUEL TAB) 25 mg HS PO 08/05/17 21:00 09/04/17 20:59 08/06/17 21:43 25 MG Senna (Senokot Tab) 17.2 mg BID PO 08/05/17 21:00 09/04/17 20:59 08/06/17 07:39 17.2 MG Sertraline HCl (Zoloft Tab) 25 mg HS PO 08/05/17 21:00 08/09/17 21:01 08/06/17 21:42 25 MG Sertraline HCl (Zoloft Tab) 50 mg HS PO 08/10/17 21:00 09/09/17 20:59 Calcium/Vitamin D (Caltrate Plus Tab) 1 tab DAILY PO 08/06/17 09:00 09/05/17 08:59 08/06/17 07:38 1 TAB Clonidine HCl (Catapres Tab) 0.4 mg BID PO 08/05/17 21:00 09/04/17 20:59 08/06/17 21:42 0.4 MG Ferrous Sulfate (Feosol Tab) 325 mg BID PO 08/05/17 21:00 09/04/17 20:59 08/06/17 21:42 325 MG Insulin Aspart (novoLOG ASPART) SLIDING SCALE If C... ACHS SC 08/05/17 14:45 09/04/17 14:44 08/06/17 21:47 3 UNITS Glucose (Glucose 40% Gel) 15-30 GRAMS 15 GRAMS... UD PRN PO 08/05/17 13:15 09/04/17 13:14 Glucose (Glucose Chew Tab) 4-8 Tablets 4 Tabl... UD PRN PO 08/05/17 13:15 09/04/17 13:14 Dextrose (Dextrose 50% 50ML Syringe) 25-50ML OF 50% DW IV FOR... UD PRN IV 08/05/17 13:15 09/04/17 13:14 Glucagon (Glucagon Inj) 1 mg UD PRN SQ 08/05/17 13:15 09/04/17 13:14 Cefepime HCl (Consult) 1 ea UD PRN N/A 08/05/17 13:15 09/04/17 13:14 Cefepime HCl 1000 mg/Syringe 11 ml @ 5.5 mls/min DAILY@1400 IV 08/06/17 14:00 08/15/17 13:59 08/06/17 14:00 5.5 MLS/MIN Vancomycin HCl 1000 mg/Sodium Chloride 270 ml @ 125 mls/hr Q24H IV 08/06/17 16:00 08/15/17 15:59 08/06/17 16:38 125 MLS/HR Lorazepam 0.5 mg/ Syringe 0.5 ml @ 0.5 mls/min Q6 PRN IV 08/05/17 17:00 09/04/17 16:59 08/05/17 18:10 0.5 MLS/MIN Insulin Glargine (Lantus Solostar Pen) SEE PROTOCOL TEXT PM SQ 08/06/17 21:00 09/05/17 20:59 08/06/17 21:48 10 UNITS Last 24 Hours Test 08/06/17 07:40 08/06/17 07:53 08/06/17 08:17 08/06/17 12:02 White Blood Count 3.28 K/uL Red Blood Count 2.64 M/uL Hemoglobin 8.4 g/dL Hematocrit 26.9 % Mean Corpuscular Volume 101.9 fL Mean Corpuscular Hemoglobin 31.8 pg Mean Corpuscular Hemoglobin Concent 31.2 g/dl RDW Standard Deviation 78.3 fL RDW Coefficient of Variation 22.2 % Platelet Count 191 K/uL Mean Platelet Volume 12.5 fL Sodium Level 149 mmol/L Potassium Level 4.3 mmol/L Chloride Level 118 mmol/L Carbon Dioxide Level 21 mmol/L Anion Gap 10.0 mmol/L Blood Urea Nitrogen 47 mg/dl Creatinine 1.53 mg/dl Est Creatinine Clear Calc Drug Dose 27.5 ml/min Estimated GFR () 36.1 Estimated GFR (Non- 31.1 BUN/Creatinine Ratio 30.5 Random Glucose 48 mg/dl Calcium Level 8.2 mg/dl Bedside Glucose 65 mg/dl 94 mg/dl 169 mg/dl Test 08/06/17 14:25 08/06/17 16:42 08/06/17 21:30 08/07/17 01:56 Sodium Level 143 mmol/L Potassium Level 4.7 mmol/L Chloride Level 110 mmol/L Carbon Dioxide Level 23 mmol/L Anion Gap 10.0 mmol/L Blood Urea Nitrogen 45 mg/dl Creatinine 1.63 mg/dl Est Creatinine Clear Calc Drug Dose 25.8 ml/min Estimated GFR () 33.4 Estimated GFR (Non- 28.8 BUN/Creatinine Ratio 27.7 Random Glucose 203 mg/dl Calcium Level 8.3 mg/dl Bedside Glucose 165 mg/dl 195 mg/dl 151 mg/dl Test 08/07/17 06:17 Assessment & Plan hypernatremia-sodium improved from 149 to 143, currently off d5w. would recommend continuing d5w at 50cc/hr while inhouse and then recommend oral fluids with each meal and inbetween meals trying to help improve the sodium levels. CKD stage 3-likely multifactorial and appears stable. no indication for dialysis. continue current medical management.
[2017-08-07] MEDS: AMLODIPINE BESYLATE 5 MG TAB PO SCH (07:24)
[2017-08-07] MEDS: CALCIUM 600MG + VIT D 400 IU TAB PO SCH (07:28)
[2017-08-07] MEDS: QUETIAPINE FUMARATE 25 MG TAB PO SCH ×2 (07:28→20:47)
[2017-08-07 07:29] LABS: BUN/CREATININE RATIO 29.9 (10-20); CALCIUM 8.4 mg/dl (8.5-10.1); CREATININE 1.54 mg/dl (0.60-1.20); POTASSIUM 4.7 mmol/L (3.5-5.1)
[2017-08-07] MEDS: CARVEDILOL 12.5 MG TAB PO SCH ×2 (07:32→20:46)
[2017-08-07] MEDS: SENNA 8.6 MG TAB PO SCH ×2 (07:32→20:47)
[2017-08-07] MEDS: ISOSORBIDE MONONITRATE 60 MG TABCR PO SCH (07:33)
[2017-08-07] MEDS: CLONIDINE HCL 0.1 MG TAB PO SCH ×2 (07:34→20:46)
[2017-08-07] MEDS: FERROUS SULFATE 325 MG TAB PO SCH ×2 (07:35→20:46)
[2017-08-07] MEDS: DOCUSATE SODIUM 100 MG CAP PO SCH ×2 (07:35→20:46)
[2017-08-07] MEDS ORDERED: DEXTROSE 5% 1000ML 1,000 ML IV SCH (08:00)
[2017-08-07] MEDS: FAMOTIDINE 20 MG TAB PO SCH (09:45)
[2017-08-07] MEDS: INSULIN ASPART 100 UNITS/ML 3 ML PEN SC SCH ×4 (09:54→20:48)
--- NOTE | 2017-08-07 10:33 | Progress Note ---
Subjective Date of Service: Aug 07, 2017. Subjective Pt evaluation today including: conversation w/ patient, physical exam, chart review, lab review pt seen in followup, wound culture with dope mixer, ? colonization. blood cultures negative to date, afebrile. comfortable, denies pain in leg, no f/c. tolerating abx. for OR next week. all remaining ros reviewed and are negative Problem List Medical Problems: (1) Altered mental status Status: Acute (2) Anemia Status: Acute (3) Arterial insufficiency Status: Acute (4) Cellulitis of right foot Status: Acute (5) Constipation Status: Acute (6) Cyst of right kidney Status: Acute (7) Dehydration Status: Acute (8) Hypoglycemia Status: Acute (9) Hypoglycemia Status: Acute Objective Vital Signs Date Time Temp Pulse Resp B/P (MAP) Pulse Ox O2 Delivery O2 Flow Rate FiO2 08/07/17 09:21 37.0 77 12 115/71 (86) 92 Room Air 08/07/17 08:15 Room Air 08/07/17 07:49 95 Room Air 08/07/17 00:11 Room Air 08/07/17 00:09 68 18 166/60 (95) 91 Room Air 08/06/17 21:52 188/82 (117) 08/06/17 16:20 Room Air 08/06/17 15:00 36.6 69 16 178/72 (107) 95 Room Air 08/06/17 13:57 64 96 08/06/17 12:52 36.5 59 18 175/69 (104) 93 Room Air 08/06/17 12:18 Room Air Physical Exam General Appearance: WD/WN, no apparent distress Eyes: normal inspection Neck: supple Respiratory/Chest: lungs clear, normal breath sounds, no respiratory distress Cardiovascular: regular rate, rhythm, no edema Abdomen: non tender, soft Extremities: non-tender Neurologic/Psychiatric: alert, oriented x 3 Skin: normal color Comments: right bka stump dressing c/d/i, min necrotic tissue at incision, no bleeding no drainage, min surrounding warmth Laboratory Results Item Value Date Time Gram Stain - Final Resulted 08/05/17 1350 Incision Site Leg Right Lower Blood Culture - Preliminary Resulted 08/05/17 1302 Blood NO GROWTH TO DATE. Blood Culture - Preliminary Resulted 08/05/17 1252 Blood NO GROWTH TO DATE. Last 24 Hours Test 08/06/17 12:02 11/16/17 14:25 08/06/17 16:42 08/06/17 21:30 Bedside Glucose 169 mg/dl 165 mg/dl 195 mg/dl Sodium Level 143 mmol/L Potassium Level 4.7 mmol/L Chloride Level 110 mmol/L Carbon Dioxide Level 23 mmol/L Anion Gap 10.0 mmol/L Blood Urea Nitrogen 45 mg/dl Creatinine 1.63 mg/dl Est Creatinine Clear Calc Drug Dose 25.8 ml/min Estimated GFR () 33.4 Estimated GFR (Non- 28.8 BUN/Creatinine Ratio 27.7 Random Glucose 203 mg/dl Calcium Level 8.3 mg/dl Test 08/07/17 01:56 08/07/17 06:17 08/07/17 08:05 Bedside Glucose 151 mg/dl 177 mg/dl Sodium Level 145 mmol/L Potassium Level 4.7 mmol/L Chloride Level 114 mmol/L Carbon Dioxide Level 22 mmol/L Anion Gap 9.0 mmol/L Blood Urea Nitrogen 46 mg/dl Creatinine 1.54 mg/dl Est Creatinine Clear Calc Drug Dose 27.3 ml/min Estimated GFR () 35.8 Estimated GFR (Non- 30.9 BUN/Creatinine Ratio 29.9 Random Glucose 130 mg/dl Calcium Level 8.4 mg/dl Assessment and Plan (1) Post op infection Assessment & Plan: would continue current abx, renal dosing, follow culture results and OR findings.
--- NOTE | 2017-08-07 12:50 | Pharmacy Progress Note ---
Pharmacy Glycemic Short Note 2 Date of Service Aug 07, 2017. OUTPATIENT ANTIDIABETIC REGIMEN: * Lantus 23 units qPM * Humalog 8 units with meals + sliding scale * A1c = 7.1 % 06/24/17 ASSESSMENT: * Patient is currently receiving an average of 20 units of insulin per day * 10 units of basal insulin * 10 units of prandial/correctional insulin * BSGs ranging 130 - 209 over the past 24hrs * Risk factors for insulin resistance are improving over the past 24hrs * Infection is being adequately treated/Pt status improving * Dextrose containing IVF D/C * Pt still with decreased PO intake slightly * Anticipating insulin regimen will need increased slightly for the next 24hrs d /t : * AM Fasting BSG = 177mg/dl therefore Basal insulin needs increased * Total daily dose = 20 units, this is significantly reduced from outpatient dosing. Dosing decreased for hypo on admission but now rebound hyperglycemia occuring. Will continue to titrate regimen conservatively based on BSG trends. PLAN FOR INPATIENT GLYCEMIC CONTROL: * Basal insulin * Lantus 13 units SQ PM * Bolus insulin * NovoLog per scale ACHS or Q6hrs while NPO * Goal Range: Low 110 mg/dL - High 140 mg/dL * Correction Factor: 20 mg/dL/unit * Nutritional / Prandial insulin per carb ratio of 1 unit per 8 grams CHO consumed PLAN FOR DISCHARGE: * A1c = 7.1% * This is likely too low for patient based on age/comorbidities. Pt may be experiencing hypoglycemia as an outpatient * Recommend decreasing outpatient basal and fixed doses of NovoLog for less stringent control
[2017-08-07] MEDS: CLONIDINE HCL 0.1 MG TAB PO PRN ×2 (13:11→22:51)
[2017-08-07] MEDS: CEFEPIME IV 1,000 MG in SYRINGE 0 ML IV SCH (13:59)
--- NOTE | 2017-08-07 14:36 | Progress Note ---
Progress Note Date of Service: Aug 07, 2017. Subjective 82 yo f with multiple medical problems, s/p RLE BKA with infection at incision, seen in f/u today. Pt denies any complaints, but is confused. Problem List Medical Problems: (1) Altered mental status Status: Acute (2) Anemia Status: Acute (3) Arterial insufficiency Status: Acute (4) Cellulitis of right foot Status: Acute (5) Constipation Status: Acute (6) Cyst of right kidney Status: Acute (7) Dehydration Status: Acute (8) Hypoglycemia Status: Acute (9) Hypoglycemia Status: Acute Objective Vital Signs Vital Signs Past 12 Hours Date Time Temp Pulse Resp B/P (MAP) Pulse Ox O2 Delivery O2 Flow Rate FiO2 08/07/17 13:44 158/69 (98) 08/07/17 12:47 36.9 56 14 167/70 (102) 95 Room Air 08/07/17 09:21 37.0 77 12 115/71 (86) 92 Room Air 08/07/17 08:15 Room Air 08/07/17 07:49 95 Room Air Exam CONST: A&O x1, NAD, chronnically ill appearing female EXT: RLE incision with decreased erythema and warmth, necrosis well demarcated, no discharge. Intake & Output 8-Hour Column 08/07/17 08/08/17 08/08/17 16:00 00:00 08:00 Intake Total 240 ml Balance 240 ml 24-Hour Column 08/08/17 08:00 Intake Total 240 ml Balance 240 ml Laboratory and Microbiology Results Past 24 Hours Test 08/06/17 16:42 08/06/17 21:30 08/07/17 01:56 08/07/17 06:17 Range/Units Bedside Glucose 165 195 151 70-90 mg/dl Sodium Level 145 136-145 mmol/L Potassium Level 4.7 3.5-5.1 mmol/L Chloride Level 114 98-107 mmol/L Carbon Dioxide Level 22 21-32 mmol/L Anion Gap 9.0 3-11 mmol/L Blood Urea Nitrogen 46 7-18 mg/dl Creatinine 1.54 0.60-1.20 mg/dl Est Creatinine Clear Calc Drug Dose 27.3 ml/min Estimated GFR () 35.8 Estimated GFR (Non- 30.9 BUN/Creatinine Ratio 29.9 10-20 Random Glucose 130 70-99 mg/dl Calcium Level 8.4 8.5-10.1 mg/dl Test 08/07/17 08:05 Range/Units Bedside Glucose 177 70-90 mg/dl ASSESSMENT and PLAN: RLE BKA site infection Pt wound appears improved with abx and local wound care. No need for debridement. Recommend continue abx and continue local wound care with santyl and dry dressing to RLE open area change q day.
[2017-08-07] MEDS ORDERED: VANCOMYCIN TROUGH SCH (15:30)
[2017-08-07] MEDS: VANCOMYCIN INJ 1,000 MG in SODIUM CHLORIDE 0.9% 250ML 250 ML IV SCH (16:13)
--- NOTE | 2017-08-07 16:28 | Progress Note ---
Internal Med Progress Note Date of Service: Aug 07, 2017. Provider Documentation: SUBJECTIVE: pt remains pleasantly demented offers no complain no fever or chills became confused earlier , pulled out IV site IVF d/mikaela continue to monitor OBJECTIVE: Vital Signs-as noted below Exam: General-elderly female , well appearing, no sign of distress, pleasant , conversing Eyes-sclera non icteric , PERRLA/EOMI ENT-NAD Neck-no thyromegaly , trachea midline Lungs-clear to auscultate , no wheeze or rales Heart-regular S1/S2 , no lower ext edema ,no JVD Abdomen-soft, non tender Extremities-s/p BKA on rt /amputation stump has dressing on /no edema, rash or deformity on L lower ext Neuro-baseline dementia , no focal neurological deficit Lab data as noted below. ASSESSMENT & PLAN: INFECTED RIGHT BKA INCISION SITE - - s/p right BKA on 06/26 for gangrene of right foot - cultures obtained 07/27 which grew proteus, enterococcus, and MSSA ( sensitivities as above); was being treated with PO Doxy and Omnicef - on empiric Abx with Vancomycin and Cefepime - repeat wound and blood cultures ordered - ID consult-appreciated cont current abx regimen - Dr. Pisano consulted - plan for debridement on 08/10 HYPERNATREMIA resolved with IV D5 w - chronic dating back to 10/2015 per review of old records - likely due to poor PO intake - nephro consult, input appreciated ordered to cont D5 W pt was agitated earlier , pulled out IV will hold off IVF for now pt may need to resume IVF with D5 w pre op ( while NPO for surgery post op ) recommended IVF would be D5 W -avoid NSS //2 NSS HX CAD - stable, no reports of chest pain - ASA stopped due to subdural hematoma - continue nitrate and beta abida HTN - BP controlled, continue amlodipine, carvedilol, and isosorbide DM - hgb a1c 7.1 06/2017 - continue Lantus + SSI MYELODYSPLASTIC SYNDROME, CHRONIC ANEMIA - WBC and hgb at baseline - - monitor CBC - has received Procrit in the past DEMENTIA, ANXIETY, DEPRESSION - continue quetiapine and sertraline 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 DISPOSITION scheduled for I&D Of rt BKA stump on Thursday by Vascular surgery return back to [facility] when medically stable Vital Signs: Date Time Temp Pulse Resp B/P (MAP) Pulse Ox O2 Delivery O2 Flow Rate FiO2 08/07/17 15:12 37.1 69 16 147/67 (93) 93 Room Air 08/07/17 13:44 158/69 (98) 08/07/17 12:47 36.9 56 14 167/70 (102) 95 Room Air 08/07/17 09:21 37.0 77 12 115/71 (86) 92 Room Air 08/07/17 08:15 Room Air 08/07/17 07:49 95 Room Air 08/07/17 00:11 Room Air 08/07/17 00:09 68 18 166/60 (95) 91 Room Air 08/06/17 21:52 188/82 (117) 08/06/17 16:20 Room Air Lab Results: Results Past 24 Hours Test 08/06/17 16:42 08/06/17 21:30 08/07/17 01:56 08/07/17 06:17 Range/Units Bedside Glucose 165 195 151 70-90 mg/dl Sodium Level 145 136-145 mmol/L Potassium Level 4.7 3.5-5.1 mmol/L Chloride Level 114 98-107 mmol/L Carbon Dioxide Level 22 21-32 mmol/L Anion Gap 9.0 3-11 mmol/L Blood Urea Nitrogen 46 7-18 mg/dl Creatinine 1.54 0.60-1.20 mg/dl Est Creatinine Clear Calc Drug Dose 27.3 ml/min Estimated GFR () 35.8 Estimated GFR (Non- 30.9 BUN/Creatinine Ratio 29.9 10-20 Random Glucose 130 70-99 mg/dl Calcium Level 8.4 8.5-10.1 mg/dl Test 08/07/17 08:05 08/07/17 15:57 Range/Units Bedside Glucose 177 70-90 mg/dl
[2017-08-07] MEDS: COLLAGENASE OINT 30 GM TUBE EXT SCH (17:34)
[2017-08-07] MEDS: SERTRALINE HCL 50 MG TAB PO SCH (20:47)
[2017-08-07] MEDS ORDERED: INSULIN GLARGINE SOLOSTAR 100 UNITS/ML 3 ML PEN SQ SCH ×2 (21:00)
[2017-08-08 00:48] VITALS: BP 166/74
[2017-08-08 06:54] VITALS: BP 174/74; PULSE 56; TEMP 36.8; O2SAT 96
[2017-08-08] MEDS: FERROUS SULFATE 325 MG TAB PO SCH ×2 (07:23→19:34)
[2017-08-08] MEDS: CALCIUM 600MG + VIT D 400 IU TAB PO SCH (07:23)
[2017-08-08] MEDS: DOCUSATE SODIUM 100 MG CAP PO SCH ×2 (07:23→19:31)
[2017-08-08] MEDS: AMLODIPINE BESYLATE 5 MG TAB PO SCH (07:24)
[2017-08-08] MEDS: ISOSORBIDE MONONITRATE 60 MG TABCR PO SCH (07:24)
[2017-08-08] MEDS: QUETIAPINE FUMARATE 25 MG TAB PO SCH ×2 (07:24→19:33)
[2017-08-08] MEDS: CLONIDINE HCL 0.1 MG TAB PO SCH ×2 (07:25→19:30)
[2017-08-08] MEDS: SENNA 8.6 MG TAB PO SCH ×2 (07:25→19:32)
[2017-08-08] MEDS: CARVEDILOL 12.5 MG TAB PO SCH ×2 (07:26→19:33)
[2017-08-08] MEDS: FAMOTIDINE 20 MG TAB PO SCH (07:30)
[2017-08-08] MEDS: INSULIN ASPART 100 UNITS/ML 3 ML PEN SC SCH ×4 (08:00→21:38)
[2017-08-08 08:38] LABS: BUN/CREATININE RATIO 34.4 (10-20); CALCIUM 8.6 mg/dl (8.5-10.1); CREATININE 1.34 mg/dl (0.60-1.20)
[2017-08-08 09:49] VITALS: BP 118/68
--- NOTE | 2017-08-08 11:07 | Pharmacy Progress Note ---
Pharmacy Glycemic Short Note 2 Date of Service Aug 08, 2017. OUTPATIENT ANTIDIABETIC REGIMEN: * Lantus 23 units qPM * Humalog 8 units with meals + sliding scale * A1c = 7.1 % 06/24/17 ASSESSMENT: * Patient received 31 units of insulin over the last 24hrs * 13 units of basal insulin * 18 units of prandial/correctional insulin * BSGs ranging 87 - 209 over the past 24hrs * Anticipating insulin regimen will need decreased slightly for the next 24hrs d /t : * AM Fasting BSG = 87mg/dl this is below goal range for inpatient targets therefore Basal insulin needs increased * Total daily dose = 31 units, this is significantly reduced from outpatient dosing (total dose of 47 units). Dosing decreased for hypo on admission but now rebound hyperglycemia occurring. Will continue to titrate regimen conservatively based on BSG trends. PLAN FOR INPATIENT GLYCEMIC CONTROL: * Basal insulin: decrease * Lantus 10 units SQ PM * Bolus insulin: no change * NovoLog per scale ACHS or Q6hrs while NPO * Goal Range: Low 110 mg/dL - High 140 mg/dL * Correction Factor: 20 mg/dL/unit * Nutritional / Prandial insulin per carb ratio of 1 unit per 8 grams CHO consumed PLAN FOR DISCHARGE: * A1c = 7.1% * This is likely too low for patient based on age/comorbidities. Pt may be experiencing hypoglycemia as an outpatient * Recommend decreasing outpatient basal and fixed doses of NovoLog for less stringent control
--- NOTE | 2017-08-08 11:30 | Pharmacy Progress Note ---
Pharmacy Abx Dose Progress Nt Date of Service Aug 08, 2017. Pharmacy Dosing Scope The patient is currently receiving the following antimicrobial agents per Pharmacy consult: Vancomycin 1000 mg IV every 24 hours Objective Height (Feet): 5 Height (Inches): 4.00 Weight (Kilograms): 74.000 Vital Signs (Past 12Hrs) Vital Signs Past 12 Hours Date Time Temp Pulse Resp B/P (MAP) Pulse Ox O2 Delivery O2 Flow Rate FiO2 08/08/17 09:49 118/68 (85) 08/08/17 06:54 36.8 56 18 174/74 (107) 96 Room Air 08/08/17 00:48 166/74 (104) Lab Results (24Hrs) Item Value Date Time Vancomycin Level Trough 15.9 mcg/ml 08/07/17 1557 Micro Results Date/Time Source Procedure Growth Status 08/05/17 13:02 Blood Blood Culture - Preliminary NO GROWTH TO DATE. Resulted 08/05/17 12:52 Blood Blood Culture - Preliminary NO GROWTH TO DATE. Resulted 08/05/17 13:20 Urine , Clean Catch Urine Culture - Final NO GROWTH - LESS THAN 1,000 COLONIES/ML Complete 08/05/17 13:50 Incision Site Leg Right Lower Gram Stain - Final Complete 08/05/17 13:50 Wound Culture - Final Coag Neg Staphylococcus Complete Risk Factors for Resistance * Resident in a intermediate or extended-care facility * Antimicrobial use within the last 90 days Assessment & Plan Assessment 82 year old female receiving Vancomycin for treatment of R foot cellulitis Day # 4 of antimicrobial therapy Plan Vancomycin IV * Trough level of 15.9 mcg/mL is therapeutic but probably not at steady state since the level was drawn after only 1 maintenance dose. * However the renal function has improved from 1.61 on 08/05 to 1.34 today. * Goal trough level for Cellulitis is ~ 15 mcg/mL. * Therefore, will continue dose of Vancomycin 1000 mg IV every 24 hours. * Trough Vanco level ordered for: 08/09/17 before dose at 1600. * Trough tomorrow will help to confirm if the dosing is adequate or if patient is accumulating Vanco. Pharmacy will continue to follow and will adjust dose/frequency as necessary. Thank you.
[2017-08-08] MEDS: CEFEPIME IV 2,000 MG in SYRINGE 7.5 ML IV SCH (14:02)
[2017-08-08 15:41] VITALS: BP 166/66; PULSE 56; TEMP 37.1; O2SAT 96
--- NOTE | 2017-08-08 16:29 | Progress Note ---
Progress Note Date of Service Aug 08, 2017. 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
--- NOTE | 2017-08-08 16:33 | Progress Note ---
Internal Med Progress Note Date of Service: Aug 08, 2017. Provider Documentation: SUBJECTIVE: baseline dementia -want to leave hospital and go to her Mother's house no fever or chills mentions that she is not feeling well discomfort in abdomen , no nausea , tolerating diet well last bowel movement day before yesterday OBJECTIVE: Vital Signs-as noted below Exam: General-elderly female , well appearing, no sign of distress, pleasant , conversing Eyes-sclera non icteric , PERRLA/EOMI ENT-NAD Neck-no thyromegaly , trachea midline Lungs-clear to auscultate , no wheeze or rales Heart-regular S1/S2 , no lower ext edema ,no JVD Abdomen-soft, non tender , diminished bowel sound Extremities-s/p BKA on rt /amputation stump has dressing on /no edema, rash or deformity on L lower ext Neuro-baseline dementia , no focal neurological deficit Lab data as noted below. ASSESSMENT & PLAN: INFECTED RIGHT BKA INCISION SITE - - s/p right BKA on 06/26 for gangrene of right foot - cultures obtained 07/27 which grew proteus, enterococcus, and MSSA ( sensitivities as above); was being treated with PO Doxy and Omnicef - on empiric Abx with Vancomycin and Cefepime - repeat wound cultures -staph aureus - ID consult-appreciated cont current abx regimen -pt been pulling out peripheral line multiple times -ordered for PICC line -consent obtained for daughter - Dr. Pisano consulted - plan for debridement on 08/10 -requiring intermittent narcotics for pain Rt infected BKA area cont bowel regimen -high risk for significant constipation , illeus -given advanced age, dementia HYPERNATREMIA resolved with IV D5 w Na 145 - chronic dating back to 10/2015 per review of old records - likely due to poor PO intake -follow PRP - nephro consult, input appreciated pt was agitated earlier , pulled out IV will hold off IVF for now pt may need to resume IVF with D5 w pre op ( while NPO for surgery post op ) recommended IVF would be D5 W -avoid NSS /1/2 NSS HX CAD - stable, no reports of chest pain - ASA stopped due to subdural hematoma - continue nitrate and beta abida HTN - BP controlled, continue amlodipine, carvedilol, and isosorbide DM - hgb a1c 7.1 06/2017 - continue Lantus + SSI MYELODYSPLASTIC SYNDROME, CHRONIC ANEMIA - WBC and hgb at baseline - - monitor CBC - has received Procrit in the past DEMENTIA, ANXIETY, DEPRESSION - continue quetiapine and sertraline 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 DISPOSITION scheduled for I&D Of rt BKA stump on Thursday by Vascular surgery return back to [facility] when medically stable Vital Signs: Date Time Temp Pulse Resp B/P (MAP) Pulse Ox O2 Delivery O2 Flow Rate FiO2 08/08/17 15:41 37.1 56 16 166/66 (99) 96 Room Air 08/08/17 14:13 Room Air 08/08/17 09:49 118/68 (85) 08/08/17 06:54 36.8 56 18 174/74 (107) 96 Room Air 08/08/17 00:48 166/74 (104) 08/07/17 22:48 37.1 58 16 172/69 (103) 93 Room Air 08/07/17 20:45 65 170/78 (108) 08/07/17 19:35 Room Air Lab Results: Results Past 24 Hours Test 08/07/17 17:42 08/07/17 20:39 08/08/17 07:49 08/08/17 08:16 Range/Units Bedside Glucose 162 138 87 70-90 mg/dl Sodium Level 145 136-145 mmol/L Potassium Level 4.0 3.5-5.1 mmol/L Chloride Level 117 98-107 mmol/L Carbon Dioxide Level 23 21-32 mmol/L Anion Gap 6.0 3-11 mmol/L Blood Urea Nitrogen 46 7-18 mg/dl Creatinine 1.34 0.60-1.20 mg/dl Est Creatinine Clear Calc Drug Dose 31.4 ml/min Estimated GFR () 42.4 Estimated GFR (Non- 36.5 BUN/Creatinine Ratio 34.4 10-20 Random Glucose 57 70-99 mg/dl Calcium Level 8.6 8.5-10.1 mg/dl Test 08/08/17 11:57 Range/Units Bedside Glucose 187 70-90 mg/dl Microbiology Results 08/08/17 MRSA DNA Surveillance Screen - Final, Complete Specimen Negative for MRSA by DNA Probe
[2017-08-08] MEDS: VANCOMYCIN INJ 1,000 MG in SODIUM CHLORIDE 0.9% 250ML 250 ML IV SCH (17:00)
[2017-08-08] MEDS: LORAZEPAM INJ 0.5 MG in SYRINGE 0.25 ML IV PRN (17:32)
[2017-08-08] MEDS: COLLAGENASE OINT 30 GM TUBE EXT SCH (17:32)
[2017-08-08] MEDS: CLONIDINE HCL 0.1 MG TAB PO PRN (19:14)
[2017-08-08 19:15] VITALS: BP 174/76
[2017-08-08] MEDS: SERTRALINE HCL 50 MG TAB PO SCH (19:32)
[2017-08-08] MEDS ORDERED: INSULIN GLARGINE SOLOSTAR 100 UNITS/ML 3 ML PEN SQ SCH (21:00)
[2017-08-08] MEDS: POLYETHYLENE (MIRALAX) 17 GM PACK PO SCH (21:34)
[2017-08-08] MEDS: INSULIN GLARGINE SOLOSTAR 100 UNITS/ML 3 ML PEN SQ SCH (21:38)
[2017-08-08 22:50] VITALS: BP 138/52; PULSE 59; TEMP 37.1; O2SAT 95
[2017-08-09 07:14] VITALS: BP 189/68; PULSE 58; TEMP 36.9; O2SAT 93
[2017-08-09] MEDS: FERROUS SULFATE 325 MG TAB PO SCH ×2 (07:50→21:48)
[2017-08-09] MEDS: CLONIDINE HCL 0.1 MG TAB PO SCH ×2 (07:50→21:49)
[2017-08-09] MEDS: CARVEDILOL 12.5 MG TAB PO SCH ×2 (07:50→21:49)
[2017-08-09] MEDS: AMLODIPINE BESYLATE 5 MG TAB PO SCH (07:51)
[2017-08-09] MEDS: DOCUSATE SODIUM 100 MG CAP PO SCH (07:51)
[2017-08-09] MEDS: CALCIUM 600MG + VIT D 400 IU TAB PO SCH (07:51)
[2017-08-09] MEDS: ISOSORBIDE MONONITRATE 60 MG TABCR PO SCH (07:51)
[2017-08-09] MEDS: BISACODYL 5 MG TABEC PO SCH (07:51)
[2017-08-09] MEDS: POLYETHYLENE (MIRALAX) 17 GM PACK PO SCH ×2 (07:51→20:21)
[2017-08-09] MEDS: QUETIAPINE FUMARATE 25 MG TAB PO SCH ×2 (07:52→21:49)
[2017-08-09] MEDS: SENNA 8.6 MG TAB PO SCH (07:52)
[2017-08-09] MEDS: FAMOTIDINE 20 MG TAB PO SCH (07:55)
[2017-08-09] MEDS: COLLAGENASE OINT 30 GM TUBE EXT SCH (07:59)
[2017-08-09] MEDS: INSULIN ASPART 100 UNITS/ML 3 ML PEN SC SCH ×4 (08:00→21:58)
[2017-08-09 10:19] LABS: CALCIUM 8.6 mg/dl (8.5-10.1); CREATININE 1.37 mg/dl (0.60-1.20); POTASSIUM 4.2 mmol/L (3.5-5.1)
[2017-08-09 10:57] VITALS: BP 134/68
[2017-08-09] MEDS: CEFEPIME IV 2,000 MG in SYRINGE 7.5 ML IV SCH (13:49)
[2017-08-09] MEDS ORDERED: VANCOMYCIN TROUGH ONE (15:30)
[2017-08-09 15:31] VITALS: BP 163/69; PULSE 59; TEMP 36.9; O2SAT 97
[2017-08-09] MEDS: VANCOMYCIN INJ 1,000 MG in SODIUM CHLORIDE 0.9% 250ML 250 ML IV SCH (16:29)
--- NOTE | 2017-08-09 17:00 | Progress Note ---
Internal Med Progress Note Date of Service: Aug 09, 2017. Provider Documentation: SUBJECTIVE: pt pulled out PICC line today needed to have peripheral line placed seen and evaluated at bedside , sitting on chair . pleasant-dementia , conversing , wants to know if she can get out through the window not aware of PICC line sleeves placed in rt arm at the peripheral site ordered for soft Mittens pt is counselled to keep the mittens on -so her hands will stay warm agreeable one to one observation ordered OBJECTIVE: Vital Signs-as noted below Exam: General-elderly female , well appearing, no sign of distress, pleasant , conversing Eyes-sclera non icteric , PERRLA/EOMI ENT-NAD Neck-no thyromegaly , trachea midline Lungs-clear to auscultate , no wheeze or rales Heart-regular S1/S2 , no lower ext edema ,no JVD Abdomen-soft, non tender , diminished bowel sound Extremities-s/p BKA on rt /amputation stump has dressing on /no edema, rash or deformity on L lower ext ; pulled out PICC line form rt arm ,dressing present , no active bleeding noted Neuro-baseline dementia , no focal neurological deficit Lab data as noted below. 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 Pisano consulted - appreciate input Per Vascular Surgery : Pt's wound appears improved with abx and local wound care. No need for debridement. Recommend continue abx and continue local wound care with santyl and dry dressing to RLE open area change q day. HYPERNATREMIA resolved with IV D5 w Na 145 - chronic dating back to 10/2015 per review of old records - likely due to poor PO intake - nephro consult, input appreciated pt was agitated earlier , pulled out IV will hold off IVF for now -follow PRP HX CAD - stable, no reports of chest pain - ASA stopped due to subdural hematoma - continue nitrate and beta abida HTN - BP controlled, continue amlodipine, carvedilol, and isosorbide DM - hgb a1c 7.1 06/2017 - continue Lantus + SSI MYELODYSPLASTIC SYNDROME, CHRONIC ANEMIA - WBC and hgb at baseline - - monitor CBC - has received Procrit in the past DEMENTIA, ANXIETY, DEPRESSION - continue quetiapine and sertraline 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 DISPOSITION return back to [facility] when medically stable Vital Signs: Date Time Temp Pulse Resp B/P (MAP) Pulse Ox O2 Delivery O2 Flow Rate FiO2 08/09/17 15:31 36.9 59 18 163/69 (100) 97 Room Air 08/09/17 10:57 134/68 (90) 08/09/17 08:15 Room Air 08/09/17 07:14 36.9 58 18 189/68 (108) 93 Room Air 08/08/17 23:20 Room Air 08/08/17 22:50 37.1 59 16 138/52 (80) 95 Room Air 08/08/17 20:00 Room Air 08/08/17 19:15 174/76 (108) Lab Results: Results Past 24 Hours Test 08/08/17 21:01 08/09/17 08:00 08/09/17 09:17 08/09/17 12:44 Range/Units Bedside Glucose 143 96 208 70-90 mg/dl Sodium Level 145 136-145 mmol/L Potassium Level 4.2 3.5-5.1 mmol/L Chloride Level 116 98-107 mmol/L Carbon Dioxide Level 21 21-32 mmol/L Anion Gap 8.0 3-11 mmol/L Blood Urea Nitrogen 45 7-18 mg/dl Creatinine 1.37 0.60-1.20 mg/dl Est Creatinine Clear Calc Drug Dose 30.7 ml/min Estimated GFR () 41.2 Estimated GFR (Non- 35.6 BUN/Creatinine Ratio 33.0 10-20 Random Glucose 134 70-99 mg/dl Calcium Level 8.6 8.5-10.1 mg/dl Test 08/09/17 15:27 08/09/17 17:03 Range/Units Vancomycin Level Trough 18.0 SEE COMMENT mcg/ml Bedside Glucose 216 70-90 mg/dl
[2017-08-09] MEDS ORDERED: OXYC-57 PO (17:09)
[2017-08-09] MEDS ORDERED: APR25 PO (17:09)
[2017-08-09] MEDS ORDERED: SNTO30 EXT (17:09)
--- NOTE | 2017-08-09 17:16 | Discharge Instructions ---
Discharge Instructions Date of Service Aug 09, 2017. 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 Additional Information Patient informed of condition: Yes Advance Directives: Yes DNR: Yes Level of Care: Skilled Communicable Disease: No Prognosis: Stable Fields Catheter: No Instructions / Follow-Up Instructions / Follow-Up CONTINUE TO FOLLOW UP WITH PHYSICIAN AT [facility] AJ FOLLOW UP IN 2 WEEKS CONTINUE LOCAL WOUND CARE OF RT LOWER EXT BKA SITE WITH SANTYL AND APPLY DRY DRESSING /CHANGE DAILY LAB : BASIC METABOLIC PANEL IN 1 WEEK . Current Hospital Diet Patient's current hospital diet: AHA Diet (Heart Healthy), Low Sodium Diet (2gm Na), Diabetes Type 2 Diet Discharge Diet Recommended Diet: AHA Diet (Heart Healthy), Low Sodium Diet (2gm Na), Diabetes Type 2 Diet Pending Studies Studies pending at discharge: yes List of pending studies: BASIC METABOLIC PANEL IN 1 WEEK Physician Orders On Transfer Dressing Changes: CONTINUE LOCAL WOUND CARE OF RT LOWER EXT BKA SITE/OPEN WOUND WITH SANTYL AND APPLY DRY DRESSING /CHANGE DAILY Laboratory Results Hemoglobin A1c Test 06/24/17 07:55 Range/Units Estimated Average Glucose 157 mg/dl Hemoglobin A1c 7.1 H 4.5-5.6 % Medical Emergencies . Who to Call and When: Medical Emergencies: If at any time you feel your situation is an emergency, please call 911 immediately. . Non-Emergent Contact Non-Emergency issues call your: Primary Care Provider . . "Provider Documentation" section prepared by Juli Erickson. . Core Measure Problem Core Measures: None
--- NOTE | 2017-08-09 20:45 | Pharmacy Progress Note ---
Pharmacy Abx Dose Short Note Date of Service Aug 09, 2017. Assessment & Plan Assessment * 82 year old female receiving VANCOMYCIN IV for treatment of cellulitis of amputation site, R foot * Day # 5 of antimicrobial therapy * Renal fxn stable, mildly improved based upon labs * Currently afebrile Plan Vancomycin * Trough level of 18 mcg/mL is therapeutic * Continue dose of 1000 mg IV every 24 hours * Goal trough level for cellulitis : 15 to 20 mcg/mL * Will repeat level again in 3-4 days if therapy continues Pharmacy will continue to follow and will adjust dose/frequency as necessary. Thank you.
[2017-08-09] MEDS ORDERED: SENNA 8.6 MG TAB PO SCH (21:00)
[2017-08-09] MEDS ORDERED: DOCUSATE SODIUM 100 MG CAP PO PRN (21:00)
[2017-08-09] MEDS: SERTRALINE HCL 50 MG TAB PO SCH (21:48)
[2017-08-09] MEDS: INSULIN GLARGINE SOLOSTAR 100 UNITS/ML 3 ML PEN SQ SCH (21:59)
[2017-08-09 23:07] VITALS: BP_SYST 187; BP_DIAS 49; BP_DIAS 66; PULSE 69; TEMP 37.7; O2SAT 95
[2017-08-09] MEDS: CLONIDINE HCL 0.1 MG TAB PO PRN (23:27)
[2017-08-10 03:49] VITALS: BP 174/54; PULSE 60; TEMP 37.4; O2SAT 96
[2017-08-10 07:45] VITALS: BP 182/70; PULSE 59; TEMP 37.1; O2SAT 94
[2017-08-10 07:47] LABS: HEMATOCRIT 26.2 % (37-47); MEAN CELL VOLUME 101.2 fL (80-100); MEAN CORPUSCULAR HGB CONC 31.7 g/dl (32-36); MEAN PLATELET VOLUME 12.7 fL (7.4-10.4); PLATELET COUNT 240 K/uL (130-400); RED BLOOD COUNT 2.59 M/uL (4.2-5.4); WHITE BLOOD COUNT 3.18 K/uL (4.8-10.8)
[2017-08-10 08:16] LABS: BUN/CREATININE RATIO 27.7 (10-20); CALCIUM 8.4 mg/dl (8.5-10.1); CREATININE 1.56 mg/dl (0.60-1.20); POTASSIUM 4.1 mmol/L (3.5-5.1)
[2017-08-10] MEDS: CALCIUM 600MG + VIT D 400 IU TAB PO SCH (09:10)
[2017-08-10 09:11] VITALS: BP 169/61; PULSE 65
[2017-08-10] MEDS: FERROUS SULFATE 325 MG TAB PO SCH (09:11)
[2017-08-10] MEDS: CLONIDINE HCL 0.1 MG TAB PO SCH (09:13)
[2017-08-10] MEDS: CARVEDILOL 12.5 MG TAB PO SCH (09:14)
[2017-08-10] MEDS: ISOSORBIDE MONONITRATE 60 MG TABCR PO SCH (09:15)
[2017-08-10] MEDS: AMLODIPINE BESYLATE 5 MG TAB PO SCH (09:16)
[2017-08-10] MEDS: COLLAGENASE OINT 30 GM TUBE EXT SCH (09:20)
[2017-08-10] MEDS: QUETIAPINE FUMARATE 25 MG TAB PO SCH (09:21)
[2017-08-10] MEDS: BISACODYL 5 MG TABEC PO SCH (09:23)
[2017-08-10] MEDS: FAMOTIDINE 20 MG TAB PO SCH (09:23)
[2017-08-10] MEDS: POLYETHYLENE (MIRALAX) 17 GM PACK PO SCH (09:24)
[2017-08-10] MEDS: INSULIN ASPART 100 UNITS/ML 3 ML PEN SC SCH ×2 (09:30→13:17)
--- NOTE | 2017-08-10 10:04 | Progress Note ---
Progress Note Date of Service: Aug 10, 2017. Subjective 82 yo f with multiple medical problems, including dementia, seen in f/u today regarding her RLE BKA site infection. Pt denies any complaints. Apparently having difficulty keeping IV access, as pt removes her IV's and PICC lines d/t confusion. Problem List Medical Problems: (1) Altered mental status Status: Acute (2) Anemia Status: Acute (3) Arterial insufficiency Status: Acute (4) Cellulitis of right foot Status: Acute (5) Constipation Status: Acute (6) Cyst of right kidney Status: Acute (7) Dehydration Status: Acute (8) Hypoglycemia Status: Acute (9) Hypoglycemia Status: Acute Objective Vital Signs Vital Signs Past 12 Hours Date Time Temp Pulse Resp B/P (MAP) Pulse Ox O2 Delivery O2 Flow Rate FiO2 08/10/17 09:11 65 169/61 (97) 08/10/17 07:45 37.1 59 18 182/70 (107) 94 Room Air 08/10/17 03:49 37.4 60 16 174/54 (94) 96 Room Air 08/09/17 23:29 Room Air 08/09/17 23:07 37.7 69 18 187/66 (106) 95 Room Air 187/49 (95) Exam CONST: A &O x1, NAD, chronically ill appearing, pleasantly confused EXT: RLE BKA site with necrotic tissue at suture line, superficial open areas, mild erythema. Laboratory and Microbiology Results Past 24 Hours Test 08/09/17 12:44 08/09/17 15:27 08/09/17 17:03 08/09/17 21:11 Range/Units Bedside Glucose 208 216 223 70-90 mg/dl Vancomycin Level Trough 18.0 SEE COMMENT mcg/ml Test 08/10/17 07:12 08/10/17 07:55 Range/Units White Blood Count 3.18 4.8-10.8 K/uL Red Blood Count 2.59 4.2-5.4 M/uL Hemoglobin 8.3 12.0-16.0 g/dL Hematocrit 26.2 37-47 % Mean Corpuscular Volume 101.2 80-100 fL Mean Corpuscular Hemoglobin 32.0 25-34 pg Mean Corpuscular Hemoglobin Concent 31.7 32-36 g/dl RDW Standard Deviation 78.7 36.4-46.3 fL RDW Coefficient of Variation 22.3 11.5-14.5 % Platelet Count 240 130-400 K/uL Mean Platelet Volume 12.7 7.4-10.4 fL Sodium Level 146 136-145 mmol/L Potassium Level 4.1 3.5-5.1 mmol/L Chloride Level 115 98-107 mmol/L Carbon Dioxide Level 22 21-32 mmol/L Anion Gap 9.0 3-11 mmol/L Blood Urea Nitrogen 43 7-18 mg/dl Creatinine 1.56 0.60-1.20 mg/dl Est Creatinine Clear Calc Drug Dose 26.9 ml/min Estimated GFR () 35.2 Estimated GFR (Non- 30.4 BUN/Creatinine Ratio 27.7 10-20 Random Glucose 137 70-99 mg/dl Calcium Level 8.4 8.5-10.1 mg/dl Bedside Glucose 145 70-90 mg/dl ASSESSMENT and PLAN: RLE BKA site infection Pt improved with local wound care. Recommend continue local wound care with daily dressing changes and application of santyl in wound bed. ABx per ID. Will see in office within 2 weeks after d/c.
--- NOTE | 2017-08-10 10:22 | Progress Note ---
Subjective Date of Service: Aug 10, 2017. Subjective Pt evaluation today including: conversation w/ patient, physical exam, chart review, lab review pt oob to chair on 1:1 pulled picc out over weekend, perph placed. No plans for OR per surgery, local care only planned. remains on IV abx for now, afebrile. resting comfortably, opens eyes to name, denies pain. dressing intact. 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 Problem List Medical Problems: (1) Altered mental status Status: Acute (2) Anemia Status: Acute (3) Arterial insufficiency Status: Acute (4) Cellulitis of right foot Status: Acute (5) Constipation Status: Acute (6) Cyst of right kidney Status: Acute (7) Dehydration Status: Acute (8) Hypoglycemia Status: Acute (9) Hypoglycemia Status: Acute Objective Vital Signs Date Time Temp Pulse Resp B/P (MAP) Pulse Ox O2 Delivery O2 Flow Rate FiO2 08/10/17 09:11 65 169/61 (97) 08/10/17 07:45 37.1 59 18 182/70 (107) 94 Room Air 08/10/17 03:49 37.4 60 16 174/54 (94) 96 Room Air 08/09/17 23:29 Room Air 08/09/17 23:07 37.7 69 18 187/66 (106) 95 Room Air 187/49 (95) 08/09/17 15:31 36.9 59 18 163/69 (100) 97 Room Air 08/09/17 15:30 Room Air 08/09/17 10:57 134/68 (90) Physical Exam General Appearance: WD/WN, no apparent distress Neck: supple Respiratory/Chest: lungs clear, normal breath sounds, no respiratory distress Cardiovascular: regular rate, rhythm, no edema Abdomen: soft Extremities: non-tender Neurologic/Psychiatric: + pertinent finding (lethergic but appropriate) Skin: normal color, no rash Comments: dressing intact Laboratory Results Item Value Date Time Gram Stain - Final Complete 08/05/17 1350 Incision Site Leg Right Lower Blood Culture - Preliminary Resulted 08/05/17 1302 Blood NO GROWTH TO DATE. Blood Culture - Preliminary Resulted 08/05/17 1252 Blood NO GROWTH TO DATE. Last 24 Hours Test 08/09/17 12:44 08/09/17 15:27 08/09/17 17:03 08/09/17 21:11 Bedside Glucose 208 mg/dl 216 mg/dl 223 mg/dl Vancomycin Level Trough 18.0 mcg/ml Test 08/10/17 07:12 08/10/17 07:55 White Blood Count 3.18 K/uL Red Blood Count 2.59 M/uL Hemoglobin 8.3 g/dL Hematocrit 26.2 % Mean Corpuscular Volume 101.2 fL Mean Corpuscular Hemoglobin 32.0 pg Mean Corpuscular Hemoglobin Concent 31.7 g/dl RDW Standard Deviation 78.7 fL RDW Coefficient of Variation 22.3 % Platelet Count 240 K/uL Mean Platelet Volume 12.7 fL Sodium Level 146 mmol/L Potassium Level 4.1 mmol/L Chloride Level 115 mmol/L Carbon Dioxide Level 22 mmol/L Anion Gap 9.0 mmol/L Blood Urea Nitrogen 43 mg/dl Creatinine 1.56 mg/dl Est Creatinine Clear Calc Drug Dose 26.9 ml/min Estimated GFR () 35.2 Estimated GFR (Non- 30.4 BUN/Creatinine Ratio 27.7 Random Glucose 137 mg/dl Calcium Level 8.4 mg/dl Bedside Glucose 145 mg/dl Assessment and Plan (1) Post op infection Assessment & Plan: will change to po doxy as she will likely not be able to tolerate picc line, will give 21 days. will need continued wound care. doubt osteo with sed rate of only 13. ok for d/c when otherwise stable.
--- NOTE | 2017-08-10 10:36 | Pharmacy Progress Note ---
Glycemic: Assessment & Plan Date of Service Aug 10, 2017. Assessment & Plan The patient is currently receiving ~30 units of insulin per day. BSGs ranging 96 - 223 mg/dl over the past 24hrs. The patient had elevated blood sugars yesterday because she refused dinner coverage. Fasting this morning was 145 mg/ dL which represents excellent correction from yesterday evening at 223 mg/dL. * Basal insulin: Lantus 10 units every 24 hours in the evening * Correctional Insulin: Novolog Correction per scale ACHS Goal Range: Low 110 mg/dL - High 140 mg/dL Correction Factor: 20 mg/dL/unit * Prandial insulin: Per carb ratio of 1 unit per 8 grams CHO consumed BSGs continue to improve, no changes needed to inpatient regimen at this time. Pharmacy will continue to monitor patient daily and write orders per [facility] inpatient glycemic control protocol. Thanks. * Please note that the plan above was derived based on current level of insulin resistance and hospital stress. These recommendations are appropriate for inpatient admission only. Plan of care upon discharge will need to be reassessed to avoid potential outpatient hypo/hyperglycemia.
[2017-08-10] MEDS ORDERED: DOXYCYCLINE HYCLATE 100 MG CAP PO SCH (11:00)
[2017-08-10 11:11] VITALS: BP 113/59; PULSE 61
[2017-08-10] MEDS ORDERED: DOXY100C76 PO (13:16)
[2017-08-10] MEDS ORDERED: DXY100 PO (13:21)
--- NOTE | 2017-08-10 13:23 | Discharge Summary ---
Discharge Summary Date of Service Aug 10, 2017. 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 /DEMENTIA Consultations: ID DR JANE VASCULAR SURGERY DR AJ NEPHROLOGY DR CLINE Medication Reconciliation New Medications: Doxycycline Hyclate (Doxycycline Hyclate) 100 Mg Cap 1 CAP PO BID for 21 Days, #42 Collagenase (Santyl) 250 Unit/Gm Oin 1 APPLN EXT Q24H for 30 Days APPLY TO RT LOWER EXT OPEN WOUND THEN COVER WITH DRY GAUZE Hydralazine Hcl (Apresoline) 25 Mg Tab 25 MG PO BID for 30 Days, #60 TAB Continued Medications: Acetaminophen Tab (Tylenol) 325 Mg Tab 650 MG PO Q6H PRN for Pain, TAB Amlodipine (Norvasc) 10 Mg Tab 10 MG PO QAM, TAB Bisacodyl (Dulcolax) 10 Mg Sup 1 SUPP AK Q4DAY PRN for Constipation, SUP Calcium Carbonate-Vitamin D (Calcium + D) 1 Tab Tab 1 TAB PO DAILY Carvedilol (Carvedilol) 12.5 Mg Tab 18.75 MG PO BID for 30 Days, TAB Clonidine Hcl (Catapres) 0.2 Mg Tab 0.4 MG PO BID Dextrose (Diabetic Use) (Insta-Glucose) 77.4 % Gel 1 APPLN PO UD PRN for HYPOGLYCEMIA PROTOCOL Docusate Sodium (Docusate Sodium) 100 Mg Cap 100 MG PO BID Famotidine (Pepcid) 20 Mg Tab 20 MG PO QAM, TAB Ferrous Sulfate (Kp Ferrous Sulfate) 325 Mg Tab 1 TAB PO BID for 30 Days, #60 TAB 3 Refills Glucagon (Glucagon Emergency Kit) 1 Mg Kit 1 MG IM UD PRN for HYPOGLYCEMIA PROTOCOL Insulin Glargine (Lantus Solostar) 100 Unit/Ml Inj 23 UNITS SQ PM, #15 Insulin Lispro (Human) (Humalog) 100 Unit/Ml Inj 8 UNITS SQ AC Insulin Lispro (Human) (Humalog) 100 Unit/Ml Inj 1 DOSE SQ WM 71-200=0 201-300=2UNITS 301-399=4UNITS 400+ CALL Isosorbide Mononitrate Ext Rel (Imdur Ext Rel) 60 Mg Ertab 120 MG PO QAM, TAB Magnesium Hydroxide (Milk Of Magnesia) 30 Ml Susp 30 ML PO [id number] PRN for Constipation, ML Nitroglycerin (Nitrostat) 0.4 Mg Tab 0.4 MG UT PRN, BTL Oxycodone/Acetaminophen 5MG/325MG (Percocet 5MG/325MG) Tab 1-2 TAB PO Q6H PRN for Moderate Pain for 3 Days, #12 TAB (This prescription has been renewed) PAIN Probiotic Product (Probiotic Daily) 1 Cap Cap 1 CAP PO BID Quetiapine Fumarate (Quetiapine Fumarate) 25 Mg Tab 12.5 MG PO DAILY for 30 Days, #15 TAB Quetiapine Fumarate (Seroquel) 25 Mg Tab 1 TAB PO HS for 30 Days, #30 TAB 2 Refills Senna (Senokot) 8.6 Mg Tab 2 TAB PO BID, TAB Sertraline (Zoloft) 50 Mg Tab 1 TAB PO HS for 30 Days, TAB 2 Refills starting 08/10 Sodium Phosphate/Biphosphate (Fleet Enema) Vanessa 1 EA AK DAILY PRN for Constipation, BTL Discontinued Medications: Cefdinir (Omnicef) 300 Mg Cap 300 MG PO Q12H, CAP Sertraline (Zoloft) 25 Mg Tab 1 TAB PO HS for 30 Days, TAB 2 Refills x 7 days, last dose on 08/09 Referrals At Discharge Follow up Referrals: Physician Referral - Within 2 Weeks with Rickey Aj M.D. Physician Referral - Within 1-2 Weeks with Jennifer. Jane D.O. Admission Information HPI (per Admitting provider): 82 year old female who was referred for direct admission for infection of right BKA surgical site. Patient was admitted to [facility] 06/23 - 07/03 for gangrene of the right foot and subsequently underwent a right BKA by Dr. Aj on 06/26. Patient has developed redness and mild dehiscence to the site and was being treated with doxycycline and Omnicef at [facility]. Cultures were obtained that grew enterococcus, proteus, and staph aureus. Patient was evaluated by Dr. Aj in the office today and he felt that patient would benefit from admission to the hospital with IV antibiotics. Patient has dementia so history is limited from her. She currently offers no complaints. Patient does not appear toxic or in acute distress. At the time of my exam she is resting in bed comfortably. Physical Exam (per Admitting): General Appearance: WD/WN, no apparent distress Head: normocephalic, atraumatic Eyes: normal inspection, EOMI, sclerae normal ENT: hearing grossly normal, + pertinent finding (mucous membranes moist) Neck: supple, no JVD, trachea midline Respiratory/Chest: lungs clear, normal breath sounds, no respiratory distress Cardiovascular: regular rate, rhythm, normal peripheral pulses, + pertinent finding (+1-2 pitting edema LLE) Abdomen/GI: normal bowel sounds, non tender, soft, no organomegaly Extremities/Musculoskelatal: no calf tenderness (left), normal capillary refill, + pertinent finding (s/p right BKA) Neurologic/Psych: alert, + disoriented (oriented to self only; pleasant and cooperative; no gross focal deficits noted) Skin: normal color, warm/dry, + pertinent finding (right BKA incision partially dehisced with surrounding erythema and areas of eschar ) Hospital Course PHYSICAL EXAM : Exam: General-elderly female , well appearing, no sign of distress, pleasant , conversing Eyes-sclera non icteric , PERRLA/EOMI ENT-NAD Neck-no thyromegaly , trachea midline Lungs-clear to auscultate , no wheeze or rales Heart-regular S1/S2 , no lower ext edema ,no JVD Abdomen-soft, non tender , diminished bowel sound Extremities-s/p BKA on rt /amputation stump has dressing on /no edema, rash or deformity on L lower ext ; pulled out PICC line form rt arm ,dressing present , no active bleeding noted Neuro-baseline dementia , no focal neurological deficit INFECTED RIGHT BKA INCISION SITE - - s/p right BKA on 06/26 for gangrene of right foot - cultures obtained 07/27 which grew proteus, enterococcus, and MSSA ( sensitivities as above); was being treated with PO Doxy and Omnicef - Was on empiric Abx with Vancomycin and Cefepime - repeat wound cultures -staph aureus on IV Vancomycin , D/c Cefepime - ID consulted - -pt been pulling out peripheral line multiple times -PICC line placed -pt pulled out the line D/w ID regarding choice of ABx -preferably Oral ( very difficult to keep IV Access due to pt's dementia ) and duration of treatment - appreciated input From Dr Keating recommend to change the Abx to PO Doxycycline for total 14 days - Dr. Aj consulted - appreciate input Per Vascular Surgery : Pt's wound improved with abx and local wound care. No need for debridement. Recommend continue abx and continue local wound care with santyl and dry dressing to RLE open area change q day. stable to be discharged /transfer to [facility] today Follow up with Vascular surgery Dr Aj in office in 2 weeks HYPERNATREMIA Improved with IV hydration - chronic dating back to 10/2015 per review of old records - likely due to poor PO intake - nephro consult, input appreciated pt was agitated earlier , pulled out IV stable to be discharge to [facility] today repeat PRP in 1 week HX CAD - stable, no reports of chest pain - ASA stopped due to subdural hematoma - continue nitrate and beta abida HTN - BP controlled, continue amlodipine, carvedilol, and isosorbide DM - hgb a1c 7.1 06/2017 - continue Lantus + SSI MYELODYSPLASTIC SYNDROME, CHRONIC ANEMIA - WBC and hgb at baseline - - monitor CBC - has received Procrit in the past DEMENTIA, ANXIETY, DEPRESSION - continue quetiapine and sertraline HX TRAUMATIC SUBDURAL HEMATOMA - 04/2017 - avoid blood thinners DVT PROPHYLAXIS - SCDs no pharmacological anticoagulation due to hx of subdural hematoma CODE STATUS - Patient is a DNR as per POLST sent with patient from [facility]. DISPOSITION return back to [facility] today Total time spent on discharge = 35 MINS This includes examination of the patient, discharge planning, medication reconciliation, and communication with other providers. Discharge Instructions Discharge Instructions Date of Service Aug 09, 2017. 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 Additional Information Patient informed of condition: Yes Advance Directives: Yes DNR: Yes Level of Care: Skilled Communicable Disease: No Prognosis: Stable Fields Catheter: No Instructions / Follow-Up Instructions / Follow-Up CONTINUE TO FOLLOW UP WITH PHYSICIAN AT [facility] VASCULAR SURGERY DR AJ FOLLOW UP IN 2 WEEKS CONTINUE LOCAL WOUND CARE OF RT LOWER EXT BKA SITE WITH SANTYL AND APPLY DRY DRESSING /CHANGE DAILY . Current Hospital Diet Patient's current hospital diet: AHA Diet (Heart Healthy), Low Sodium Diet (2gm Na), Diabetes Type 2 Diet Discharge Diet Recommended Diet: AHA Diet (Heart Healthy), Low Sodium Diet (2gm Na), Diabetes Type 2 Diet Pending Studies Studies pending at discharge: yes List of pending studies: BASIC METABOLIC PANEL IN 1 WEEK Physician Orders On Transfer Dressing Changes: CONTINUE LOCAL WOUND CARE OF RT LOWER EXT BKA SITE/OPEN WOUND WITH SANTYL AND APPLY DRY DRESSING /CHANGE DAILY Laboratory Results Hemoglobin A1c Test 06/24/17 07:55 Range/Units Estimated Average Glucose 157 mg/dl Hemoglobin A1c 7.1 H 4.5-5.6 % Medical Emergencies . Who to Call and When: Medical Emergencies: If at any time you feel your situation is an emergency, please call 911 immediately. . Non-Emergent Contact Non-Emergency issues call your: Primary Care Provider . . "Provider Documentation" section prepared by Juli Erickson. . Core Measure Problem Core Measures: None Additional Copies To Marlene Jane.Bre Eugene J., M.D.
[2017-08-10 14:14] VITALS: BP 113/59; PULSE 61; TEMP 37.1; O2SAT 94
--- NOTE | 2017-08-10 17:37 | Nephrology Progress Note ---
Nephrology Progress Note Date of Service: Aug 10, 2017. Subjective seen on rounds this am 0920. no c/o pain or dyspnea or much thirst. further states not hungry/thirsty. no iv access currently as she has repeatedly removed iv and even PICC. if wounds remain improved today, will be for d/c Objective Date Time Temp Pulse Resp B/P (MAP) Pulse Ox O2 Delivery O2 Flow Rate FiO2 08/10/17 14:14 37.1 61 18 94 Room Air 08/10/17 11:11 61 113/59 (77) 08/10/17 09:11 65 169/61 (97) 08/10/17 07:45 37.1 59 18 182/70 (107) 94 Room Air 08/10/17 07:15 Room Air 08/10/17 03:49 37.4 60 16 174/54 (94) 96 Room Air 08/09/17 23:29 Room Air 08/09/17 23:07 37.7 69 18 187/66 (106) 95 Room Air 187/49 (95) Physical Exam: General-aaox1, pleasant, interactive, on RA Eyes-no scleral icterus ENT-mm dry Neck-supple Lungs-cta btu diminished Heart-rrr Abdomen-bs+ s/nt/nd Extremities-no c/c/e, right bka Neuro-luther, fluent/inappropriate speech Last 24 Hours Test 08/09/17 21:11 08/10/17 07:12 08/10/17 07:55 08/10/17 11:49 Bedside Glucose 223 mg/dl 145 mg/dl 231 mg/dl White Blood Count 3.18 K/uL Red Blood Count 2.59 M/uL Hemoglobin 8.3 g/dL Hematocrit 26.2 % Mean Corpuscular Volume 101.2 fL Mean Corpuscular Hemoglobin 32.0 pg Mean Corpuscular Hemoglobin Concent 31.7 g/dl RDW Standard Deviation 78.7 fL RDW Coefficient of Variation 22.3 % Platelet Count 240 K/uL Mean Platelet Volume 12.7 fL Sodium Level 146 mmol/L Potassium Level 4.1 mmol/L Chloride Level 115 mmol/L Carbon Dioxide Level 22 mmol/L Anion Gap 9.0 mmol/L Blood Urea Nitrogen 43 mg/dl Creatinine 1.56 mg/dl Est Creatinine Clear Calc Drug Dose 26.9 ml/min Estimated GFR () 35.2 Estimated GFR (Non- 30.4 BUN/Creatinine Ratio 27.7 Random Glucose 137 mg/dl Calcium Level 8.4 mg/dl Assessment & Plan 82 yo female with dementia with resolving infection s/p right bka with chronic hypernatremia and ckd stage 3. hypernatremia-sodium improved from 149 to 145 currently off IVF and will encourage po intake CKD stage 3-likely multifactorial and remains stable. no indication for dialysis. continue current medical management; recheck bmp a week after d/c; est in ckd clinic next available after d/c w/ [facility] or myself
[2017-08-10] MEDS ORDERED: SERTRALINE HCL 50 MG TAB PO SCH (21:00)
== END 2017-08-10 16:18 | DRG 565 ==
LOC: C.MSW 11:36
PROVIDERS: ADMIT Hospitalist; ATTEND Hospitalist
PROC: 02HV33Z Insertion of Infusion Device into Superior Vena Cava, Percutaneous Approach (ICD-10-PCS; principal; 2017-08-09)
DX: T87.43 Infection of amputation stump, right lower extremity (principal); E87.0 Hyperosmolality and hypernatremia; T87.81 Dehiscence of amputation stump; B95.61 Methicillin susceptible Staphylococcus aureus infection as the cause of diseases classified elsewhere; F03.90 Unspecified dementia, unspecified severity, without behavioral disturbance, psychotic disturbance, mood disturbance, and anxiety; K21.9 Gastro-esophageal reflux disease without esophagitis; E11.22 Type 2 diabetes mellitus with diabetic chronic kidney disease; I25.10 Atherosclerotic heart disease of native coronary artery without angina pectoris; N18.3 Chronic kidney disease, stage 3 (moderate); E11.40 Type 2 diabetes mellitus with diabetic neuropathy, unspecified; E11.51 Type 2 diabetes mellitus with diabetic peripheral angiopathy without gangrene; I73.9 Peripheral vascular disease, unspecified; I13.10 Hypertensive heart and chronic kidney disease without heart failure, with stage 1 through stage 4 chronic kidney disease, or unspecified chronic kidney disease; D46.9 Myelodysplastic syndrome, unspecified; F32.9 Major depressive disorder, single episode, unspecified; F41.9 Anxiety disorder, unspecified; Z79.899 Other long term (current) drug therapy; Z79.4 Long term (current) use of insulin; Z89.511 Acquired absence of right leg below knee; Z66 Do not resuscitate; Z95.1 Presence of aortocoronary bypass graft; Z95.5 Presence of coronary angioplasty implant and graft; Z86.79 Personal history of other diseases of the circulatory system; Y83.5 Amputation of limb(s) as the cause of abnormal reaction of the patient, or of later complication, without mention of misadventure at the time of the procedure

== ENCOUNTER → 2017-08-17 | Outpatient (CLI) | payer OTHER ==
[~2017-08-17] MED LIST changes: +APR25 PO; -CEFD1CAP14 PO; -DOXY100C76 PO; +DXY100 PO; +QUET1TAB91 PO; +SERT50TA PO; +SNTO30 EXT
[2017-08-17 08:11] LABS: BASO % 1.7 %; BASO ABS # 0.06 K/uL (0-0.2); HEMATOCRIT 26.8 % (37-47); IG% 0.9 %; LYMPH % 32.3 %; LYMPH ABS # 1.13 K/uL (1.2-3.4); MEAN CELL VOLUME 104.3 fL (80-100); MEAN CORPUSCULAR HEMOGLOBIN 32.3 pg (25-34); MEAN PLATELET VOLUME 12.7 fL (7.4-10.4); MONO % 11.4 %; NEUT % 49.7 %; PLATELET COUNT 232 K/uL (130-400); RED BLOOD COUNT 2.57 M/uL (4.2-5.4)
[2017-08-17 08:21] LABS: BLOOD UREA NITROGEN 53 mg/dl (7-18); BUN/CREATININE RATIO 38.2 (10-20); CALCIUM 8.3 mg/dl (8.5-10.1); CARBON DIOXIDE 19 mmol/L (21-32); CHLORIDE 116 mmol/L (98-107); CREATININE 1.39 mg/dl (0.60-1.20); GLUCOSE 236 mg/dl (70-99); POTASSIUM 4.1 mmol/L (3.5-5.1); SODIUM 146 mmol/L (136-145)
[2017-08-17 08:37] LABS: ANISOCYTOSIS PRESENT; COMPLETE YES; ECHINOCYTES 1+; POIKILOCYTOSIS PRESENT
== END ==
LOC: C.LABUPHEI 07:44
PROVIDERS: ATTEND Nurse Practitioner Family
DX: I25.10 Atherosclerotic heart disease of native coronary artery without angina pectoris (principal)

== ENCOUNTER → 2017-09-04 | Outpatient (CLI) | payer OTHER ==
[2017-09-04 09:19] LABS: ESTIMATED AVERAGE GLUCOSE 131 mg/dl; HA1C FLAG Normal (Normal)
== END ==
LOC: C.LABUPHEI 08:31
PROVIDERS: ATTEND Nurse Practitioner Family
DX: E13.9 Other specified diabetes mellitus without complications (principal)

== ENCOUNTER → 2017-09-24 | Outpatient (CLI) | payer OTHER | END | disposition home or self-care (01) | LOC: C.LABUPHEI 08:52 | PROVIDERS: ATTEND Nurse Practitioner Family | DX: R45.1 Restlessness and agitation (principal) ==

== ENCOUNTER → 2017-11-18 | Outpatient (CLI) | payer OTHER ==
[~2017-11-18] MED LIST changes: +ACET-1693 PO; -ACET325T96 PO
== END ==
LOC: C.LABUPHEI 09:59
PROVIDERS: ATTEND Nurse Practitioner Family
DX: R45.1 Restlessness and agitation (principal)

== ENCOUNTER → 2017-12-03 | Outpatient (CLI) | payer OTHER ==
[2017-12-03 16:30] LABS: INFLUENZA B ANTIGEN Neg for Influ B (NEG)
== END ==
LOC: C.LABUPHEI 15:49
PROVIDERS: ATTEND Nurse Practitioner Family
DX: F01.51 Vascular dementia, unspecified severity, with behavioral disturbance (principal)

== ENCOUNTER → 2017-12-04 | Outpatient (CLI) | payer OTHER ==
[2017-12-04 08:38] LABS: BASO % 2.1 %; BASO ABS # 0.07 K/uL (0-0.2); EOS % 3.1 %; HEMATOCRIT 26.4 % (37-47); HEMOGLOBIN 8.2 g/dL (12.0-16.0); IG# 0.02 K/uL (0.00-0.02); LYMPH % 22.3 %; LYMPH ABS # 0.73 K/uL (1.2-3.4); MEAN CELL VOLUME 113.8 fL (80-100); MEAN CORPUSCULAR HEMOGLOBIN 35.3 pg (25-34); MEAN CORPUSCULAR HGB CONC 31.1 g/dl (32-36); MONO ABS # 0.36 K/uL (0.11-0.59); NEUT % 60.9 %; NEUT ABS # 1.99 K/uL (1.4-6.5); PLATELET COUNT 214 K/uL (130-400); RED CELL DISTRIBUTION WIDTH CV 21.5 % (11.5-14.5); RED CELL DISTRIBUTION WIDTH SD 81.6 fL (36.4-46.3); WHITE BLOOD COUNT 3.27 K/uL (4.8-10.8)
[2017-12-04 08:48] LABS: BLOOD UREA NITROGEN 34 mg/dl (7-18); CALCIUM 7.8 mg/dl (8.5-10.1); CARBON DIOXIDE 23 mmol/L (21-32); CREATININE 1.58 mg/dl (0.60-1.20); GLUCOSE 119 mg/dl (70-99); POTASSIUM 3.7 mmol/L (3.5-5.1); SODIUM 147 mmol/L (136-145)
== END ==
LOC: C.LABUPHEI 08:25
PROVIDERS: ATTEND Nurse Practitioner Family
DX: J09.X9 Influenza due to identified novel influenza A virus with other manifestations (principal)

== ENCOUNTER → 2017-12-04 | Outpatient (CLI) | payer OTHER | LOC: C.LABUPHEI 08:32 | PROVIDERS: ATTEND Nurse Practitioner Family | DX: R50.9 Fever, unspecified (principal) ==

== ENCOUNTER → 2017-12-09 | Outpatient (CLI) | payer OTHER ==
[2017-12-09 11:08] LABS: BLOOD UREA NITROGEN 60 mg/dl (7-18); CALCIUM 8.1 mg/dl (8.5-10.1); CARBON DIOXIDE 24 mmol/L (21-32); CREATININE 1.72 mg/dl (0.60-1.20); GLUCOSE 108 mg/dl (70-99); POTASSIUM 3.5 mmol/L (3.5-5.1); SODIUM 145 mmol/L (136-145)
== END ==
LOC: C.LABUPHEI 09:31
PROVIDERS: ATTEND Nurse Practitioner Family
DX: N18.3 Chronic kidney disease, stage 3 (moderate) (principal)

== ENCOUNTER → 2017-12-10 | Outpatient (CLI) | payer OTHER ==
[2017-12-10 08:45] LABS: BASO % 0.4 %; BASO ABS # 0.02 K/uL (0-0.2); EOS % 0.2 %; EOS ABS # 0.01 K/uL (0-0.5); HEMATOCRIT 27.1 % (37-47); HEMOGLOBIN 8.5 g/dL (12.0-16.0); IG# 0.03 K/uL (0.00-0.02); LYMPH % 11.2 %; MEAN CELL VOLUME 111.1 fL (80-100); MEAN CORPUSCULAR HEMOGLOBIN 34.8 pg (25-34); MEAN CORPUSCULAR HGB CONC 31.4 g/dl (32-36); MONO ABS # 0.31 K/uL (0.11-0.59); NEUT % 80.5 %; NEUT ABS # 3.58 K/uL (1.4-6.5); NUCLEATED RED BLOOD CELL ABS 0.03 K/uL (0-0); PLATELET COUNT 225 K/uL (130-400); RED CELL DISTRIBUTION WIDTH CV 20.8 % (11.5-14.5); RED CELL DISTRIBUTION WIDTH SD 76.7 fL (36.4-46.3); WHITE BLOOD COUNT 4.45 K/uL (4.8-10.8)
[2017-12-10 09:23] LABS: BLOOD UREA NITROGEN 58 mg/dl (7-18); CALCIUM 8.1 mg/dl (8.5-10.1); CARBON DIOXIDE 24 mmol/L (21-32); CREATININE 1.78 mg/dl (0.60-1.20); GLUCOSE 395 mg/dl (70-99); POTASSIUM 3.7 mmol/L (3.5-5.1); SODIUM 142 mmol/L (136-145)
== END ==
LOC: C.LABUPHEI 08:23
PROVIDERS: ATTEND Nurse Practitioner Family
DX: N18.3 Chronic kidney disease, stage 3 (moderate) (principal)

== ENCOUNTER → 2017-12-11 | Outpatient (CLI) | payer OTHER ==
[2017-12-11 08:51] LABS: BLOOD UREA NITROGEN 65 mg/dl (7-18); CARBON DIOXIDE 24 mmol/L (21-32); CREATININE 1.59 mg/dl (0.60-1.20); GLUCOSE 73 mg/dl (70-99); POTASSIUM 3.5 mmol/L (3.5-5.1); SODIUM 146 mmol/L (136-145)
== END ==
LOC: C.LABUPHEI 07:53
PROVIDERS: ATTEND Nurse Practitioner Family
DX: N18.3 Chronic kidney disease, stage 3 (moderate) (principal)

== ENCOUNTER → 2018-01-28 | Outpatient (CLI) | payer OTHER | LOC: C.LABUPHEI 09:34 | PROVIDERS: ATTEND Nurse Practitioner Family | DX: R45.1 Restlessness and agitation (principal) ==